=== PATIENT | female | born 1990 | race Caucasian/White ===

== ENCOUNTER → 2021-05-29 07:02 | Outpatient (CLI) | payer OTHER, SELFPAY ==
[2021-05-29 10:11] LABS: Erythrocyte Sedimentation Rate 64 mm/hr (0-30)
[2021-05-29 10:15] LABS: Absolute Lymphocyte Count 1.21 X10^3/uL (0.83-4.51); Absolute Neutrophil Count 5.9 X10^3/uL (2.0-7.7); Basophil# 0.01 X10^3/uL; Basophil% 0.1 % (0-1); Eosinophil# 0.06 X10^3/uL; Eosinophils% 0.8 % (0-5); Hematocrit 38.1 % (37-47); Hemoglobin 11.9 g/dL (12.0-15.0); Lymphocyte # 1.21 X10^3/ul (0.83-4.51); Lymphocyte % 15.9 % (19-41); Mean Corp Hgb Conc 31.2 g/dL (32-36); Mean Corpuscular Hgb 26.5 pg (27.0-32.0); Mean Corpuscular Volume 84.9 fL (81-99); Mean Platelet Vol. 13.6 fl (6.2-12.0); Monocyte# 0.41 X10^3/uL; Monocyte% 5.4 % (0-10); NRBC Flagged by Analyzer 0 % (0-5); Neutrophil # 5.88 X10^3/uL (2.7-7.7); Neutrophil % 77.5 % (47-70); Platelet Count 122 K/mm3 (150-450); RBC Distribution Width SD 40.1 fl (35.1-43.9); Red Blood Count 4.49 M/mm3 (4.2-5.4); White Blood Count 7.6 K/mm3 (4.4-11.0)
[2021-05-29 10:16] LABS: CRP 8.14 mg/L (0.0-3.0); Uric Acid 4.1 mg/dL (2.6-6.0)
[2021-05-30 18:39] LABS: ANTINUCLEAR ANTIBODIES DIRECT Positive (Negative)
== END ==
PROVIDERS: Referring Provider Orthopaedic Surgery; Visit Provider Orthopaedic Surgery
DX: M25.561 Pain in right knee (principal)
CPT/HCPCS: 36415; 84550; 85025; 85652; 86038; 86140; 86431

== ENCOUNTER → 2021-10-23 15:37 | Outpatient (CLI) | payer OTHER, SELFPAY ==
--- NOTE | 2021-10-23 15:42 | RAD_ITS ---
STUDY: X-RAY CHEST REASON FOR EXAM: Female, 30 years old. CHEST PAIN RHEUMATOID ARTHRITIS TECHNIQUE: XR Chest 2 Views COMPARISON: None FINDINGS: There is no demonstrated pleural abnormality. Normal size heart. Normal mediastinum and kar. Normal visualized pulmonary arteries. Normal visualized aortic arch and descending thoracic aorta. Normal visualized thoracic spine. Normal visualized ribs, clavicles, and shoulders. There is no demonstrated abnormality of the visualized soft tissue structures of the upper abdomen. RAD/Chest PA and Lateral IMPRESSION: There are no acute findings. Electronically Signed: Jhonny Eldridge MD at 15:57 EST , Service support ,
[2021-10-23 17:45] LABS: Absolute Lymphocyte Count 1.77 X10^3/uL (0.83-4.51); Absolute Neutrophil Count 5.1 X10^3/uL (2.0-7.7); Basophil# 0.01 X10^3/uL; Basophil% 0.1 % (0-1); Eosinophil# 0.04 X10^3/uL; Eosinophils% 0.5 % (0-5); Hematocrit 36.8 % (37-47); Lymphocyte # 1.77 X10^3/ul (0.83-4.51); Lymphocyte % 23.7 % (19-41); Mean Corp Hgb Conc 32.6 g/dL (32-36); Mean Corpuscular Hgb 28.4 pg (27.0-32.0); Monocyte# 0.54 X10^3/uL; Monocyte% 7.2 % (0-10); NRBC Flagged by Analyzer 0 % (0-5); Neutrophil # 5.07 X10^3/uL (2.7-7.7); Neutrophil % 68.1 % (47-70); POSITIVE COUNT YES; Platelet Count 62 K/mm3 (150-450); RBC Distribution Width CV 16.3 % (11.6-14.6); RBC Distribution Width SD 51.6 fl (35.1-43.9); Red Blood Count 4.23 M/mm3 (4.2-5.4); White Blood Count 7.5 K/mm3 (4.4-11.0)
[2021-10-23 17:52] LABS: Differential Indicated SCAN CRITERIA MET
[2021-10-23 17:56] LABS: AST(SGOT) 16 U/L (15-37); Alanine Aminotransfer ALT/SGPT 26 U/L (13-56); Albumin, Serum 3.6 g/dL (3.2-5.0); Alkaline Phosphatase 72 U/L (45-117); Bilirubin, Direct 0.12 mg/dL (0.00-0.30); Creatinine, Serum 0.72 mg/dL (0.55-1.02); EST Glomerular Filtration Rate 100 mL/min (>60); Est Glom Filt Rate - Afr Amer 121 mL/min (>60); Globulin 5.2 g/dL (2.2-4.2); Protein, Total 8.8 g/dL (6.4-8.2)
[2021-10-23 18:55] LABS: Platelet Estimate MOD DEC (ADEQ); Red Cell Morphology N CHROM NORMAL (NORM C&C)
[2021-10-23 18:56] LABS: Anisocytosis RARE
[2021-10-24 09:19] LABS: Hepatitis B Surface Antibody Reactive; Hepatitis C Antibody Non-Reactive (Nonreactive)
[2021-10-26 21:07] LABS: QNTFERON TB Mitogen Value > 10.00 IU/mL (.); QNTFERON TB Nil Value 0.01 IU/mL (.); QNTFERON TB1+ Ag Value 2.39 IU/mL (.); QNTFERON TB2+ Ag Value 2.04 IU/mL (.)
[2021-10-27 09:00] LABS: Hepatitis B Core Ab Total Negative (Negative); QNTIFERON TB Positive Criteria Positive (Negative)
== END ==
PROVIDERS: PCP Nurse Practitioner Family
DX: M05.79 Rheumatoid arthritis with rheumatoid factor of multiple sites without organ or systems involvement (principal); Z79.899 Other long term (current) drug therapy
CPT/HCPCS: 71046; 80076; 82565; 85025; 86480; 86704; 86706; 86803

== ENCOUNTER → 2023-01-07 | Outpatient (CLI) | payer OTHER, SELFPAY ==
[2023-01-07 10:11] LABS: Absolute Lymphocyte Count 1.23 X10^3/uL (0.83-4.51); Absolute Neutrophil Count 5.3 X10^3/uL (2.0-7.7); Basophil# 0.03 X10^3/uL; Basophil% 0.4 % (0-1); Eosinophils% 2.8 % (0-5); Hematocrit 42.5 % (37-47); Hemoglobin 13.6 g/dL (12.0-15.0); Lymphocyte # 1.23 X10^3/ul (0.83-4.51); Lymphocyte % 17.1 % (19-41); Mean Corpuscular Hgb 29.6 pg (27.0-32.0); Mean Corpuscular Volume 92.6 fL (81-99); Mean Platelet Vol. 9.8 fl (6.2-12.0); Monocyte# 0.43 X10^3/uL; NRBC Flagged by Analyzer 0 % (0-5); Neutrophil # 5.27 X10^3/uL (2.7-7.7); Neutrophil % 73.3 % (47-70); Platelet Count 226 K/mm3 (150-450); RBC Distribution Width CV 12.8 % (11.6-14.6); Red Blood Count 4.59 M/mm3 (4.2-5.4); White Blood Count 7.2 K/mm3 (4.4-11.0)
== END | disposition home or self-care (01) ==
LOC: MTLAB 07:15
PROVIDERS: PCP Nurse Practitioner Family; Referring Provider Internal Medicine Rheumatology; Visit Provider Internal Medicine Rheumatology
DX: Z79.899 Other long term (current) drug therapy (principal)
CPT/HCPCS: 36415; 85025

== ENCOUNTER → 2023-01-21 | Outpatient (CLI) | payer OTHER, SELFPAY ==
[2023-01-21 10:18] LABS: Absolute Lymphocyte Count 1.02 X10^3/uL (0.83-4.51); Absolute Neutrophil Count 5.1 X10^3/uL (2.0-7.7); Basophil# 0.03 X10^3/uL; Basophil% 0.4 % (0-1); Eosinophil# 0.13 X10^3/uL; Eosinophils% 1.9 % (0-5); Hematocrit 42.3 % (37-47); Hemoglobin 13.8 g/dL (12.0-15.0); Lymphocyte # 1.02 X10^3/ul (0.83-4.51); Lymphocyte % 15.1 % (19-41); Mean Corp Hgb Conc 32.6 g/dL (32-36); Mean Corpuscular Hgb 29.7 pg (27.0-32.0); Mean Corpuscular Volume 91.2 fL (81-99); Mean Platelet Vol. 10.6 fl (6.2-12.0); Monocyte# 0.52 X10^3/uL; Monocyte% 7.7 % (0-10); NRBC Flagged by Analyzer 0 % (0-5); Neutrophil # 5.05 X10^3/uL (2.7-7.7); Neutrophil % 74.6 % (47-70); Platelet Count 210 K/mm3 (150-450); RBC Distribution Width CV 12.9 % (11.6-14.6); RBC Distribution Width SD 42.5 fl (35.1-43.9); Red Blood Count 4.64 M/mm3 (4.2-5.4); White Blood Count 6.8 K/mm3 (4.4-11.0)
[2023-01-21 10:33] LABS: AST(SGOT) 21 U/L (15-37); Alanine Aminotransfer ALT/SGPT 26 U/L (13-56); Albumin, Serum 3.6 g/dL (3.2-5.0); Alkaline Phosphatase 93 U/L (45-117); Bilirubin, Direct 0.13 mg/dL (0.00-0.30); Globulin 4.2 g/dL (2.2-4.2); Protein, Total 7.8 g/dL (6.4-8.2)
== END | disposition home or self-care (01) ==
PROVIDERS: PCP Nurse Practitioner Family; Referring Provider Internal Medicine Rheumatology; Visit Provider Internal Medicine Rheumatology
DX: Z79.899 Other long term (current) drug therapy (principal)
CPT/HCPCS: 36415; 80076; 85025

== ENCOUNTER → 2023-05-21 | Outpatient (CLI) | payer OTHER, SELFPAY ==
[2023-05-24 13:07] LABS: QNTFERON TB Mitogen Value > 10.00 IU/mL (.); QNTFERON TB Nil Value 0.15 IU/mL (.); QNTFERON TB1+ Ag Value 2.28 IU/mL (.); QNTFERON TB2+ Ag Value 1.33 IU/mL (.); QNTIFERON TB Positive Criteria Positive (Negative)
== END | disposition home or self-care (01) ==
LOC: MTLAB 12:36
PROVIDERS: PCP Nurse Practitioner Family; Referring Provider Internal Medicine Rheumatology; Visit Provider Internal Medicine Rheumatology
DX: R76.11 Nonspecific reaction to tuberculin skin test without active tuberculosis (principal)
CPT/HCPCS: 36415; 86480

== ENCOUNTER → 2023-06-24 | Outpatient (CLI) | payer OTHER, SELFPAY ==
[2023-06-24 10:03] LABS: Hematocrit 40.4 % (37-47); Hemoglobin 13.3 g/dL (12.0-15.0); Mean Corp Hgb Conc 32.9 g/dL (32-36); Mean Corpuscular Hgb 29.4 pg (27.0-32.0); Mean Corpuscular Volume 89.2 fL (81-99); Mean Platelet Vol. 10.8 fl (6.2-12.0); Platelet Count 164 K/mm3 (150-450); RBC Distribution Width CV 13.3 % (11.6-14.6); RBC Distribution Width SD 43.6 fl (35.1-43.9); Red Blood Count 4.53 M/mm3 (4.2-5.4)
[2023-06-24 10:55] LABS: ALB/GLOB Ratio 0.8 RATIO (0.9-2.4); AST(SGOT) 15 U/L (15-37); Alanine Aminotransfer ALT/SGPT 18 U/L (13-56); Albumin, Serum 3.4 g/dL (3.2-5.0); Alkaline Phosphatase 75 U/L (45-117); Anion Gap 5 (5-15); BUN 16 mg/dL (7-18); BUN/Creat Ratio 24.2 RATIO (10-20); Calcium,Total 8.4 mg/dL (8.5-10.1); Chloride 107 mmol/L (98-107); Cholesterol 109 mg/dL (200); Creatinine, Serum 0.66 mg/dL (0.55-1.02); EST Glomerular Filtration Rate 109 mL/min (>60); Est Glom Filt Rate - Afr Amer 131 mL/min (>60); Globulin 4.3 g/dL (2.2-4.2); Glucose 95 mg/dL (74-106); High Density Lipoprotein 35 mg/dL; Potassium 4.3 mmol/L (3.5-5.1); Protein, Total 7.7 g/dL (6.4-8.2); Sodium Level 137 mmol/L (136-145); Triglycerides 61 mg/dL; Very Low Density Lipoprotein 12 mg/dL (5-40)
== END | disposition home or self-care (01) ==
LOC: MTLAB 07:04
PROVIDERS: PCP Nurse Practitioner Family; Visit Provider Nurse Practitioner Family
DX: Z00.00 Encounter for general adult medical examination without abnormal findings (principal)
CPT/HCPCS: 36415; 80053; 80061; 85027

== ENCOUNTER → 2023-07-16 | Outpatient (CLI) | payer OTHER, SELFPAY ==
[2023-07-16 10:46] LABS: AST(SGOT) 12 U/L (15-37); Alanine Aminotransfer ALT/SGPT 16 U/L (13-56); Albumin, Serum 3.3 g/dL (3.2-5.0); Alkaline Phosphatase 83 U/L (45-117); Bilirubin, Direct 0.08 mg/dL (0.00-0.30); Globulin 4.3 g/dL (2.2-4.2); Protein, Total 7.6 g/dL (6.4-8.2)
== END | disposition home or self-care (01) ==
LOC: MTLAB 07:11
PROVIDERS: PCP Nurse Practitioner Family; Referring Provider Internal Medicine Infectious Disease; Visit Provider Internal Medicine Infectious Disease
DX: R76.12 Nonspecific reaction to cell mediated immunity measurement of gamma interferon antigen response without active tuberculosis (principal); M05.20 Rheumatoid vasculitis with rheumatoid arthritis of unspecified site; Z91.89 Other specified personal risk factors, not elsewhere classified; Z51.81 Encounter for therapeutic drug level monitoring
CPT/HCPCS: 36415; 80076

== ENCOUNTER → 2023-08-10 | Outpatient (CLI) | payer OTHER, SELFPAY ==
[2023-08-10 18:28] LABS: AST(SGOT) 8 U/L (15-37); Alanine Aminotransfer ALT/SGPT 17 U/L (13-56); Albumin, Serum 3.6 g/dL (3.2-5.0); Alkaline Phosphatase 76 U/L (45-117); Globulin 4.6 g/dL (2.2-4.2); Protein, Total 8.2 g/dL (6.4-8.2)
== END | disposition home or self-care (01) ==
LOC: MTLAB 15:31
PROVIDERS: PCP Nurse Practitioner Family; Referring Provider Internal Medicine Infectious Disease; Visit Provider Internal Medicine Infectious Disease
DX: R76.12 Nonspecific reaction to cell mediated immunity measurement of gamma interferon antigen response without active tuberculosis (principal); M05.20 Rheumatoid vasculitis with rheumatoid arthritis of unspecified site; Z91.89 Other specified personal risk factors, not elsewhere classified; Z51.81 Encounter for therapeutic drug level monitoring
CPT/HCPCS: 36415; 80076

== ENCOUNTER → 2024-12-26 | Outpatient (CLI) | payer OTHER, SELFPAY ==
[2024-12-26 10:15] LABS: Absolute Lymphocyte Count 1.02 X10^3/uL (0.83-4.51); Absolute Neutrophil Count 4.2 X10^3/uL (2.0-7.7); Basophil# 0.01 X10^3/uL; Basophil% 0.2 % (0-1); Hematocrit 39.2 % (37-47); Hemoglobin 11.9 g/dL (12.0-15.0); Lymphocyte # 1.02 X10^3/ul (0.83-4.51); Lymphocyte % 18.2 % (19-41); Mean Corp Hgb Conc 30.4 g/dL (32-36); Mean Corpuscular Hgb 25.8 pg (27.0-32.0); Mean Corpuscular Volume 84.8 fL (81-99); Mean Platelet Vol. 10.8 fl (6.2-12.0); Monocyte# 0.38 X10^3/uL; Monocyte% 6.8 % (0-10); NRBC Flagged by Analyzer 0 % (0-5); Neutrophil # 4.18 X10^3/uL (2.7-7.7); Neutrophil % 74.4 % (47-70); Platelet Count 176 K/mm3 (150-450); RBC Distribution Width CV 14.9 % (11.6-14.6); RBC Distribution Width SD 45.3 fl (35.1-43.9); Red Blood Count 4.62 M/mm3 (4.2-5.4); White Blood Count 5.6 K/mm3 (4.4-11.0)
[2024-12-26 10:26] LABS: CRP 7.35 mg/L (0.0-3.0)
[2024-12-26 10:42] LABS: Erythrocyte Sedimentation Rate 37 mm/hr (0-30)
== END | disposition home or self-care (01) ==
LOC: MTLAB 07:12
PROVIDERS: PCP Nurse Practitioner Family
DX: M05.79 Rheumatoid arthritis with rheumatoid factor of multiple sites without organ or systems involvement (principal); Z79.899 Other long term (current) drug therapy
CPT/HCPCS: 36415; 85025; 85652; 86140

== ENCOUNTER 2025-01-23 16:39 | Inpatient (IN) | payer OTHER, SELFPAY ==
[2025-01-23] VITALS (10 sets, daily range): BP systolic 112–156; BP diastolic 62–96; PULSE 68–108; RESP 12–19; TEMP 36.6–37.1; O2SAT 97–100; BMI 35.9; BMI 36.1
--- NOTE | 2025-01-23 16:50 | RAD_ITS ---
PROCEDURE: KNEE 4 OR MORE VIEWS REASON FOR EXAM: Swelling TECHNIQUE: 4 view(s) of the right knee COMPARISON: None. FINDINGS: No fracture. No suspicious bone lesion. Severe tricompartmental narrowing with osteophyte formation. Small suprapatellar joint effusion. Soft tissues are unremarkable. RAD/Knee 4 or More Views IMPRESSION: Severe degenerative changes of the knee joint as described above with suprapate llar joint effusion. No acute fracture. Reading Location: [facility]
--- NOTE | 2025-01-23 18:07 | ED.VIS.LOWEX ---
HPI History of Present Illness HPI Narrative: Patient presents with right knee pain and swelling that began yesterday. Patient states it has gotten progressively worse. Patient describes her pain as sharp. Patient states it is worse with movement. Patient states she was recently prescribed prednisone which seemed to help somewhat. Patient denies any paresthesias or weakness. Patient states she has a history of rheumatoid arthritis. The patient states she saw her material handler 2nd shift today who drained her knee. Crossing Gateman referred the patient to the emergency department because the synovial fluid looked infected. There was synovial fluid cell count of [id number] with 86% PMNs. There were no crystals noted. Synovial fluid was sent for Gram stain and culture. CBC was also drawn at the material handler 2nd shift office which showed a mild leukocytosis of 12.4. Chief Complaint: Lower Extremity Injury Informant: patient Onset/Context/Timing Onset: Yesterday Context: Gradual Onset Timing: Continuous Quality of Pain: Sharp Location: Right knee Worsened by: Movement Relieved by: Prednisone Associated Symptoms Associated Symptoms: Negative for Parasthesia, Weakness or Loss of Funtion PFSH PFSH Medical History Dyspepsia H. pylori infection Anemia Thrombocytopenia Rheumatoid arthritis Home Medications ?Medication ?Instructions ?Recorded ?Last Taken ?Type fluticasone propionate 50 1 spray intranasal DAILY 10/03/21 Unknown History mcg/actuation nasal spray,suspension (Flonase Allergy Relief) folic acid 1 mg tablet 1 mg PO DAILY 10/03/21 Unknown History meloxicam 15 mg tablet 15 mg PO DAILY 10/03/21 Unknown History methotrexate (PF) 7.5 mg/0.15 mL 7.5 mg subcut QWEEK 10/03/21 Unknown History subcutaneous auto-injector prednisone 5 mg tablet 5 mg PO DAILY PRN 10/07/21 Unknown History Allergy/AdvReac Type Severity Reaction Status Date / Time No Known Allergies Allergy Verified 01/23/25 16:40 Family History Grandmother Heart disease Mother Lung cancer Grandfather Heart disease Diabetes Surgical History Imbler teeth extracted Social History Smoking Status: Never smoker second hand exposure: No alcohol intake: current alcohol intake frequency: a few times a week details: occasionally substance use type: does not use rafael/presybeterian: None seatbelt use: always do you feel safe at home: Yes ROS ROS ED Constitutional Constitutional ED: Reports fever(s); Denies chills Eyes Eyes: Denies blurry vision or change in vision ENT ENT ED: Denies rhinorrhea or sore throat Cardiovascular Cardiovascular: Denies chest pain or palpitations Respiratory/Chest Respiratory/Chest: Denies cough or dyspnea Gastrointestinal Gastrointestinal: Denies nausea or vomiting Genitourinary Genitourinary ED: Denies dysuria or hematuria Musculoskeletal Musculoskeletal: Denies back pain or neck pain Integumentary Denies abscess or rash Neurologic Neurologic: Denies headache(s) or weakness Allergic/Immunologic Allergic/Immunologic ED: Denies mouth swelling or urticaria EXAM Physical Exam Const Vital Signs: 01/23/25 16:40 01/23/25 16:42 Temperature 98 F 98 F Temperature Source Temporal Oral Pulse Rate 108 H 108 H Respiratory Rate 19 H 19 H Blood Pressure 156/89 H 156/89 H Blood Pressure Mean 111 111 Pulse Ox 100 100 Oxygen Delivery Method Room Air Room Air Positive well nourished and well developed General Appearance ED: well developed and NAD HEENT Reports moist mucous membranes Neck full ROM and supple Resp normal respiratory effort and clear to auscultation bilaterally Cardio regular rate and regular rhythm Extremity Extremity Narrative: There is tenderness and effusion to the right knee. There is no bony crepitus or step-off. There is some mild pain with flexion past 60 degrees. There is minimal pain with short arc range of motion. Extensor mechanism is intact. Pedal pulses are equal bilaterally. Sensation was intact to light touch bilaterally in lower extremities. Neuro oriented x3, CN's II-XII intact bilaterally, moves all extremities and no sensory deficits noted Sensorium / Orientation: alert Motor Exam: strength 5/5 throughout MDM MDM MDM Narrative Medical decision making narrative: Differential diagnose includes septic arthritis, internal derangement, and occult fracture. CBC will be obtained to assess for leukocytosis and anemia. Basic metabolic profile will be obtained to assess for electrolyte abnormality and renal function. Blood culture will be obtained to assess for sepsis. X-rays of the left knee will be obtained to assess for occult fracture and loose body. Lab Data Attestation: I reviewed the patient's lab results. Lab results narrative: CBC was reviewed. White blood cell count was improved to 10.6. There is a mild anemia with a hemoglobin of 11.8 and hematocrit 36.3. Basic metabolic profile was reviewed and was essentially within normal limits. Radiography Diagnostic Testing: Clinical Impression(s) from Imaging Studies Knee X-Ray 01/23/25 16:50 IMPRESSION: Severe degenerative changes of the knee joint as described above with suprapatellar joint effusion. No acute fracture. [facility] of the left knee were obtained. There are 4 views. On my independent interpretation, there is no acute fracture. There is a mild effusion. Radiologist also interpreted the x-ray and agrees. Management Discussion w/another healthcare provider: Hospitalist and [facility] Gluer Treatment and Re-Evaluation Narrative: Patient was started on Ancef. Case was discussed with Dr. Romo. He agreed with the treatment and stated the patient will probably need to have her knee washed out tomorrow. Case was discussed with the hospitalist. She will admit the patient to her service. Patient understood and was agreeable with the plan. All questions were answered. Discharge Plan Triage Chief Complaint: Lower Extremity Injury ED Provider: Ian Moctezuma Dx/Rx/DC Orders Clinical Impression: Septic arthritis of knee, right, Rheumatoid arthritis Prescriptions: No Action folic acid 1 mg tablet 1 mg PO DAILY meloxicam 15 mg tablet 15 mg PO DAILY methotrexate (PF) 7.5 mg/0.15 mL auto-injector 7.5 mg subcut QWEEK fluticasone propionate [Flonase Allergy Relief] 50 mcg/actuation spray,suspension 1 spray intranasal DAILY Rx Instructions: administer into each nostril prednisone 5 mg tablet 5 mg PO DAILY PRN Primary Care Provider: Amira Tijerina NP Referrals: Amira Tijerina NP, SOFTWARE SUPPORT ANALYST-C [Primary Care Provider] - Print Language: Bhutanese Disposition Disposition: [facility]
[2025-01-23 18:38] LABS: Absolute Lymphocyte Count 1.54 X10^3/uL (0.83-4.51); Basophil# 0.02 X10^3/uL; Basophil% 0.2 % (0-1); Hematocrit 36.3 % (37-47); Hemoglobin 11.8 g/dL (12.0-15.0); Lymphocyte # 1.54 X10^3/ul (0.83-4.51); Lymphocyte % 14.5 % (19-41); Mean Corp Hgb Conc 32.5 g/dL (32-36); Mean Corpuscular Hgb 26.6 pg (27.0-32.0); Mean Corpuscular Volume 81.9 fL (81-99); Mean Platelet Vol. 10.7 fl (6.2-12.0); Monocyte# 1.02 X10^3/uL; Monocyte% 9.6 % (0-10); NRBC Flagged by Analyzer 0 % (0-5); Neutrophil % 75.1 % (47-70); Platelet Count 188 K/mm3 (150-450); RBC Distribution Width CV 15.1 % (11.6-14.6); RBC Distribution Width SD 44.4 fl (35.1-43.9); Red Blood Count 4.43 M/mm3 (4.2-5.4); White Blood Count 10.6 K/mm3 (4.4-11.0)
--- NOTE | 2025-01-23 18:51 | ED.RN ---
PHARMACY CALLED FOR ANTIBIOTICS. NOT IN DEPARTMENT. RESPONSE, I WILL LOOK
[2025-01-23] MEDS: Cefazolin 2 GM in Syringe IV (19:00)
[2025-01-23 19:13] LABS: Anion Gap 10 (5-15); BUN 14 mg/dL (4-19); BUN/Creat Ratio 21.6 RATIO (10-20); Carbon Dioxide 21.8 mmol/L (21.0-32.0); Chloride 103 mmol/L (98-108); Creatinine, Serum 0.65 mg/dL (0.70-1.20); EST Glomerular Filtration Rate 117 (>60); Estimated Creatinine Clearance 138.49 ml/min (50-250); Glucose 119 mg/dL (70-99); Potassium 3.6 mmol/L (3.3-5.1); Sodium Level 135 mmol/L (133-145)
--- NOTE | 2025-01-23 19:32 | HP.PCM.HOS_ITS ---
HPI - General General Date of Admission: 01/23/25 Date of Service: 01/23/25 Chief Complaint: R knee pain, intractable. HPI Narrative The patient is a 34 y/o F w/ PMHx: Obesity, Rheumatoid arthritis diagnosed in 2020 treated with MTX however had associated thrombocytopenia this regimen altered, Chronic normocytic anemia, GERD who presents to the [facility] ED on 01/23/25 with history of onset R knee pain, also in the shoulder and elbow the day prior yesterday, placed on prednisone, elbow and shoulder better but not knee, low grade T, no history of recen trauma, kept having knee pain. aspiration per her chef assistant with cultures reportedly sent ([facility]) Spittle, needs wash out Workup in the ED included T98, heart rate 108, BP 156/89, respiratory rate 19, 10% on room air with most recent repeat vitals T98.8, heart rate 100, BP 130/80, respiratory rate 12, 98% on room air, CBC with WBC 10.6, hemoglobin 0.8, MCV 81.9, platelet 188 with left shift, BMP with BUN/creatinine 14/0.65, glucose 119, plain film of the right knee with severe degenerative changes of the knee joint with severe patellar joint effusion with no evidence of any acute fracture with severe tricompartmental narrowing with osteophyte formation with soft tissues unremarkable, blood culture x 2 pending per ED. In the ED patient administered Ancef 2 g IV x 1. #1. Intractable right knee pain, edema, redness with recent joint aspiration with concern for septic joint: Will admit to [facility], maintain on IV Vanco and cefepime pending cultures, orthopedic surgery consulted and following, plan repeat CBC in AM, continue affected extremity elevation above heart when seated and in bed, will have as needed oral and IV pain regimen, antiemetics, judicious IV fluids, plan n.p.o. status after midnight for possible operative intervention needs, infectious disease also consulted. #2. Rheumatoid arthritis: Per current list appears to be on Cimzia, azathioprine, sulfasalazine, previously Humira and intermittent prednisone as well as intermittent meloxicam but clarifying his medications have not been reconciled, previously been on methotrexate but this per records had been associated with thrombocytopenia which appears currently resolved, may be no longer taking. #3. Chronic normocytic anemia: Admission hemoglobin 11.8, MCV 81.9, baseline hemoglobin most recently 01/15/25 hemoglobin 11.9, similar, continue to trend. #4. History of thrombocytopenia: Admission platelets 188, previously had been low but from review of oncology/hematology notes appears to be related to previous usage of methotrexate. #5. Allergic rhinitis: We will continue patient on fluticasone regimen. #6. Obesity: Weight loss and lifestyle changes encouraged. #7. GERD: Not on any chronic regimen per current list, will have as needed Mylanta #8. DVT prophylaxis: SCDs, hold chemoprophylaxis for planned operative intervention. [facility] Medical History Dyspepsia H. pylori infection Anemia Thrombocytopenia Rheumatoid arthritis Home Medications ?Medication ?Instructions ?Recorded ?Last Taken ?Type fluticasone propionate 50 1 spray intranasal DAILY 11/11 Unknown History mcg/actuation nasal spray,suspension (Flonase Allergy Relief) folic acid 1 mg tablet 1 mg PO DAILY 10/03/21 Unkno wn History meloxicam 15 mg tablet 15 mg PO DAILY 10/03/21 Unkn own History methotrexate (PF) 7.5 mg/0.15 mL 7.5 mg subcut QWEEK 1 12/03/20 Unknown History subcutaneous auto-injector prednisone 5 mg tablet 5 mg PO DAILY PRN 10/07/21 U nknown History Allergy/AdvReac Type Severity Reaction Status Date / Time No Known Allergies Allergy Verified 01/23/25 16:40 Family History Grandmother Heart disease Mother Lung cancer Grandfather Heart disease Diabetes Surgical History Ledger teeth extracted Social History Smoking Status: Never smoker second hand exposure: No alcohol intake: current alcohol intake frequency: a few times a week details: occasionally substance use type: does not use rafael/spiritism: None seatbelt use: always do you feel safe at home: Yes Vital Signs Vital Signs Vital Signs: 01/23/25 16:40 01/23/25 16:42 01/23/25 17:42 Temperature 98 F 98 F 98.8 F Temperature Source Temporal Oral Oral Pulse Rate 108 H 108 H 98 Respiratory Rate 19 H 19 H 12 Blood Pressure 156/89 H 156/89 H 130/82 H Blood Pressure Mean 111 111 98 Pulse Ox 100 100 98 Oxygen Delivery Method Room Air Room Air Room Air 01/23/25 18:00 Temperature 98.8 F Temperature Source Oral Pulse Rate 100 Respiratory Rate 12 Blood Pressure 130/80 H Blood Pressure Mean 96 Pulse Ox 98 Oxygen Delivery Method Room Air Weight Weight: 215 lb 9.793 oz Body Mass Index (BMI) 35.9 Results Lab / Micro Data 01/23/25 18:22 01/23/25 18:22 Labs: Laboratory Results - last 24 hr 01/23/25 18:22: WBC 10.6, RBC 4.43, Hgb 11.8 L, Hct 36.3 L, MCV 81.9, MCH 26.6 L , MCHC 32.5, RDW Std Deviation 44.4 H, RDW Coeff of Vijay 15.1 H, Plt Count 188, MPV 10.7, Immature Gran % (Auto) 0.600, Neut % (Auto) 75.1 H, Lymph % (Auto) 14.5 L, Colbert % (Auto) 9.6, Eos % (Auto) 0.0, Baso % (Auto) 0.2, Absolute Neuts (auto) 8.0 H, Absolute Lymphs (auto) 1.54, Nucleated RBC % 0, Sodium 135, Potassium 3.6, Chloride 103, Carbon Dioxide 21.8, Anion Gap 10, BUN 14, C reatinine 0.65 L, Estim Creat Clear Calc 138.49, Est GFR (MDRD) Non-Af 117, B UN/Creatinine Ratio 21.6 H, Glucose 119 H, Calcium 9.0 Imaging Radiology Impression Knee X-Ray 01/23/25 16:50 IMPRESSION: Severe degenerative changes of the knee joint as described above with suprapatellar joint effusion. No acute fracture. [facility]
--- NOTE | 2025-01-23 19:32 | PCM.HP.STD ---
HPI - General General Date of Admission: 01/23/25 Date of Service: 01/23/25 Chief Complaint: R knee pain, intractable. HPI Narrative The patient is a 34 y/o F w/ PMHx: Obesity, Rheumatoid arthritis diagnosed in 2020 treated with MTX however had associated thrombocytopenia this regimen altered, Chronic normocytic anemia, GERD who presents to the [facility] ED on 01/23/25 with history of onset right knee pain, bilateral shoulder discomfort and right elbow pain starting 24 hours prior which was consistent per her report to previous episodes of rheumatoid arthritis flare with initiation of a burst of prednisone with a total of 30 mg on current day of presentation and also evaluation by her claims adjustor who did perform a right knee arthrocentesis and the fluid was sent for culture to be cautious following which she notes the pain improved however she had low-grade temperatures and fatigue and malaise eventually prompting referral to the ED given concerns per claims adjustor of infection. She did report significant knee swelling but was mildly improved following the arthrocentesis per the claims adjustor. She notes that it does still feel swollen. She denies any redness but notes that the knee was warm to touch. She denies any recent history of trauma. She does note recent dental pain in the last 2 weeks but otherwise no recent infectious concerns. Pain currently at rest 3/10 in severity, 8-10/10 prior, improved after initial aspiration. Workup in the ED included T98, heart rate 108, BP 156/89, respiratory rate 19, 10% on room air with most recent repeat vitals T98.8, heart rate 100, BP 130/80, respiratory rate 12, 98% on room air, CBC with WBC 10.6, hemoglobin 0.8, MCV 81.9, platelet 188 with left shift, BMP with BUN/creatinine 14/0.65, glucose 119, plain film of the right knee with severe degenerative changes of the knee joint with severe patellar joint effusion with no evidence of any acute fracture with severe tricompartmental narrowing with osteophyte formation with soft tissues unremarkable, blood culture x 2 pending per ED. In the ED patient administered Ancef 2 g IV x 1. ED discussed case with orthopedic surgeon Dr. Romo who noted likely knee would need to be washed out. [facility] Medical History Obesity Dyspepsia H. pylori infection Anemia Thrombocytopenia Rheumatoid arthritis Home Medications ?Medication ?Instructions ?Recorded ?Last Taken ?Type fluticasone propionate 50 1 spray intranasal DAILY 10/03/21 Unknown History mcg/actuation nasal spray,suspension (Flonase Allergy Relief) meloxicam 15 mg tablet 15 mg PO DAILY 10/03/21 Unknown History azathioprine 50 mg tablet 50 mg PO DAILY 01/23/25 Unknown History prednisone 10 mg tablet 10 mg PO Q12H 01/23/25 Unknown History sulfasalazine 500 mg 1,500 mg PO BID 01/23/25 Unknown History tablet,delayed release Allergy/AdvReac Type Severity Reaction Status Date / Time No Known Allergies Allergy Verified 01/23/25 16:40 Family History Grandmother Heart disease Mother Lung cancer Grandfather Heart disease Diabetes other (Patient does not know her paternal family history or paternal medical history.) Surgical History [place] teeth extracted Social History (Updated 01/23/25 @ 20:[address]iney [address] MD) household members: other details: Lives with her sister. Smoking Status: Never smoker second hand exposure: No alcohol intake: current alcohol intake frequency: a few times a week details: occasionally substance use type: does not use rafael/amish: None seatbelt use: always do you feel safe at home: Yes ROS ROS Narrative Admission Review of Systems: CONSTITUTIONAL: No weight loss, +low grade fever, weakness or fatigue. HEENT: Eyes: No visual loss, blurred vision, double vision or yellow sclerae. Ears, Nose, Throat: No hearing loss, sneezing, congestion, runny nose or sore throat. SKIN: No rash or itching, lesions, wounds. CARDIOVASCULAR: No chest pain, chest pressure or chest discomfort, palpitations, edema, orthopnea, syncopal events. RESPIRATORY: No shortness of breath, cough or sputum, wheezing, hemoptysis. GASTROINTESTINAL: No anorexia, nausea, vomiting or diarrhea, abdominal pain, melena, BRBPR. GENITOURINARY: No dysuria, frequency, urgency or retention. NEUROLOGICAL: No headache, dizziness, syncope, paralysis, ataxia, numbness or tingling in the extremities, focal weakness, change in bowel or bladder control, seizure. MUSCULOSKELETAL: + muscle, back pain, joint pain or stiffness. HEMATOLOGIC: Chronic anemia, no easy history of bleeding/bruising currently, history in the past remotely of thrombocytopenia.+ LYMPHATICS: No enlarged nodes. No history of splenectomy. PSYCHIATRIC: No history of depression or anxiety. ENDOCRINOLOGIC: No reports of sweating, cold or heat intolerance. No polyuria or polydipsia. ALLERGIES: + History of allergic rhinitis. Vital Signs Vital Signs Vital Signs: 01/23/25 16:40 01/23/25 16:42 01/23/25 17:42 Temperature 98 F 98 F 98.8 F Temperature Source Temporal Oral Oral Pulse Rate 108 H 108 H 98 Respiratory Rate 19 H 19 H 12 Blood Pressure 156/89 H 156/89 H 130/82 H Blood Pressure Mean 111 111 98 Pulse Ox 100 100 98 Oxygen Delivery Method Room Air Room Air Room Air 01/23/25 18:00 Temperature 98.8 F Temperature Source Oral Pulse Rate 100 Respiratory Rate 12 Blood Pressure 130/80 H Blood Pressure Mean 96 Pulse Ox 98 Oxygen Delivery Method Room Air Weight Weight: 215 lb 9.793 oz Body Mass Index (BMI) 35.9 Physical Exam Narrative Physical Examination: General: Awake, alert, oriented x 3 and cooperative, seated upright in the ED chair, currently denies any severe pain but at rest, right knee pain worse with any activity attempt. Skin: Normal color, normal turgor, no icterus, no cyanosis. HEENT: AT/NC, EOMI, PERRLA, MMM, no carotid bruits or JVD noted. Lungs: CTA bilaterally, moderate effort, mild decrease BL bases, no rales, ronchi or wheezing. Heart: Improved, currently regular rate and rhythm; no gallop, rub audible. Abdomen: Soft, obese, NTTP, ND, normal BS, no appreciated HSM. Extremities: No cyanosis, no clubbing, right knee with evident continued effusion, increased warmth to touch compared to the other knee, no obvious erythema. Neurological: Patient awake, alert, oriented as noted, cognitive function intact; pupils equally reactive to light and accommodation, cranial nerves gross normal, moving all 4 extremities although limited right knee given pain induced with activity and bearing weight, strength accordingly moderately globally decreased. Psychiatric: Affect appears fatigued otherwise normal, no acute evidence of depressive or anxiety feelings. Results Lab / Micro Data 01/23/25 18:22 01/23/25 18:22 Labs: Laboratory Results - last 24 hr 01/23/25 18:22: WBC 10.6, RBC 4.43, Hgb 11.8 L, Hct 36.3 L, MCV 81.9, MCH 26.6 L, MCHC 32.5, RDW Std Deviation 44.4 H, RDW Coeff of Vijay 15.1 H, Plt Count 188, MPV 10.7, Immature Gran % (Auto) 0.600, Neut % (Auto) 75.1 H, Lymph % (Auto) 14.5 L, [place] % (Auto) 9.6, Eos % (Auto) 0.0, Baso % (Auto) 0.2, Absolute Neuts (auto) 8.0 H, Absolute Lymphs (auto) 1.54, Nucleated RBC % 0, Sodium 135, Potassium 3.6, Chloride 103, Carbon Dioxide 21.8, Anion Gap 10, BUN 14, Creatinine 0.65 L, Estim Creat Clear Calc 138.49, Est GFR (MDRD) Non-Af 117, BUN/Creatinine Ratio 21.6 H, Glucose 119 H, Calcium 9.0 Imaging Radiology Impression Knee X-Ray 01/23/25 16:50 IMPRESSION: Severe degenerative changes of the knee joint as described above with suprapatellar joint effusion. No acute fracture. [facility] Assessment & Plan Assessment/Plan (1) Septic arthritis of knee, right: PLAN: Plan The patient is a 34 y/o F w/ PMHx: Obesity, Rheumatoid arthritis diagnosed in 2020 treated with MTX however had associated thrombocytopenia this regimen altered, Chronic normocytic anemia, GERD who presents to the [facility] ED on 01/23/25 with history of onset right knee pain, bilateral shoulder discomfort and right elbow pain starting 24 hours prior which was consistent per her report to previous episodes of rheumatoid arthritis flare with initiation of a burst of prednisone with a total of 30 mg on current day of presentation and also evaluation by her claims adjustor who did perform a right knee arthrocentesis and the fluid was sent for culture to be cautious following which she notes the pain improved however she had low-grade temperatures and fatigue and malaise eventually prompting referral to the ED given concerns per claims adjustor of infection. #1. Intractable right knee pain, edema, redness with recent joint aspiration with concern for septic joint: Will admit to [facility], maintain on IV Vanco and cefepime pending cultures, orthopedic surgery consulted and following, plan repeat CBC in AM, continue affected extremity elevation above heart when seated and in bed, will have as needed oral and IV pain regimen, antiemetics, judicious IV fluids, plan n.p.o. status after midnight for possible operative intervention needs, ESR and CRP requested, infectious disease also consulted. #2. Rheumatoid arthritis with recent flare: Per current list appears to be on Cimzia, azathioprine, sulfasalazine, previously Humira and intermittent prednisone as well as intermittent meloxicam but clarifying his medications have not been reconciled, previously been on methotrexate but this per records had been associated with thrombocytopenia which appears currently resolved, may be no longer taking. Will hold on further aggressive steroids per discussion with patient given concerns for #1 acute infection. #3. Elevated BP without hypertensive diagnosis: BP upon presentation elevated above goal, likely pain related, continue to monitor and add regimen if appropriate, in the interim as needed IV hydralazine. #4. Chronic normocytic anemia: Admission hemoglobin 11.8, MCV 81.9, baseline hemoglobin most recently 01/15/25 hemoglobin 11.9, similar, continue to trend. #5. History of thrombocytopenia: Admission platelets 188, previously had been low but from review of oncology/hematology notes appears to be related to previous usage of methotrexate. #6. Allergic rhinitis: We will continue patient on fluticasone regimen. #7. Obesity: Weight loss and lifestyle changes encouraged. #8. GERD: Not on any chronic regimen per current list, will have as needed Mylanta #9. DVT prophylaxis: SCDs, hold chemoprophylaxis for planned operative intervention. Charges/Coding Visit Charges Inpatient E&M: 17429 Init Hosp L3
[2025-01-23 20:06] LABS: Erythrocyte Sedimentation Rate 87 mm/hr (0-30)
--- NOTE | 2025-01-23 20:44 | CON.PCM.OR_ITS ---
HPI Consult Data Date of Consult: 01/23/25 HPI Narrative HPI Narrative: LAINE DE PAZ, is a 34 F/history of rheumatoid arthritis, obesity who presented to [facility] after 1 day of right knee pain, bilateral shoulder discomfort and right elbow pain. She felt this was consistent with prior RA flares. She started prednisone without improvement in the other joints besides from the. She saw her head grease maker today. Arthrocentesis was performed in the office and is concerning for infection. Emergency department physician, synovial fluid cell count of [id number] with 86% PMNs. No crystals. Synovial fluid was sent for Gram stain and culture. Speaking with the patient, she reports the fluid was milky in appearance. She states she feels much better after arthrocentesis. She reports approximately 70 cc was aspirated during the arthrocentesis. No fevers or chills. Denies any recent illness. Denies any recent sick contacts. She reports daily soreness in her right knee and is aware of previously severe arthritic changes in the knee. Denies any prior complications with anesthesia. Denies family history of anesthetic complication. Denies DVT or PE history. [facility] Medical History Obesity Dyspepsia H. pylori infection Anemia Thrombocytopenia Rheumatoid arthritis Home Medications ?Medication ?Instructions ?Recorded ?Last Taken ?Type fluticasone propionate 50 1 spray intranasal DAILY 11/11 Unknown History mcg/actuation nasal spray,suspension (Flonase Allergy Relief) meloxicam 15 mg tablet 15 mg PO DAILY 10/03/21 Unkn own History azathioprine 50 mg tablet 50 mg PO DAILY 01/23/25 Unkn own History prednisone 10 mg tablet 10 mg PO Q12H 01/23/25 Unkno wn History sulfasalazine 500 mg 1,500 mg PO BID 01/23/25 Unk nown History tablet,delayed release Allergy/AdvReac Type Severity Reaction Status Date / Time No Known Allergies Allergy Verified 01/23/25 16:40 Family History Grandmother Heart disease Mother Lung cancer Grandfather Heart disease Diabetes Family History other Surgical History [place] teeth extracted Social History household members: other details: Lives with her sister. Smoking Status: Never smoker second hand exposure: No alcohol intake: current alcohol intake frequency: a few times a week details: occasionally substance use type: does not use rafael/jehovah's witness: None seatbelt use: always do you feel safe at home: Yes ROS ROS Narrative 12 point review systems obtained, negative unless otherwise noted in HPI. Vital Signs Vital Signs Vital Signs: 01/23/25 16:40 01/23/25 16:42 01/23/25 17:42 Temperature 98 F 98 F 98.8 F Temperature Source Temporal Oral Oral Pulse Rate 108 H 108 H 98 Respiratory Rate 19 H 19 H 12 Blood Pressure 156/89 H 156/89 H 130/82 H Blood Pressure Mean 111 111 98 Pulse Ox 100 100 98 Oxygen Delivery Method Room Air Room Air Room Air 01/23/25 18:00 01/23/25 19:00 01/23/25 19:40 Temperature 98.8 F 98.5 F 98.5 F Temperature Source Oral Oral Pulse Rate 100 80 68 Respiratory Rate 12 12 12 Blood Pressure 130/80 H 119/67 125/87 H Blood Pressure Mean 96 84 99 Pulse Ox 98 98 98 Oxygen Delivery Method Room Air Room Air 01/23/25 20:00 Temperature 98.8 F Temperature Source Oral Pulse Rate 75 Respiratory Rate 12 Blood Pressure 112/62 Blood Pressure Mean 78 Pulse Ox 98 Oxygen Delivery Method Room Air Weight Weight: 215 lb 9.793 oz Body Mass Index (BMI) 35.9 Physical Exam Narrative General -A&Ox3, NAD, appears stated age. Vital signs stable, afebrile. Respiratory -normal work of breathing, no intercostal retractions. CV -pulses regular, brisk capillary refill ?4 limbs. Abdomen-soft, nontender, nondistended. No guarding, rigidity, rebound tenderness. Musculoskeletal/neurologic -full range of motion nontender throughout bilateral upper extremities, left lower extremity with full sensation and strength in all dermatomes and myotomes. No midline cervical tenderness. Right knee: Tolerates range of motion 5-90 degrees. Stable varus valgus stressing. Trace effusion. Minimal warmth within the knee. DF, PF, EHL 5/5. Sensation intact throughout. No erythema. DP 2+, brisk capillary fill in toes. Lab / Micro Data 01/23/25 18:22 01/23/25 18:22 Labs: Laboratory Results - last 24 hr 01/23/25 18:22: WBC 10.6, RBC 4.43, Hgb 11.8 L, Hct 36.3 L, MCV 81.9, MCH 26.6 L , MCHC 32.5, RDW Std Deviation 44.4 H, RDW Coeff of [place]ijay 15.1 H, Plt Count 188, MPV 10.7, Immature Gran % (Auto) 0.600, Neut % (Auto) 75.1 H, Lymph % (Auto) 14.5 L, [place] % (Auto) 9.6, Eos % (Auto) 0.0, Baso % (Auto) 0.2, Absolute Neuts (auto) 8.0 H, Absolute Lymphs (auto) 1.54, Nucleated RBC % 0, ESR 87 H, Sodium 135, Potassium 3.6, Chloride 103, Carbon Dioxide 21.8, Anion Gap 10, BUN 14, C reatinine 0.65 L, Estim Creat Clear Calc 138.49, Est GFR (MDRD) Non-Af 117, B UN/Creatinine Ratio 21.6 H, Glucose 119 H, Calcium 9.0, C-React Prot Ext Range 174.00 H Imaging Radiology Impression Knee X-Ray 01/23/25 16:50 IMPRESSION: Severe degenerative changes of the knee joint as described above with suprapatellar joint effusion. No acute fracture. Reading [facility] Assessment & Plan Assessment/Plan (1) Septic arthritis of knee, right: PLAN: Patient seen and examined in the emergency department. Relatively benign exam for septic arthritis. Suspect this is d/t blunted immune response with antirheumatics and recent therapeutic/dx arthrocentesis. I explained to the patient that based upon fluid analysis as well as the apparent gross consistency/color of the synovial fluid, arthroscopic I&D is recommended. I recommended we obtain repeat cultures intraop to ensure organism ID, C&S. NPO after midnight. Risks, benefits, alternatives to procedure were reviewed with the patient at length and she agreed to proceed. All questions were answered to patient satisfaction. Plan to proceed with surgery tomorrow with operating room becomes available. IV antibiotics. Hold anticoagulant. mIVF.
[2025-01-23] MEDS: 0.9% Normal Saline (1000mL) 1,000 ML 100 ML IV (23:39)
[2025-01-23] MEDS: Cefepime HCl 2 GM in 0.9% Normal Saline (100mL MB+) 100 ML IV (23:39)
[2025-01-24] VITALS (14 sets, daily range): BP systolic 117–159; BP diastolic 74–99; PULSE 81–111; RESP 12–18; TEMP 36.2–37; O2SAT 93–99; BMI 36.1; BMI 36.0
[2025-01-24] MEDS: Vancomycin HCl 2,000 MG in 0.9% Normal Saline (500mL Bag) 500 ML 250 MG IV (00:27)
--- NOTE | 2025-01-24 00:49 | PCM.RX.CS ---
Consult Antibiotic Management Pharmacy has been consulted to manage selected antibiotic: Vancomycin Type of Intervention Type of Consult: New start Labs Labs: Sodium 135 mmol/L (133-145) 01/23/25 18:22 Potassium 3.6 mmol/L (3.3-5.1) 01/23/25 18:22 Chloride 103 mmol/L (98-108) 01/23/25 18:22 Carbon Dioxide 21.8 mmol/L (21.0-32.0) 01/23/25 18:22 Anion Gap 10 (5-15) 01/23/25 18:22 BUN 14 mg/dL (4-19) 01/23/25 18:22 Creatinine 0.65 mg/dL (0.70-1.20) L 01/23/25 18:22 Est GFR (MDRD) Non-Af 117 (>60) 01/23/25 18:22 BUN/Creatinine Ratio 21.6 RATIO (10-20) H 01/23/25 18:22 Glucose 119 mg/dL (70-99) H 01/23/25 18:22 Dosing Weight Weight used for dosin.5 kg Estimated Creatinine Clearance Estimated Creatinine Clearance: 138 Goal Trough Goal Trough: 15-20 mcg/mL Pharmacy Plan for Drug Dosing Pharmacy Plan for Drug Dosing: Pharmacy Service will continue to monitor and adjust dosing as required. Follow-Up Labs Follow-Up Labs: Trough: Vancomycin Date/Time Labs Ordered Labs to be done on [date and time ordered]: 01/26/25 @0000
[2025-01-24 05:52] LABS: Absolute Lymphocyte Count 1.34 X10^3/uL (0.83-4.51); Absolute Neutrophil Count 6.9 X10^3/uL (2.0-7.7); Basophil# 0.02 X10^3/uL; Basophil% 0.2 % (0-1); Hematocrit 33.2 % (37-47); Hemoglobin 10.7 g/dL (12.0-15.0); Lymphocyte # 1.34 X10^3/ul (0.83-4.51); Lymphocyte % 14.5 % (19-41); Mean Corp Hgb Conc 32.2 g/dL (32-36); Mean Corpuscular Hgb 26.3 pg (27.0-32.0); Mean Corpuscular Volume 81.6 fL (81-99); Mean Platelet Vol. 11.2 fl (6.2-12.0); Monocyte# 0.92 X10^3/uL; Monocyte% 9.9 % (0-10); NRBC Flagged by Analyzer 0 % (0-5); Neutrophil # 6.94 X10^3/uL (2.7-7.7); Platelet Count 170 K/mm3 (150-450); RBC Distribution Width CV 15.1 % (11.6-14.6); RBC Distribution Width SD 44.9 fl (35.1-43.9); Red Blood Count 4.07 M/mm3 (4.2-5.4); White Blood Count 9.3 K/mm3 (4.4-11.0)
[2025-01-24 06:09] LABS: AST(SGOT) 14 U/L (<=31); Alanine Aminotransfer ALT/SGPT 12 U/L (<=34); Albumin, Serum 3.5 g/dL (3.5-5.0); Alkaline Phosphatase 68 U/L (35-104); Anion Gap 9 (5-15); BUN 13 mg/dL (4-19); Calcium,Total 8.5 mg/dL (7.6-11.0); Carbon Dioxide 21.3 mmol/L (21.0-32.0); Chloride 106 mmol/L (98-108); Creatinine, Serum 0.56 mg/dL (0.70-1.20); EST Glomerular Filtration Rate 121 (>60); Estimated Creatinine Clearance 161.37 ml/min (50-250); Globulin 3.3 g/dL (2.2-4.2); Glucose 94 mg/dL (70-99); Protein, Total 6.8 g/dL (5.9-8.4); Sodium Level 137 mmol/L (133-145); Total Bilirubin 0.37 mg/dL (0.00-1.30)
[2025-01-24] MEDS: Cefepime HCl 2 GM in 0.9% Normal Saline (100mL MB+) 100 ML IV ×3 (06:17→20:55)
[2025-01-24] MEDS: Vancomycin HCl 1,250 MG in 0.9% Normal Saline (250mL Bag) 250 ML 167 MG IV ×3 (09:25→23:43)
--- NOTE | 2025-01-24 13:00 | ED.RN ---
PT REFUSED URINE TEST AT THIS TIME, STATES SHES ON HER PERIOD
--- NOTE | 2025-01-24 13:01 | PCM.PRE.AN2 ---
ASA Classification* ASA Classification ASA Classification: 2 Assessment & Plan Anesthesia* Anesthesia Assessment Anesthesia Assessment: Discussed sedation and/or anesthesia options, risks, benefits, and alternatives with patient/parents/legal guardian/POA. Questions invited. The patient/parents/legal guardian/POA seems to understand and agrees to proceed with anesthesia plan. Reviewed the physical assessment, medical history, allergy history and patient home medications list prior to surgery/procedure/anesthetic and documented any changes. Performed airway and anesthesia risk assessments. Anesthesia Type Anesthesia Type: General Anesthesia Focused Assessment* Temperature: 98.3 F Pulse Rate: 81 Blood Pressure: 126/91 Respiratory Rate: 16 Pulse Ox: 98 Airway Assessment Mouth opens: >3 cm Mallampati Score: II Focused Labs Anesthesia Preop lab: CBC WBC 9.3 K/mm3 (4.4-11.0) 01/24/25 05:00 01/24/25 RBC 4.07 M/mm3 (4.2-5.4) L 01/24/25 05:00 01/24/25 Hgb 10.7 g/dL (12.0-15.0) L 01/24/25 05:00 01/24/25 Hct 33.2 % (37-47) L 01/24/25 05:00 01/24/25 Plt Count 170 K/mm3 (150-450) 01/24/25 05:00 01/24/25 CHEMISTRY Potassium 4.0 mmol/L (3.3-5.1) 01/24/25 05:00 01/24/25 Sodium 137 mmol/L (133-145) 01/24/25 05:00 01/24/25 BUN 13 mg/dL (4-19) 01/24/25 05:00 01/24/25 Creatinine 0.56 mg/dL (0.70-1.20) L 01/24/25 05:00 01/24/25 Glucose 94 mg/dL (70-99) 01/24/25 05:00 01/24/25 COAG Pre-Assessment Diagnosis/Proposed Procedure Planned Operative Procedure(s): I&D Right Knee Anesthesia History Anesthesia History - strategic debriefing officer: Anesthesia History - strategic debriefing officer Hx Hospitalization Any Problems With Anesthesia Cholinesterase deficiency You/Your Family Experience fever (hyperthermia) with Relationship Recent Exposure to Contagious Disease Does patient have nerve stimulator Patient instructed to have device shut off --Does patient have Pacemaker or ICD? When Was Last Pacemaker Check QUESTION #4 FULL TEXT: You/Your Family Experience fever (hyperthermia) with Anesthesia Last Oral Intake Last Oral intake: Last Oral Intake NPO since Meds taken in AM with sips of water? Meds patient instructed to take am of surgery PONV PONV - strategic debriefing officer: PONV - strategic debriefing officer Female HX of Motion Sickness HX of N/V After Surgery Non-Smoker Duration of Surgery greater than 60 minutes Number of Risk Factors PONV Score Height & Weight Height & Weight: Anesthesia: Height & Weight Height 5 ft 5 in 01/23/25 22:38 Weight: 98.2 kg 01/24/25 06:18 Body Mass Index (BMI) 36.1 01/24/25 06:18 Respiratory Assessment Respiratory Assessment - strategic debriefing officer: Respiratory Tract Infection Hx - strategic debriefing officer Hx Respiratory Tract Infection STOP Sleep Apnea STOP Sleep Apnea - strategic debriefing officer: STOP Sleep Apnea - strategic debriefing officer Hx Hypertension No 01/23/25 22:39 Hx Sleep Apnea No 01/23/25 22:39 CPAP BIPAP Do you snore loudly (louder Yes 01/23/25 22:39 than talking or can be heard Do you often feel tired/ No 01/23/25 22:39 fatigued/ sleepy during daytime? Has anyone observed you stop No 01/23/25 22:39 breathing during sleep? STOP Results Negative 01/23/25 22:39 QUESTION #5 FULL TEXT : Do you snore loudly (louder than talking or can be heard through closed doors)? 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 Specify any problems Hx of Preganancy in last 3 N/A 01/23/25 22:39 Months Nurse Filling Out Transfusion ASELF 01/23/25 22:39 & Questions: Date: 01/23/25 01/23/25 22:39 Time: 22:40 01/23/25 22:39 Patient unable to answer at this time (ie. confused, unrespo /Reproduction History /Reproductive History - strategic debriefing officer: /Reproductive Hx- strategic debriefing officer Hx Now No 01/23/25 22:39 Gestational Age (in weeks): EDC: Hx Hx Para Hx Section SAB No 01/23/25 22:39 Active Medications Active Medications: Current Medications Generic Name Dose Route Start Last Admin Trade Name Freq PRN Reason Stop Dose Admin Acetaminophen 650 mg 01/23/25 22:21 Acetaminophen 325 Mg Tablet PO Q4H PRN PRN Fever, pain 1-10 Al Hydroxide/Mg Hydroxide 30 ml 01/23/25 22:21 Mag Hydrox/Al Hydrox/Simeth 30 Ml Udc PO Q6H PRN PRN Gastric Burning Albuterol Sulfate 2.5 mg 01/23/25 22:21 Albuterol 2.5 Mg/3 Ml Vial.Neb. INHALATION Q2H PRN PRN Dyspnea, wheezing Hydralazine HCl 10 mg 01/23/25 22:21 Hydralazine 20 Mg/Ml Vial IV Q4H PRN PRN SBP > 160 Protocol Cefepime HCl 2 gm/ Sodium 100 mls @ 200 mls/hr 01/23/25 22:21 01/24/25 07:41 Chloride IV Infused Q8 SB Infusion Sodium Chloride 1,000 mls @ 100 mls/hr 01/23/25 22:21 01/23/25 23:39 IV 01/24/25 18:20 100 mls/hr .Q10H SB Administration Protocol Vancomycin IV-PHARMACY TO DOSE 500 mls @ 250 mls/hr 01/23/25 22:21 1 each/ Sodium Chloride IV PRN PRN Rx to Dose Protocol Sodium Chloride 100 mls @ 15 mls/hr 01/23/25 22:27 IV .Q6H40M PRN Saline Flush Sodium Chloride 100 mls @ 15 mls/hr 01/23/25 22:27 IV .Q6H40M PRN Additional IVPB Infusion Vancomycin HCl 1,250 mg/ 275 mls @ 167 mls/hr 01/24/25 08:30 01/24/25 11:10 Sodium Chloride IV Infused Q8H SB Infusion Melatonin 3 mg 01/23/25 22:21 Melatonin 3 Mg Tablet PO QHS PRN PRN INSOMNIA Morphine Sulfate 2 mg 01/23/25 22:21 Morphine 2 Mg/Ml Syringe IV Q3H PRN PRN Pain Score 6-10 Ondansetron HCl 4 mg 01/23/25 22:21 Ondansetron 4 Mg/2 Ml Vial IV Q8H PRN PRN NAUSEA/VOMITING Oxycodone HCl 5 mg 01/23/25 22:21 Oxycodone 5 Mg Tablet PO Q4H PRN PRN Pain Score 4-10 Prochlorperazine Edisylate 5 mg 01/23/25 22:21 Prochlorperazine 10 Mg/2 Ml Vial IV Q4H PRN PRN Breakthrough nausea/vomiting Senna/Docusate Sodium 2 tablet 01/23/25 22:21 Senna/Docusate Sodium 1 Tablet PO BID PRN PRN Constipation Sodium Chloride 10 - 40 ml 01/23/25 22:27 0.9% Saline Lock 10 Ml Syringe IV UD PRN SALINE FLUSH Throat Lozenges 1 lozenge 01/23/25 22:21 Benzocaine/Menthol 1 Lozenge MUCOUS MEM Q2H PRN PRN SORE THROAT Vancomycin Protocol 1 lab 01/25/25 22:00 Vancomycin Trough/Random Due [facility] 01/26/25 02:00 DAILY [facility] Medical History Obesity Dyspepsia H. pylori infection Anemia Thrombocytopenia Rheumatoid arthritis Home Medications ?Medication ?Instructions ?Recorded ?Last Taken ?Type fluticasone propionate 50 1 spray intranasal DAILY 10/03/21 Unknown History mcg/actuation nasal spray,suspension (Flonase Allergy Relief) meloxicam 15 mg tablet 15 mg PO DAILY 10/03/21 Unknown History azathioprine 50 mg tablet 50 mg PO DAILY 01/23/25 Unknown History prednisone 10 mg tablet 10 mg PO Q12H 01/23/25 Unknown History sulfasalazine 500 mg 1,500 mg PO BID 01/23/25 Unknown History tablet,delayed release Allergy/AdvReac Type Severity Reaction Status Date / Time No Known Allergies Allergy Verified 01/23/25 16:40 Family History Grandmother Heart disease Mother Lung cancer Grandfather Heart disease Diabetes Family History other Surgical History [place] teeth extracted Social History household members: other details: Lives with her sister. Smoking Status: Never smoker second hand exposure: No alcohol intake: current alcohol intake frequency: a few times a week details: occasionally substance use type: does not use rafael/orthodoxy: None seatbelt use: always do you feel safe at home: Yes Review of Systems (Anesthesia) ROS Narrative System reviewed and no additional complaints, except as documented.
--- NOTE | 2025-01-24 13:29 | PN.ORTHO_ITS ---
Subjective Subjective Patient seen and examined. Reports right knee feels okay. Reports some left hip soreness but states but she feels it is related to sleeping on the hard bed in the ER all night. Denies any fevers, chills, nausea vomiting, chest pain or shortness of breath. Objective Data Objective Data Vital Signs: Vital Signs Temp Pulse Resp BP Pulse Ox O2 Del Method 98.3 F 81 16 126/91 H 98 Room Air 01/24/25 13:02 01/24/25 13:02 01/24/25 13:02 01/24/25 13:02 01/24/25 13:02 01/24/25 12:46 Oxygen Delivery Method Room Air Weight: 216 lb 7.903 oz Body Mass Index (BMI) 36.1 Intake & Output: Intake and Output for Last 24 Hours 01/22/25 01/23/25 01/24/25 23:59 23:59 23:59 Intake Total 1285 / 1285 Balance 1285 / 1285 Lab / Micro Data 01/24/25 05:00 01/24/25 05:00 Labs: Laboratory Results - last 24 hr 01/23/25 18:22: WBC 10.6, RBC 4.43, Hgb 11.8 L, Hct 36.3 L, MCV 81.9, MCH 26.6 L , MCHC 32.5, RDW Std Deviation 44.4 H, RDW Coeff of Vijay 15.1 H, Plt Count 188, MPV 10.7, Immature Gran % (Auto) 0.600, Neut % (Auto) 75.1 H, Lymph % (Auto) 14.5 L, [place] % (Auto) 9.6, Eos % (Auto) 0.0, Baso % (Auto) 0.2, Absolute Neuts (auto) 8.0 H, Absolute Lymphs (auto) 1.54, Nucleated RBC % 0, ESR 87 H, Sodium 135, Potassium 3.6, Chloride 103, Carbon Dioxide 21.8, Anion Gap 10, BUN 14, C reatinine 0.65 L, Estim Creat Clear Calc 138.49, Est GFR (MDRD) Non-Af 117, B UN/Creatinine Ratio 21.6 H, Glucose 119 H, Calcium 9.0, C-React Prot Ext Range 174.00 H 01/24/25 05:00: WBC 9.3, RBC 4.07 L, Hgb 10.7 L, Hct 33.2 L, MCV 81.6, MCH 26.3 L, MCHC 32.2, RDW Std Deviation 44.9 H, RDW Coeff of Vijay 15.1 H, Plt Count 170, MPV 11.2, Immature Gran % (Auto) 0.400, Neut % (Auto) 75.0 H, Lymph % (Auto) 14.5 L, [place] % (Auto) 9.9, Eos % (Auto) 0.0, Baso % (Auto) 0.2, Absolute Neuts (auto) 6.9, Absolute Lymphs (auto) 1.34, Nucleated RBC % 0, Sodium 137, Potassium 4.0, Chloride 106, Carbon Dioxide 21.3, Anion Gap 9, BUN 13, C reatinine 0.56 L, Estim Creat Clear Calc 161.37, Est GFR (MDRD) Non-Af 121, B UN/Creatinine Ratio 23.0 H, Glucose 94, Calcium 8.5, Total Bilirubin 0.37, AST 14, ALT 12, Alkaline Phosphatase 68, Total Protein 6.8, Albumin 3.5, Globulin 3.3, Albumin/Globulin Ratio 1.0 Radiography Diagnostic Testing: Radiology Impression Knee X-Ray 01/23/25 16:50 IMPRESSION: Severe degenerative changes of the knee joint as described above with suprapatellar joint effusion. No acute fracture. [facility] Exam Narrative General -A&Ox3, NAD, appears stated age. Vital signs stable, afebrile. Respiratory -normal work of breathing, no intercostal retractions. CV -pulses regular, brisk capillary refill ?4 limbs. Abdomen-soft, nontender, nondistended. No guarding, rigidity, rebound tenderness. Musculoskeletal/neurologic -full range of motion nontender throughout bilateral upper extremities, left lower extremity with full sensation and strength in all dermatomes and myotomes. No midline cervical tenderness. Right knee: Tolerates range of motion 5-90 degrees. Stable varus valgus stressing. Trace effusion. Minimal warmth within the knee. DF, PF, EHL 5/5. Sensation intact throughout. No erythema. DP 2+, brisk capillary fill in toes. Assessment & Plan Assessment/Plan (1) Septic arthritis of knee, right: PLAN: Plan to proceed with right knee arthroscopic I&D. Risks, benefits, and alternatives to procedure were reviewed with the patient at length. Further recommendations pending surgery. Continue IV antibiotics. I will obtain new cultures today.
--- NOTE | 2025-01-24 14:03 | PCM.PN.HOSP ---
Reason for Visit Reason for Visit: Diagnoses Pyogenic arthritis, unspecified (01/23/25) Subjective Subjective Posterior feeling better, some pain Objective Data Objective Data Vital Signs: Vital Signs Temp Pulse Resp BP Pulse Ox O2 Del Method 98.3 F 81 16 126/91 H 98 Room Air 01/24/25 13:02 01/24/25 13:02 01/24/25 13:02 01/24/25 13:02 01/24/25 13:02 01/24/25 12:46 Oxygen Delivery Method Room Air Weight: 216 lb 7.903 oz Body Mass Index (BMI) 36.1 Intake & Output: Intake and Output for Last 24 Hours 01/22/25 01/23/25 01/24/25 23:59 23:59 23:59 Intake Total 1285 / 1285 Balance 1285 / 1285 Lab / Micro Data Attestation: I reviewed the patient's lab results. 01/24/25 05:00 01/24/25 05:00 Labs: Laboratory Results - last 24 hr 01/23/25 18:22: WBC 10.6, RBC 4.43, Hgb 11.8 L, Hct 36.3 L, MCV 81.9, MCH 26.6 L, MCHC 32.5, RDW Std Deviation 44.4 H, RDW Coeff of Vijay 15.1 H, Plt Count 188, MPV 10.7, Immature Gran % (Auto) 0.600, Neut % (Auto) 75.1 H, Lymph % (Auto) 14.5 L, [place] % (Auto) 9.6, Eos % (Auto) 0.0, Baso % (Auto) 0.2, Absolute Neuts (auto) 8.0 H, Absolute Lymphs (auto) 1.54, Nucleated RBC % 0, ESR 87 H, Sodium 135, Potassium 3.6, Chloride 103, Carbon Dioxide 21.8, Anion Gap 10, BUN 14, Creatinine 0.65 L, Estim Creat Clear Calc 138.49, Est GFR (MDRD) Non-Af 117, BUN/Creatinine Ratio 21.6 H, Glucose 119 H, Calcium 9.0, C-React Prot Ext Range 174.00 H 01/24/25 05:00: WBC 9.3, RBC 4.07 L, Hgb 10.7 L, Hct 33.2 L, MCV 81.6, MCH 26.3 L, MCHC 32.2, RDW Std Deviation 44.9 H, RDW Coeff of Vijay 15.1 H, Plt Count 170, MPV 11.2, Immature Gran % (Auto) 0.400, Neut % (Auto) 75.0 H, Lymph % (Auto) 14.5 L, [place] % (Auto) 9.9, Eos % (Auto) 0.0, Baso % (Auto) 0.2, Absolute Neuts (auto) 6.9, Absolute Lymphs (auto) 1.34, Nucleated RBC % 0, Sodium 137, Potassium 4.0, Chloride 106, Carbon Dioxide 21.3, Anion Gap 9, BUN 13, Creatinine 0.56 L, Estim Creat Clear Calc 161.37, Est GFR (MDRD) Non-Af 121, BUN/Creatinine Ratio 23.0 H, Glucose 94, Calcium 8.5, Total Bilirubin 0.37, AST 14, ALT 12, Alkaline Phosphatase 68, Total Protein 6.8, Albumin 3.5, Globulin 3.3, Albumin/Globulin Ratio 1.0 Radiography Diagnostic Testing: Radiology Impression Knee X-Ray 01/23/25 16:50 IMPRESSION: Severe degenerative changes of the knee joint as described above with suprapatellar joint effusion. No acute fracture. [facility] Exam Const alert and oriented x3 HEENT head/scalp atraumatic Eyes PERRL Neck no lymphadenopathy Resp normal respiratory effort Cardio regular rate and regular rhythm GI normal to inspection, nondistended, normoactive bowel sounds Extremity Extremity Narrative: Could not be examined as patient was post surgery Neuro oriented x3 and CN's II-XII intact bilaterally Sensorium / Orientation: awake and alert Assessment & Plan Assessment/Plan (1) Septic arthritis of knee, right: PLAN: Plan 34-year-old female with history of rheumatoid arthritis on methotrexate with associated thrombocytopenia, chronic normocytic anemia, GERD, obesity was admitted for concerns regarding right knee pain with bilateral shoulder discomfort and right elbow pain for the last 24 hours consistent with a rheumatoid arthritis flare versus expected arthritis. Her joint was aspirated by her ball truing machine operator and there was some improvement in pain and tenderness she was referred to the ED. #Right knee arthritis -Continue IV antibiotics with vancomycin and cefepime -Underwent I&D today -Appreciate orthopedics input -As needed oral and IV pain medications -Appreciate infectious disease input # Rheumatoid arthritis -Therapy with Cimzia, azathioprine, sulfasalazine, previously on Humira and intermittent prednisone -Will start steroids given the concern regarding infection at this point #Elevated blood pressure without diagnosis of hypertension -Likely related to ongoing pain, continue to monitor #Anemia of chronic disease -Hemoglobin 9.8, MCV 81.9 -continue to monitor #Chronic medical issues #Obesity #GERD #Allergies rhinitis Continue home medications
[2025-01-24] MEDS: Epinephrine (1 mg/ml) 1 MG/ML VIAL (14:11)
[2025-01-24] MEDS: Bupiv/Epi 0.25% 30 ML Vial (14:11)
--- NOTE | 2025-01-24 14:28 | PCM.POST.ANE ---
Anesthesia: Postop Eval I Current Vital Signs Temperature: 98.6 F Pulse Rate: 103 Blood Pressure: 159/96 Respiratory Rate: 16 Pulse Ox: 96 Assessment Airway patent: Yes Spontaneous unlabored respirations: Yes nausea: No Vomiting: No Anesthesia Complication: No Fluid Hydration Crystalloid volume administer (ml): 1,200 Total IV fluid infused: 1,200 Progress Note Anesthesia document: Postop Eval 1 completed: Yes
[2025-01-24] MEDS: 0.9% Normal Saline (1000mL) 1,000 ML 100 ML IV (14:31)
--- NOTE | 2025-01-24 14:42 | POSTOPAN2_ITS ---
Anesthesia Postop Eval I Sum Postop Eval Completion status Anesthesia document: Postop Eval 1 completed: Yes Anesthesia Postop Eval I Summary Anesthesia Postop Eval I Summary: Anesthesia Postop Eval I: Assessment Summary Airway patent Yes 01/24/25 14:28 [email or web address] Spontaneous unlabored Yes 01/24/25 14:28 [email or web address] respirations Mental status nausea No 01/24/25 14:28 [email or web address] Vomiting No 01/24/25 14:28 [email or web address] Anesthesia Postop Eval I: Fluid Summary Crystalloid volume administer 1,200 01/24/25 14:28 [email or web address] (ml) Colloids volume administered ( ml) Blood Product volume administered (ml) Total IV fluid infused 1,200 01/24/25 14:28 [email or web address] Anesthesia Postop Eval I: Summary Notes Anesthesia Complication No 01/24/25 14:28 [email or web address] Anesthesia Complication Comment: Post-operative progress note Anesthesia: Postop Eval II Evaluation Mental status: Awake Pain Level: 2 nausea: No Vomiting: No
--- NOTE | 2025-01-24 14:42 | PCM.POSTANE2 ---
Anesthesia Postop Eval I Sum Postop Eval Completion status Anesthesia document: Postop Eval 1 completed: Yes Anesthesia Postop Eval I Summary Anesthesia Postop Eval I Summary: Anesthesia Postop Eval I: Assessment Summary Airway patent Yes 01/24/25 14:28 [email or web address] Spontaneous unlabored Yes 01/24/25 14:28 [email or web address] respirations Mental status nausea No 01/24/25 14:28 [email or web address] Vomiting No 01/24/25 14:28 [email or web address] Anesthesia Postop Eval I: Fluid Summary Crystalloid volume administer 1,200 01/24/25 14:28 [email or web address] (ml) Colloids volume administered ( ml) Blood Product volume administered (ml) Total IV fluid infused 1,200 01/24/25 14:28 [email or web address] Anesthesia Postop Eval I: Summary Notes Anesthesia Complication No 01/24/25 14:28 [email or web address] Anesthesia Complication Comment: Post-operative progress note Anesthesia: Postop Eval II Evaluation Mental status: Awake Pain Level: 2 nausea: No Vomiting: No
--- NOTE | 2025-01-24 14:42 | PCM.OPRPT ---
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 science faculty member: No Type of Anesthesia: General RN Documented Start/Stop Times: Operation Date: 01/24/25 13:30 Case Time Into Pre-Op 01/24/25 12:28 Anesthesia Start 01/24/25 13:30 Into Room 01/24/25 13:30 Procedure Start 01/24/25 13:53 Procedure End 01/24/25 14:14 Anesthesia End 01/24/25 14:21 Out of Room 01/24/25 14:21 Into Recovery 01/24/25 14:23 Procedure Start Time: 13:53 Procedure Stop Time: 14:14 Select all DRAINS/GRAFTS/IMPLANTS that apply: None Estimated Blood Loss: 10 cc Specimen collected: Yes Description of specimen(s) removed: Right knee synovial fluid arthrocentesis-sent for culture Description of surgery: Patient was identified in the preoperative holding area by name, medical record number, and date of . The operative extremity was marked. All questions were answered to the patient satisfaction. At time of her procedure, patient was brought to the operative suite and positioned supine a standard operating table. General anesthesia was induced and LMA placed. Right lower extremity was then placed in an arthroscopic leg vanegas. The foot of the bed was dropped 90 degrees. Well-leg vanegas was placed under the patient's left side. We prepped and draped the right lower extremity in normal, sterile orthopedic fashion. We performed timeout confirming the side, site, and operation to be performed. No concerns were voiced elected proceed with surgery. Cefepime was administered intraoperatively as she was due for her scheduled antibiotics. I then proceeded with arthrocentesis of the right knee via superior medial portal. Turbid red fluid was aspirated and sent for culture. I then established a standard anterior lateral portal with 11 blade scalpel. Blunt tipped trocar was used to enter the knee joint which was filled with normal saline with epinephrine. Diagnostic arthroscopy revealed diffuse synovitis. Tricompartmental degenerative changes were noted. Meniscus were relatively benign with early fraying. Anterior medial portal was established. Shaver was used to debride synovitis in all 3 compartments. 9 L normal saline was lavaged to the joint. No gross purulence was encountered. Portal sites were then closed after arthroscopic instruments were removed in standard fashion with interrupted [id number] 3-0 nylon suture. Intra-articular block was administered with 30 cc total quarter percent bupivacaine with epinephrine. Bulky sterile compression dressing was applied. Patient was awakened from anesthesia and safely extubated in the operative suite. She was transferred to her gurney and subsequent to PACU in stable condition. She tolerated the procedure well without apparent complication. 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
--- NOTE | 2025-01-24 15:50 | SUR.PHASEI ---
OFFERED TO CALL FAMILY TO TELL THEM THAT SHE WAS GOING UP TO HER ROOM AND PATIENT SAID SHE WOULD CALL THEM WHEN SHE GOT UPSTAIRS.
[2025-01-24] MEDS: Heparin Injection 5,000 UNITS/ML Syringe 5000 UNITS SC (20:58)
[2025-01-25 04:50] VITALS: BP 117/81; PULSE 87; RESP 14; TEMP 36.6; O2SAT 99
[2025-01-25] MEDS: Cefepime HCl 2 GM in 0.9% Normal Saline (100mL MB+) 100 ML IV (05:06)
[2025-01-25] MEDS: Heparin Injection 5,000 UNITS/ML Syringe 5000 UNITS SC (05:06)
[2025-01-25 06:00] VITALS: BMI 36.2
[2025-01-25 08:42] LABS: Vancomycin, Trough Level 16.7 ug/mL (5.0-15.0)
[2025-01-25 09:01] VITALS: BP 138/91; PULSE 90; RESP 16; TEMP 36.8; O2SAT 97
[2025-01-25] MEDS: Vancomycin Trough/Random Due 1 LAB MC ×2 (09:19→12:47)
[2025-01-25] MEDS: Vancomycin HCl 1,250 MG in 0.9% Normal Saline (250mL Bag) 250 ML 167 MG IV ×3 (09:19→23:21)
--- NOTE | 2025-01-25 09:38 | PCM.PN.ORT ---
Subjective Subjective Patient is a 34 year old female with history of RA POD1 s/p right knee arthroscopic irrigation and debridement 01/24/[address] Romo after concern for right knee septic arthritis. she went to her engineering tech after a flare up that did not improve with prednisone. arthrocentesis of the right knee was performed in office. we will follow these cultures. cultures from the OR are pending at this time. Rates pain 3/ 10 at rest. With movement 3/10. States taking Tylenol and oxycodone and ice help to relieve pain. Patient has been up with therapy. Patient has no restrictions in range of motion. Weightbearing as tolerated. Afebrile, no chest pain, shortness of breath, negative calf pain/ erythema, and no other signs of DVT. Objective Data Objective Data Vital Signs: Vital Signs Temp Pulse Resp BP Pulse Ox O2 Del Method 98.2 F 90 16 138/91 H 97 Room Air 01/25/25 09:01 01/25/25 09:01 01/25/25 09:01 01/25/25 09:01 01/25/25 09:01 01/25/25 09:04 Oxygen Delivery Method Room Air Weight: 98.6 kg Body Mass Index (BMI) 36.2 Intake & Output: Intake and Output for Last 24 Hours 01/23/25 01/24/25 01/25/25 23:59 23:59 23:59 Intake Total 3651.67 / 3651.67 483.33 / 483.33 Balance 3651.67 / 3651.67 483.33 / 483.33 Lab / Micro Data 01/24/25 05:00 01/24/25 05:00 Labs: Laboratory Results - last 24 hr 01/25/25 07:47: Vancomycin Trough 16.7 H Micro: Microbiology 01/24/25 Unknown Aspirate - Knee Wound Culture - Preliminary No growth-Final to follow Physical Exam Narrative Patient resting comfortably in bed No signs of acute distress Satting well on room air Limb is warm to touch, Sensation intact throughout entire lower extremity, including saphenous, sural, superficial and deep peroneal, and tibial distribution. no significant erythema. mild expected post op edema DP/PT pulses bounding. tolerates minimal PROM to about 90 degrees. she has been up walking with PT with minimal pain Dressing c/d/i . incisions intact. Calf nontender to palpation, no erythema, no edema. Negative Homans Assessment & Plan Assessment/Plan (1) Septic arthritis of knee, right: PLAN: 1. Will continue PT today. Weightbearing as tolerated. No range of motion restrictions 2. Patient will follow up for post op appointment 2 weeks after surgery in our office. This will need to be arranged 3. WBC 9.3. Remains afebrile. Infectious disease on board. Will continue to follow cultures. Will track down cultures from rheumatology. Currently on vancomycin and ceftriaxone. 4. DVT prophylaxis : Heparin subcu. may transition to aspirin 81mg BID x 2 weeks upon discharge. 5. Pain control: patient instructed to take tylenol 500mg 2 tablets TID. and oxycodone 1-2 tablets every 4-6 hours only as needed for pain control. 6. ok to remove post op dressing. post op day 3 7. showering only. no submerging incisions 8. per patient portal on her phone, no organisms are growing from knee arthrocentesis from the office. 9. when cleared from ID with final recommendations and medicine clears, ok for discharge from orthopaedic standpoint.
--- NOTE | 2025-01-25 10:01 | PCM.RX.CS ---
Consult Antibiotic Management Pharmacy has been consulted to manage selected antibiotic: Vancomycin Type of Intervention Type of Consult: Follow-up Labs Labs: Sodium 137 mmol/L (133-145) 01/24/25 05:00 Potassium 4.0 mmol/L (3.3-5.1) 01/24/25 05:00 Chloride 106 mmol/L (98-108) 01/24/25 05:00 Carbon Dioxide 21.3 mmol/L (21.0-32.0) 01/24/25 05:00 Anion Gap 9 (5-15) 01/24/25 05:00 BUN 13 mg/dL (4-19) 01/24/25 05:00 Creatinine 0.56 mg/dL (0.70-1.20) L 01/24/25 05:00 Est GFR (MDRD) Non-Af 121 (>60) 01/24/25 05:00 BUN/Creatinine Ratio 23.0 RATIO (10-20) H 01/24/25 05:00 Glucose 94 mg/dL (70-99) 01/24/25 05:00 Vancomycin Trough 16.7 ug/mL (5.0-15.0) H 01/25/25 07:47 Microbiology Microbiology: Microbiology 01/24/25 Unknown Aspirate - Knee Wound Culture - Preliminary No growth-Final to follow Goal Trough Goal Trough: 15-20 mcg/mL Pharmacy Plan for Drug Dosing Pharmacy Plan for Drug Dosing: VANCOMYCIN LEVEL RECEIVED Current Vancomycin Dose: 1250mg IV Q8h Number of Doses Received: 4 (loading + 3 scheduled) Vancomycin Level: 16.7 Hours Since Last Dose: 8hr Renal Function: 0.56 Renal Function Trend: stable Lab/Micro: pending Vancomycin Plan/Comments: Patient had a trough drawn which resulted in a value of 16.7 (goal 15-20). Patient is within therapeutic range. Will continue current dose and recheck a trough in 24hrs to reassess dosing at that time. Pending Level: 01/26/25 @0800 Pharmacy Service will continue to monitor and adjust dosing as required.
--- NOTE | 2025-01-25 10:35 | PCM.CONS.GEN ---
Assessment & Plan Assessment/Plan (1) Septic arthritis of knee, right: PLAN: Taken to OR 01/24/[address] Romo for I&D. Surg cx pending, will narrow to vanc/ceftriaxone. Will follow, thank you (2) Rheumatoid arthritis: HPI Consult Data Date of Consult: 01/25/25 HPI Narrative Reason for Consultation: septic arthritis HPI Narrative: LAINE DE PAZ, is a 34 F with RA on immunosuppression, presented 3 with two days progressive R knee pain, swelling, mild warmth, chills. No known inciting event. No h/o gout. Pain was moderate. Sent to ED, admitted on vanc/cefepime, taken to OR 01/24/[address] Romo. Feeling better this AM, no n/v/d. Full ROS performed and neg except as noted above. [facility] Medical History Obesity Dyspepsia H. pylori infection Anemia Thrombocytopenia Rheumatoid arthritis Home Medications ?Medication ?Instructions ?Recorded ?Last Taken ?Type fluticasone propionate 50 1 spray intranasal DAILY 10/03/21 Unknown History mcg/actuation nasal spray,suspension (Flonase Allergy Relief) meloxicam 15 mg tablet 15 mg PO DAILY 10/03/21 Unknown History azathioprine 50 mg tablet 50 mg PO DAILY 01/23/25 Unknown History prednisone 10 mg tablet 10 mg PO Q12H 01/23/25 Unknown History sulfasalazine 500 mg 1,500 mg PO BID 01/23/25 Unknown History tablet,delayed release Allergy/AdvReac Type Severity Reaction Status Date / Time No Known Allergies Allergy Verified 01/23/25 16:40 Family History Grandmother Heart disease Mother Lung cancer Grandfather Heart disease Diabetes Family History other Surgical History [place] teeth extracted Social History household members: other details: Lives with her sister. Smoking Status: Never smoker second hand exposure: No alcohol intake: current alcohol intake frequency: a few times a week details: occasionally substance use type: does not use rafael/evangelical: None seatbelt use: always do you feel safe at home: Yes Physical Exam Const alert, oriented x3 and no apparent distress General Appearance: cooperative HEENT normocephalic and head/scalp atraumatic Eyes PERRL and EOMs intact bilaterally Neck supple and No nodes Resp normal air movement and clear to auscultation bilaterally Cardio regular rate and regular rhythm GI soft to palpation, non-tender and non-distended Extremity General Extremity: edema Skin no rashes or lesions noted Skin Narrative: RLE wrapped Neuro CN's II-XII intact bilaterally Lab / Micro Data Attestation: I reviewed the patient's lab results. 01/24/25 05:00 01/24/25 05:00 Labs: Laboratory Results - last 24 hr 01/25/25 07:47: Vancomycin Trough 16.7 H Micro: Microbiology 01/24/25 Unknown Aspirate - Knee Wound Culture - Preliminary No growth-Final to follow
--- NOTE | 2025-01-25 11:08 | CASEMGMT ---
DANGELO PA Assessment: Face to Face with pt for initial transition planning/care coordination assessment. DANGELO PA introduced self and role at [facility], pt voices understanding and consents to assessment. Pt is A&O x4 and answers all questions appropriately at this time. Pt sitting up in bed with stepmother at bedside. pt agreeable to assessment with stepmother present. Care providers, pharmacy, and demographics verified/updated. Admitting Dx: R septic knee Strata Score: 2 PCP:[facility] Specialists:[facility]; [facility]; ortho Preferred Pharmacy: [facility] Insurance: [employer] Prescription Benefit: yes LNOK: Ariadne Neri, Living Arrangements: Pt lives with sister in a single story home with 2 steps to enter with a rail. Pt reports she is I in ADL/IADLs at baseline. Pt denies concerns at home. Transportation: Pt drives self and denies concerns with transportation. DME:toilet riser, [facility] HHC/SNF: Denies hx of Pt states no concerns with going home at time of dc. 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 ID has consulted. Briefly discussed should the pt need IV atb, her preference and she states it would be to do them at home. Pt states no further concerns/needs. CM to follow. Advised pt to ask CM if any further questions/concerns/needs arise, voices understanding. Pt Goal: Home Plan: Home, follow therapy Gisele Russell RN, CM
[2025-01-25] MEDS: Ceftriaxone 2 GM in 0.9% Normal Saline (50mL MB+) 50 ML IV (11:30)
[2025-01-25 14:23] VITALS: BP 121/82; PULSE 107; RESP 16; TEMP 36.8; O2SAT 97
[2025-01-25] MEDS: Heparin Injection (Vial) 5,000 UNIT/ML VIAL 5000 UNIT SC ×2 (14:34→23:24)
--- NOTE | 2025-01-25 15:00 | CHAPLAIN ---
Type of Pastoral Visit _x__ Initial Visit ___ Follow-up Visit ___ On-call Visit ___ General Patient Visit ___ Spiritual Assessment ___ Family Conference ___ Bereavement ___ Rapid Response ___ Code Blue ___ Other (describe below) Pastoral Care Referral From _x__ Patient ___ Family ___ Nurse ___ Physician ___ Shade Classifier ___ Supervisor [employer]ning ___ Other (describe below) Sacrament/Intervention _x__ Active listening ___ Anointing ___ Voodoo ___ Bereavement ___ Communion ___ Anita exploration ___ ___ Life review ___ Prayer ___ Reconciliation ___ Sacrament of Sick _x__ Supportive presence ___ Wedding ___ Other (describe below) Pastoral Comments patient is welcoming, has a family member in the room, speaks of her own surgery 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
--- NOTE | 2025-01-25 16:31 | VDUE_ITS ---
Reason For Study Reason For Study: BUE Swelling Right Proximal Left Proximal Right jugular vein is spontaneous, widely patent, Left jugular vein is spontaneous, widely patent, phasic, with no intraluminal echogenicity noted. phasic, with no intraluminal echogenicity noted. Right subclavian vein is spontaneous, widely patent, Left subclavian vein is spontaneous, widely patent, phasic, with no intraluminal echogenicity noted. phasic, with no intraluminal echogenicity noted. Right Lower Arm Left Arm Right radial vein is compressible. Left axillary vein is spontaneous, patent, phasic, Right ulnar vein is compressible. competent, compressible and demonstrates Right Arm augmentation. Right axillary vein is spontaneous, patent, phasic, Left brachial vein is compressible. competent, compressible and demonstrates Left cephalic vein is compressible. augmentation. Left basilic vein is compressible. Right brachial vein is compressible. Left Lower Arm Rt Cephalic Vein is PARTIALLY COMPRESSIBLE with Left radial vein is compressible. intraluminal echoes consistent with ACUTE SVT at AC. Left ulnar vein is compressible. Cephalic Vein wrist to prox forearm, and bicep to KRYSTLE appear compressible. Right basilic vein is compressible. Patient Safety Stat Results reported to M/S 3 color control operator. Procedure This was a bilateral upper extremity venous doppler examination. VL/Venous Duplex US - Obi Extrem Interpretation Summary Acute superficial vein thrombosis noted in the right cephalic vein at the antec ubital fossa. Deep veins of the bilateral upper extremities are patent and compressible segme ntally. There is no evidence of deep vein thrombosis. Superficial veins of the left upper extremity are patent and compressible segme ntally. There is no evidence of deep vein thrombosis. Ordering Physician: Christine Reveles Referring Physician: Amira Tijerina Performed By: Benton Goldberg RVCandy ???
--- NOTE | 2025-01-25 16:32 | PCM.PN.HOSP ---
Reason for Visit Reason for Visit: Diagnoses Pyogenic arthritis, unspecified (01/23/25) Rheumatoid arthritis, unspecified (01/23/25) Subjective Subjective Pain is much improved Swelling and tenderness over her right arm below the IV cannula Objective Data Objective Data Vital Signs: Vital Signs Temp Pulse Resp BP Pulse Ox O2 Del Method 98.3 F 107 H 16 121/82 H 97 Room Air 01/25/25 14:23 01/25/25 14:23 01/25/25 14:23 01/25/25 14:23 01/25/25 14:23 01/25/25 14:23 Oxygen Delivery Method Room Air Weight: 217 lb 6.012 oz Body Mass Index (BMI) 36.2 Intake & Output: Intake and Output for Last 24 Hours 01/23/25 01/24/25 01/25/25 23:59 23:59 23:59 Intake Total 3651.67 / 3651.67 808.33 / 808.33 Balance 3651.67 / 3651.67 808.33 / 808.33 Lab / Micro Data Attestation: I reviewed the patient's lab results. 01/24/25 05:00 01/24/25 05:00 Labs: Laboratory Results - last 24 hr 01/25/25 07:47: Vancomycin Trough 16.7 H Micro: Microbiology 01/24/25 Unknown Aspirate - Knee Gram Stain - Final 01/24/25 Unknown Aspirate - Knee Wound Culture - Preliminary No growth-Final to follow Physical Exam Const alert and oriented x3 HEENT head/scalp atraumatic Eyes PERRL Neck no lymphadenopathy Resp normal respiratory effort Cardio regular rate and regular rhythm GI normal to inspection, nondistended, normoactive bowel sounds Extremity General Extremity: edema Skin Skin Narrative: Warmth and tenderness over her right arm below the IV cannula Neuro oriented x3, CN's II-XII intact bilaterally, moves all extremities and no focal motor deficits Psych affect normal Assessment & Plan Assessment/Plan (1) Septic arthritis of knee, right: PLAN: Plan 34-year-old female with history of rheumatoid arthritis on methotrexate with associated thrombocytopenia, chronic normocytic anemia, GERD, obesity was admitted for concerns regarding right knee pain with bilateral shoulder discomfort and right elbow pain for the last 24 hours consistent with a rheumatoid arthritis flare versus expected arthritis. She underwent incision and drainage yesterday, cultures have been negative so far. #Right knee arthritis -Continue IV antibiotics with vancomycin and ceftriaxone -Appreciate ID input -Pain well-controlled at this time, will discontinue IV opioids #Right arm swelling -Suspect superficial thrombophlebitis -Ultrasound Doppler -Change IV site # Rheumatoid arthritis -Therapy with Cimzia, azathioprine, sulfasalazine, previously on Humira and intermittent prednisone -Will start steroids given the concern regarding infection at this point #Elevated blood pressure without diagnosis of hypertension -Likely related to ongoing pain, continue to monitor #Anemia of chronic disease -Hemoglobin 9.8, MCV 81.9 -continue to monitor #Chronic medical issues #Obesity #GERD #Allergies rhinitis
[2025-01-25 23:27] VITALS: BP 104/60; PULSE 89; RESP 16; TEMP 36.9; O2SAT 93
[2025-01-26] MEDS: Heparin Injection (Vial) 5,000 UNIT/ML VIAL 5000 UNIT SC ×2 (05:24→14:26)
[2025-01-26 05:38] VITALS: BP 130/91; PULSE 82; RESP 16; TEMP 36.6; O2SAT 98
[2025-01-26 08:50] LABS: Creatinine, Serum 0.58 mg/dL (0.70-1.20); EST Glomerular Filtration Rate 120 (>60); Estimated Creatinine Clearance 155.89 ml/min (50-250); Vancomycin, Trough Level 17.7 ug/mL (5.0-15.0)
--- NOTE | 2025-01-26 09:02 | PCM.RX.CS ---
Consult Antibiotic Management Pharmacy has been consulted to manage selected antibiotic: Vancomycin Type of Intervention Type of Consult: Follow-up Prior Doses of Antibiotics Prior Doses of Antibiotics Received/Current Regimen: current dose is vanc 1250mg IV q8h Labs Labs: Sodium 137 mmol/L (133-145) 01/24/25 05:00 Potassium 4.0 mmol/L (3.3-5.1) 01/24/25 05:00 Chloride 106 mmol/L (98-108) 01/24/25 05:00 Carbon Dioxide 21.3 mmol/L (21.0-32.0) 01/24/25 05:00 Anion Gap 9 (5-15) 01/24/25 05:00 BUN 13 mg/dL (4-19) 01/24/25 05:00 Creatinine 0.58 mg/dL (0.70-1.20) L 01/26/25 08:04 Est GFR (MDRD) Non-Af 120 (>60) 01/26/25 08:04 BUN/Creatinine Ratio 23.0 RATIO (10-20) H 01/24/25 05:00 Glucose 94 mg/dL (70-99) 01/24/25 05:00 Vancomycin Trough 17.7 ug/mL (5.0-15.0) H 01/26/25 08:04 Microbiology Microbiology: Microbiology 01/24/25 Unknown Aspirate - Knee Gram Stain - Final 01/24/25 Unknown Aspirate - Knee Wound Culture - Preliminary No growth-Final to follow Dosing Weight Weight used for dosin.6 kg Estimated Creatinine Clearance Estimated Creatinine Clearance: >100ml/min Goal Trough Goal Trough: 15-20 mcg/mL Pharmacy Plan for Drug Dosing Pharmacy Plan for Drug Dosing: The vanc trough drawn at 08:04 this morning (approximately 8.5 hours after the previous dose) was 17.7 mcg/ml. This is in goal range so will keep same dose. Repeat a trough in 2 days. Pharmacy Service will continue to monitor and adjust dosing as required. Follow-Up Labs Follow-Up Labs: Trough: Vancomycin Date/Time Labs Ordered Labs to be done on [date and time ordered]: 01/28/25 08:00
[2025-01-26] MEDS: Ceftriaxone 2 GM in 0.9% Normal Saline (50mL MB+) 50 ML IV (09:12)
[2025-01-26] MEDS: Vancomycin Trough/Random Due 1 LAB MC ×2 (09:13→10:11)
[2025-01-26 09:20] VITALS: BP 134/93; PULSE 76; RESP 17; TEMP 36.9; O2SAT 97
[2025-01-26] MEDS: Vancomycin HCl 1,250 MG in 0.9% Normal Saline (250mL Bag) 250 ML 167 MG IV (10:11)
--- NOTE | 2025-01-26 10:36 | PCM.PN.ID ---
Physical Exam Narrative Feeling better, knee improved, no fever, no n/v/d. Const alert and no apparent distress General Appearance: cooperative Resp normal air movement and clear to auscultation bilaterally Cardio regular rate and regular rhythm GI soft to palpation, non-tender and non-distended Skin no rashes or lesions noted ID ID: Route of nutrition/ use of supplements: [] Nutritional Intake: [] IV Site: [] Jackson Catheter: [] Assessment & Plan Assessment/Plan (1) Septic arthritis of knee, right: PLAN: Taken to OR 01/24/[address] Romo for I&D. Surg cx ngtd, on vanc/ceftriaxone. Ok for home with 2 weeks po levaquin and doxy. Will follow, ID followup in 1-2 weeks. (2) Rheumatoid arthritis:
--- NOTE | 2025-01-26 12:18 | PN.ORTHO_ITS ---
Subjective Subjective Patient is a 34 year old female with history of RA POD2 s/p right knee arthroscopic irrigation and debridement 01/24/[address] Romo after concern for right knee septic arthritis. 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 arthrocentesis of the right knee was performed in office. Cx from crystal arthritis are NGTD. cultures from the OR are +WBC and NGTD. Rates pain 3/ 10 at rest. With movement 3/10. States taking Tylenol and oxycodone and ice help to relieve pain. Patient has been up with therapy. Patient has no restrictions in range of motion. Weightbearing as tolerated. Afebrile, no chest pain, shortness of breath, negative calf pain/ erythema, and no other signs of DVT. Objective Data Objective Data Vital Signs: Vital Signs Temp Pulse Resp BP Pulse Ox O2 Del Method 98.4 F 76 17 134/93 H 97 Room Air 01/26/25 09:20 01/26/25 09:20 01/26/25 09:20 01/26/25 09:20 01/26/25 09:20 01/26/25 09:20 Oxygen Delivery Method Room Air Weight: 98.6 kg Body Mass Index (BMI) 36.2 Intake & Output: Intake and Output for Last 24 Hours 01/24/25 01/25/25 01/26/25 23:59 23:59 23:59 Intake Total 3651.67 / 3651.67 1083.33 / 1083.33 325 / 325 Balance 3651.67 / 3651.67 1083.33 / 1083.33 325 / 325 Lab / Micro Data 01/24/25 05:00 01/26/25 08:04 Labs: Laboratory Results - last 24 hr 01/26/25 08:04: Creatinine 0.58 L, Estim Creat Clear Calc 155.89, Est GFR (MDRD) Non-Af 120, Vancomycin Trough 17.7 H Micro: Microbiology 01/23/25 18:22 Blood Culture (Wb) - Arm Left Blood Culture - Preliminary No growth in 48 hours. 01/23/25 18:22 Blood Culture (Wb) - Anticubital Right Blood Culture - Preliminary No growth in 48 hours. 01/24/25 Unknown Aspirate - Knee Gram Stain - Final 01/24/25 Unknown Aspirate - Knee Wound Culture - Preliminary No growth-Final to follow 01/24/25 Unknown Aspirate - Knee Anaerobic Culture - Preliminary No growth in 48 hours. Physical Exam Narrative Patient walking unassisted to the bathroom. no pain with ambulation. no assistive devices. No signs of acute distress Satting well on room air Limb is warm to touch, Sensation intact throughout entire lower extremity, including saphenous, sural, superficial and deep peroneal, and tibial distribution. no significant erythema. mild expected post op edema DP/PT pulses bounding. tolerates minimal PROM to about 90 degrees. she has been up walking with PT with minimal pain Dressing c/d/i . incisions intact. Calf nontender to palpation, no erythema, no edema. Negative Homans Assessment & Plan Assessment/Plan (1) Septic arthritis of knee, right: PLAN: 1. Will continue PT today. Weightbearing as tolerated. No range of motion restrictions 2. Patient will follow up for post op appointment 2 weeks after surgery in our office. This will need to be arranged 3. Remains afebrile. Infectious disease on board. Cultures with NGTD. ID recommending 2 weeks oral levaquin and doxycycline. 4. DVT prophylaxis : Heparin subcu. may transition to aspirin 81mg BID x 2 weeks upon discharge. 5. Pain control: patient instructed to take tylenol 500mg 2 tablets TID. and oxycodone 1-2 tablets every 4-6 hours only as needed for pain control. 6. ok to remove post op dressing. post op day 3 7. showering only. no submerging incisions 8. per patient portal on her phone, no organisms are growing from knee arthrocentesis from the office at [facility] 9. when cleared from ID with final recommendations and medicine clears, ok for discharge from orthopaedic standpoint.
--- NOTE | 2025-01-26 13:08 | CASEMGMT ---
Addendum entered by Sharda Joshua 01/26/25 14:04: Pt also made aware to f/u with ID in 1-2 weeks. She voices understanding. Original Note: DANGELO PA NOTE: Per Dr Reveles, pt will be discharging home today. Noted in ortho note, pt will need f/u appt in 2 wks. DANGELO PA to room. Pt sitting up in chair in room. She denies having any discharge needs/concerns. DANGELO PA offered to schedule f/u ortho appt, but she declines, stating she will schedule it. Mariaelena GIMENEZN DANGELO PA
--- NOTE | 2025-01-26 13:32 | DS.PCM_ITS ---
Providers Date of Admission: 01/23/25 Date of Discharge: 01/26/25 Primary Care Physician: Amira Tijerina, JULIANN Consultations 01/23/25 22:21 Consult: Infectious Disease Routine Consulting Provider: Pal Rich Reason for Consult: R septic knee EMERGENT Consult: No Notified: Yes Date Notified: 01/23/25 Time Notified: 19:33 Method of Notification: Text Consult: Orthopedics Routine Consulting Provider: Mckinley Romo Reason for Consult: R septic knee EMERGENT Consult: No Notified: Yes Date Notified: 01/23/25 Time Notified: 19:32 Method of Notification: ED Physician Initiated Reason For Visit: R SEPTIC KNEE Diagnosis Discharge Diagnosis (1) Septic arthritis of knee, right: Status: Acute Code(s): M00.9 - Pyogenic arthritis, unspecified Plan #Right knee arthritis -Received IV antibiotics for 3 days vancomycin and ceftriaxone -Start on p.o. Levaquin and doxycycline for 2 weeks and follow-up with ID as an outpatient -Appreciate ID input -Pain well-controlled at this time # Right superficial thrombophlebitis -Pain is minimal, warm compressions # Rheumatoid arthritis -Therapy with Cimzia, azathioprine, sulfasalazine, previously on Humira and intermittent prednisone -Follow-up with outpatient rheumatology #Anemia of chronic disease -Hemoglobin 9.8, MCV 81.9 -continue to monitor #Chronic medical issues #Obesity #GERD #Allergies rhinitis Medications at Discharge Home Medications fluticasone propionate 50 mcg/actuation nasal spray,suspension (Flonase Allergy Relief) 1 spray intranasal DAILY 10/03/21 meloxicam 15 mg tablet 15 mg PO DAILY 10/03/21 azathioprine 50 mg tablet 50 mg PO DAILY 01/23/25 prednisone 10 mg tablet 10 mg PO Q12H 01/23/25 sulfasalazine 500 mg tablet,delayed release 1,500 mg PO BID 01/23/25 doxycycline hyclate 100 mg capsule 100 mg PO BID #28 caps 01/26/25 levofloxacin 500 mg tablet 500 mg PO DAILY #14 tabs 01/26/25 Hospital Course Operations arthroscopy, knee Procedures None Summary of Care Provided Minutes Spent on Discharge: 20 Hospital Course: 34-year-old female with history of rheumatoid arthritis on methotrexate with associated thrombocytopenia, chronic normocytic anemia, GERD, obesity was admitted for concerns regarding right knee pain with bilateral shoulder discomfort and right elbow pain for the last 24 hours consistent with a rheumatoid arthritis flare versus expected arthritis. She underwent incision and drainage of the right knee. Cultures have been negative so far. She is being discharged home to continue antibiotics and will follow up with ID as an outpatient. Physical Exam Const alert and oriented x3 HEENT normocephalic Eyes PERRL Neck no lymphadenopathy Resp normal respiratory effort Cardio regular rate and regular rhythm GI normal to inspection, nondistended, normoactive bowel sounds Extremity normal to inspection Extremity Narrative: edema present over the right knee, suture sites are healthy and well-healing. No tenderness. left extremity normal Weight / BMI Weight Weight: 217 lb 6.012 oz Body Mass Index (BMI) 36.2 ABG / Lab / Microbiology Data 01/24/25 05:00 01/26/25 08:04 Laboratory: Laboratory Results - last 24 hr 01/26/25 08:04: Creatinine 0.58 L, Estim Creat Clear Calc 155.89, Est GFR (MDRD) Non-Af 120, Vancomycin Trough 17.7 H Microbiology: Microbiology 01/23/25 18:22 Blood Culture (Wb) - Arm Left Blood Culture - Preliminary No growth in 48 hours. 01/23/25 18:22 Blood Culture (Wb) - Anticubital Right Blood Culture - Preliminary No growth in 48 hours. 01/24/25 Unknown Aspirate - Knee Gram Stain - Final 01/24/25 Unknown Aspirate - Knee Wound Culture - Preliminary No growth-Final to follow 01/24/25 Unknown Aspirate - Knee Anaerobic Culture - Preliminary No growth in 48 hours. D/C Instructions DC O2, CPAP, BIPAP Needs Home O2 Discharge instructions: No Meaningful Use Info Meaningful Use Meaningful Use Diagnoses (Choose all that apply): None applicable Ischemic Stroke Statin Dosing Therapy Reference: STATIN DOSE THERAPY REFERENCE: * Patients > 75 years receive moderate or high dose statin therapy. * Patients 75 years or YOUNGER should receive HIGH intensity statin dose unless contraindicated. You will be required to document reason for non-treatment if statin daily dose does not meet guidelines. HIGH DOSE STATIN THERAPY DAILY Atorvastatin > than or = to 40 mg Rosuvastatin > than or = to 20 mg Amlodipine + Atorvastatin > than or = to 2.5/40 mg Ezetimibe + Simvastatin 10/80 mg Simvastatin 80mg Discharge Plan Admission Admit Date/Time: 01/23/25 19:32 Primary Reason for Your Visit: Right septic arthritis Attending Provider: Christine Reveles Primary Care Provider: Amira Tijerina NP Consulting Providers: Mckinley Romo; Destiney Lane; Pal Rich Discharge Orders/Prescriptions Prescriptions: New levofloxacin 500 mg tablet 500 mg PO DAILY Qty: 14 0RF doxycycline hyclate 100 mg capsule 100 mg PO BID Qty: 28 0RF No Action meloxicam 15 mg tablet 15 mg PO DAILY fluticasone propionate [Flonase Allergy Relief] 50 mcg/actuation spray,suspension 1 spray intranasal DAILY Rx Instructions: administer into each nostril prednisone 10 mg tablet 10 mg PO Q12H Patient Comments: [NO ORIGINAL SIG] sulfasalazine 500 mg tablet,delayed release (DR/EC) 1,500 mg PO BID azathioprine 50 mg tablet 50 mg PO DAILY Referrals / Follow Up: Amira Tijerina NP, [employer] [Primary Care Provider] - Disposition Disposition (needs filled in before D/C Order can be placed): Home, Self Care
[2025-01-26 14:31] VITALS: BP 121/90; PULSE 92; RESP 19; TEMP 36.3; O2SAT 96
== END 2025-01-26 15:24 | disposition home or self-care (01) | DRG 487 ==
LOC: ED 19:33 → MS3 22:10
PROVIDERS: Internal Medicine Infectious Disease; Student in an Organized Health Care Education/Training Program; Admitting Provider Family Medicine; Emergency Provider Emergency Medicine; PCP Nurse Practitioner Family; Visit Provider Internal Medicine
PROC: 0SBC4ZZ Excision of Right Knee Joint, Percutaneous Endoscopic Approach (ICD-10-PCS; CPT 29870; principal; 2025-01-24 13:10)
DX: M00.9 Pyogenic arthritis, unspecified (principal); D63.8 Anemia in other chronic diseases classified elsewhere; M06.9 Rheumatoid arthritis, unspecified; E66.9 Obesity, unspecified; I80.01 Phlebitis and thrombophlebitis of superficial vessels of right lower extremity; M65.161 Other infective (teno)synovitis, right knee; K21.9 Gastro-esophageal reflux disease without esophagitis; J30.9 Allergic rhinitis, unspecified; M94.261 Chondromalacia, right knee; R03.0 Elevated blood-pressure reading, without diagnosis of hypertension; Z68.35 Body mass index [BMI] 35.0-35.9, adult; Z79.1 Long term (current) use of non-steroidal anti-inflammatories (NSAID); Z79.52 Long term (current) use of systemic steroids; Z79.620 Long term (current) use of immunosuppressive biologic; Z79.624 Long term (current) use of inhibitors of nucleotide synthesis; Z79.631 Long term (current) use of antimetabolite agent; Z79.899 Other long term (current) drug therapy
CPT/HCPCS: 36415; 73564; 80048; 80053; 80202; 82565; 85025; 85652; 86140; 87040; 87070; 87075; 87205; 93970; 94668; 99284; A4216; J0696; J2405

== ENCOUNTER → 2025-05-03 | Outpatient (CLI) | payer OTHER, SELFPAY ==
--- OUTSIDE RECORDS SUMMARY | 2025-05-03 07:21 | XMS RPT_ITS | CCD ---
Author Organization [facility] Care Team Providers Care Completion Supervisor Name Role Phone Hiwot Paz Primary Care Provider Amira Tijerina Primary Care Provider Hiwot Paz Primary Care Provider [phone] HIWOT PAZ Primary Care Unavailable NIRMAL RAMOS Attending Unavailable NIRMAL RAMOS Referring Unavailable SIGNS, DEB Ramírez Referring Unavailable HIWOT PAZ Primary Care Unavailable SIGNS, DEB Ramírez Attending Unavailable SIGNS, DEB Ramírez Attending Unavailable HIWOT PAZ Primary Care Unavailable NIRMAL RAMOS Referring Unavailable JACKSON MONOTYPE MECHANIC-HA HIWOT Primary Care Physician BREEZY OTT-AMIRA BONNER Attending Deann PAZ APRN-HA, [facility] Primary Care Unavaila ble Abdirizak, Achintya Referring Unavailable Tijerina, Amira Primary Care Unavailable Ian Varma Attending Unavailable Breezy Amira Primary Care Unavailable Reveles, Achintya Attending Unavailable Mckinley Romo Consulting Unavailable Domingo Destiney L Admitting Unavailable Domingo Destiney L Consulting Unavailable Pal Rich Consulting Unavailable Reveles, Achintya Consulting Unavailable Breezy Amira Primary Care Unavailable DEVAKIS, S Attending Unavailable DEVAKIS, S Referring Unavailable [facility] Primary Care Unavailable Reveles, Achintya Attending Unavailable Demetrius Mckinley Consulting Unavailable White, Destiney L Admitting Unavailable White, Destiney L Consulting Unavailable Pal Rich Consulting Unavailable Domingo Destiney L Attending Unavailable Breezy FRUIT LOADER MACHINE OPERATOR-C, Amira Primary Care Provider ROXANA CAM Attending Provider ROXANA CAM Referring Provider [phone] Ian Moctezuma DO Emergency Provider Domingo MELARA, Dr. Destiney Wick Admit Provider [phone] Domingo MELARA, Dr. Destiney Wick Other Provider Dr. Mckinley Romo DO Other Provider Abdirizak MELARA, Dr. King Attending Provider Deann Rich MD, Dr. Aguillon Other Provider Abdirizak MELARA, Dr. King Other Provider Unavailab le Medications Current Medications Medication Drug Class(es) Dates Sig (Normalized) Sig (Original) 0.4 ml adalimumab 100 mg/ml prefilled syringe (7 sources) Tumor Necrosis Factor Neelam adalimumab (Humira) 40 MG/0.4ML Prefilled Syringe Kit prefilled syringe azaTHIOprine 50 mg oral tablet (9 sources) Purine Antimetabolite Start: 01-23-2025 take 1 tablet by mouth once daily Azathioprine 50 mg tablet Active 50 mg PO DAILY January 23, 2025 12:00am Start: 06-22-2023 azaTHIOprine 5 0 mg oral tablet Dose : 50 mg = 1 tab(s), Oral, qDay, 0 Refill(s) Start Date: 06/22/23 Status: Ordered certolizumab pegol 200 mg injection (1 source) Start: 09-11-2024 inject 1 mg by subcutaneous injection every other week Cimzia 200 mg subcutaneous kit mg =, Subcutaneous, q2wk, 0 Refill(s) Start Date: 09/11/24 Status: Ordered doxycycline hyclate 100 mg oral capsule (1 source) Tetracycline-class Drug Start: 01-26-2025 take 1 capsule by mouth twice daily Doxycycline Hyclate 100 mg capsule Active 100 mg PO TWICE A DAY January 26, 2025 12:00am Flonase Allergy Relief (1 source) Start: 09-30-2021 Flonase Allergy Relief qDay, 0 Refill(s) Start Date: 09/30/21 Status: Ordered fluticasone propionate 0.05 mg/actuat metered dose nasal spray (7 sources) Corticosteroid Start: 10-03-2021 take 50 ug nasal route once daily Fluticasone Propionate (Flonase Allergy Relief) 50 mcg/actuation spray,suspension Active 1 NMA INTRANASAL DAILY October 03, 2021 12:00am administer into each nostril Start: 10-03-2021 take 1 spray(s) nasa l route once daily Fluticasone Propionate (Flonase Allergy Relief) 50 mcg/actuation spray,suspension Active 1 SPRAY INTRANASAL DAILY October 03, 2021 1:00am administer into each nostril isoniazid 300 mg oral tablet (6 sources) Antimycobacterial Start: 06-23-2023 isoniazid (Nydrazid) 300 MG tablet Take 3 tablets once a week with Rifapentine for 12 wk 36 tablet 0 06/23/2023 Active levoFLOXacin 500 mg oral tablet (1 source) Quinolone Antimicrobial Start: 01-26-2025 take 1 tablet by mouth once daily Levofloxacin 500 mg tablet Active 500 mg PO DAILY January 26, 2025 12:00am meloxicam 15 mg oral tablet (8 sources) Nonsteroidal Anti-inflammatory Drug Start: 09-30-2021 take 1 tablet by mouth once daily Meloxicam 15 mg tablet Active 15 mg PO DAILY October 03, 2021 12:00am predniSONE 10 mg oral tablet (15 sources) Start: 01-23-2025 take 1 tablet by mouth every twelve hours Prednisone 10 mg tablet Active 10 mg PO Q12H January 23, 2025 12:00am Start: 06-22-2023 predniSONE 5 m g oral delayed release tablet Dose : 5 mg = 1 tab(s), Oral, 0 Refill(s) Start Date: 06/22/23 Status: Ordered Start: 10-07-2021 take 5 mg by mouth once daily Prednisone Active 5 MG PO DAILY October 07, 2021 1:00am rifapentine 150 mg oral tablet (5 sources) Rifamycin Antimycobacterial Start: 06-23-2023 End: 09-09-2023 take 5 tablets by mouth every week Rifapentine 150 MG tablet Take 750 mg by mouth 1 (one) time per week for 12 doses. 60 tablet 0 06/23/2023 09/09/2023 Active sulfaSALAzine 500 mg delayed release oral tablet (9 sources) Aminosalicylate Start: 01-23-2025 take 3 tablets by mouth twice daily Sulfasalazine 500 mg tablet,delayed release (DR/EC) Active 1500 mg PO TWICE A DAY January 23, 2025 12:00am Start: 08-01-2023 sulfaSALAzine 500 mg oral delayed release tablet Dose : 1,500 mg = 3 tab(s), Oral, BID, 0 Refill(s) Start Date: 06/22/23 Status: Ordered sulfaSALAzine (A zulfidine) 500 MG tablet Completed/Discontinued Medications Medication Drug Class(es) Dates Sig (Normalized) Sig (Original) folic acid 1 mg oral tablet (7 sources) Start: 10-03-2021 End: 01-23-2025 take 1 tablet by mouth once daily Folic Acid 1 mg tablet Discontinued 1 mg PO DAILY October 03, 2021 12:00am January 23, 2025 7:39pm 0.15 ml methotrexate 50 mg/ml auto-injector (7 sources) Folate Analog Metabolic Inhibitor Start: 10-03-2021 End: 01-23-2025 Methotrexate (Pf) 7.5 mg/0.15 mL auto-injector Discontinued 7.5 mg SC EVERY WEEK October 03, 2021 12:00am January 23, 2025 7:40pm Problems Problem Classification Problem Date Documented Date Episodic/Chronic Abdominal pain (7 sources) Indigestion; Translations: [Epigastric pain] 10-14-2021 Episodic Coagulation and hemorrhagic disorders (7 sources) Thrombocytopenic disorder; Translations: [Thrombocytopenia, unspecified] 10-07-2021 Chronic Deficiency and other anemia (7 sources) Anemia; Translations: [Anemia, unspecified] 10-07-2021 Episodic Immunizations and screening for infectious disease (19 sources) Nonspecific tuberculin test reaction ; Translations: [Nonspecific reaction to tuberculin skin test without active tuberculosis] Onset: 06-01-2023 06-01-2023 Episodic Infective arthritis and osteomyelitis (except that caused by tuberculosis or sexually transmitted disease) (4 sources) Pyogenic arthritis, unspecified; Translations: [Knee pyogenic arthritis] Onset: 02-01-2025 01-23-2025 Episodic Intestinal infection (7 sources) Infection caused by Helicobacter pylori; Translations: [Other specified bacterial intestinal infections] 10-14-2021 Episodic Other aftercare (3 sources) Patient encounter status; Translations: [Encounter for therapeutic drug level monitoring] 06-23-2023 Episodic Other circulatory disease (2 sources) Elevated blood pressure; Translations: [Elevated blood-pressure reading, without diagnosis of hypertension] 01-23-2025 Episodic Other nutritional; endocrine; and metabolic disorders (1 source) Body mass index 30+ - obesity 06-22-2023 Chronic Other screening for suspected conditions (not mental disorders or infectious disease) (1 source) Platelet count below reference range 09-30-2021 Episodic Residual codes; unclassified (12 sources) At risk for infection; Translations: [Other specified personal risk factors, not elsewhere classified] Onset: 06-21-2023 06-21-2023 Episodic Residual codes; unclassified (2 sources) Other specified personal risk factors, not elsewhere classified; Translations: [Other specified personal risk factors, not elsewhere classified] Onset: 06-21-2023 Episodic Rheumatoid arthritis and related disease (20 sources) Rheumatoid arthritis; Translations: [Rheumatoid arthritis, unspecified] Onset: 06-21-2023 10-07-2021 Chronic Tuberculosis (1 source) Inactive tuberculosis 06-22-2023 Episodic Unclassified (1 source) Patient encounter status 06-22-2023 Results Test Name Value Interpretation Reference Range Facility Culture, Anaerobic Any Sourc anish 01-29-2025 CUAN UNK UNK COLLECTED IN OR No growth in 5 days. Normal [facility] Comment on above: Performed By: #### M 100.4001, M100.2000, M100.3000 ####[facility] [address] [place], [address] Culture, Blood (WB)on 2024 CUB Blood cultures x2, f rom two different sites No growth in 5 days. Normal [facility] Comment on above: Performed By: #### M 200.1000, L100.0100, L500.2500 #### [facility] [address] [place], [address] Wound Cultureon 01-28-2025 WC UNK UNK COLLECTED IN OR No growth aerobically. Normal [facility] Comment on above: Performed By: #### M 100.4001, M100.2000, M100.3000 ####[facility] [address] [place], [address] Estimation of creatinine jessica aranceOrdered By: Pal Rich on 01-26-2025 Estimated Creatinine Clearance Calc 155.89 ml/min 50-250 [facility] GFR/1.73 sq M.predicted manda g non-blacks MDRD (S/P/Bld) [Vol rate/Area]Ordered By: Pal Rich on 01-26-2025 Estimated GFR (MDRD) Non-Af Amer 120 >60 [facility] Comment on above: mL/min/1.73m2 CKD-EP I Creatinine Equation (2020) Serum Creatinine AND GFRon 0 01-26-2025 Creatinine [Mass/Vol] 0.58 mg/dL Low 0.70-1.20 [facility] Comment on above: Performed By: #### L 501.1105 ####[facility] [address] [place], [place], [id number] ECRCL 155.89 ml/min Normal 50-250 [facility] Comment on above: Performed By: #### L 501.1105 ####[facility] [address] [facility] [id number] GFR/1.73 sq M.predicted among non-blacks MDRD (S/P/Bld) [Vol rate/Area] 120 mL/min/{1.73_m2} Normal >60 [facility] Comment on above: Result Comment: mL/m in/1.73m2 CKD-EPI Creatinine Equation (2020) Performed By: #### L 501.1105 ####[facility] [address] [place], [place], [id number] Serum creatinine measurement (mass/volume)Ordered By: Pal Rich on 01-26-2025 Creatinine [Mass/Vol] 0.58 mg/dL Low 0.70-1.20 [facility] Vancomycin trough [Mass/Vol] Ordered By: Pal Rich on 01-26-2025 Vancomycin Level Trough 17.7 ug/mL High 5.0-15.0 [facility] Comment on above: Recommended goal tro ugh ranges are generally 10-15 mcg/ml for less severe/complicated infections such as cellulitis or UTI and 15-20 mcg/ml for more severe/complicated infections such as bacteremia/sepsis, osteomyelitis, pneumonia or meningitis. Goal trough ranges should take into account indication, patient-specific factors and organism KELVIN.VANCOMYCIN STANDARED DRUG THERAPY TROUGH LEVEL: 5.0 - 15.0 mg/L VANCOMYCIN HIGH INTENSITY THERAPY TROUGH LEVEL: 15.0 - 20.0 mg/L High Intensity therapy recommended for serious lifethreatening infections include:- Dmsozjdrqp-Mvkedzkmberr-Jsrxdbmmu (Ventilator/Healtcare Associated)-Sepsis PLEASE CONTACT PHARMACY SERVICES (#[id number]) FOR INTERPRETATIONOF RESULTS. Vancomycin, Trough Levelon 0 01-26-2025 VANCO, TROUGH 17.7 ug/mL High 5.0-15.0 [facility] Comment on above: Order Comment: 0830 Result Comment: Zeus mmended goal trough ranges are generally 10-15 mcg/ml for less severe/complicated infections such as cellulitis or UTI and 15-20 mcg/ml for more severe/complicated infections such as bacteremia/sepsis, osteomyelitis, pneumonia or meningitis. Goal trough ranges should take into account indication, patient-specific factors and organism KELVIN. VANCOMYCIN STANDARED DRUG THERAPY TROUGH LEVEL: 5.0 - 15.0 mg/L VANCOMYCIN HIGH INTENSITY THERAPY TROUGH LEVEL: 15.0 - 20.0 mg/L High Intensity therapy recommended for serious life threatening infections include: - Meningitis -Endocarditis -Pneumonia (Ventilator/Healtcare Associated) -Sepsis PLEASE CONTACT PHARMACY SERVICES (#[id number]) FOR INTERPRETATION OF RESULTS. Performed By: #### L 501.8820 ####[facility] [address] [facility], [address] Consultation - Infectious Dx on 01-25-2025 Consultation - Infectious Dx [facility] Medical Records Department [address] [place] [address] Consultation - Infectious Dx 01/25/25 1035 MR#: [id number] Acct: [id number] Name: CHRISTINE NERI Rep #: [id number] : 1990 34 From: Pal Rich MD PCP: JULIANN Whitfield Status:ADM IN Location: [facility] IB604-9 Assessment Plan Assessment/Plan (1) Septic arthritis of knee, right: PLAN: Taken to OR 01/24/[address] Romo for I D. Surg cx pending, will narrow to vanc/ceftriaxone. Will follow, thank you (2) Rheumatoid arthritis: HPI Consult Data Date of Consult: 01/25/25 HPI Narrative Reason for Consultation: septic arthritis HPI Narrative: CHRISTINE NERI, is a 34 F with RA on immunosuppression, presented 3 with two days progressive R knee pain, swelling, mild warmth, chills. No known inciting event. No h/o gout. Pain was moderate. Sent to ED, admitted on vanc/cefepime, taken to OR 01/24/[address] Romo. Feeling better this AM, no n/v/d. Full ROS performed and neg except as noted above. [facility] Medical History Obesity Dyspepsia H. pylori infection Anemia Thrombocytopenia Rheumatoid arthritis Home Medications ???Medication ???Instructions ???Recorded ???Last Taken ???Type fluticasone propionate 50 1 spray intranasal DAILY 10/03/21 Unknown History mcg/actuation nasal spray,suspension (Flonase Allergy Relief) meloxicam 15 mg tablet 15 mg PO DAILY 10/03/21 Unknown Hi story azathioprine 50 mg tablet 50 mg PO DAILY 01/23/25 Unknown Hi story prednisone 10 mg tablet 10 mg PO Q12H 01/23/25 Unknown His tory sulfasalazine 500 mg 1,500 mg PO BID 01/23/25 Unknown H istory tablet,delayed release Allergy/AdvReac Type Severity Reaction Status Date / Time No Known Allergies Allergy Verified 01/23/25 16:40 Family History Grandmother Heart disease Mother Lung cancer Grandfather Heart disease Diabetes Family History other Surgical History [place] teeth extracted Social History household members: other details: Lives with her sister. Smoking Status: Never smoker second hand exposure: No alcohol intake: current alcohol intake frequency: a few times a week details: occasionally substance use type: does not use rafael/sikhism: None seatbelt use: always do you feel safe at home: Yes Physical Exam Const alert, oriented x3 and no apparent distress General Appearance: cooperative HEENT normocephalic and head/scalp atraumatic Eyes PERRL and EOMs intact bilaterally Neck supple and No nodes Resp normal air movement and clear to auscultation bilaterally Cardio regular rate and regular rhythm GI soft to palpation, non-tender and non-distended Extremity General Extremity: edema Skin no rashes or lesions noted Skin Narrative: RLE wrapped Neuro CN's II-XII intact bilaterally Lab / Micro Data Attestation: I reviewed the patient's lab results. 01/24/25 05:00 01/24/25 05:00 Labs: Laboratory Results - last 24 hr 01/25/25 07:47: Vancomycin Trough 16.7 H Micro: Microbiology 01/24/25 Unknown Aspirate - Knee Wound Culture - Preliminary No growth-Final to follow 01/25/25 1038 Cosigner Signature (if applicable): CC: JULIANN Tijerina Signed Normal [facility] Gram Stainon 01-25-2025 GS UNK UNK COLLECTED IN OR Gram Stain 3+ White Blood Cells No organisms seen Normal [facility] Comment on above: Performed By: #### M 100.4001, M100.2000, M100.3000 ####[facility] [address] [place], [place], [id number] Vancomycin, Trough Levelon 0 01-25-2025 VANCO, TROUGH 16.7 ug/mL High 5.0-15.0 [facility] Comment on above: Order Comment: 0348 Result Comment: Zeus mmended goal trough ranges are generally 10-15 mcg/ml for less severe/complicated infections such as cellulitis or UTI and 15-20 mcg/ml for more severe/complicated infections such as bacteremia/sepsis, osteomyelitis, pneumonia or meningitis. Goal trough ranges should take into account indication, patient-specific factors and organism KELVIN. VANCOMYCIN STANDARED DRUG THERAPY TROUGH LEVEL: 5.0 - 15.0 mg/L VANCOMYCIN HIGH INTENSITY THERAPY TROUGH LEVEL: 15.0 - 20.0 mg/L High Intensity therapy recommended for serious life threatening infections include: - Meningitis -Endocarditis -Pneumonia (Ventilator/Healtcare Associated) -Sepsis PLEASE CONTACT PHARMACY SERVICES (#[id number]) FOR INTERPRETATION OF RESULTS. Performed By: #### L 501.9552 ####[facility] [address] [place], [address] Venous Duplex US - Obi Extre [facility] 01-25-2025 Venous Duplex US - Obi Extrem [facility] [address] [place] [address] Venous Duplex US - Obi Extrem 01/26/25 0837 MR#: [id number] Acct: [id number] Name: CHRISTINE NERI Rep #: [id number] : 1990 34 From: Ian Varma MD Attending Dr: Dr. Christine Reveles MD Status: DI S IN Ordering Dr: Christine Reveles MD Date: 01/25/25 Location: [facility] Sex: F C Admitted: 01/23/25 Reason For Study Reason For Study: BUE Swelling Right Proximal Left Proximal Right jugular vein is spontaneous, widely patent, Left jugular vein is spontaneous, widely patent, phasic, with no intraluminal echogenicity noted. phasic, with no intraluminal echogenicity noted. Right subclavian vein is spontaneous, widely patent, Left subclavian vein is spontaneous, widely patent, phasic, with no intraluminal echogenicity noted. phasic, with no intraluminal echogenicity noted. Right Lower Arm Left Arm Right radial vein is compressible. Left axillary vein is spontaneous, patent, phasic, Right ulnar vein is compressible. competent, compressible and demonstrates Right Arm augmentation. Right axillary vein is spontaneous, patent, phasic, Left brachial vein is compressible. competent, compressible and demonstrates Left cephalic vein is compressible. augmentation. Left basilic vein is compressible. Right brachial vein is compressible. Left Lower Arm Rt Cephalic Vein is PARTIALLY COMPRESSIBLE with Left radial vein is compressible. intraluminal echoes consistent with ACUTE SVT at AC. Left ulnar vein is compressible. Cephalic Vein wrist to prox forearm, and bicep to KRYSTLE appear compressible. Right basilic vein is compressible. Patient Safety Stat Results reported to M/S 3 pr internship. Procedure This was a bilateral upper extremity venous doppler examination. VL/Venous Duplex US - Obi Extrem Interpretation Summary Acute superficial vein thrombosis noted in the right cephalic vein at the antecubital fossa. Deep veins of the bilateral upper extremities are patent and compressible segmentally. There is no evidence of deep vein thrombosis. Superficial veins of the left upper extremity are patent and compressible segmentally. There is no evidence of deep vein thrombosis. Ordering Physician: Christine Reveles Referring Physician: Amira Tijerina Performed By: Benton Goldberg, RVT ??? 01/29/25843 Date Ian Varma MD CC: FRUIT LOADER MACHINE OPERATOR-C Amira Tijerina; Dr. Christine Reveles MD Date Dictated: 01/26/25836 Date Transcribed: 01/29/25843 [employer] Director: Signed Normal [facility] Absolute neutrophil countOrd ered By: Destiney Lane on 01-24-2025 Neutrophils (Bld) [#/Vol] 6.9 10*3/uL 2.0-7.7 [facility] Anion gap in Serum or Plasma Ordered By: Destiney Lane on 01-24-2025 Anion gap [Moles/Vol] 9 mmol/L 04-05 [facility] BUN/creatinine ratioOrdered By: Destiney Lane on 01-24-2025 Urea nitrogen/Creatinine [Mass ratio] 23.0 mg/mg High 09-10 [facility] CBC W/Diff, Automatedon Absolute Lymph 1.34 X10 3/uL Normal 0.83-4.51 [facility] Comment on above: Performed By: #### L 100.0100, L500.4050 ####[facility] [address] [place], [place], [address] Absolute Neut 6.9 X10 3/uL Normal 2.0-7.7 [facility] Comment on above: Performed By: #### L 100.0100, L500.4050 ####[facility] [address] [place], [address] IG% 0.400 Normal 0.0-0.9 [facility] Comment on above: Result Comment: IG% - Immature Granulocytes (promyelocytes, myelocytes and metamyelocytes) > 1% indicates that a LEFT SHIFT is Present. Performed By: #### L 100.0100, L500.4050 ####[facility] [address] [place], [address] Nucleated RBC (Bld) [#/Vol] 0 10*3/uL Normal 0-5 [facility] Comment on above: Performed By: #### L 100.0100, L500.4050 ####[facility] [address] [place], [address] RDW SD 44.9 fl High 35.1-43.9 [facility] Comment on above: Performed By: #### L 100.0100, L500.4050 ####[facility] [address] [place], [address] CBC W/Diff, AutomatedOrdered By: Destiney Lane on 01-24-2025 Basophils/100 WBC (Bld) 0.2 % Normal 0-1 [facility] Comment on above: Performed By: #### L 100.0100, L500.4050 ####[facility] [address] [place], [address] Eosinophils/100 WBC (Bld) 0.0 % Normal 0-5 [facility] Comment on above: Performed By: #### L 100.0100, L500.4050 ####[facility] [address] [place], [address] Erythrocyte distribution width (RBC) [Ratio] 15.1 % High 11.6-14.6 [facility] Comment on above: Performed By: #### L 100.0100, L500.4050 ####[facility] [address] [place], [address] Hematocrit (Bld) [Volume fraction] 33.2 % Low 37-47 [facility] Comment on above: Performed By: #### L 100.0100, L500.4050 ####[facility] [address] [place], [address] Hemoglobin (Bld) [Mass/Vol] 10.7 g/dL Low 12.0-15.0 [facility] Comment on above: Performed By: #### L 100.0100, L500.4050 ####[facility] [address] [place], [address] Lymphocytes/100 WBC (Bld) 14.5 % Low 19-41 [facility] Comment on above: Performed By: #### L 100.0100, L500.4050 ####[facility] [address] [place], [address] MCH (RBC) [Entitic mass] 26.3 pg Low 27.0-32.0 [facility] Comment on above: Performed By: #### L 100.0100, L500.4050 ####[facility] [address] [place], [address] MCHC (RBC) [Mass/Vol] 32.2 g/dL Normal 32-36 [facility] Comment on above: Performed By: #### L 100.0100, L500.4050 ####[facility] [address] [place], [address] MCV (RBC) [Entitic vol] 81.6 fL Normal 81-99 [facility] Comment on above: Performed By: #### L 100.0100, L500.4050 ####[facility] [address] [place], [address] Monocytes/100 WBC (Bld) 9.9 % Normal 0-10 [facility] Comment on above: Performed By: #### L 100.0100, L500.4050 ####[facility] [address] [place], [address] Neutrophils/100 WBC (Bld) 75.0 % High 47-70 [facility] Comment on above: Performed By: #### L 100.0100, L500.4050 ####[facility] [address] [place], [address] Platelet mean volume (Bld) [Entitic vol] 11.2 fL Normal 6.2-12.0 [facility] Comment on above: Performed By: #### L 100.0100, L500.4050 ####[facility] [address] [place], [address] Platelets (Bld) [#/Vol] 170 10*3/uL Normal 150-450 [facility] Comment on above: Performed By: #### L 100.0100, L500.4050 ####[facility] [address] [place], [address] RBC (Bld) [#/Vol] 4.07 10*6/uL Low 4.2-5.4 [facility] Comment on above: Performed By: #### L 100.0100, L500.4050 ####[facility] [address] [place], [address] WBC (Bld) [#/Vol] 9.3 10*3/uL Normal 4.4-11.0 [place] [facility] Comment on above: Performed By: #### L 100.0100, L500.4050 ####[facility] [address] [place], [address] Comprehensive Metabolic Prof ilOrdered By: Destiney Lane on 01-24-2025 Albumin [Mass/Vol] 3.5 g/dL Normal 3.5-5.0 [facility] Comment on above: Performed By: #### L 100.0100, L500.4050 ####[facility] [address] [place], [address] Albumin/Globulin [Mass ratio] 1.0 {ratio} Normal 0.9-2.4 [facility] Comment on above: Performed By: #### L 100.0100, L500.4050 ####[facility] [address] [place], [address] ALT [Catalytic activity/Vol] 12 U/L Normal <=34 [facility] Comment on above: Performed By: #### L 100.0100, L500.4050 ####[facility] [address] [place], [address] AST [Catalytic activity/Vol] 14 U/L Normal <=31 [facility] Comment on above: Performed By: #### L 100.0100, L500.4050 ####[facility] [address] [place], [address] Bilirubin [Mass/Vol] 0.37 mg/dL Normal 0.00-1.30 [facility] Comment on above: Performed By: #### L 100.0100, L500.4050 ####[facility] [address] [place], [address] Calcium [Mass/Vol] 8.5 mg/dL Normal 7.6-11.0 [facility] Comment on above: Performed By: #### L 100.0100, L500.4050 ####[facility] [address] [place], [address] Chloride [Moles/Vol] 106 mmol/L Normal 98-108 [facility] Comment on above: Performed By: #### L 100.0100, L500.4050 ####[facility] [address] [place], [address] CO2 [Moles/Vol] 21.3 mmol/L Normal 21.0-32.0 [facility] Comment on above: Performed By: #### L 100.0100, L500.4050 ####[facility] [address] [place], [address] Globulin (S) [Mass/Vol] 3.3 g/dL Normal 2.2-4.2 [facility] Comment on above: Performed By: #### L 100.0100, L500.4050 ####[facility] [address] [place], [address] Glucose [Mass/Vol] 94 mg/dL Normal 70-99 [facility] Comment on above: Performed By: #### L 100.0100, L500.4050 ####[facility] [address] [place], [address] Potassium [Moles/Vol] 4.0 mmol/L Normal 3.3-5.1 [facility] Comment on above: Performed By: #### L 100.0100, L500.4050 ####[facility] [address] [place], [address] Sodium [Moles/Vol] 137 mmol/L Normal 133-145 [facility] Comment on above: Performed By: #### L 100.0100, L500.4050 ####[facility] [address] [place], [address] Urea nitrogen [Mass/Vol] 13 mg/dL Normal 4-19 [facility] Comment on above: Performed By: #### L 100.0100, L500.4050 ####[facility] [address] [place], [address] Comprehensive Metabolic Prof ilon 01-24-2025 ALK PHOS 68 U/L Normal 35-104 [facility] Comment on above: Performed By: #### L 100.0100, L500.4050 ####[facility] [address] [place], [address] BUN/CRE 23.0 RATIO High 10-20 [facility] Comment on above: Performed By: #### L 100.0100, L500.4050 ####[facility] [address] [place], [address] Creatinine [Mass/Vol] 0.56 mg/dL Low 0.70-1.20 [facility] Comment on above: Performed By: #### L 100.0100, L500.4050 ####[facility] [address] [place], [address] ECRCL 161.37 ml/min Normal 50-250 [facility] Comment on above: Performed By: #### L 100.0100, L500.4050 ####[facility] [address] [place], [address] GAP 9 Normal 5-15 [facility] Comment on above: Performed By: #### L 100.0100, L500.4050 ####[facility] [address] [place], [address] GFR/1.73 sq M.predicted among non-blacks MDRD (S/P/Bld) [Vol rate/Area] 121 mL/min/{1.73_m2} Normal >60 [facility] Comment on above: Result Comment: mL/m in/1.73m2 CKD-EPI Creatinine Equation (2020) Performed By: #### L 100.0100, L500.4050 ####[facility] [address] [place], [address] T PROT 6.8 g/dL Normal 5.9-8.4 [facility] Comment on above: Performed By: #### L 100.0100, L500.4050 ####[facility] [address] [place], [address] Erythrocyte distribution wid th standard deviationOrdered By: Destiney White on 01-24-2025 Erythrocyte distribution width (RBC) [Entitic vol] 44.9 fL High 35.1-43.9 [facility] Gram stainOrdered By: Albina Romo on 01-24-2025 Microscopic observation Gram stain Nom (Unsp spec) [facility] Immature granulocytes/100 WB C Auto (Bld)Ordered By: Destiney White on 01-24-2025 Immature granulocytes/100 WBC (Bld) 0.400 % 0.0-0.9 [facility] Comment on above: IG% - Immature Granu locytes (promyelocytes, myelocytes and metamyelocytes) > 1% indicates that a LEFT SHIFT is Present. Lymphocytes Auto (Unsp spec) [#/Vol]Ordered By: Destiney Domingo on 01-24-2025 Lymphocytes (Bld) [#/Vol] 1.34 10*3/uL 0.83-4.51 [facility] MR/POSTOP.ANEon 01-24-2025 MR/POSTOP.ANE [facility] Medical Records Department [address] [place] [address] Anesthesia Postop Eval I 01/24/25 142 MR#: [id number] Acct: [id number] Name: CHRISTINE NERI Rep #: [id number] : 1990 34 From: Bishop Hemphill CRNA PCP: JULIANN [place] Status:ADM IN Y Race: C Location: PR3 [facility] [place] Anesthesia: Postop Eval I Current Vital Signs Temperature: 98.6 F Pulse Rate: 103 Blood Pressure: 159/96 Respiratory Rate: 16 Pulse Ox: 96 Assessment Airway patent: Yes Spontaneous unlabored respirations: Yes nausea: No Vomiting: No Anesthesia Complication: No Fluid Hydration Crystalloid volume administer (ml): 1,200 Total IV fluid infused: 1,200 Progress Note Anesthesia document: Postop Eval 1 completed: Yes 01/24/251428 Date Bishop Warrington DELINEATOR Cosigner Signature: Date CC: Signed Normal [facility] MR/[id number] 01-24-2025 MR/POSTOPAN2 [facility] Medical Records Department [address] [facility] [place] [address] Anesthesia Postop Eval II 01/24/25 1442 MR#: [id number] Acct: [id number] Name: CHRISTINE NERI Rep #: [id number] : 1990 34 From: Nemesio Buitrago MD PCP: JULIANN [place] Status:ADM IN Y Race: C [place] Anesthesia Postop Eval I Sum Postop Eval Completion status Anesthesia document: Postop Eval 1 completed: Yes Anesthesia Postop Eval I Summary Anesthesia Postop Eval I Summary: Anesthesia Postop Eval I: Assessment Summary Airway patent Yes 01/24/25 14:28 [email or web address] Spontaneous unlabored Yes 01/24/25 14:28 [email or web address] respirations Mental status nausea No 01/24/25 14:28 [email or web address] Vomiting No 01/24/25 14:28 [email or web address] Anesthesia Postop Eval I: Fluid Summary Crystalloid volume administer 1,200 01/24/25 14:28 [email or web address] (ml) Colloids volume administered ( ml) Blood Product volume administered (ml) Total IV fluid infused 1,200 01/24/25 14:28 [email or web address] Anesthesia Postop Eval I: Summary Notes Anesthesia Complication No 01/24/25 14:28 [email or web address] Anesthesia Complication Comment: Post-operative progress note Anesthesia: Postop Eval II Evaluation Mental status: Awake Pain Level: 2 nausea: No Vomiting: No 01/24/25 144 Date Nemesio Buitrago MD Cosigner Signature: Date CC: Signed Normal [facility] Nucleated red blood cell per centageOrdered By: Destiney Lane on 01-24-2025 Nucleated RBC/100 WBC (Bld) [Ratio] 0 % 0-5 [facility] Operative Reporton Operative Report [facility] Medical Records Department [address] [place] [address] Operative Report 01/24/25 1442 MR#: [id number] Acct: [id number] Name: CHRISTINE NERI Rep #: [id number] : 1990 34 From: Mckinley Romo DO PCP: JULIANN [place] Status:ADM IN Location: [place] [address] Operative Report (Standard) Operative Information Date of Procedure: 01/24/25 Pre-Operative Diagnosis: Right knee septic arthritis Post-Operative Diagnosis: Right knee septic arthritis Surgery/Procedure Performed: Right knee arthroscopic irrigation and debridement 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: No Type of Anesthesia: General RN Documented Start/Stop Times: Operation Date: 01/24/25 13:30 Case Time Into Pre-Op 01/24/25 12:28 Anesthesia Start 01/24/25 13:30 Into Room 01/24/25 13:30 Procedure Start 01/24/25 13:53 Procedure End 01/24/25 14:14 Anesthesia End 01/24/25 14:21 Out of Room 01/24/25 14:21 Into Recovery 01/24/25 14:23 Procedure Start Time: 13:53 Procedure Stop Time: 14:14 Select all DRAINS/GRAFTS/IMPLANTS that apply: None Estimated Blood Loss: 10 cc Specimen collected: Yes Description of specimen(s) removed: Right knee synovial fluid arthrocentesis-sent for culture Description of surgery: Patient was identified in the preoperative holding area by name, medical record number, and date of . The operative extremity was marked. All questions were answered to the patient satisfaction. At time of her procedure, patient was brought to the operative suite and positioned supine a standard operating table. General anesthesia was induced and LMA placed. Right lower extremity was then placed in an arthroscopic leg vanegas. The foot of the bed was dropped 90 degrees. Well-leg vanegas was placed under the patient's left side. We prepped and draped the right lower extremity in normal, sterile orthopedic fashion. We performed timeout confirming the side, site, and operation to be performed. No concerns were voiced elected proceed with surgery. Cefepime was administered intraoperatively as she was due for her scheduled antibiotics. I then proceeded with arthrocentesis of the right knee via superior medial portal. Turbid red fluid was aspirated and sent for culture. I then established a standard anterior lateral portal with 11 blade scalpel. Blunt tipped trocar was used to enter the knee joint which was filled with normal saline with epinephrine. Diagnostic arthroscopy revealed diffuse synovitis. Tricompartmental degenerative changes were noted. Meniscus were relatively benign with early fraying. Anterior medial portal was established. Shaver was used to debride synovitis in all 3 compartments. 9 L normal saline was lavaged to the joint. No gross purulence was encountered. Portal sites were then closed after arthroscopic instruments were removed in standard fashion with interrupted [id number] 3-0 nylon suture. Intra-articular block was administered with 30 cc total quarter percent bupivacaine with epinephrine. Bulky sterile compression dressing was applied. Patient was awakened from anesthesia and safely extubated in the operative suite. She was transferred to her gurney and subsequent to PACU in stable condition. She tolerated the procedure well without apparent complication. 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 Destiney Lane MD; Dr. Mckinley Romo DO; Dr. Pal Rich MD Signed Normal [facility] Serum or plasma alkaline phill sphatase measurementOrdered By: Destiney Lane on 01-24-2025 ALP [Catalytic activity/Vol] 68 U/L 35-104 [facility] Total proteinOrdered By: Margarita Lane on 01-24-2025 Protein [Mass/Vol] 6.8 g/dL 5.9-8.4 [facility] Basic Metabolic Profile (BMP )on 01-23-2025 BUN/CRE 21.6 RATIO High 10-20 [facility] Comment on above: Performed By: #### M 200.1000, L100.0100, L500.2500 #### [facility] [address] [place], [address] Calcium [Mass/Vol] 9.0 mg/dL Normal 7.6-11.0 [facility] Comment on above: Performed By: #### M 200.1000, L100.0100, L500.2500 #### [facility] [address] [place], [address] Chloride [Moles/Vol] 103 mmol/L Normal 98-108 [facility] Comment on above: Performed By: #### M 200.1000, L100.0100, L500.2500 #### [facility] [address] [place], [address] CO2 [Moles/Vol] 21.8 mmol/L Normal 21.0-32.0 [facility] Comment on above: Performed By: #### M 200.1000, L100.0100, L500.2500 #### [facility] [address] [place], [address] Creatinine [Mass/Vol] 0.65 mg/dL Low 0.70-1.20 [facility] Comment on above: Performed By: #### M 200.1000, L100.0100, L500.2500 #### [facility] [address] [place], [address] ECRCL 138.49 ml/min Normal 50-250 [facility] Comment on above: Performed By: #### M 200.1000, L100.0100, L500.2500 #### [facility] [address] [place], [address] GAP 10 Normal 5-15 [facility] Comment on above: Performed By: #### M 200.1000, L100.0100, L500.2500 #### [facility] [address] [place], [address] GFR/1.73 sq M.predicted among non-blacks MDRD (S/P/Bld) [Vol rate/Area] 117 mL/min/{1.73_m2} Normal >60 [facility] Comment on above: Result Comment: mL/m in/1.73m2 CKD-EPI Creatinine Equation (2020) Performed By: #### M 200.1000, L100.0100, L500.2500 #### [facility] [address] [place], [address] Glucose [Mass/Vol] 119 mg/dL High 70-99 [facility] Comment on above: Performed By: #### M 200.1000, L100.0100, L500.2500 #### [facility] [address] [place], [address] Potassium [Moles/Vol] 3.6 mmol/L Normal 3.3-5.1 [facility] Comment on above: Performed By: #### M 200.1000, L100.0100, L500.2500 #### [facility] [address] [place], [address] Sodium [Moles/Vol] 135 mmol/L Normal 133-145 [facility] Comment on above: Performed By: #### M 200.1000, L100.0100, L500.2500 #### [facility] [address] [place], [address] Urea nitrogen [Mass/Vol] 14 mg/dL Normal 4-19 [facility] Comment on above: Performed By: #### M 200.1000, L100.0100, L500.2500 #### [facility] [address] [place], [address] CBC W/Diff, Automatedon 03-0 Absolute Lymph 1.54 X10 3/uL Normal 0.83-4.51 [facility] Comment on above: Performed By: #### M 200.1000, L100.0100, L500.2500 #### [facility] [address] [place], [address] Absolute Neut 8.0 X10 3/uL High 2.0-7.7 [facility] Comment on above: Performed By: #### M 200.1000, L100.0100, L500.2500 #### [facility] [address] [place], [address] Basophils/100 WBC (Bld) 0.2 % Normal 0-1 [facility] Comment on above: Performed By: #### M 200.1000, L100.0100, L500.2500 #### [facility] [address] [place], [address] Eosinophils/100 WBC (Bld) 0.0 % Normal 0-5 [facility] Comment on above: Performed By: #### M 200.1000, L100.0100, L500.2500 #### [facility] [address] [place], [address] Erythrocyte distribution width (RBC) [Ratio] 15.1 % High 11.6-14.6 [facility] Comment on above: Performed By: #### M 200.1000, L100.0100, L500.2500 #### [facility] [address] [place], [address] Hematocrit (Bld) [Volume fraction] 36.3 % Low 37-47 [facility] Comment on above: Performed By: #### M 200.1000, L100.0100, L500.2500 #### [facility] [address] [place], [address] Hemoglobin (Bld) [Mass/Vol] 11.8 g/dL Low 12.0-15.0 [facility] Comment on above: Performed By: #### M 200.1000, L100.0100, L500.2500 #### [facility] [address] [place], [address] IG% 0.600 Normal 0.0-0.9 [facility] Comment on above: Result Comment: IG% - Immature Granulocytes (promyelocytes, myelocytes and metamyelocytes) > 1% indicates that a LEFT SHIFT is Present. Performed By: #### M 200.1000, L100.0100, L500.2500 #### [facility] [address] [place], [address] Lymphocytes/100 WBC (Bld) 14.5 % Low 19-41 [facility] Comment on above: Performed By: #### M 200.1000, L100.0100, L500.2500 #### [facility] [address] [place], [address] MCH (RBC) [Entitic mass] 26.6 pg Low 27.0-32.0 [facility] Comment on above: Performed By: #### M 200.1000, L100.0100, L500.2500 #### [facility] [address] [place], [address] MCHC (RBC) [Mass/Vol] 32.5 g/dL Normal 32-36 [facility] Comment on above: Performed By: #### M 200.1000, L100.0100, L500.2500 #### [facility] [address] [place], [address] MCV (RBC) [Entitic vol] 81.9 fL Normal 81-99 [facility] Comment on above: Performed By: #### M 200.1000, L100.0100, L500.2500 #### [facility] [address] [place], [address] Monocytes/100 WBC (Bld) 9.6 % Normal 0-10 [facility] Comment on above: Performed By: #### M 200.1000, L100.0100, L500.2500 #### [facility] [address] [place], [address] Neutrophils/100 WBC (Bld) 75.1 % High 47-70 [facility] Comment on above: Performed By: #### M 200.1000, L100.0100, L500.2500 #### [facility] [address] [place], [address] Nucleated RBC (Bld) [#/Vol] 0 10*3/uL Normal 0-5 [facility] Comment on above: Performed By: #### M 200.1000, L100.0100, L500.2500 #### [facility] [address] [place], [address] Platelet mean volume (Bld) [Entitic vol] 10.7 fL Normal 6.2-12.0 [facility] Comment on above: Performed By: #### M 200.1000, L100.0100, L500.2500 #### [facility] [address] [place], [address] Platelets (Bld) [#/Vol] 188 10*3/uL Normal 150-450 [facility] Comment on above: Performed By: #### M 200.1000, L100.0100, L500.2500 #### [facility] [address] [place], [address] RBC (Bld) [#/Vol] 4.43 10*6/uL Normal 4.2-5.4 [facility] Comment on above: Performed By: #### M 200.1000, L100.0100, L500.2500 #### [facility] [address] [place], [address] RDW SD 44.4 fl High 35.1-43.9 [facility] Comment on above: Performed By: #### M 200.1000, L100.0100, L500.2500 #### [facility] [address] [place], [address] WBC (Bld) [#/Vol] 10.6 10*3/uL Normal 4.4-11.0 [facility] Comment on above: Performed By: #### M 200.1000, L100.0100, L500.2500 #### [facility] [address] [place], [address] CRPon 01-23-2025 C-REACTIVE PROT 174.00 mg/L High 0.0-3.0 [facility] Comment on above: Order Comment: Comme nts: May add to ED labs Performed By: #### L 101.9900, L501.6710 ####[facility] [address] [facility] [place], [address] CRP [Mass/Vol]Ordered By: Rashmi Lane on 01-23-2025 C-Reactive Protein Extended Range 174.00 mg/L High 0.0-3.0 [facility] Consultation - Orthopedicson 01-23-2025 Consultation - Orthopedics [facility] Medical Records Department [address] [place] [address] Consultation - Orthopedics 01/23/252043 MR#: [id number] Acct: [id number] Name: CHRISTINE NERI Rep #: [id number] : 1990 34 From: Mckinley Romo DO PCP: JULIANN [place] Status:REG ER Location: ED HPI Consult Data Date of Consult: 01/23/25 HPI Narrative HPI Narrative: CHRISTINE NERI, is a 34 F/history of rheumatoid arthritis, obesity who presented to [facility] after 1 day of right knee pain, bilateral shoulder discomfort and right elbow pain. She felt this was consistent with prior RA flares. She started prednisone without improvement in the other joints besides from the. She saw her parking inspector today. Arthrocentesis was performed in the office and is concerning for infection. Emergency department physician, synovial fluid cell count of [id number] with 86% PMNs. No crystals. Synovial fluid was sent for Gram stain and culture. Speaking with the patient, she reports the fluid was milky in appearance. She states she feels much better after arthrocentesis. She reports approximately 70 cc was aspirated during the arthrocentesis. No fevers or chills. Denies any recent illness. Denies any recent sick contacts. She reports daily soreness in her right knee and is aware of previously severe arthritic changes in the knee. Denies any prior complications with anesthesia. Denies family history of anesthetic complication. Denies DVT or PE history. [facility] Medical History Obesity Dyspepsia H. pylori infection Anemia Thrombocytopenia Rheumatoid arthritis Home Medications ???Medication ???Instructions ???Recorded ???Last Taken ???Type fluticasone propionate 50 1 spray intranasal DAILY 10/03/21 Unknown History mcg/actuation nasal spray,suspension (Flonase Allergy Relief) meloxicam 15 mg tablet 15 mg PO DAILY 10/03/21 Unknown Hi story azathioprine 50 mg tablet 50 mg PO DAILY 01/23/25 Unknown Hi story prednisone 10 mg tablet 10 mg PO Q12H 01/23/25 Unknown His tory sulfasalazine 500 mg 1,500 mg PO BID 01/23/25 Unknown H istory tablet,delayed release Allergy/AdvReac Type Severity Reaction Status Date / Time No Known Allergies Allergy Verified 01/23/25 16:40 Family History Grandmother Heart disease Mother Lung cancer Grandfather Heart disease Diabetes Family History other Surgical History [place] teeth extracted Social History household members: other details: Lives with her sister. Smoking Status: Never smoker second hand exposure: No alcohol intake: current alcohol intake frequency: a few times a week details: occasionally substance use type: does not use rafael/sikhism: None seatbelt use: always do you feel safe at home: Yes ROS ROS Narrative 12 point review systems obtained, negative unless otherwise noted in HPI. Vital Signs Vital Signs Vital Signs: 01/23/25 16:40 01/23/25 16:42 01/23/25 17:42 Temperature 98 F 98 F 98.8 F Temperature Source Temporal Oral Oral Pulse Rate 108 H 108 H 98 Respiratory Rate 19 H 19 H 12 Blood Pressure 156/89 H 156/89 H 130/82 H Blood Pressure Mean 111 111 98 Pulse Ox 100 100 98 Oxygen Delivery Method Room Air Room Air Room Air 01/23/25 18:00 01/23/25 19:00 01/23/25 19:40 Temperature 98.8 F 98.5 F 98.5 F Temperature Source Oral Oral Pulse Rate 100 80 68 Respiratory Rate 12 12 12 Blood Pressure 130/80 H 119/67 125/87 H Blood Pressure Mean 96 84 99 Pulse Ox 98 98 98 Oxygen Delivery Method Room Air Room Air 01/23/25 20:00 Temperature 98.8 F Temperature Source Oral Pulse Rate 75 Respiratory Rate 12 Blood Pressure 112/62 Blood Pressure Mean 78 Pulse Ox 98 Oxygen Delivery Method Room Air Weight Weight: 215 lb 9.793 oz Body Mass Index (BMI) 35.9 Physical Exam Narrative General -A Ox3, NAD, appears stated age. Vital signs stable, afebrile. Respiratory -normal work of breathing, no intercostal retractions. CV -pulses regular, brisk capillary refill ???4 limbs. Abdomen-soft, nontender, nondistended. No guarding, rigidity, rebound tenderness. Musculoskeletal/neurologic -full range of motion nontender throughout bilateral upper extremities, left lower extremity with full sensation and strength in all dermatomes and myotomes. No midline cervical tenderness. Right knee: Tolerates range of motion 5-90 degrees. Stable varus valgus stressing. Trace effusion. Minimal warmth within the knee. DF, PF, EHL 5/5. Sensation intact throughout. No eryth (more content not included)... 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 Patient states it has gotten progressively worse. Patient describes her pain as sharp. Patient states it is worse with movement. Patient states she was recently prescribed prednisone which seemed to help somewhat. Patient denies any paresthesias or weakness. Patient states she has a history of rheumatoid arthritis. The patient states she saw her parking inspector today who drained her knee. Coloring Room Worker referred the patient to the emergency department because the synovial fluid looked infected. There was synovial fluid cell count of [id number] with 86% PMNs. There were no crystals noted. Synovial fluid was sent for Gram stain and culture. CBC was also drawn at the parking inspector office which showed a mild leukocytosis of 12.4. Chief Complaint: Lower Extremity Injury Informant: patient Onset/Context/Timing Onset: Yesterday Context: Gradual Onset Timing: Continuous Quality of Pain: Sharp Location: Right knee Worsened by: Movement Relieved by: Prednisone Associated Symptoms Associated Symptoms: Negative for Parasthesia, Weakness or Loss of Funtion PFSH PFS Medical History Dyspepsia H. pylori infection Anemia Thrombocytopenia Rheumatoid arthritis Home Medications ???Medication ???Instructions ???Recorded ???Last Taken ???Type fluticasone propionate 50 1 spray intranasal DAILY 10/03/21 Unknown History mcg/actuation nasal spray,suspension (Flonase Allergy Relief) folic acid 1 mg tablet 1 mg PO DAILY 10/03/21 Unknown His tory meloxicam 15 mg tablet 15 mg PO DAILY 10/03/21 Unknown Hi story methotrexate (PF) 7.5 mg/0.15 mL 7.5 mg subcut QWEEK 10/03/21 Unkno wn History subcutaneous auto-injector prednisone 5 mg tablet 5 mg PO DAILY PRN 10/07/21 Unknown History Allergy/AdvReac Type Severity Reaction Status Date / Time No Known Allergies Allergy Verified 01/23/25 16:40 Family History Grandmother Heart disease Mother Lung cancer Grandfather Heart disease Diabetes Surgical History [place] teeth extracted Social History Smoking Status: Never smoker second hand exposure: No alcohol intake: current alcohol intake frequency: a few times a week details: occasionally substance use type: does not use rafael/sikhism: None seatbelt use: always do you feel safe at home: Yes ROS ROS ED Constitutional Constitutional ED: Reports fever(s); Denies chills Eyes Eyes: Denies blurry vision or change in vision ENT ENT ED: Denies rhinorrhea or sore throat Cardiovascular Cardiovascular: Denies chest pain or palpitations Respiratory/Chest Respiratory/Chest: Denies cough or dyspnea Gastrointestinal Gastrointestinal: Denies nausea or vomiting Genitourinary Genitourinary ED: Denies dysuria or hematuria Musculoskeletal Musculoskeletal: Denies back pain or neck pain Integumentary Denies abscess or rash Neurologic Neurologic: Denies headache(s) or weakness Allergic/Immunologic Allergic/Immunologic ED: Denies mouth swelling or urticaria EXAM Physical Exam Const Vital Signs: 01/23/25 16:40 01/23/25 16:42 Temperature 98 F 98 F Temperature Source Temporal Oral Pulse Rate 108 H 108 H Respiratory Rate 19 H 19 H Blood Pressure 156/89 H 156/89 H Blood Pressure Mean 111 111 Pulse Ox 100 100 Oxygen Delivery Method Room Air Room Air Positive well nourished and well developed General Appearance ED: well developed and NAD HEENT Reports moist mucous membranes Neck full ROM and supple Resp normal respiratory effort and clear to auscultation bilaterally Cardio regular rate and regular rhythm Extremity Extremity Narrative: There is tenderness and effusion to the right knee. There is no bony crepitus or step-off. There is some mild pain with flexion past 60 degrees. There is minimal pain with short arc range of motion. Extensor mechanism is intact. Pedal pulses are equal bilaterally. Sensation was intact to light touch bilaterally in lower extremities. Neuro oriented x3, CN's II-XII intact bilaterally, moves all extremities and no sensory deficits noted Sensorium / Orientation: alert Motor Exam: strength 5/5 throughout MDM MDM MDM Narrative Medical decision (more content not included)... Normal [facility] Erythrocyte Sed Rateon 01-23 SED RATE 87 mm/hr High 0-30 [facility] Comment on above: Performed By: #### L 101.9900, L501.6710 ####[facility] [address] [place], [address] Erythrocyte sedimentation ra teOrdered By: Destiney Lane on 01-23-2025 ESR (Bld) [Velocity] 87 mm/h High 0-30 [facility] H AND P Exam - Hospitaliston 01-23-2025 H&P Exam - Hospitalist [facility] Medical Records Department [address] [place] [address] H P Exam - Hospitalist 01/23/25 1932 MR#: [id number] Acct: [id number] Name: CHRISTINE NERI Rep #: [id number] : 1990 34 From: Destiney Lane MD PCP: JULIANN Whitfield Status:REG ER Location: ED HPI - General General Date of Admission: 01/23/25 Date of Service: 01/23/25 Chief Complaint: R knee pain, intractable. HPI Narrative The patient is a 34 y/o F w/ PMHx: Obesity, Rheumatoid arthritis diagnosed in 2020 treated with MTX however had associated thrombocytopenia this regimen altered, Chronic normocytic anemia, GERD who presents to the [facility] ED on 01/23/25 with history of onset right knee pain, bilateral shoulder discomfort and right elbow pain starting 24 hours prior which was consistent per her report to previous episodes of rheumatoid arthritis flare with initiation of a burst of prednisone with a total of 30 mg on current day of presentation and also evaluation by her parking inspector who did perform a right knee arthrocentesis and the fluid was sent for culture to be cautious following which she notes the pain improved however she had low-grade temperatures and fatigue and malaise eventually prompting referral to the ED given concerns per parking inspector of infection. She did report significant knee swelling but was mildly improved following the arthrocentesis per the parking inspector. She notes that it does still feel swollen. She denies any redness but notes that the knee was warm to touch. She denies any recent history of trauma. She does note recent dental pain in the last 2 weeks but otherwise no recent infectious concerns. Pain currently at rest 3/10 in severity, 8-10/10 prior, improved after initial aspiration. Workup in the ED included T98, heart rate 108, BP 156/89, respiratory rate 19, 10% on room air with most recent repeat vitals T98.8, heart rate 100, BP 130/80, respiratory rate 12, 98% on room air, CBC with WBC 10.6, hemoglobin 0.8, MCV 81.9, platelet 188 with left shift, BMP with BUN/creatinine 14/0.65, glucose 119, plain film of the right knee with severe degenerative changes of the knee joint with severe patellar joint effusion with no evidence of any acute fracture with severe tricompartmental narrowing with osteophyte formation with soft tissues unremarkable, blood culture x 2 pending per ED. In the ED patient administered Ancef 2 g IV x 1. ED discussed case with orthopedic surgeon Dr. Romo who noted likely knee would need to be washed out. [facility] Medical History Obesity Dyspepsia H. pylori infection Anemia Thrombocytopenia Rheumatoid arthritis Home Medications ???Medication ???Instructions ???Recorded ???Last Taken ???Type fluticasone propionate 50 1 spray intranasal DAILY 10/03/21 Unknown History mcg/actuation nasal spray,suspension (Flonase Allergy Relief) meloxicam 15 mg tablet 15 mg PO DAILY 10/03/21 Unknown Hi story azathioprine 50 mg tablet 50 mg PO DAILY 01/23/25 Unknown Hi story prednisone 10 mg tablet 10 mg PO Q12H 01/23/25 Unknown His tory sulfasalazine 500 mg 1,500 mg PO BID 01/23/25 Unknown H istory tablet,delayed release Allergy/AdvReac Type Severity Reaction Status Date / Time No Known Allergies Allergy Verified 01/23/25 16:40 Family History Grandmother Heart disease Mother Lung cancer Grandfather Heart disease Diabetes other (Patient does not know her paternal family history or paternal medical history.) Surgical History [place] teeth extracted Social History (Updated 01/23/25 @ 20:[address] Destiney Lane MD) household members: other details: Lives with her sister. Smoking Status: Never smoker second hand exposure: No alcohol intake: current alcohol intake frequency: a few times a week details: occasionally substance use type: does not use rafael/sikhism: None seatbelt use: always do you feel safe at home: Yes ROS ROS Narrative Admission Review of Systems: CONSTITUTIONAL: No weight loss, +low grade fever, weakness or fatigue. HEENT: Eyes: No visual loss, blurred vision, double vision or yellow sclerae. Ears, Nose, Throat: No hearing loss, sneezing, congestion, runny nose or sore throat. SKIN: No rash or itching, lesions, wounds. CARDIOVASCULAR: No chest pain, chest pressure or chest discomfort, palpitations, edema, orthopnea, syncopal events. RESPIRATORY: No shortness of breath, cough or sputum, wheezing, hemoptysis. GASTROINTESTINAL: No anorexia, nausea, vomiting or diarrhea, abdominal pain, melena, BRBPR. GENITOURINARY: No dysuria, frequency, urgency or retention. NEUROLOGICAL: No headache, dizziness, syncope, paralysis, ataxia, numbnes (more content not included)... Normal [facility] Knee 4 or More Viewson 01-23 Knee 4 or More Views [facility] Imaging Services [address] [place] [address] Knee 4 or More Views MR#: [id number] Acct: [id number] Name: CHRISTINE NERI Rep #: [id number] : 1990 F 34 From: Janna Saba DO PCP: JULIANN Whitfield Status: PRE ER Study: Knee 4 or More Views Date of Exam: 01/23/25 Exam# [id number] Ordering Dr: Ian Moctezuma DO PROCEDURE: KNEE 4 OR MORE VIEWS REASON FOR EXAM: Swelling TECHNIQUE: 4 view(s) of the right knee COMPARISON: None. FINDINGS: No fracture. No suspicious bone lesion. Severe tricompartmental narrowing with osteophyte formation. Small suprapatellar joint effusion. Soft tissues are unremarkable. RAD/Knee 4 or More Views IMPRESSION: Severe degenerative changes of the knee joint as described above with suprapatellar joint effusion. No acute fracture. Reading Location: [facility] CC: FRUIT LOADER MACHINE OPERATOR-Toño Tijerina; Dr. Ian Moctezuma, DO [employer] Director: Signed Normal [facility] Absolute neutrophil counton 12-26-2024 Neutrophils (Bld) [#/Vol] 4.2 10*3/uL 2.0-7.7 [facility] Basophil percentageon 2024 Basophils/100 WBC (Bld) 0.2 % 0-1 [facility] C-reactive protein measureme nt by high sensitivity methodon 12-26-2024 C-Reactive Protein Extended Range 7.35 mg/L High 0.0-3.0 [facility] Comment on above: C-Reactive Protein ( CRP) provides useful information for thediagnosis, therapy and monitoring of inflammatory processesand associated diseases. For the evaluation of Relative Riskfor Cardiovascular Disease, a High Sensitivity CRP (HSCRP)should be ordered. CBC W/Diff, Automatedon Absolute Lymph 1.02 X10 3/uL Normal 0.83-4.51 [facility] Comment on above: Performed By: #### L 101.9900, L501.6710, L100.0100 #### [facility] [address] [place], [address] Absolute Neut 4.2 X10 3/uL Normal 2.0-7.7 [facility] Comment on above: Performed By: #### L 101.9900, L501.6710, L100.0100 #### [facility] [address] [place], [address] Basophils/100 WBC (Bld) 0.2 % Normal 0-1 [facility] Comment on above: Performed By: #### L 101.9900, L501.6710, L100.0100 #### [facility] [address] [place], [address] Eosinophils/100 WBC (Bld) 0.0 % Normal 0-5 [facility] Comment on above: Performed By: #### L 101.9900, L501.6710, L100.0100 #### [facility] [address] [place], [address] Erythrocyte distribution width (RBC) [Ratio] 14.9 % High 11.6-14.6 [facility] Comment on above: Performed By: #### L 101.9900, L501.6710, L100.0100 #### [facility] [address] [place], [address] Hematocrit (Bld) [Volume fraction] 39.2 % Normal 37-47 [facility] Comment on above: Performed By: #### L 101.9900, L501.6710, L100.0100 #### [facility] [address] [place], [address] Hemoglobin (Bld) [Mass/Vol] 11.9 g/dL Low 12.0-15.0 [facility] Comment on above: Performed By: #### L 101.9900, L501.6710, L100.0100 #### [facility] [address] [place], [address] IG% 0.400 Normal 0.0-0.9 [facility] Comment on above: Result Comment: IG% - Immature Granulocytes (promyelocytes, myelocytes and metamyelocytes) > 1% indicates that a LEFT SHIFT is Present. Performed By: #### L 101.9900, L501.6710, L100.0100 #### [facility] [address] [place], [address] Lymphocytes/100 WBC (Bld) 18.2 % Low 19-41 [facility] Comment on above: Performed By: #### L 101.9900, L501.6710, L100.0100 #### [facility] [address] [place], [address] MCH (RBC) [Entitic mass] 25.8 pg Low 27.0-32.0 [facility] Comment on above: Performed By: #### L 101.9900, L501.6710, L100.0100 #### [facility] [address] [place], [address] MCHC (RBC) [Mass/Vol] 30.4 g/dL Low 32-36 [facility] Comment on above: Performed By: #### L 101.9900, L501.6710, L100.0100 #### [facility] [address] [place], [address] MCV (RBC) [Entitic vol] 84.8 fL Normal 81-99 [facility] Comment on above: Performed By: #### L 101.9900, L501.6710, L100.0100 #### [facility] [address] [place], [address] Monocytes/100 WBC (Bld) 6.8 % Normal 0-10 [facility] Comment on above: Performed By: #### L 101.9900, L501.6710, L100.0100 #### [facility] [address] [place], [address] Neutrophils/100 WBC (Bld) 74.4 % High 47-70 [facility] Comment on above: Performed By: #### L 101.9900, L501.6710, L100.0100 #### [facility] [address] [place], [address] Nucleated RBC (Bld) [#/Vol] 0 10*3/uL Normal 0-5 [facility] Comment on above: Performed By: #### L 101.9900, L501.6710, L100.0100 #### [facility] [address] [place], [address] Platelet mean volume (Bld) [Entitic vol] 10.8 fL Normal 6.2-12.0 [facility] Comment on above: Performed By: #### L 101.9900, L501.6710, L100.0100 #### [facility] [address] [place], [address] Platelets (Bld) [#/Vol] 176 10*3/uL Normal 150-450 [facility] Comment on above: Performed By: #### L 101.9900, L501.6710, L100.0100 #### [facility] [address] [place], [address] RBC (Bld) [#/Vol] 4.62 10*6/uL Normal 4.2-5.4 [facility] Comment on above: Performed By: #### L 101.9900, L501.6710, L100.0100 #### [facility] [address] [place], [address] RDW SD 45.3 fl High 35.1-43.9 [facility] Comment on above: Performed By: #### L 101.9900, L501.6710, L100.0100 #### [facility] [address] [place], [address] WBC (Bld) [#/Vol] 5.6 10*3/uL Normal 4.4-11.0 [facility] Comment on above: Performed By: #### L 101.9900, L501.6710, L100.0100 #### [facility] [address] [place], [address] CRPon 12-26-2024 C-REACTIVE PROT 7.35 mg/L High 0.0-3.0 [facility] Comment on above: Result Comment: C-Re active Protein (CRP) provides useful information for the diagnosis, therapy and monitoring of inflammatory processes and associated diseases. For the evaluation of Relative Risk for Cardiovascular Disease, a High Sensitivity CRP (HSCRP) should be ordered. Performed By: #### L 101.9900, L501.6710, L100.0100 #### [facility] [address] [place], [address] Eosinophil percentageon 02 Eosinophils/100 WBC (Bld) 0.0 % 0-5 [facility] Erythrocyte Sed Rateon 12-26 SED RATE 37 mm/hr High 0-30 [facility] Comment on above: Performed By: #### L 101.9900, L501.6710, L100.0100 #### [facility] [address] [place], [address] Erythrocyte distribution wid th ratioon 12-26-2024 Erythrocyte distribution width (RBC) [Ratio] 14.9 % High 11.6-14.6 [facility] Erythrocyte distribution wid th standard deviationon 12-26-2024 Erythrocyte distribution width (RBC) [Entitic vol] 45.3 fL High 35.1-43.9 [facility] Erythrocyte sedimentation ra glenn 12-26-2024 ESR (Bld) [Velocity] 37 mm/h High 0-30 [facility] Hematocrit Auto (Bld) [Volum e fraction]on 12-26-2024 Hematocrit (Bld) [Volume fraction] 39.2 % 37-47 [facility] Hemoglobin measurementon Hemoglobin (Bld) [Mass/Vol] 11.9 g/dL Low 12.0-15.0 [facility] Immature granulocytes/100 WB C Auto (Bld)on 12-26-2024 Immature granulocytes/100 WBC (Bld) 0.400 % 0.0-0.9 [facility] Comment on above: IG% - Immature Granu locytes (promyelocytes, myelocytes and metamyelocytes) > 1% indicates that a LEFT SHIFT is Present. Lymphocytes Auto (Unsp spec) [#/Vol]on 12-26-2024 Lymphocytes (Bld) [#/Vol] 1.02 10*3/uL 0.83-4.51 [facility] Lymphocytes/100 WBC Auto (Un sp spec)on 12-26-2024 Lymphocytes/100 WBC (Bld) 18.2 % Low 19-41 [facility] MCV (mean corpuscular volume ) determinationon 12-26-2024 MCV (RBC) [Entitic vol] 84.8 fL 81-99 [facility] Mean corpuscular hemoglobin (MCH) determinationon 12-26-2024 MCH (RBC) [Entitic mass] 25.8 pg Low 27.0-32.0 [facility] Mean corpuscular hemoglobin concentration (MCHC) determinationon 12-26-2024 MCHC (RBC) [Mass/Vol] 30.4 g/dL Low 32-36 [facility] Mean platelet volume determi nationon 12-26-2024 Platelet mean volume (Bld) [Entitic vol] 10.8 fL 6.2-12.0 [facility] Monocyte percentageon 2024 Monocytes/100 WBC (Bld) 6.8 % 0-10 [facility] Neutrophil percentageon Neutrophils/100 WBC (Bld) 74.4 % High 47-70 [facility] Nucleated red blood cell per centageon 12-26-2024 Nucleated RBC/100 WBC (Bld) [Ratio] 0 % 0-5 [facility] Platelet counton 12-26-2024 Platelets (Bld) [#/Vol] 176 10*3/uL 150-450 [facility] RBC Auto (Bld) [#/Vol]on RBC (Bld) [#/Vol] 4.62 10*6/uL 4.2-5.4 [facility] White blood cell (WBC) count on 12-26-2024 WBC (Bld) [#/Vol] 5.6 10*3/uL 4.4-11.0 [facility] .GFRon 09-16-2024 GFR 110 ml/min/1.73sqm Normal [facility] Comment on above: Result Comment: GFR Population mean for , Non- Americans Ages 20-29 = 116 mL/min/1.73 sq.m. Ages 30-39 = 107 mL/min/1.73 sq.m. Ages 40-49 = 99 mL/min/1.73 sq.m. Ages 50-59 = 93 mL/min/1.73 sq.m. Ages 60-69 = 85 mL/min/1.73 sq.m. Ages 70+ = 75 mL/min/1.73 sq.m. Chronic Kidney Disease: Less than 60 mL/min/1.73 square meters End Stage Renal Disease: Less than 15 mL/min/1.73 square meters Performed By: #### L IPID, GFR, CMP #### [address] [address] GFR Non- 91 ml/min/1.73sqm Normal [facility] Comment on above: Result Comment: GFR Population mean for , Non- Americans Ages 20-29 = 116 mL/min/1.73 sq.m. Ages 30-39 = 107 mL/min/1.73 sq.m. Ages 40-49 = 99 mL/min/1.73 sq.m. Ages 50-59 = 93 mL/min/1.73 sq.m. Ages 60-69 = 85 mL/min/1.73 sq.m. Ages 70+ = 75 mL/min/1.73 sq.m. Chronic Kidney Disease: Less than 60 mL/min/1.73 square meters End Stage Renal Disease: Less than 15 mL/min/1.73 square meters Performed By: #### L IPID, GFR, CMP #### [address] [address] CMPon 09-16-2024 Albumin Level 3.4 G/dL Low 3.5-5.0 [facility] Comment on above: Performed By: #### L IPID, GFR, CMP #### [address] [address] Albumin/Globulin [Mass ratio] 0.8 {ratio} Low 1.1-2.5 [facility] Comment on above: Performed By: #### L IPID, GFR, CMP #### [address] [address] ALP [Catalytic activity/Vol] 85 U/L Normal 40-135 [facility] Comment on above: Performed By: #### L IPID, GFR, CMP #### [address] [address] ALT [Catalytic activity/Vol] 21 U/L Normal 14-59 [facility] Comment on above: Performed By: #### L IPID, GFR, CMP #### [address] [address] AST [Catalytic activity/Vol] 15 U/L Normal 10-40 [facility] Comment on above: Performed By: #### L IPID, GFR, CMP #### [address] [address] Bili Total 0.4 mg/dL Normal 0.2-1.0 [facility] Comment on above: Result Comment: Use of this assay is not recommended for patients undergoing treatment with eltrombopag due to the potential for falsely elevated results. Performed By: #### L IPID, GFR, CMP #### [place] [address] BUN/Creatinine Ratio 16 ratio Normal 7-27 [facility] Comment on above: Performed By: #### L IPID, GFR, CMP #### [place] [address] Calcium [Mass/Vol] 8.8 mg/dL Normal 8.4-10.2 [facility] Comment on above: Performed By: #### L IPID, GFR, CMP #### [place] [address] Chloride [Moles/Vol] 102 mmol/L Normal 98-107 [facility] Comment on above: Performed By: #### L IPID, GFR, CMP #### [place] [address] CO2 [Moles/Vol] 28 mmol/L Normal 22-29 [facility] Comment on above: Performed By: #### L IPID, GFR, CMP #### [place] [id number] Creatinine [Mass/Vol] 0.73 mg/dL Normal 0.55-1.02 [facility] Comment on above: Result Comment: Test ing performed on Siemens Dimension EXL analyzer using a modified kinetic Chuck technique. Performed By: #### L IPID, GFR, CMP #### [place] [address] Electrolyte Balance 7.0 mEq/L Normal 4.0-15.0 [facility] Comment on above: Performed By: #### L IPID, GFR, CMP #### [address] [address] Globulin 4.3 G/dL Normal [facility] Comment on above: Performed By: #### L IPID, GFR, CMP #### [address] [address] Glucose [Mass/Vol] 93 mg/dL Normal 70-105 [facility] Comment on above: Performed By: #### L IPID, GFR, CMP #### [address] [address] Potassium [Moles/Vol] 4.1 mmol/L Normal 3.5-5.1 [facility] Comment on above: Performed By: #### L IPID, GFR, CMP #### [address] [address] Sodium [Moles/Vol] 137 mmol/L Normal 136-145 [facility] Comment on above: Performed By: #### L IPID, GFR, CMP #### [address] [address] Total Protein 7.7 G/dL Normal 6.4-8.2 [facility] Comment on above: Performed By: #### L IPID, GFR, CMP #### [address] [address] Urea nitrogen [Mass/Vol] 12 mg/dL Normal 7-18 [facility] Comment on above: Performed By: #### L IPID, GFR, CMP #### [address] [address] LABORATORYOrdered By: SYSTEM SYSTEM on 09-16-2024 Albumin BCP dye [Mass/Vol] 3.4 G/dL Low 3.5 - 5.0 G/dL AO ADM SS Albumin/Globulin [Mass ratio] 0.8 {ratio} Low 1.1 - 2.5 ratio AO ADM SS ALP [Catalytic activity/Vol] 85 U/L Normal 40 - 135 U/L AO ADM SS ALT With P-5'-P [Catalytic activity/Vol] 21 U/L Normal 14 - 59 U/L AO ADM SS AST With P-5'-P [Catalytic activity/Vol] 15 U/L Normal 10 - 40 U/L AO ADM SS Bilirubin [Mass/Vol] 0.4 mg/dL Normal 0.2 - 1.0 mg/dL AO ADM SS Comment on above: Interpretive Data: U se of this assay is not recommended for patients undergoing treatment with eltrombopag due to the potential for falsely elevated results. Calcium [Mass/Vol] 8.8 mg/dL Normal 8.4 - 10. 2 mg/dL AO ADM SS Chloride [Moles/Vol] 102 mmol/L Normal 98 - 107 mmol/L AO ADM SS CO2 [Moles/Vol] 28 mmol/L Normal 22 - 29 mmol/L AO ADM SS Creatinine [Mass/Vol] 0.73 mg/dL Normal 0.55 - 1.02 mg/dL AO ADM SS Comment on above: Interpretive Data: T esting performed on Siemens Dimension EXL analyzer using a modified kinetic Chuck technique. Electrolyte Balance 7.0 mEq/L Normal 4.0 - 15 .0 mEq/L AO ADM SS GFR/1.73 sq M.predicted among blacks MDRD (S/P/Bld) [Vol rate/Area] 110 ml/min/1.73sqm Invalid Interpretation Code AO Chemistry S Comment on above: Interpretive Data: GFR Population mean for , Non- Americans Ages 20-29 = 116 mL/min/1.73 sq.m. Ages 30-39 = 107 mL/min/1.73 sq.m. Ages 40-49 = 99 mL/min/1.73 sq.m. Ages 50-59 = 93 mL/min/1.73 sq.m. Ages 60-69 = 85 mL/min/1.73 sq.m. Ages 70+ = 75 mL/min/1.73 sq.m. Chronic Kidney Disease: Less than 60 mL/min/1.73 square meters End Stage Renal Disease: Less than 15 mL/min/1.73 square meters GFR/1.73 sq M.predicted among non-blacks MDRD (S/P/Bld) [Vol rate/Area] 91 ml/min/1.73sqm Invalid Interpretation Code AO Chemistry S Comment on above: Interpretive Data: GFR Population mean for , Non- Americans Ages 20-29 = 116 mL/min/1.73 sq.m. Ages 30-39 = 107 mL/min/1.73 sq.m. Ages 40-49 = 99 mL/min/1.73 sq.m. Ages 50-59 = 93 mL/min/1.73 sq.m. Ages 60-69 = 85 mL/min/1.73 sq.m. Ages 70+ = 75 mL/min/1.73 sq.m. Chronic Kidney Disease: Less than 60 mL/min/1.73 square meters End Stage Renal Disease: Less than 15 mL/min/1.73 square meters Globulin 4.3 G/dL Invalid Interpretation Code AO ADM SS Glucose [Mass/Vol] 93 mg/dL Normal 70 - 105 mg/dL AO ADM SS Potassium [Moles/Vol] 4.1 mmol/L Normal 3.5 - 5.1 mmol/L AO ADM SS Protein [Mass/Vol] 7.7 G/dL Normal 6.4 - 8.2 G/dL AO ADM SS Sodium [Moles/Vol] 137 mmol/L Normal 136 - 145 mmol/L AO ADM SS Urea nitrogen [Mass/Vol] 12 mg/dL Normal 7 - 18 mg/dL AO ADM SS Urea nitrogen/Creatinine [Mass ratio] 16 ratio Normal 7 - 27 ratio AO ADM SS LABORATORYOrdered By: Dequan Mao on 09-16-2024 Cholesterol [Mass/Vol] 132 mg/dL Normal 0 - 200 mg/dL AO ADM SS Comment on above: Interpretive Data: C holesterol Reference Interval: Less than 200 Desirable 200-239 Borderline high risk 240 and above High risk Cholesterol in HDL [Mass/Vol] 43 mg/dL Normal 40 - 60 mg/dL AO ADM SS Cholesterol in LDL [Mass/Vol] 78 mg/dL Normal 0 - 130 mg/dL AO ADM SS Triglyceride [Mass/Vol] 57 mg/dL Normal 0 - 150 mg/dL AO ADM SS Comment on above: Interpretive Data: T riglyceride Reference Interval: Less than 150 Normal 150-199 Borderline high risk 200-499 High risk 500 or higher Very high risk LIPIDon 09-16-2024 Cholesterol [Mass/Vol] 132 mg/dL Normal 0-200 [facility] Comment on above: Result Comment: Chol esterol Reference Interval: Less than 200 Desirable 200-239 Borderline high risk 240 and above High risk Performed By: #### L IPID, GFR, CMP #### [id number] [place], [place] [address] Cholesterol in HDL [Mass/Vol] 43 mg/dL Normal 40-60 [facility] Comment on above: Performed By: #### L IPID, GFR, CMP #### [id number] [place], [place] [address] Cholesterol in LDL [Mass/Vol] 78 mg/dL Normal 0-130 [facility] Comment on above: Performed By: #### L IPID, GFR, CMP #### [id number] [place], [place] [address] Triglyceride [Mass/Vol] 57 mg/dL Normal 0-150 [facility] Comment on above: Result Comment: Trig lyceride Reference Interval: Less than 150 Normal 150-199 Borderline high risk 200-499 High risk 500 or higher Very high risk Performed By: #### L IPID, GFR, CMP #### [id number] [place], [place] [address] 36on 09-13-2023 36 Letter printed and mailed. Normal [facility] 36 Please mail my ulise r to the patient's home address please Normal [facility] Basophil percentageOrdered B y: Deb Signs on 08-10-2023 Bilirubin [Mass/Vol] 0.50 mg/dL 0.20-1.00 [facility] Comment on above: For patients on eltr ombopag therapy, use of Dimension [place] TBIL is not recommended. Protein [Mass/Vol] 8.2 g/dL 6.4-8.2 [facility] Direct bilirubinOrdered By: Deb Signs on 08-10-2023 Bilirubin.direct [Mass/Vol] 0.20 mg/dL 0.00-0.30 [facility] Laboratory - Chemistry and C hemistry - challengeOrdered By: Deb Signs on 08-10-2023 ALP [Catalytic activity/Vol] 76 U/L 45-117 [facility] ALT [Catalytic activity/Vol] 17 U/L [facility] Globulin (S) [Mass/Vol] 4.6 g/dL 2.2-4.2 [facility] Serum or plasma albumin shi urement (mass/volume)Ordered By: Deb Signs on 08-10-2023 Albumin [Mass/Vol] 3.6 g/dL 3.2-5.0 [facility] Thin prep Papanicolaou smear with manual screeningOrdered By: Deb Signs on 08-10-2023 Thin prep Papanicolaou smear with manual screening 8 U/L [facility] Basophil percentageOrdered B y: Deb Signs on 07-16-2023 Bilirubin [Mass/Vol] 0.30 mg/dL 0.20-1.00 [facility] Comment on above: For patients on eltr ombopag therapy, use of Dimension [place] TBIL is not recommended. Protein [Mass/Vol] 7.6 g/dL 6.4-8.2 [facility] Direct bilirubinOrdered By: Deb Signs on 07-16-2023 Bilirubin.direct [Mass/Vol] 0.08 mg/dL 0.00-0.30 [facility] - Chemistry and C hemistry - challengeOrdered By: Deb Signs on 07-16-2023 ALP [Catalytic activity/Vol] 83 U/L 45-117 [facility] ALT [Catalytic activity/Vol] 16 U/L [facility] Globulin (S) [Mass/Vol] 4.3 g/dL 2.2-4.2 [facility] Serum or plasma albumin shi urement (mass/volume)Ordered By: Deb Signs on 07-16-2023 Albumin [Mass/Vol] 3.3 g/dL 3.2-5.0 [facility] Thin prep Papanicolaou smear with manual screeningOrdered By: Deb Signs on 07-16-2023 Thin prep Papanicolaou smear with manual screening 12 U/L [facility] 36on 06-30-2023 36 Christine called back. She is now seeing FRUIT LOADER MACHINE OPERATOR Amira Tijerina @ [facility] in [place], [place]. [facility] 36 Left a msg for Trist a notifying her we have Hiwot Paz FRUIT LOADER MACHINE OPERATOR listed for her PCP. Dr. Rueda wanted to send her a letter, but Hiwot no longer resides in [place] she is now in [place]. I left Christine jesus msg asking her to call our office to let me know who her new PCP is so we can send the letter to them. Normal [facility] Basophil percentageOrdered B y: Amira Tijerina on 06-24-2023 Bilirubin [Mass/Vol] 0.50 mg/dL 0.20-1.00 [facility] Comment on above: For patients on eltr ombopag therapy, use of Dimension [place] TBIL is not recommended. Chloride [Moles/Vol] 107 mmol/L 98-107 [facility] Cholesterol [Mass/Vol] 109 mg/dL <200 [facility] Comment on above: <200 mg/dL Desirable 200-240 mg/dL Borderline >240 mg/dL High Risk Glucose [Mass/Vol] 95 mg/dL 74-106 [facility] Potassium [Moles/Vol] 4.3 mmol/L 3.5-5.1 [facility] Protein [Mass/Vol] 7.7 g/dL 6.4-8.2 [facility] Sodium [Moles/Vol] 137 mmol/L 136-145 [facility] Triglyceride [Mass/Vol] 61 mg/dL <199 [facility] Comment on above: The drugs N-Acetylcy steine and Metamizole may falsely depress this assay.Serum Triglycerides Reference Interval Normal <150 mg/dL Borderline high 150 - 199 mg/dL High 200 - 499 mg/dL Very High > or = 500 mg/dL WBC (Bld) [#/Vol] 6.0 10*3/uL 4.4-11.0 [facility] Blood erythrocytes count (nu mber/volume)Ordered By: Amira Tijerina on 06-24-2023 RBC (Bld) [#/Vol] 4.53 10*6/uL 4.2-5.4 [facility] Blood hemoglobin measurement (mass/volume)Ordered By: Amira Tijerina on 06-24-2023 Hemoglobin (Bld) [Mass/Vol] 13.3 g/dL 12.0-15.0 [facility] Blood platelet mean volumeOr dered By: Amira Tijerina on 06-24-2023 Platelet mean volume (Bld) [Entitic vol] 10.8 fL 6.2-12.0 [facility] Determination of erythrocyte mean corpuscular volume (MCV)Ordered By: Amira Tijerina on 06-24-2023 MCV (RBC) [Entitic vol] 89.2 fL 81-99 [facility] Hematocrit Auto (Bld) [Volum e fraction]Ordered By: Amira Tijerina on 06-24-2023 Hematocrit (Bld) [Volume fraction] 40.4 % 37-47 [facility] Laboratory - Chemistry and C hemistry - challengeOrdered By: Amira Tijerina on 06-24-2023 ALP [Catalytic activity/Vol] 75 U/L 45-117 [facility] ALT [Catalytic activity/Vol] 18 U/L 13-56 [facility] CO2 [Moles/Vol] 25.0 mmol/L 21.0-32.0 [facility] Globulin (S) [Mass/Vol] 4.3 g/dL 2.2-4.2 [facility] Urea nitrogen/Creatinine [Mass ratio] 24.2 mg/mg 10-20 [facility] Laboratory - Hematology and Cell countsOrdered By: Amira Tijerina on 06-24-2023 Erythrocyte distribution width (RBC) [Entitic vol] 43.6 fL 35.1-43.9 [facility] Erythrocyte distribution width (RBC) [Ratio] 13.3 % 11.6-14.6 [facility] MCH (RBC) [Entitic mass] 29.4 pg 27.0-32.0 [facility] MCHC Auto (RBC) [Mass/Vol]Or dered By: Amira Tijerina on 06-24-2023 MCHC (RBC) [Mass/Vol] 32.9 g/dL 32-36 [facility] No Panel InformationOrdered By: Amira Tijerina on 06-24-2023 Estimated GFR (MDRD) Amer 131 mL/min >60 [facility] Comment on above: GFR Calc Estimated GFR (MDRD) Non-Af Amer 109 mL/min >60 [facility] Comment on above: Non- GFR Calc Platelets bldOrdered By: Vanesa Tijerina on 08-03-2023 Platelets (Bld) [#/Vol] 164 10*3/uL 150-450 [facility] Serum or plasma albumin shi urement (mass/volume)Ordered By: Amira Tijerina on 06-24-2023 Albumin [Mass/Vol] 3.4 g/dL 3.2-5.0 [facility] Serum or plasma albumin/glob ulin mass ratioOrdered By: Amira Tijerina on 06-24-2023 Albumin/Globulin [Mass ratio] 0.8 {ratio} 0.9-2.4 [facility] Serum or plasma calcium shi urement (mass/volume)Ordered By: Amira Tijerina on 06-24-2023 Calcium [Mass/Vol] 8.4 mg/dL 8.5-10.1 [facility] Serum or plasma cholesterol in HDL measurement (mass/volume)Ordered By: Amira Tijerina on 06-24-2023 Cholesterol in HDL [Mass/Vol] 35 mg/dL >40 [facility] Comment on above: The drugs N-Acetylcy steine and Metamizole may falsely depress this assay. Reference Range HDL <40 mg/dL Low HDL Cholesterol HDL >or= 60 mg/dL High HDL Cholesterol Serum or plasma cholesterol in VLDL measurement (mass/volume)Ordered By: Amira Tijerina on 06-24-2023 Cholesterol in VLDL [Mass/Vol] 12 mg/dL 5-40 [facility] Serum or plasma creatinine m easurement (mass/volume)Ordered By: Amira Tijerina on 06-24-2023 Creatinine [Mass/Vol] 0.66 mg/dL 0.55-1.02 [facility] Comment on above: The validity of the calculated GFR & GFRAA in patients over 70 years has not been determined. Clinical correlation is essential. Serum or plasma low density lipoprotein (LDL) cholesterol measurement (mass/volume)Ordered By: Amira Tijerina on 06-24-2023 Cholesterol in LDL [Mass/Vol] 62 mg/dL 0-130 [facility] Serum or plasma urea nitroge n measurement (mass/volume)Ordered By: mAira Tijerina on 06-24-2023 Urea nitrogen [Mass/Vol] 16 mg/dL 7-18 [facility] Thin prep Papanicolaou smear with manual screeningOrdered By: Amira Tijerina on 06-24-2023 Thin prep Papanicolaou smear with manual screening 15 U/L 15-37 [facility] Thin prep Papanicolaou smear with manual screening 5 5-15 [facility] 36on 06-23-2023 36 Mailed this am Normal [facility] 36 Please send lab slip s for her 2 liver function tests (they are dated differently) to her home as she will get labs at outside hospital. Thanks! Normal [facility] Laboratory - Microbiology an d Antimicrobial susceptibilityon 06-22-2023 M. tuberculosis stim IFN-g by CD4+ CD8+ T-cells corrected for background Qn (Bld) 3.21 IU/mL [facility] M. tuberculosis stim IFN-g by CD4+ T-cells corrected for background Qn (Bld) 3.02 [IU]/mL IU/mL [facility] M. tuberculosis tuberculin stim IFN-g Ql (Bld) Positive Abnormal Negative [facility] Comment on above: Positive Quantiferon values <1.00 are considered low positive and should be interpreted within the clinical context of the patient. Mitogen stimulated gamma interferon corrected for background Qn (Bld) IU/mL [facility] [employer] Gamma interferon background IA Qn (Bld) 0.08 IU/mL [facility] No Panel Informationon 06-22 Interpretation and review of laboratory results Abnormal [facility] Mitogen Result IU/mL [facility] Interferon gamma rel ease is measured for specimens from each of the four collection tubes. A qualitative result (Negative, Positive, or Indeterminate) is based on interpretation of the four values, NIL, MITOGEN minus NIL (MITOGEN-NIL), TB1 minus NIL (TB1-NIL), and TB2 minus NIL(TB2-NIL). The NIL value represents nonspecific reactivity produced by the patient specimen. The MITOGEN-NIL value serves as the positive control for the patient specimen, demonstrating successful lymphocyte activity. The TB1-NIL tube specifically detects CD4+ lymphocyte reactivity, specifically stimulated by the TB1 antigens. The TB2-NIL tube detects both CD4+ and CD8+ lymphocyte reactivity, stimulated by TB2 antigens. An overall Negative result does not completely rule out TB infection. A false-positive result in the absence of other clinical evidence of TB infection is not uncommon and may be due to infection from some NTM (M. kansasii, M. szulgai,or M. marinum). [facility] TB2 Antigen Value 3.29 IU/mL [facility] TB1 Antigen Result 3.10 IU/mL [facility] ADDENDUMNOTEon 06-21-2023 ADDENDUMNOTE Addended by: DEB NASH on: 06/23/2023 07:40 AM Modules accepted: Orders Normal [facility] Office Visiton 06-21-2023 Follow-up visit [id number] Marcie Neri 1990 F Date Provider Department Center 06/21/2023 54-DEB [facility] ID None Family History Problem Relation Age of Onset Cancer Mother Diabetes Maternal Grandfather Heart disease Maternal Grandfather Heart disease Maternal Grandmother Heart disease Paternal Grandfather Family Status - Relation Status Age at Mother Maternal Grandfather Maternal Grandmother Paternal Grandfather Level of Service:84966 [place] OFFICE/OUTPATIENT NEW MODERATE MDM 45-59 MINUTES Reason for Visit and Comments: New Patient [542] - new patient +Quant; pt w/rheumatoid arthritis on Humira, updated TB test (& repeat test) were positive. Normal [facility] PATINSon 06-21-2023 PATINS Will repeat Quantife don test one last time due to declining numbers on last test and the fact that you have no know risk factors Will call you with results. [facility] Progress Noteon 06-21-2023 Progress Note [facility] Infectious Diseases Attending Outpatient Consult Note Reason for Consult: positive test for Latent TB Requesting Physician: Dr Nirmal Ramos Chief Complaint Patient presents with New Patient new patient +Quant; pt w/rheumatoid arthritis on Humira, updated TB test (& repeat test) were positive. HISTORY OF PRESENT ILLNESS The patient is a 32 y.o. female with presenting with a history of rheumatoid arthritis which was diagnosed in 2019, for which she has been on immunosuppressive therapy with Humira after having difficulties with methotrexate causing platelet depression and failing to respond to Plaquenil she is also on additional treatment with azathioprine and sulfamethoxazole as well as Mobic. 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 She states that she had had a series of screening tests Before starting Humira but is not sure that a QuantiFERON was included in those tests. She does know that she was notified that her QuantiFERON test was positive in Dr. Nirmal Ramos's office on May 19 along with other routine tests that were negative including normal liver function tests at that time the TB screen showed a NIL of 0.04, with mitogen 9.56, TB 1 of 2.79, TB 2to 3.06. Because this was positive, this was repeated a week later and I did not have those test results but according to the patient who was able to pull them up from her records from [facility] where it was done (this was a different lab than her original test) the Nil and mitogen tests showed good T-cell responses but there was a drop of the TB 1-2.2 and the greater drop in the TB 2-1.7. For this reason the patient was sent for further evaluation for treatment of latent TB. She has no history of exposure to anyone that she is aware of that has tuberculosis whether it be in her family or in her line of work. She has not worked with immigrant peoples, been in snf's or worked with people incarcerated nor has she volunteered in any homeless shelters. She lives with her sister who is a fresh meat grader and neither of them have had any prolonged respiratory illnesses with associated night sweats weight loss that is unexpected or bloody sputum. In fact the patient states that she gets occasional head colds but has never had a pneumonia or serious bronchial infection. The patient has not traveled outside [facility] been just to surrounding states including [place]. 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 However was [place], [place] has an very low incidence of TB. We had a thorough discussion of TB disease, how the bacterial infection is transmitted, the risk of active vs latent disease, disease infection manifestations, as well as drug treatment options to avoid reactivation of latent TB and their side effects as well as need to monitor liver tests while on therapy. Past Medical History: Diagnosis Date Abnormal reaction to tuberculin test Past Surgical History: Procedure Laterality Date DENTAL SURGERY April 2019 Current Outpatient Medications Medication Sig Dispense Refill adalimumab (Humira) 40 MG/0.4ML Prefilled Syringe Kit prefilled syringe azaTHIOprine (Imuran) 50 MG tablet predniSONE (Deltasone) 5 MG tablet sulfaSALAzine (Azulfidine) 500 MG tablet No current facility-administered medications for this visit. No Known Allergies Social History Socioeconomic History Marital status: Unknown Spouse name: Not on file Number of children: Not on file Years of education: Not on file Highest education level: Not on file Occupational History Not on file Tobacco Use Smoking status: Never Smokeless tobacco: Never Substance and Sexual Activity Alcohol use: Yes Alcohol/week: 1.0 standard drink of alcohol Types: 1 Standard drinks or equivalent per week Comment: socially Drug use: Never Sexual activity: Yes Partners: Male Other Topics Concern Not on file Social History Narrative Not on file Social Determinants of Health Financial Resource Strain: Not on file Food Insecurity: Not on file Transportation Needs: Not on file Physical Activity: Not on file Stress: Not on file Social Connections: Not on file Intimate Partner Violence: Not on file Housing Stability: Not on file Family History Problem Relation Name Age of Onset Cancer Mother Janki mitchell Diabetes Maternal Grandfather Liu joe Heart disease Maternal Grandfather Liu joe Heart disease Maternal Grandmothe (more content not included)... Normal [facility] XR Chest 2 Viewson 3 No acute cardiopulmo nary abnormality identified. Specifically, no evidence of a cavitary pulmonary mass lesion. Report Dictated on Electronically Signed By: David Rangel Electronically Signed Date/Time: 06/02/2023 7:52 AM [facility] Patient Name: CHRISTINE NERI : 1990 Exam Date/Time: 06/01/2023 16:12 Procedure: XR CHEST 2 VIEWS Ordering Provider: RAMOS MEGAN Reason For Exam: r76.11 EXAMINATION: XR chest PA and lateral. EXAM DATE & TIME: 06/01/2023 4:12 PM EDT INDICATION: r76.11 ADDITIONAL INFORMATION: 32-year-old female with a provided history of nonspecific reaction to tuberculin skin test without active tuberculosis presents for evaluation COMPARISON: None TECHNIQUE: Frontal and lateral views of the chest were obtained. FINDINGS: The cardiomediastinal silhouette is within normal limits. No focal consolidation, pleural effusion or pneumothorax. No acute osseous abnormality is demonstrated. [facility] David Rangel MD - 06/02/2023 Patient Name: [facility]ST[facility]ER[facility] : 1990 [id number] Exam Date/Time: 06/01/2023 16:12 Procedure: XR CHEST 2 VIEWS Ordering Provider: RAMOS MEGAN Reason For Exam: r76.11 EXAMINATION: XR chest PA and lateral. EXAM DATE & TIME: 06/01/2023 4:12 PM EDT INDICATION: r76.11 ADDITIONAL INFORMATION: 32-year-old female with a provided history of nonspecific reaction to tuberculin skin test without active tuberculosis presents for evaluation COMPARISON: None TECHNIQUE: Frontal and lateral views of the chest were obtained. FINDINGS: The cardiomediastinal silhouette is within normal limits. No focal consolidation, pleural effusion or pneumothorax. No acute osseous abnormality is demonstrated. IMPRESSION: No acute cardiopulmonary abnormality identified. Specifically, no evidence of a cavitary pulmonary mass lesion. Report Dictated on Electronically Signed By: David Rangel Electronically Signed Date/Time: 06/02/2023 7:52 AM EDT [facility] XR Chest 2 ViewsOrdered By: David Rangel on 06-02-2023 [facility] [employer] Work Phone: XR Chest 2 Viewson 3 Radiology Study observation (narrative) [facility] Qualitative QuantiFERON-TB g old in tube testOrdered By: NIRMAL RAMOS on 05-21-2023 M. tuberculosis tuberculin stim IFN-g Ql (Bld) 2.28 IU/mL . [facility] Thin prep Papanicolaou smear with manual screeningOrdered By: NIRMAL RAMOS on 05-21-2023 Thin prep Papanicolaou smear with manual screening Comment . [facility] Comment on above: QuantiFERON-TB Gold Plus is a qualitative indirect test forM tuberculosis infection (including disease) and isintended for use in conjunction with risk assessment,radiography, and other medical and diagnostic evaluations.The QuantiFERON-TB Gold Plus result is determined bysubtracting the Nil value from either TB antigen (Ag)value. The Mitogen tube serves as a control for the test. Thin prep Papanicolaou smear with manual screening 1.33 IU/mL . [facility] Thin prep Papanicolaou smear with manual screening 0.15 IU/mL . [facility] Thin prep Papanicolaou smear with manual screening > 10.00 IU/mL . [facility] Thin prep Papanicolaou smear with manual screening Positive Negative [facility] Comment on above: A response to M tube rculosis antigens has been detected.If patient is at low risk for Tuberculosis, the resultshould be interpreted with caution and repeat testing on anew specimen is recommended (ATS/IDSA/CDC Clinical PracticeGuidelines, 2017). False positives can also occur due toinfection by M kansasii, M szulgai, or M marinum.The specimen received for QuantiFERON testing was incubatedby the ordering institution. Specific procedures outlinedin our Directory of Services and in the package insert forthe QuantiFERON Gold (In Tube) test must be followed toenable for proper stimulation of cells for the productionof interferon gamma. Chemiluminescence immunoassaymethodologyPerformed at: [facility] [address] [id number] Director: Harish Moreno PhD, Phone: [phone] Absolute lymphocyte countOrd ered By: NIRMAL RAMOS on 01-21-2023 Lymphocytes Auto (Unsp spec) [#/Vol] 1.02 10*3/uL 0.83-4.51 [facility] Basophil percentageOrdered B y: NIRMAL RAMOS on 01-21-2023 Basophils/100 WBC (Bld) 0.4 % 0-1 [facility] Bilirubin [Mass/Vol] 0.40 mg/dL 0.20-1.00 [facility] Comment on above: For patients on eltr ombopag therapy, use of Dimension [place] TBIL is not recommended. Eosinophils/100 WBC (Bld) 1.9 % 0-5 [facility] Neutrophils (Bld) [#/Vol] 5.1 10*3/uL 2.0-7.7 [facility] Neutrophils/100 WBC (Bld) 74.6 % 47-70 [facility] Protein [Mass/Vol] 7.8 g/dL 6.4-8.2 [facility] WBC (Bld) [#/Vol] 6.8 10*3/uL 4.4-11.0 [facility] Blood erythrocytes count (nu mber/volume)Ordered By: NIRMAL RAMOS on 01-21-2023 RBC (Bld) [#/Vol] 4.64 10*6/uL 4.2-5.4 [facility] Blood hemoglobin measurement (mass/volume)Ordered By: NIRMAL RAMOS on 01-21-2023 Hemoglobin (Bld) [Mass/Vol] 13.8 g/dL 12.0-15.0 [facility] Blood lymphocytes/100 leukoc ytesOrdered By: NIRMAL RAMOS on 01-21-2023 Lymphocytes/100 WBC (Bld) 15.1 % 19-41 [facility] Blood monocytes/100 leukocyt esOrdered By: NIRMAL RAMOS on 01-21-2023 Monocytes/100 WBC (Bld) 7.7 % 0-10 [facility] Blood platelet mean volumeOr dered By: NIRMAL RAMOS on 01-21-2023 Platelet mean volume (Bld) [Entitic vol] 10.6 fL 6.2-12.0 [facility] Determination of erythrocyte mean corpuscular volume (MCV)Ordered By: NIRMAL RAMOS on 01-21-2023 MCV (RBC) [Entitic vol] 91.2 fL 81-99 [facility] Direct bilirubinOrdered By: NIRMAL RAMOS on 01-21-2023 Bilirubin.direct [Mass/Vol] 0.13 mg/dL 0.00-0.30 [facility] Hematocrit Auto (Bld) [Volum e fraction]Ordered By: NIRMAL RAMOS on 01-21-2023 Hematocrit (Bld) [Volume fraction] 42.3 % 37-47 [facility] Laboratory - Chemistry and C hemistry - challengeOrdered By: NIRMAL RAMOS on 01-21-2023 ALP [Catalytic activity/Vol] 93 U/L 45-117 [facility] ALT [Catalytic activity/Vol] 26 U/L 13-56 [facility] Globulin (S) [Mass/Vol] 4.2 g/dL 2.2-4.2 [facility] - Hematology and Cell countsOrdered By: NIRMAL RAMOS on 01-21-2023 Erythrocyte distribution width (RBC) [Entitic vol] 42.5 fL 35.1-43.9 [facility] Erythrocyte distribution width (RBC) [Ratio] 12.9 % 11.6-14.6 [facility] Immature granulocytes/100 WBC (Bld) 0.300 % 0.0-0.9 [facility] Comment on above: IG% - Immature Granu locytes (promyelocytes, myelocytes and metamyelocytes) > 1% indicates that a LEFT SHIFT is Present. MCH (RBC) [Entitic mass] 29.7 pg 27.0-32.0 [facility] Nucleated RBC/100 WBC (Bld) [Ratio] 0 % 0-5 [facility] MCHC Auto (RBC) [Mass/Vol]Or dered By: NIRMAL RAMOS on 01-21-2023 MCHC (RBC) [Mass/Vol] 32.6 g/dL 32-36 [facility] Platelets bldOrdered By: LOLIS RAMOS on 01-21-2023 Platelets (Bld) [#/Vol] 210 10*3/uL 150-450 [facility] Serum or plasma albumin shi urement (mass/volume)Ordered By: NIRMAL RAMOS on 01-21-2023 Albumin [Mass/Vol] 3.6 g/dL 3.2-5.0 [facility] Thin prep Papanicolaou smear with manual screeningOrdered By: NIRMAL RAMOS on 01-21-2023 Thin prep Papanicolaou smear with manual screening 21 U/L 15-37 [facility] Absolute lymphocyte countOrd ered By: NIRMAL RAMOS on 01-07-2023 Lymphocytes Auto (Unsp spec) [#/Vol] 1.23 10*3/uL 0.83-4.51 [facility] Basophil percentageOrdered B y: NIRMAL RAMOS on 01-07-2023 Basophils/100 WBC (Bld) 0.4 % 0-1 [facility] Eosinophils/100 WBC (Bld) 2.8 % 0-5 [facility] Neutrophils (Bld) [#/Vol] 5.3 10*3/uL 2.0-7.7 [facility] Neutrophils/100 WBC (Bld) 73.3 % 47-70 [facility] WBC (Bld) [#/Vol] 7.2 10*3/uL 4.4-11.0 [facility] Blood erythrocytes count (nu mber/volume)Ordered By: NIRMAL RAMOS on 01-07-2023 RBC (Bld) [#/Vol] 4.59 10*6/uL 4.2-5.4 [facility] Blood hemoglobin measurement (mass/volume)Ordered By: NIRMAL RAMOS on 01-07-2023 Hemoglobin (Bld) [Mass/Vol] 13.6 g/dL 12.0-15.0 [facility] Blood lymphocytes/100 leukoc ytesOrdered By: NIRMAL RAMOS on 01-07-2023 Lymphocytes/100 WBC (Bld) 17.1 % 19-41 [facility] Blood monocytes/100 leukocyt esOrdered By: NIRMAL RAMOS on 01-07-2023 Monocytes/100 WBC (Bld) 6.0 % 0-10 [facility] Blood platelet mean volumeOr dered By: NIRMAL RAMOS on 01-07-2023 Platelet mean volume (Bld) [Entitic vol] 9.8 fL 6.2-12.0 [facility] Determination of erythrocyte mean corpuscular volume (MCV)Ordered By: NIRMAL RAMOS on 01-07-2023 MCV (RBC) [Entitic vol] 92.6 fL 81-99 [facility] Hematocrit Auto (Bld) [Volum e fraction]Ordered By: NIRMAL RAMOS on 01-07-2023 Hematocrit (Bld) [Volume fraction] 42.5 % 37-47 [facility] - Hematology and Cell countsOrdered By: NIRMAL RAMOS on 01-07-2023 Erythrocyte distribution width (RBC) [Entitic vol] 43.0 fL 35.1-43.9 [facility] Erythrocyte distribution width (RBC) [Ratio] 12.8 % 11.6-14.6 [facility] Immature granulocytes/100 WBC (Bld) 0.400 % 0.0-0.9 [facility] Comment on above: IG% - Immature Granu locytes (promyelocytes, myelocytes and metamyelocytes) > 1% indicates that a LEFT SHIFT is Present. MCH (RBC) [Entitic mass] 29.6 pg 27.0-32.0 [facility] Nucleated RBC/100 WBC (Bld) [Ratio] 0 % 0-5 [facility] MCHC Auto (RBC) [Mass/Vol]Or dered By: NIRMAL RAMOS on 01-07-2023 MCHC (RBC) [Mass/Vol] 32.0 g/dL 32-36 [facility] Platelets bldOrdered By: LOLIS RAMOS on 01-07-2023 Platelets (Bld) [#/Vol] 226 10*3/uL 150-450 [facility] CNPAleida 07-24-2021 CNPN Telephone (UCWSTR) CHRISTINE NERI ([id number]) 1990 F Date Time Provider Department 07/24/21 DIOGENES BOJORQUEZ [facility] During your visit today, we recorded the following information about you: Diogenes Bojorquez PA-C 07/24/2021 8:51 PM Signed Please let patient know that urine culture was negative for infection. Advise f/u in the next 2 weeks with PCP to repeat urine and confirm hematuria is resolving. Okay to finish keflex if symptoms are improving/resolving. F/u sooner for worsening or persistent sx. Diogenes Bojorquez PA-C 07/24/2021 Tammy Flores Ma 07/25/2021 7:50 AM Signed Left detailed message on confidential vm Tammy Flores Ma Allergies As of Date: 07/24/2021 (No Known Allergies) Date Reviewed: 07/22/2021 Reviewed by: Ferny Rowan APRN.CNP - Fully Assessed Reason for Visit: Results [95] Prescriptions as of 07/25/2021 - meloxicam (MOBIC) 15 mg tablet Take 15 mg by mouth once daily. - cephALEXin (KEFLEX) 500 mg capsule Take 1 capsule by mouth twice daily for 7 days. - predniSONE 20 mg ORAL Tab Take two pills po daily. - cetirizine 10 mg ORAL Tab Take one(1) tablet daily. Problem List As Of Date: 07/24/2021 (None) Encounter Status:Closed by TAMMY FLORES MA on 07/25/21 [facility] CNOVon 07-22-2021 CNOV Office Visit (UCWSTR ) CHRISTINE NERI ([id number]) 1990 F Date Time Provider Department 07/22/21 4:15 PM FERNY ROWAN PAUL During your visit today, we recorded the following information about you: Temperature Pulse Respiration Blood pressure 98.8 degrees 79/minute 16/minute 120/82 Weight 88 kg Ferny Rowan APRN.CNP 07/22/2021 5:18 PM Signed Subjective HPI A nontoxic appearing female presents to urgent care with chief complaint of possible UTI. Duration of symptoms 5 days. Associated symptoms dysuria, frequency, and urgency. States use of Azo for symptom management good success. Denies any pain currently. Patient denies any fevers, flank pain, abdominal pain, nausea, vomiting, vaginal discharge, chance of STDs, chance of , or urological abnormalities. .Patient presents with: Urinary Problem: dysuria, low back pain x1 week History reviewed. No pertinent past medical history. History reviewed. No pertinent surgical history. ALLERGIES Patient has no known allergies. MEDICATIONS meloxicam (MOBIC) 15 mg tablet Take 15 mg by mouth once daily. predniSONE 20 mg ORAL Tab Take two pills po daily. cetirizine 10 mg ORAL Tab Take one(1) tablet daily. FAMILY HISTORY Problem Relation Age of Onset - Diabetes Maternal Grandfather Social History Tobacco Use - Smoking status: Never Smoker - Smokeless tobacco: Never Used Substance Use Topics - Alcohol use: No - Drug use: No BP 120/82 Pulse 79 Temp 37.1 ?C (98.8 ?F) Resp 16 Wt 88 kg (194 lb) LMP 04/20/2007 SpO2 99% Review of Systems Constitutional: Negative for chills, fever and malaise/fatigue. HENT: Negative for congestion, ear discharge, ear pain, sinus pain and sore throat. Eyes: Negative for blurred vision, pain, discharge and redness. Respiratory: Negative for cough, sputum production, shortness of breath and wheezing. Cardiovascular: Negative for chest pain. Gastrointestinal: Negative for abdominal pain, constipation, diarrhea, nausea and vomiting. Genitourinary: Positive for dysuria, frequency and urgency. Negative for flank pain and hematuria. Musculoskeletal: Negative for myalgias. Skin: Negative for itching and rash. Neurological: Negative for dizziness and headaches. Objective Physical Exam Constitutional: General: She is not in acute distress. Appearance: She is not diaphoretic. HENT: Head: Normocephalic. Eyes: Conjunctiva/sclera: Conjunctivae normal. Pupils: Pupils are equal, round, and reactive to light. Cardiovascular: Rate and Rhythm: Normal rate and regular rhythm. Heart sounds: Normal heart sounds. Pulmonary: Effort: Pulmonary effort is normal. No tachypnea, accessory muscle usage or respiratory distress. Breath sounds: Normal breath sounds. Abdominal: Palpations: Abdomen is soft. Tenderness: There is no abdominal tenderness. There is no right CVA tenderness or left CVA tenderness. Musculoskeletal: Cervical back: Normal range of motion and neck supple. No rigidity or tenderness. Lymphadenopathy: Cervical: No cervical adenopathy. Skin: General: Skin is warm and dry. Neurological: Mental Status: She is alert and oriented to person, place, and time. ASSESSMENT/PLAN: 1. Dysuria - ICD9: 788.1, ICD10: R30.0 - UA DIP, URINE (POC) - URINE CULTURE Urinalysis reviewed patient did take Azo. Positive for nitrates. With patient's symptoms will be placed on Keflex. Urine culture pending. Alternative diagnosis discussed. Red flags for evaluation discussed. Patient was educated on supportive therapies. Patient will follow up with primary care provider as needed. Patient was instructed to immediately proceed to emergency room for any new, worsening, or symptoms lasting longer than anticipated. The patient's clinical presentation is otherwise unremarkable at this time. Based on exam and clinical finding, the patient is stable for discharge. Plan of care was discussed with patient. Patient verbalizes understanding and agrees to plan of care. This note was generated using [employer] FFT software. It may contain errors in wording, punctuation, or spelling. Ferny Rowan APRN.HA Rowan APRN.CNP 07/22/2021 5:13 PM Signed URINARY TRACT INFECTION GENERAL INFORMATION: A urinary tract infection (UTI) is an infection of the bladder or kidneys. A bladder infection, called cystitis, is the more common type. If the infection travels up to the kidneys, it is called pyelonephritis. This can be more serious. UTIs are a common problem in women. Having sexual relations can leave a woman more susceptible to developing a UTI, but it is not sexually transmitted like gonorrhea. Some women have a problem with recurrent UTIs. INSTRUCTIONS: 1. Your doctor prescribed an antibiotic to treat the UTI. Take exactly as directed. Be sure to take all the medicatio (more content not included)... [facility] Urine Cultureon 07-22-2021 Bacteria identified Cx Nom (U) Sp. Request/Comment: - Specimen received in preservative Culture Result - No growth (<1,000 CFU/ml) Normal [facility] Comment on above: Performed By: #### U RCUL #### [facility] [address] [id number] Vital Signs Date Time Vital Sign Value Performing Clinician Rajni wray 01-26-2025 14:31-0500 Body temperature 97.4 [degF] Amira HUMPHREYS Work Phone: [facility] 01-26-2025 14:31-0500 Diastolic blood pressure 90 mm[Hg] Amira HUMPHREYS Work Phone: [facility] 01-26-2025 14:31-0500 Heart rate 92 /min Amira Breezy FRUIT LOADER MACHINE OPERATOR-C Work Phone: [facility] 01-26-2025 14:31-0500 Respiratory rate 19 /min Amira Tijerina FRUIT LOADER MACHINE OPERATOR-C Work Phone: [facility] 01-26-2025 14:31-0500 SaO2% (BldA) [Mass fraction] 96 % Amira Breezy FRUIT LOADER MACHINE OPERATOR-C Work Phone: [facility] 01-26-2025 14:31-0500 Systolic blood pressure 121 mm[Hg] Amira Tijerina FRUIT LOADER MACHINE OPERATOR-C Work Phone: [facility] 01-25-2025 06:00-0500 Body mass index (BMI) [Ratio] 36.2 kg/m2 Amira Tijerina FRUIT LOADER MACHINE OPERATOR-C Work Phone: [facility] 01-25-2025 06:00-0500 Body weight 98.6 kg Amira Tijerina FRUIT LOADER MACHINE OPERATOR-C Work Phone: [facility] 01-24-2025 16:25-0500 Body height 165.1 cm Amira Tijerina FRUIT LOADER MACHINE OPERATOR-C Work Phone: [facility] 06-21-2023 08:15-0400 Body height 165.1 cm Deb Signs Work Phone: [facility] 06-21-2023 08:15-0400 Body mass index (BMI) [Ratio] 34.95 kg/m2 Deb Signs Work Phone: [facility] 06-21-2023 08:15-0400 Body temperature 97.2 [degF] Deb Signs Work Phone: [facility] 06-21-2023 08:15-0400 Body weight 95.25 kg Deb Signs Work Phone: [facility] 06-21-2023 08:15-0400 Diastolic blood pressure 72 mm[Hg] Deb Signs Work Phone: [facility] 06-21-2023 08:15-0400 Heart rate 99 /min Deb Rueda MD Work Phone: [facility] 06-21-2023 08:15-0400 SaO2% (BldA) [Mass fraction] 97 % Deb Rueda MD Work Phone: [facility] 06-21-2023 08:15-0400 Systolic blood pressure 112 mm[Hg] Deb Rueda MD Work Phone: [facility] Encounters Encounter Date Encounter Type Care Provider Facility Start: 01-26-2025 Non-patient / Non-visit Dr. Christine Reveles MD -[facility] Work Phone: Start: 01-26-2025 ambulatory Christine Reveles Facility :[facility] Start: 01-25-2025 Non-patient / Non-visit Dr. Christine Reveles MD -[facility] Work Phone: Start: 01-24-2025 Non-patient / Non-visit Dr. Christine Reveles MD -[facility] Work Phone: Start: 01-23-2025 ambulatory Amira Tijerina Facility: [facility] Start: 01-23-2025 End: 01-26-2025 Evaluation and management of inpatient Amira Tijerina Facility:[facility] Start: 12-26-2024 End: 12-26-2024 Patient encounter procedure Amira Tijerina FR[employer] LOADER MACHINE OPERATOR-C Work Phone: -Matthew Betancourt Work Phone: Start: 12-26-2024 End: 12-26-2024 ambulatory Amiranahomy Tijerina Facility:[facility] Start: 09-16-2024 End: 09-16-2024 ambulatory AMIRA TIJERINA MONOTYPE MECHANIC-CAN DOFFER Facility:[facility] Start: 09-16-2024 End: 09-16-2024 Patient encounter procedure AMIRA L BREEZY MONOTYPE MECHANIC-CAN DOFFER [facility] Start: 09-13-2023 Telephone encounter Deb cannon MD Work Phone: [facility] Start: 08-10-2023 End: 08-10-2023 ambulatory [facility] Work Phone: Start: 08-10-2023 End: 08-10-2023 Patient encounter procedure [facility] Work Phone: Start: 07-16-2023 End: 07-16-2023 ambulatory [facility] Work Phone: Start: 07-16-2023 End: 07-16-2023 Patient encounter procedure [facility] Work Phone: Start: 06-30-2023 Telephone encounter Dulce Maria Sharif MA [facility] Start: 06-24-2023 End: 06-24-2023 ambulatory [facility] Work Phone: Start: 06-24-2023 End: 06-24-2023 Patient encounter procedure [facility] Work Phone: Start: 06-23-2023 Telephone encounter Deb cannon MD Work Phone: [facility] Start: 06-21-2023 End: 06-22-2023 ambulatory DEB RUEDA [facility] Start: 06-21-2023 End: 06-21-2023 ambulatory DEB RUEDA 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 Start: 06-01-2023 End: 06-01-2023 Subsequent hospital visit by physician Nirmal Ramos MD Work Phone: [facility] Comment on above: Nonspecific reaction to tuberculin skin test without active tuberculosis Nonspecific reaction to tuberculin skin test without active tuberculosis (Primary Dx) Start: 05-21-2023 End: 05-21-2023 ambulatory [facility] Work Phone: Start: 05-21-2023 End: 05-21-2023 Patient encounter procedure [facility] Work Phone: Start: 01-21-2023 End: 01-21-2023 ambulatory [facility] Work Phone: Start: 01-21-2023 End: 01-21-2023 Patient encounter procedure [facility] Start: 01-07-2023 End: 01-07-2023 ambulatory [facility] Work Phone: Start: 01-07-2023 End: 01-07-2023 Patient encounter procedure [facility] Procedures Date Procedure Procedure Detail Performing Clinician Start: 01-24-2025 Acid fast bacilli culture Amira Tijerina FRUIT LOADER MACHINE OPERATOR-C Work Phone: Start: 01-24-2025 Gram stain microscopy S gallo Tijerina FRUIT LOADER MACHINE OPERATOR-C Work Phone: Start: 01-24-2025 Arthroscopy of knee Vanesa chery Breezy FRUIT LOADER MACHINE OPERATOR-C Work Phone: Start: 01-23-2025 X-ray of knee, four or more views Amira Tijerina FRUIT LOADER MACHINE OPERATOR-C Work Phone: Start: 06-21-2023 QUANTIFERON - PLUS G RAY TUBE Deb Rueda MD Work Phone: Start: 06-21-2023 QUANTIFERON - PLUS G REEN TUBE Deb Rueda MD Work Phone: Start: 06-21-2023 QUANTIFERON - PLUS P URPLE TUBE Deb Rueda MD Work Phone: Start: 06-21-2023 QUANTIFERON - PLUS Y ELLOW TUBE Deb Rueda MD Work Phone: Start: 06-21-2023 QUANTIFERON TB LELA Mukherjee MD Work Phone: Start: 06-01-2023 Radiologic exam ches t 2 views Nirmal Ramos MD Work Phone: Start: 11-22-2018 Structure of wisdom tooth (body structure) AMIRA TIJERINA MONOTYPE MECHANIC-CAN DOFFER Plan of Treatment Date Care Activity Detail Author Start: 2038 Zoster Vaccines (1 of 2) Zoster Vacc radha (1 of 2) [facility] Start: 01-26-2025 Patient discharge [facility] Start: 01-26-2025 [facility] Start: 01-24-2025 Following clinical pathway protocol [facility] Start: 01-24-2025 Application of ice collar, cap or bag [facility] Start: 01-24-2025 Catheterization of vein [facility] Start: 01-24-2025 Deep breathing and coughing exercises [facility] Start: 01-24-2025 Following clinical pathway protocol [facility] Start: 01-24-2025 Incentive spirometry [facility] Start: 01-24-2025 Introduction of urin margaux catheter [facility] Start: 01-24-2025 Patient education [facility] Start: 01-24-2025 Taking patient vital signs [facility] Start: 01-24-2025 Vital signs measurements [facility] Start: 01-24-2025 [facility] Start: 01-24-2025 Anaerobic microbial culture Anaerobic Culture [facility] Start: 01-24-2025 Microbial culture, routine Wound Culture [facility] Start: 01-24-2025 Application of intermittent pneumatic compression device [facility] Start: 01-24-2025 Medication education [facility] Start: 01-24-2025 Source specific culture [facility] Start: 01-23-2025 Following clinical pathway protocol [facility] Start: 01-23-2025 Assessment of risk o f venous thromboembolism [facility] Start: 01-23-2025 Consultation [facility] Start: 01-23-2025 Fall prevention [facility] Start: 01-23-2025 Inhalation therapy procedure [facility] Start: 01-23-2025 Insertion of cathete r into peripheral vein [facility] Start: 01-23-2025 Introduction of urin margaux catheter [facility] Start: 01-23-2025 Measuring intake and output [facility] Start: 01-23-2025 Oxygen therapy [facility] Start: 01-23-2025 Providing care accor ding to standard [facility] Start: 01-23-2025 Provision of activit y privileges [facility] Start: 01-23-2025 Referral to occupati onal therapist [facility] Start: 01-23-2025 Referral to service [facility] Start: 01-23-2025 [facility] Start: 01-23-2025 Admission procedure [facility] Start: 01-23-2025 [facility] Start: 01-23-2025 Blood culture Blood Culture [facility] Start: 08-13-2023 End: 06-23-2024 Hepatic function 2000 panel - Serum or Plasma Hepatic function panel Lab Routine Positive QuantiFERON-TB Gold test Rheumatoid arteritis (CMS/HCC) (HCC) At risk for infection due to immunosuppression Encounter for medication monitoring Expected: 08/13/2023 (Approximate), Expires: 06/23/2024 [facility] [employer] Comment on above: Expected: 08/13/2023 (Approximate), Expires: 06/23/2024 Start: 07-23-2023 Influenza vaccination Influenza Vacc ine (#1) [facility] [employer] Start: 07-16-2023 End: 06-23-2024 Hepatic function 2000 panel - Serum or Plasma Hepatic function panel Lab Routine Positive QuantiFERON-TB Gold test Rheumatoid arteritis (CMS/HCC) (HCC) At risk for infection due to immunosuppression Encounter for medication monitoring Expected: 07/16/2023 (Approximate), Expires: 06/23/[address] [facility]: Comment on above: Expected: 07/16/2023 (Approximate), Expires: 06/23/2024 Start: 06-21-2023 End: 06-21-2024 QUANTIFERON TB GOLD [facility] Work Phone: Comment on above: Expected: 06/21/2023 (Approximate), Expires: 06/21/2024 Start: 10-23-2022 COVID-19 Vaccine (5 - Moderna risk series) COVID-19 Vaccine (5 - Moderna risk series) [facility] Start: 2018 Screening for malign ant neoplasm of cervix [facility] Start: 2009 Screening for malign ant neoplasm of cervix Pap Smear [facility] Start: 2007 DTaP/Tdap/Td Vaccine s (2 - Tdap) DTaP/Tdap/Td Vaccines (2 - Tdap) [facility] Start: 2007 Zoster Vaccines (1 of 2) Zoster Vacc radha (1 of 2) [facility] Start: 2006 Hepatitis C screening Hepatitis C Sc reening [facility] Start: 2000 Depression Screening Depression Scre ening [facility] Start: 1994 Pneumococcal Vaccine : Pediatrics (0 to 5 Years) and At-Risk Patients (6 to 64 Years) (1 - PCV) Pneumococcal Vaccine: Pediatrics (0 to 5 Years) and At-Risk Patients (6 to 64 Years) (1 - PCV) [facility] Start: 1989 MMR Vaccines (1 of 1 - Standard series) MMR Vaccines (1 of 1 - Standard series) [facility] Start: 1989 Varicella vaccination Varicell a Vaccines (1 of 2 - 2-dose childhood series) [facility] Start: 1988 Hepatitis B Vaccines (1 of 3 - 3-dose series) Hepatitis B Vaccines (1 of 3 - 3-dose series) [facility] Start: 1988 HIV screening HIV Screening [facility] OUTSIDE PROCEDURE SCAN OUTSIDE P ROCEDURE SCAN Procedures Ordered: 06/01/2023 [facility] Comment on above: Ordered: 06/01/2023 Patient referral [facility] Work Phone: QUANTIFERON - PLUS G RAY TUBE QUANTIFERON - PLUS LOJA TUBE Lab Routine Positive QuantiFERON-TB Gold test Rheumatoid arteritis (CMS/HCC) (HCC) At risk for infection due to immunosuppression 06/21/2023 9:46 AM EDT [facility] QUANTIFERON - PLUS G REEN TUBE QUANTIFERON - PLUS GREEN TUBE Lab Routine Positive QuantiFERON-TB Gold test Rheumatoid arteritis (CMS/HCC) (HCC) At risk for infection due to immunosuppression 06/21/2023 9:46 AM EDT [employer] QUANTIFERON - PLUS PURPLE TUBE QUANTIFERON - PLUS PURPLE TUBE Lab Routine Positive QuantiFERON-TB Gold test Rheumatoid arteritis (CMS/HCC) (HCC) At risk for infection due to immunosuppression 06/21/2023 9:46 AM EDT [employer] QUANTIFERON - PLUS YELLOW TUBE QUANTIFERON - PLUS YELLOW TUBE Lab Routine Positive QuantiFERON-TB Gold test Rheumatoid arteritis (CMS/HCC) (HCC) At risk for infection due to immunosuppression 06/21/2023 9:46 AM EDT [employer] Immunizations Immunization Date Immunization Notes Care Provider Fa cili 09-30-2021 SARS-CoV-2 (COVID-19 ) mRNA-1273 vaccine; Translations: [Moderna COVID-19 Vaccine] AMIRA TIJERINA MONOTYPE MECHANIC-CAN DOFFER [facility] 01-10-2021 SARS-CoV-2 (COVID-19 ) mRNA-1273 vaccine AMIRA TIJERINA MONOTYPE MECHANIC[employer] DOFFER [facility] 12-10-2020 SARS-CoV-2 (COVID-19 ) mRNA-1273 vaccine AMIRA TIJERINA MONOTYPE MECHANIC-[employer] DOFFER [facility] Payers Date Payer Category Payer Self-pay [id number] 2022 Unknown [id number] 2022 Unknown [employer] [id number] 2022-Present [address] [place] [id number] [facility] [id number] 1990 Unknown [id number] 7 Unknown [id number] 2 Unknown [id number] 2 Unknown [id number] 2 Unknown [id number] 2 Unknown [id number] 2 Unknown [id number] 2 Unknown [id number] 2 Social History Date Type Detail Facility Start: 10-07-2021 End: 10-07-2021 Tobacco smoking status NHIS Unknown if ever smoked [facility] Start: 1990 Sex Assigned At Female [facility] Start: 1990 Sex Assigned At Not on file [facility] Start: 06-21-2023 Gender identity Not on file [facility] Start: 05-22-2023 End: 06-21-2023 Exposure to SARS-CoV-2 (event) Not sure [facility] Start: 06-21-2023 End: 01-23-2025 Tobacco smoking status NHIS Never smoked tobacco [facility] Start: 06-21-2023 Tobacco use and exposure Smokeless tobacco non-user [facility] Start: 06-21-2023 Alcohol intake Current drinke r of alcohol (finding) [facility] Start: 06-21-2023 Alcohol intake [facility] Start: 06-21-2023 Alcohol Comment socially [facility] Sex Assigned At [facility] Start: 01-26-2025 Sex Female (finding) [facility] NEGATED: Highlighted row Not [facility] Goals Date Patient Goal Desired Activity /State Functional Status Date Assessment Result Facility 01-26-2025 Functional status Chair [facility] Work Phone: Mental Status Date Assessment Result Facility 01-25-2025 Cognitive function Level Of Cons ciousness Awake;Alert;Appropriate;Follow s Commands [facility] Work Phone: 01-24-2025 Cognitive function Voice/Name [facility] Work Phone: Clinical Notes 07-22-2021 to 01-26-2025 Note Date & Type Note Facility 01-26-2025 Progress note Note Date/Time January 26, 2025 12:21pm [facility] Medical Records Department [address] [place] [address] Progress Note - Orthopedic 01/26/25 1218 MR#: [id number] Acct: [id number] Name: CHRISTINE NERI Rep #:[id number] : 1990 34 From: Lindsey IVORY PCP: JULIANN Whitfield Status:ADM IN Location: [place] 042602-1 Subjective Subjective Patient is a 34 year old female with history of RA POD2 s/p right knee arthroscopic irrigation and debridement 01/24/[address] Romo after concern for right knee septic arthritis. 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 arthrocentesis of the right knee was performed in office. Cx from crystal arthritis are NGTD. cultures from the OR are +WBC and NGTD. Rates pain 3/ 10 at rest. With movement 3/10. States taking Tylenol and oxycodone and ice help to relieve pain. Patient has been up with therapy. Patient has no restrictions in range of motion. Weightbearing as tolerated. Afebrile, no chest pain, shortness of breath, negative calf pain/ erythema, and no other signs of DVT. Objective Data Objective Data Vital Signs: Vital Signs Temp Pulse Resp BP Pulse Ox O2 Del Method 98.4 F 76 17 134/93 H 97 Room Air 01/26/25 09:20 01/26/25 09:20 01/26/25 09:20 01/26/25 09:20 01/26/25 09:20 01/26/25 09:20 Oxygen Delivery Method Room Air Weight: 98.6 kg Body Mass Index (BMI) 36.2 Intake & Output: Intake and Output for Last 24 Hours 01/24/25 01/25/25 01/26/25 23:59 23:59 23:59 Intake Total 3651.67 / 3651.67 1083.33 / 1083.33 325 / 325 Balance 3651.67 / 3651.67 1083.33 / 1083.33 325 / 325 Lab / Micro Data 01/24/25 05:00 01/26/25 08:04 Labs: Laboratory Results - last 24 hr 01/26/25 08:04: Creatinine 0.58 L, Estim Creat Clear Calc 155.89, Est GFR (MDRD)Non-Af 120, Vancomycin Trough 17.7 H Micro: Microbiology 01/23/25 18:22 Blood Culture (Wb) - Arm Left Blood Culture - Preliminary No growth in 48 hours. 01/23/25 18:22 Blood Culture (Wb) - Anticubital Right Blood Culture - Preliminary No growth in 48 hours. 01/24/25 Unknown Aspirate - Knee Gram Stain - Final 01/24/25 Unknown Aspirate - Knee Wound Culture - Preliminary No growth-Final to follow 01/24/25 Unknown Aspirate - Knee Anaerobic Culture - Preliminary No growth in 48 hours. Physical Exam Narrative Patient walking unassisted to the bathroom. no pain with ambulation. no assistive devices. No signs of acute distress Satting well on room air Limb is warm to touch, Sensation intact throughout entire lower extremity, including saphenous, sural, superficial and deep peroneal, and tibial distribution. no significant erythema. mild expected post op edema DP/PT pulses bounding. tolerates minimal PROM to about 90 degrees. she has been up walking with PT with minimal pain Dressing c/d/i . incisions intact. Calf nontender to palpation, no erythema, no edema. Negative Homans Assessment & Plan Assessment/Plan (1) Septic arthritis of knee, right: PLAN: 1. Will continue PT today. Weightbearing as tolerated. No range of motion restrictions 2. Patient will follow up for post op appointment 2 weeks after surgery in our office. This will need to be arranged 3. Remains afebrile. Infectious disease on board. Cultures with NGTD. ID recommending 2 weeks oral levaquin and doxycycline. 4. DVT prophylaxis : Heparin subcu. may transition to aspirin 81mg BID x 2 weeksupon discharge. 5. Pain control: patient instructed to take tylenol 500mg 2 tablets TID. and oxycodone 1-2 tablets every 4-6 hours only as needed for pain control. 6. ok to remove post op dressing. post op day 3 7. showering only. no submerging incisions 8. per patient portal on her phone, no organisms are growing from knee arthrocentesis from the office at [facility] 9. when cleared from ID with final recommendations and medicine clears, ok for discharge from orthopaedic standpoint. 01/26/25 1221 <Electronically signed by Lindsey IVORY> Cosigner Signature (if applicable): CC: ~ Signed [facility] Work Phone: 1(554) 370-338203-07-2025 Discharge summary [facility] Medical Records Department [address] [place] [address] Discharge Summary 01/26/25 1332 MR#: [id number] Acct: [id number] Name: CHRISTINE NERI Rep #:[id number] : 1990 34 From: Christine Reveles MD PCP: JULIANN Whitfield Status:ADM IN Location: [place] [address] Providers Date of Admission: 01/23/25 Date of Discharge: 01/26/25 Primary Care Physician: JULIANN Whitfield Consultations 01/23/25 22:21 Consult: Infectious Disease Routine Consulting Provider: Pal Rich Reason for Consult: R septic knee EMERGENT Consult: No Notified: Yes Date Notified: 01/23/25 Time Notified: 19:33 Method of Notification: Text Consult: Orthopedics Routine Consulting Provider: Mckinley Romo Reason for Consult: R septic knee EMERGENT Consult: No Notified: Yes Date Notified: 01/23/25 Time Notified: 19:32 Method of Notification: ED Physician Initiated Reason For Visit: R SEPTIC KNEE Diagnosis Discharge Diagnosis (1) Septic arthritis of knee, right: Status: Acute Code(s): M00.9 - Pyogenic arthritis, unspecified Plan #Right knee arthritis -Received IV antibiotics for 3 days vancomycin and ceftriaxone -Start on p.o. Levaquin and doxycycline for 2 weeks and follow-up with ID as an outpatient -Appreciate ID input -Pain well-controlled at this time # Right superficial thrombophlebitis -Pain is minimal, warm compressions # Rheumatoid arthritis -Therapy with Cimzia, azathioprine, sulfasalazine, previously on Humira and intermittent prednisone -Follow-up with outpatient rheumatology #Anemia of chronic disease -Hemoglobin 9.8, MCV 81.9 -continue to monitor #Chronic medical issues #Obesity #GERD #Allergies rhinitis Medications at Discharge Home Medications fluticasone propionate 50 mcg/actuation nasal spray,suspension (Flonase Allergy Relief) 1 spray intranasal DAILY 10/03/21 meloxicam 15 mg tablet 15 mg PO DAILY 10/03/21 azathioprine 50 mg tablet 50 mg PO DAILY 01/23/25 prednisone 10 mg tablet 10 mg PO Q12H 01/23/25 sulfasalazine 500 mg tablet,delayed release 1,500 mg PO BID 01/23/25 doxycycline hyclate 100 mg capsule 100 mg PO BID #28 caps 01/26/25 levofloxacin 500 mg tablet 500 mg PO DAILY #14 tabs 01/26/25 Hospital Course Operations arthroscopy, knee Procedures None Summary of Care Provided Minutes Spent on Discharge: 20 Hospital Course: 34-year-old female with history of rheumatoid arthritis on methotrexate with associated thrombocytopenia, chronic normocytic anemia, GERD, obesity was admitted for concerns regarding right knee pain with bilateral shoulder discomfort and right elbow pain for the last 24 hours consistent with a rheum atoid arthritis flare versus expected arthritis. She underwent incision and drainage of the right knee. Cultures have been negative so far. She is beingdischarged home to continue antibiotics and will follow up with ID as an outpatient. Physical Exam Const alert and oriented x3 HEENT normocephalic Eyes PERRL Neck no lymphadenopathy Resp normal respiratory effort Cardio regular rate and regular rhythm GI normal to inspection, nondistended, normoactive bowel sounds Extremity normal to inspection Extremity Narrative: edema present over the right knee, suture sites are healthy and well-healing. No tenderness. left extremity normal Weight / BMI Weight Weight: 217 lb 6.012 oz Body Mass Index (BMI) 36.2 ABG / Lab / Microbiology Data 01/24/25 05:00 01/26/25 08:04 Laboratory: Laboratory Results - last 24 hr 01/26/25 08:04: Creatinine 0.58 L, Estim Creat Clear Calc 155.89, Est GFR (MDRD)Non-Af 120, Vancomycin Trough 17.7 H Microbiology: Microbiology 01/23/25 18:22 Blood Culture (Wb) - Arm Left Blood Culture - Preliminary No growth in 48 hours. 01/23/25 18:22 Blood Culture (Wb) - Anticubital Right Blood Culture - Preliminary No growth in 48 hours. 01/24/25 Unknown Aspirate - Knee Gram Stain - Final 01/24/25 Unknown Aspirate - Knee Wound Culture - Preliminary No growth-Final to follow 01/24/25 Unknown Aspirate - Knee Anaerobic Culture - Preliminary No growth in 48 hours. D/C Instructions DC O2, CPAP, BIPAP Needs Home O2 Discharge instructions: No Meaningful Use Info Meaningful Use Meaningful Use Diagnoses (Choose all that apply): None applicable Ischemic Stroke Statin Dosing Therapy Reference: STATIN DOSE THERAPY REFERENCE: * Patients > 75 years receive moderate or high dose statin therapy. * Patients 75 years or YOUNGER should receive HIGH intensity statin dose unless contraindicated. You will be required to document reason for non-treatment if statin daily dose does not meet guidelines. HIGH DOSE STATIN THERAPY DAILY Atorvastatin > than or = to 40 mg Rosuvastatin > than or = to 20 mg Amlodipine + Atorvastatin > than or = to 2.5/40 mg Ezetimibe + Simvastatin 10/80 mg Simvastatin 80mg Discharge Plan Admission Admit Date/Time: 01/23/25 19:32 Primary Reason for Your Visit: Right septic arthritis Attending Provider: Christine Reveles Primary Care Provider: Amira Tijerina NP Consulting Providers: Mckinley Romo; Destiney Lane; Pal Rich Discharge Orders/Prescriptions Prescriptions: New levofloxacin 500 mg tablet 500 mg PO DAILY Qty: 14 0RF doxycycline hyclate 100 mg capsule 100 mg PO BID Qty: 28 0RF No Action meloxicam 15 mg tablet 15 mg PO DAILY fluticasone propionate [Flonase Allergy Relief] 50 mcg/actuation spray,suspension 1 spray intranasal DAILY Rx Instructions: administer into each nostril prednisone 10 mg tablet 10 mg PO Q12H Patient Comments: [NO ORIGINAL SIG] sulfasalazine 500 mg tablet,delayed release (DR/EC) 1,500 mg PO BID azathioprine 50 mg tablet 50 mg PO DAILY Referrals / Follow Up: Amira Tijerina NP, FRUIT LOADER MACHINE OPERATOR-C [Primary Care Provider] - Disposition Disposition (needs filled in before D/C Order can be placed): Home, Self Care 01/26/25 1341 Cosigner Signature (if applicable): CC: JULIANN Tijerina; Dr. Christine Reveles MD~ Signed [facility]03-07-2025 [facility] Medical Records Department [address] [place] [address] Discharge Summary 01/26/25 1332 MR#: [id number] Acct: [id number] Name: CHRISTINE NERI Rep #: [id number] : 1990 34 From: Christine Reveles MD PCP: JULIANN Whitfield Status:ADM IN [facility] Providers Date of Admission: 01/23/25 Date of Discharge: 01/26/25 Primary Care Physician: JULIANN Whitfield Consultations 01/23/25 22:21 Consult: Infectious Disease Routine Consulting Provider: Pal Rich Reason for Consult: R septic knee EMERGENT Consult: No Notified: Yes Date Notified: 01/23/25 Time Notified: 19:33 Method of Notification: Text Consult: Orthopedics Routine Consulting Provider: Mckinley Romo Reason for Consult: R septic knee EMERGENT Consult: No Notified: Yes Date Notified: 01/23/25 Time Notified: 19:32 Method of Notification: ED Physician Initiated Reason For Visit: R SEPTIC KNEE Diagnosis Discharge Diagnosis (1) Septic arthritis of knee, right: Status: Acute Code(s): M00.9 - Pyogenic arthritis, unspecified Plan #Right knee arthritis -Received IV antibiotics for 3 days vancomycin and ceftriaxone -Start on p.o. Levaquin and doxycycline for 2 weeks and follow-up with ID as an outpatient -Appreciate ID input -Pain well-controlled at this time # Right superficial thrombophlebitis -Pain is minimal, warm compressions # Rheumatoid arthritis -Therapy with Cimzia, azathioprine, sulfasalazine, previously on Humira and intermittent prednisone -Follow-up with outpatient rheumatology #Anemia of chronic disease -Hemoglobin 9.8, MCV 81.9 -continue to monitor #Chronic medical issues #Obesity #GERD #Allergies rhinitis Medications at Discharge Home Medications fluticasone propionate 50 mcg/actuation nasal spray,suspension (Flonase Allergy Relief) 1 spray intranasal DAILY 10/03/21 meloxicam 15 mg tablet 15 mg PO DAILY 10/03/21 azathioprine 50 mg tablet 50 mg PO DAILY 01/23/25 prednisone 10 mg tablet 10 mg PO Q12H 01/23/25 sulfasalazine 500 mg tablet,delayed release 1,500 mg PO BID 01/23/25 doxycycline hyclate 100 mg capsule 100 mg PO BID #28 caps 01/26/25 levofloxacin 500 mg tablet 500 mg PO DAILY #14 tabs 01/26/25 Hospital Course Operations arthroscopy, knee Procedures None Summary of Care Provided Minutes Spent on Discharge: 20 Hospital Course: 34-year-old female with history of rheumatoid arthritis on methotrexate with associated thrombocytopenia, chronic normocytic anemia, GERD, obesity was admitted for concerns regarding right knee pain with bilateral shoulder discomfort and right elbow pain for the last 24 hours consistent with a rheumatoid arthritis flare versus expected arthritis. She underwent incision and drainage of the right knee. Cultures have been negative so far. She is being discharged home to continue antibiotics and will follow up with ID as an outpatient. Physical Exam Const alert and oriented x3 HEENT normocephalic Eyes PERRL Neck no lymphadenopathy Resp normal respiratory effort Cardio regular rate and regular rhythm GI normal to inspection, nondistended, normoactive bowel sounds Extremity normal to inspection Extremity Narrative: edema present over the right knee, suture sites are healthy and well-healing. No tenderness. left extremity normal Weight / BMI Weight Weight: 217 lb 6.012 oz Body Mass Index (BMI) 36.2 ABG / Lab / Microbiology Data 01/24/25 05:00 01/26/25 08:04 Laboratory: Laboratory Results - last 24 hr 01/26/25 08:04: Creatinine 0.58 L, Estim Creat Clear Calc 155.89, Est GFR (MDRD) Non-Af 120, V ancomycin Trough 17.7 H Microbiology: Microbiology 01/23/25 18:22 Blood Culture (Wb) - Arm Left Blood Culture - Preliminary No growth in 48 hours. 01/23/25 18:22 Blood Culture (Wb) - Anticubital Right Blood Culture - Preliminary No growth in 48 hours. 01/24/25 Unknown Aspirate - Knee Gram Stain - Final 01/24/25 Unknown Aspirate - Knee Wound Culture - Preliminary No growth-Final to follow 01/24/25 Unknown Aspirate - Knee Anaerobic Culture - Preliminary No growth in 48 hours. D/C Instructions DC O2, CPAP, BIPAP Needs Home O2 Discharge instructions: No Meaningful Use Info Meaningful Use Meaningful Use Diagnoses (Choose all that apply): None applicable Ischemic Stroke Statin Dosing Therapy Reference: STATIN DOSE THERAPY REFERENCE: * Patients > 75 years receive moderate or high dose statin therapy. * Patients 75 years or YOUNGER should receive HIGH intensity statin dose unless contraindicated. You will be required to document reason for non-treatment if statin daily dose does not meet guidelines. HIGH DOSE STATIN THERAPY DAILY Atorvastatin > than or = to 40 mg Rosuv (more content not included)...[facility]03-07-2025 Progress note Author Pal Rich [facility] Note Date/Time January 26, 2025 10:3 8am [facility] Medical Records Department [address] [place] [address] Progress Note - Infect Disease 01/26/25 1036 MR#: [id number] Acct: [id number] Name: CHRISTINE NERI Rep #:[id number] : 1990 34 From: Pal gonzalez MD PCP: JULIANN Whitfield Status:ADM IN Location: [place] [id number] Physical Exam Narrative Feeling better, knee improved, no fever, no n/v/d. Const alert and no apparent distress General Appearance: cooperative Resp normal air movement and clear to auscultation bilaterally Cardio regular rate and regular rhythm GI soft to palpation, non-tender and non-distended Skin no rashes or lesions noted ID ID: Route of nutrition/ use of supplements: [] Nutritional Intake: [] IV Site: [] Jackson Catheter: [] Assessment & Plan Assessment/Plan (1) Septic arthritis of knee, right: PLAN: Taken to OR 01/24/[address] Romo for I&D. Surg cx ngtd, on vanc/ceftriaxone. Ok for home with 2 weeks po levaquin and doxy. Will follow, ID followup in 1-2 weeks. (2) Rheumatoid arthritis: 01/26/25 1038 <Electronically signed by Pal Rich MD> Cosigner Signature (if applicable): CC: ~ Signed [facility] Work Phone: 1(401) 978-405403-07-2025 Progress note [facility] Medical Records Department [address] [place] [address] Progress Note - Orthopedic 01/26/25 1218 MR#: [id number] Acct: [id number] Name: CHRISTINE NERI Rep #:[id number] : 1990 34 From: Lindsey IVORY PCP: Amira Tijerina FRUIT LOADER MACHINE OPERATOR-Toño Status:ADM IN Location: MS[facility] SQ275-5 Subjective Subjective Patient is a 34 year old female with history of RA POD2 s/p right knee arthroscopic irrigation and debridement 01/24/[address] Romo after concern for right knee septic arthritis. 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 arthrocentesis of the right knee was performed in office. Cx from crystal arthritis are NGTD. cultures from the OR are +WBC and NGTD. Rates pain 3/ 10 at rest. With movement 3/10. States taking Tylenol and oxycodone and ice help to relieve pain. Patient has been up with therapy. Patient has no restrictions in range of motion. Weightbearing as tolerated. Afebrile, no chest pain, shortness of breath, negative calf pain/ erythema, and no other signs of DVT. Objective Data Objective Data Vital Signs: Vital Signs Temp Pulse Resp BP Pulse Ox O2 Del Method 98.4 F 76 17 134/93 H 97 Room Air 01/26/25 09:20 01/26/25 09:20 01/26/25 09:20 01/26/25 09:20 01/26/25 09:20 01/26/25 09:20 Oxygen Delivery Method Room Air Weight: 98.6 kg Body Mass Index (BMI) 36.2 Intake & Output: Intake and Output for Last 24 Hours 01/24/25 01/25/25 01/26/25 23:59 23:59 23:59 Intake Total 3651.67 / 3651.67 1083.33 / 1083.33 325 / 325 Balance 3651.67 / 3651.67 1083.33 / 1083.33 325 / 325 Lab / Micro Data 01/24/25 05:00 01/26/25 08:04 Labs: Laboratory Results - last 24 hr 01/26/25 08:04: Creatinine 0.58 L, Estim Creat Clear Calc 155.89, Est GFR (MDRD)Non-Af 120, Vancomycin Trough 17.7 H Micro: Microbiology 01/23/25 18:22 Blood Culture (Wb) - Arm Left Blood Culture - Preliminary No growth in 48 hours. 01/23/25 18:22 Blood Culture (Wb) - Anticubital Right Blood Culture - Preliminary No growth in 48 hours. 01/24/25 Unknown Aspirate - Knee Gram Stain - Final 01/24/25 Unknown Aspirate - Knee Wound Culture - Preliminary No growth-Final to follow 01/24/25 Unknown Aspirate - Knee Anaerobic Culture - Preliminary No growth in 48 hours. Physical Exam Narrative Patient walking unassisted to the bathroom. no pain with ambulation. no assistive devices. No signs of acute distress Satting well on room air Limb is warm to touch, Sensation intact throughout entire lower extremity, including saphenous, sural, superficial and deep peroneal, and tibial distribution. no significant erythema. mild expected post op edema DP/PT pulses bounding. tolerates minimal PROM to about 90 degrees. she has been up walking with PT with minimal pain Dressing c/d/i . incisions intact. Calf nontender to palpation, no erythema, no edema. Negative Homans Assessment & Plan Assessment/Plan (1) Septic arthritis of knee, right: PLAN: 1. Will continue PT today. Weightbearing as tolerated. No range of motion restrictions 2. Patient will follow up for post op appointment 2 weeks after surgery in our office. This will need to be arranged 3. Remains afebrile. Infectious disease on board. Cultures with NGTD. ID recommending 2 weeks oral levaquin and doxycycline. 4. DVT prophylaxis : Heparin subcu. may transition to aspirin 81mg BID x 2 weeksupon discharge. 5. Pain control: patient instructed to take tylenol 500mg 2 tablets TID. and oxycodone 1-2 tablets every 4-6 hours only as needed for pain control. 6. ok to remove post op dressing. post op day 3 7. showering only. no submerging incisions 8. per patient portal on her phone, no organisms are growing from knee arthrocentesis from the office at [email or web address] 9. when cleared from ID with final recommendations and medicine clears, ok for discharge from orthopaedic standpoint. 01/26/25 1221 Cosigner Signature (if applicable): CC: ~ Signed [facility]03-07-2025 Consult note Author Servando Sexton [facility] Note Date/Time January 26, 2025 10:0 5am [facility] Medical Records Department [address] [place] [place] [address] Pharmacokinetic/Renal -Consult 01/26/25901 MR#: [id number] Acct: [id number] Name: CHRISTINE NERI Rep #:[id number] : 1990 34 From: Servando jones PCP: JULIANN Whitfield Status:ADM IN Location: [place] [address] Consult Antibiotic Management Pharmacy has been consulted to manage selected antibiotic: Vancomycin Type of Intervention Type of Consult: Follow-up Prior Doses of Antibiotics Prior Doses of Antibiotics Received/Current Regimen: current dose is vanc 1250mg IV q8h Labs Labs: Sodium 137 mmol/L (133-145) 01/24/25 05:00 Potassium 4.0 mmol/L (3.3-5.1) 01/24/25 05:00 Chloride 106 mmol/L (98-108) 01/24/25 05:00 Carbon Dioxide 21.3 mmol/L (21.0-32.0) 01/24/25 05:00 Anion Gap 9 (5-15) 01/24/25 05:00 BUN 13 mg/dL (4-19) 01/24/25 05:00 Creatinine 0.58 mg/dL (0.70-1.20) L 01/26/25 08:04 Est GFR (MDRD) Non-Af 120 (>60) 01/26/25 08:04 BUN/Creatinine Ratio 23.0 RATIO (10-20) H 01/24/25 05:00 Glucose 94 mg/dL (70-99) 01/24/25 05:00 Vancomycin Trough 17.7 ug/mL (5.0-15.0) H 01/26/25 08:04 Microbiology Microbiology: Microbiology 01/24/25 Unknown Aspirate - Knee Gram Stain - Final 01/24/25 Unknown Aspirate - Knee Wound Culture - Preliminary No growth-Final to follow Dosing Weight Weight used for dosin.6 kg Estimated Creatinine Clearance Estimated Creatinine Clearance: >100ml/min Goal Trough Goal Trough: 15-20 mcg/mL Pharmacy Plan for Drug Dosing Pharmacy Plan for Drug Dosing: The vanc trough drawn at 08:04 this morning (approximately 8.5 hours after the previous dose) was 17.7 mcg/ml. This is in goal range so will keep same dose. Repeat a trough in 2 days. Pharmacy Service will continue to monitor and adjust dosing as required. Follow-Up Labs Follow-Up Labs: Trough: Vancomycin Date/Time Labs Ordered Labs to be done on [date and time ordered]: 01/28/25 08:00 01/26/25 0905 <Electronically signed by Servando Salinas erg> Date _ Servando Sexton 01/26/25 1005 <Electronically signed by Pal jordan MD> Cosigner Signature (if applicable): Date Pal Rich MD CC: ~ Signed [facility] Work Phone: 1(816) 368-759303-07-2025 Progress note [facility] Medical Records Department [address] [place] [address] Progress Note - Infect Disease 01/26/25 1036 MR#: [id number] Acct: [id number] Name: CHRISTINE NERI Rep #:[id number] : 1990 34 From: Pal gonzalez MD PCP: VIRGIL WhitfieldC Status:ADM IN Location: [facility] [id number] Physical Exam Narrative Feeling better, knee improved, no fever, no n/v/d. Const alert and no apparent distress General Appearance: cooperative Resp normal air movement and clear to auscultation bilaterally Cardio regular rate and regular rhythm GI soft to palpation, non-tender and non-distended Skin no rashes or lesions noted ID ID: Route of nutrition/ use of supplements: [] Nutritional Intake: [] IV Site: [] Jackson Catheter: [] Assessment & Plan Assessment/Plan (1) Septic arthritis of knee, right: PLAN: Taken to OR 01/24/[address] Romo for I&D. Surg cx ngtd, on vanc/ceftriaxone. Ok for homewith 2 weeks po levaquin and doxy. Will follow, ID followup in 1-2 weeks. (2) Rheumatoid arthritis: 01/26/25 1038 Cosigner Signature (if applicable): CC: ~ Signed [facility]03-07-2025 Consult note [facility] Medical Records Department [address] [place] [address] Pharmacokinetic/Renal -Consult 01/26/25901 MR#: [id number] Acct: [id number] Name: CHRISTINE NERI Rep #:[id number] : 1990 34 From: Servando jones PCP: VIRGIL WhitfieldC Status:ADM IN Location: [place] [id number] Consult Antibiotic Management Pharmacy has been consulted to manage selected antibiotic: Vancomycin Type of Intervention Type of Consult: Follow-up Prior Doses of Antibiotics Prior Doses of Antibiotics Received/Current Regimen: current dose is vanc 1250mg IV q8h Labs Labs: Sodium 137 mmol/L (133-145) 01/24/25 05:00 Potassium 4.0 mmol/L (3.3-5.1) 01/24/25 05:00 Chloride 106 mmol/L (98-108) 01/24/25 05:00 Carbon Dioxide 21.3 mmol/L (21.0-32.0) 01/24/25 05:00 Anion Gap 9 (5-15) 01/24/25 05:00 BUN 13 mg/dL (4-19) 01/24/25 05:00 Creatinine 0.58 mg/dL (0.70-1.20) L 01/26/25 08:04 Est GFR (MDRD) Non-Af 120 (>60) 01/26/25 08:04 BUN/Creatinine Ratio 23.0 RATIO (10-20) H 01/24/25 05:00 Glucose 94 mg/dL (70-99) 01/24/25 05:00 Vancomycin Trough 17.7 ug/mL (5.0-15.0) H 01/26/25 08:04 Microbiology Microbiology: Microbiology 01/24/25 Unknown Aspirate - Knee Gram Stain - Final 01/24/25 Unknown Aspirate - Knee Wound Culture - Preliminary No growth-Final to follow Dosing Weight Weight used for dosin.6 kg Estimated Creatinine Clearance Estimated Creatinine Clearance: >100ml/min Goal Trough Goal Trough: 15-20 mcg/mL Pharmacy Plan for Drug Dosing Pharmacy Plan for Drug Dosing: The vanc trough drawn at 08:04 this morning (approximately 8.5 hours after the previous dose) was 17.7 mcg/ml. This is in goal range so will keep same dose. Repeat a trough in 2 days. Pharmacy Service will continue to monitor and adjust dosing as required. Follow-Up Labs Follow-Up Labs: Trough: Vancomycin Date/Time Labs Ordered Labs to be done on [date and time ordered]: 01/28/25 08:00 01/26/25 0905 erg> Date _ Servando Sexton 01/26/25 1005 nikki MELARA> Cosigner Signature (if applicable): Date Pal Rich MD CC: ~ Signed [facility]03-06-2025 Progress note Author Christine Reveles [facility] Note Date/Time January 25, 2025 4:40 pm [facility] Medical Records Department [address] [place] [address] Progress Note - Hospitalist 01/25/25 1632 MR#: [id number] Acct: [id number] Name: MARCIE NERIMANUEL Holbrook Rep #:[id number] : 1990 34 From: Christine Reveles MD PCP: JULIANN Whitfield Status:ADM IN Location: MS3 AR633-5 Reason for Visit Reason for Visit: Diagnoses Pyogenic arthritis, unspecified (01/23/25) Rheumatoid arthritis, unspecified (01/23/25) Subjective Subjective Pain is much improved Swelling and tenderness over her right arm below the IV cannula Objective Data Objective Data Vital Signs: Vital Signs Temp Pulse Resp BP Pulse Ox O2 Del Method 98.3 F 107 H 16 121/82 H 97 Room Air 01/25/25 14:23 01/25/25 14:23 01/25/25 14:23 01/25/25 14:23 01/25/25 14:23 01/25/25 14:23 Oxygen Delivery Method Room Air Weight: 217 lb 6.012 oz Body Mass Index (BMI) 36.2 Intake & Output: Intake and Output for Last 24 Hours 01/23/25 01/24/25 01/25/25 23:59 23:59 23:59 Intake Total 3651.67 / 3651.67 808.33 / 808.33 Balance 3651.67 / 3651.67 808.33 / 808.33 Lab / Micro Data Attestation: I reviewed the patient's lab results. 01/24/25 05:00 01/24/25 05:00 Labs: Laboratory Results - last 24 hr 01/25/25 07:47: Vancomycin Trough 16.7 H Micro: Microbiology 01/24/25 Unknown Aspirate - Knee Gram Stain - Final 01/24/25 Unknown Aspirate - Knee Wound Culture - Preliminary No growth-Final to follow Physical Exam Const alert and oriented x3 HEENT head/scalp atraumatic Eyes PERRL Neck no lymphadenopathy Resp normal respiratory effort Cardio regular rate and regular rhythm GI normal to inspection, nondistended, normoactive bowel sounds Extremity General Extremity: edema Skin Skin Narrative: Warmth and tenderness over her right arm below the IV cannula Neuro oriented x3, CN's II-XII intact bilaterally, moves all extremities and no focal motor deficits Psych affect normal Assessment & Plan Assessment/Plan (1) Septic arthritis of knee, right: PLAN: Plan 34-year-old female with history of rheumatoid arthritis on methotrexate with associated thrombocytopenia, chronic normocytic anemia, GERD, obesity was admitted for concerns regarding right knee pain with bilateral shoulder discomfort and right elbow pain for the last 24 hours consistent with a rheumatoid arthritis flare versus expected arthritis. She underwent incision and drainage yesterday, cultures have been negative so far. #Right knee arthritis -Continue IV antibiotics with vancomycin and ceftriaxone -Appreciate ID input -Pain well-controlled at this time, will discontinue IV opioids #Right arm swelling -Suspect superficial thrombophlebitis -Ultrasound Doppler -Change IV site # Rheumatoid arthritis -Therapy with Cimzia, azathioprine, sulfasalazine, previously on Humira and intermittent prednisone -Will start steroids given the concern regarding infection at this point #Elevated blood pressure without diagnosis of hypertension -Likely related to ongoing pain, continue to monitor #Anemia of chronic disease -Hemoglobin 9.8, MCV 81.9 -continue to monitor #Chronic medical issues #Obesity #GERD #Allergies rhinitis 01/25/25 1640 <Electronically signed by Christine Reveles MD> Cosigner Signature (if applicable): CC: ~ Signed [facility] Work Phone: 1(231) 464-281003-06-2025 Progress note [facility] Medical Records Department [address] [place] [address] Progress Note - Hospitalist 01/25/25 1632 MR#: [id number] Acct: [id number] Name: CHRISTINE NERI Rep #:[id number] : 1990 34 From: Christine Reveles MD PCP: JULIANN Whitfield Status:ADM IN Location: [place] [address] Reason for Visit Reason for Visit: Diagnoses Pyogenic arthritis, unspecified (01/23/25) Rheumatoid arthritis, unspecified (01/23/25) Subjective Subjective Pain is much improved Swelling and tenderness over her right arm below the IV cannula Objective Data Objective Data Vital Signs: Vital Signs Temp Pulse Resp BP Pulse Ox O2 Del Method 98.3 F 107 H 16 121/82 H 97 Room Air 01/25/25 14:23 01/25/25 14:23 01/25/25 14:23 01/25/25 14:23 01/25/25 14:23 01/25/25 14:23 Oxygen Delivery Method Room Air Weight: 217 lb 6.012 oz Body Mass Index (BMI) 36.2 Intake & Output: Intake and Output for Last 24 Hours 01/23/25 01/24/25 01/25/25 23:59 23:59 23:59 Intake Total 3651.67 / 3651.67 808.33 / 808.33 Balance 3651.67 / 3651.67 808.33 / 808.33 Lab / Micro Data Attestation: I reviewed the patient's lab results. 01/24/25 05:00 01/24/25 05:00 Labs: Laboratory Results - last 24 hr 01/25/25 07:47: Vancomycin Trough 16.7 H Micro: Microbiology 01/24/25 Unknown Aspirate - Knee Gram Stain - Final 01/24/25 Unknown Aspirate - Knee Wound Culture - Preliminary No growth-Final to follow Physical Exam Const alert and oriented x3 HEENT head/scalp atraumatic Eyes PERRL Neck no lymphadenopathy Resp normal respiratory effort Cardio regular rate and regular rhythm GI normal to inspection, nondistended, normoactive bowel sounds Extremity General Extremity: edema Skin Skin Narrative: Warmth and tenderness over her right arm below the IV cannula Neuro oriented x3, CN's II-XII intact bilaterally, moves all extremities and no focal motor deficits Psych affect normal Assessment & Plan Assessment/Plan (1) Septic arthritis of knee, right: PLAN: Plan 34-year-old female with history of rheumatoid arthritis on methotrexate with associated thrombocytopenia, chronic normocytic anemia, GERD, obesity was admitted for concerns regarding right knee pain with bilateral shoulder discomfort and right elbow pain for the last 24 hours consistent with a rheum atoid arthritis flare versus expected arthritis. She underwent incision and drainage yesterday, cultures have been negative so far. #Right knee arthritis -Continue IV antibiotics with vancomycin and ceftriaxone -Appreciate ID input -Pain well-controlled at this time, will discontinue IV opioids #Right arm swelling -Suspect superficial thrombophlebitis -Ultrasound Doppler -Change IV site # Rheumatoid arthritis -Therapy with Cimzia, azathioprine, sulfasalazine, previously on Humira and intermittent prednisone -Will start steroids given the concern regarding infection at this point #Elevated blood pressure without diagnosis of hypertension -Likely related to ongoing pain, continue to monitor #Anemia of chronic disease -Hemoglobin 9.8, MCV 81.9 -continue to monitor #Chronic medical issues #Obesity #GERD #Allergies rhinitis 01/25/25 1640 Cosigner Signature (if applicable): CC: ~ Signed [facility]03-06-2025 Consult note Author Pal Rich [facility] Note Date/Time January 25, 2025 10:3 8am [facility] Medical Records Department [address] [place] [address] Consultation - Infectious Dx 01/25/25 1035 MR#: [id number] Acct: [id number] Name: CHRISTINE NERI Rep #:[id number] : 1990 34 From: Pal gonzalez MD PCP: Amira Tijerina, [employer]ATOR-C Status:ADM IN Location: MS3 PT481-7 Assessment & Plan Assessment/Plan (1) Septic arthritis of knee, right: PLAN: Taken to OR 01/24/[address] Romo for I&D. Surg cx pending, will narrow to vanc/ceftriaxone. Will follow, thank you (2) Rheumatoid arthritis: HPI Consult Data Date of Consult: 01/25/25 HPI Narrative Reason for Consultation: septic arthritis HPI Narrative: CHRISTINE NERI, is a 34 F with RA on immunosuppression, presented 01/23 with two days progressive R knee pain, swelling, mild warmth, chills. No known inciting event. No h/o gout. Pain was moderate. Sent to ED, admitted on vanc/cefepime,taken to OR 01/24/[address] Romo. Feeling better this AM, no n/v/d. Full ROS performed and neg except as noted above. [facility] Medical History Obesity Dyspepsia H. pylori infection Anemia Thrombocytopenia Rheumatoid arthritis Home Medications ?Medication ?Instructions ?Recorded ?Last Taken ?Type fluticasone propionate 50 1 spray intranasal DAILY 11/11 Unknown History mcg/actuation nasal spray,suspension (Flonase Allergy Relief) meloxicam 15 mg tablet 15 mg PO DAILY 10/03/21 Unkn own History azathioprine 50 mg tablet 50 mg PO DAILY 01/23/25 Unkn own History prednisone 10 mg tablet 10 mg PO Q12H 01/23/25 Unkno wn History sulfasalazine 500 mg 1,500 mg PO BID 01/23/25 Unk nown History tablet,delayed release Allergy/AdvReac Type Severity Reaction Status Date / Time No Known Allergies Allergy Verified 01/23/25 16:40 Family History Grandmother Heart disease Mother Lung cancer Grandfather Heart disease Diabetes Family History other Surgical History [place] teeth extracted Social History household members: other details: Lives with her sister. Smoking Status: Never smoker second hand exposure: No alcohol intake: current alcohol intake frequency: a few times a week details: occasionally substance use type: does not use rafael/sikhism: None seatbelt use: always do you feel safe at home: Yes Physical Exam Const alert, oriented x3 and no apparent distress General Appearance: cooperative HEENT normocephalic and head/scalp atraumatic Eyes PERRL and EOMs intact bilaterally Neck supple and No nodes Resp normal air movement and clear to auscultation bilaterally Cardio regular rate and regular rhythm GI soft to palpation, non-tender and non-distended Extremity General Extremity: edema Skin no rashes or lesions noted Skin Narrative: RLE wrapped Neuro CN's II-XII intact bilaterally Lab / Micro Data Attestation: I reviewed the patient's lab results. 01/24/25 05:00 01/24/25 05:00 Labs: Laboratory Results - last 24 hr 01/25/25 07:47: Vancomycin Trough 16.7 H Micro: Microbiology 01/24/25 Unknown Aspirate - Knee Wound Culture - Preliminary No growth-Final to follow 01/25/25 1038 <Electronically signed by Pal Rich MD> Cosigner Signature (if applicable): CC: KATY-Toño Tijerina~ Signed [facility] Work Phone: 1(290) 223-789603-06-2025 Progress note Author Lindsey Olivares [facility] Note Date/Time January 25, 2025 10:1 0am [facility] Medical Records Department [address] [place] [address] Progress Note - Orthopedic 01/25/25 0938 MR#: [id number] Acct: [id number] Name: CHRISTINE NERI Rep #:[id number] : 1990 34 From: Lindsey IVORY PCP: JULIANN Whitfield Status:ADM IN Location: MS3 FF934-0 Subjective Subjective Patient is a 34 year old female with history of RA POD1 s/p right knee arthroscopic irrigation and debridement 01/24/[address] Romo after concern for right knee septic arthritis. 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 arthrocentesis of the right knee was performed in office. we will follow these cultures. cultures from the OR are pending at this time. Rates pain 3/ 10 at rest. With movement 3/10. States taking Tylenol and oxycodone and ice help to relieve pain. Patient has been up with therapy. Patient has no restrictions in range of motion. Weightbearing as tolerated. Afebrile, no chest pain, shortness of breath, negative calf pain/ erythema, and no other signs of DVT. Objective Data Objective Data Vital Signs: Vital Signs Temp Pulse Resp BP Pulse Ox O2 Del Method 98.2 F 90 16 138/91 H 97 Room Air 01/25/25 09:01 01/25/25 09:01 01/25/25 09:01 01/25/25 09:01 01/25/25 09:01 01/25/25 09:04 Oxygen Delivery Method Room Air Weight: 98.6 kg Body Mass Index (BMI) 36.2 Intake & Output: Intake and Output for Last 24 Hours 01/23/25 01/24/25 01/25/25 23:59 23:59 23:59 Intake Total 3651.67 / 3651.67 483.33 / 483.33 Balance 3651.67 / 3651.67 483.33 / 483.33 Lab / Micro Data 01/24/25 05:00 01/24/25 05:00 Labs: Laboratory Results - last 24 hr 01/25/25 07:47: Vancomycin Trough 16.7 H Micro: Microbiology 01/24/25 Unknown Aspirate - Knee Wound Culture - Preliminary No growth-Final to follow Physical Exam Narrative Patient resting comfortably in bed No signs of acute distress Satting well on room air Limb is warm to touch, Sensation intact throughout entire lower extremity, including saphenous, sural, superficial and deep peroneal, and tibial distribution. no significant erythema. mild expected post op edema DP/PT pulses bounding. tolerates minimal PROM to about 90 degrees. she has been up walking with PT with minimal pain Dressing c/d/i . incisions intact. Calf nontender to palpation, no erythema, no edema. Negative Homans Assessment & Plan Assessment/Plan (1) Septic arthritis of knee, right: PLAN: 1. Will continue PT today. Weightbearing as tolerated. No range of motion restrictions 2. Patient will follow up for post op appointment 2 weeks after surgery in our office. This will need to be arranged 3. WBC 9.3. Remains afebrile. Infectious disease on board. Will continue to follow cultures. Will track down cultures from rheumatology. Currently on vancomycin and ceftriaxone. 4. DVT prophylaxis : Heparin subcu. may transition to aspirin 81mg BID x 2 weeksupon discharge. 5. Pain control: patient instructed to take tylenol 500mg 2 tablets TID. and oxycodone 1-2 tablets every 4-6 hours only as needed for pain control. 6. ok to remove post op dressing. post op day 3 7. showering only. no submerging incisions 8. per patient portal on her phone, no organisms are growing from knee arthrocentesis from the office. 9. when cleared from ID with final recommendations and medicine clears, ok for discharge from orthopaedic standpoint. 01/25/25 1010 <Electronically signed by Lindsey IVORY> Cosigner Signature (if applicable): CC: ~ Signed [facility] Work Phone: 1(531) 262-588203-06-2025 Consult note Author Binta Martínez [facility] Note Date/Time January 25, 2025 10:0 1am [facility] Medical Records Department [address] [place] [address] Pharmacokinetic/Renal -Consult 01/25/25 1001 MR#: [id number] Acct: [id number] Name: MARCIE NERIMANUEL Holbrook Rep #:[id number] : 1990 34 From: Binta Martínez PCP: JULIANN Whitfield Status:ADM IN Location: [place] [address] Consult Antibiotic Management Pharmacy has been consulted to manage selected antibiotic: Vancomycin Type of Intervention Type of Consult: Follow-up Labs Labs: Sodium 137 mmol/L (133-145) 01/24/25 05:00 Potassium 4.0 mmol/L (3.3-5.1) 01/24/25 05:00 Chloride 106 mmol/L (98-108) 01/24/25 05:00 Carbon Dioxide 21.3 mmol/L (21.0-32.0) 01/24/25 05:00 Anion Gap 9 (5-15) 01/24/25 05:00 BUN 13 mg/dL (4-19) 01/24/25 05:00 Creatinine 0.56 mg/dL (0.70-1.20) L 01/24/25 05:00 Est GFR (MDRD) Non-Af 121 (>60) 01/24/25 05:00 BUN/Creatinine Ratio 23.0 RATIO (10-20) H 01/24/25 05:00 Glucose 94 mg/dL (70-99) 01/24/25 05:00 Vancomycin Trough 16.7 ug/mL (5.0-15.0) H 01/25/25 07:47 Microbiology Microbiology: Microbiology 01/24/25 Unknown Aspirate - Knee Wound Culture - Preliminary No growth-Final to follow Goal Trough Goal Trough: 15-20 mcg/mL Pharmacy Plan for Drug Dosing Pharmacy Plan for Drug Dosing: VANCOMYCIN LEVEL RECEIVED Current Vancomycin Dose: 1250mg IV Q8h Number of Doses Received: 4 (loading + 3 scheduled) Vancomycin Level: 16.7 Hours Since Last Dose: 8hr Renal Function: 0.56 Renal Function Trend: stable Lab/Micro: pending Vancomycin Plan/Comments: Patient had a trough drawn which resulted in a value of 16.7 (goal 15-20). Patient is within therapeutic range. Will continue currentdose and recheck a trough in 24hrs to reassess dosing at that time. Pending Level: 01/26/25 @0800 Pharmacy Service will continue to monitor and adjust dosing as required. 01/25/25 1001 <Electronically signed by Binta Martínez > Date _ Binta Martínez Cosigner Signature (if applicable): Date CC: ~ Signed [facility] Work Phone: 1(256) 732-255403-06-2025 Consult note [facility] Medical Records Department [address] [place] [address] Consultation - Infectious Dx 01/25/25 1035 MR#: [id number] Acct: [id number] Name: CHRISTINE NERI Rep #:[id number] : 1990 34 From: Pal gonzalez MD PCP: JULIANN Whitfield Status:ADM IN Location: MS3 [id number] Assessment & Plan Assessment/Plan (1) Septic arthritis of knee, right: PLAN: Taken to OR 01/24/[address] Romo for I&D. Surg cx pending, will narrow to vanc/ceftriaxone. Will follow, thank you (2) Rheumatoid arthritis: HPI Consult Data Date of Consult: 01/25/25 HPI Narrative Reason for Consultation: septic arthritis HPI Narrative: CHRISTINE NERI, is a 34 F with RA on immunosuppression, presented 01/23 with two days progressive R knee pain, swelling, mild warmth, chills. No known inciting event. No h/o gout. Pain was moderate. Sent to ED, admitted on vanc/cefepime,taken to OR 01/24/[address] Romo. Feeling better this AM, no n/v/ d. Full ROS performed and neg except as noted above. [facility] Medical History Obesity Dyspepsia H. pylori infection Anemia Thrombocytopenia Rheumatoid arthritis Home Medications ?Medication ?Instructions ?Recorded ?Last Taken ?Type fluticasone propionate 50 1 spray intranasal DAILY 11/11 Unknown History mcg/actuation nasal spray,suspension (Flonase Allergy Relief) meloxicam 15 mg tablet 15 mg PO DAILY 10/03/21 Unkn own History azathioprine 50 mg tablet 50 mg PO DAILY 01/23/25 Unkn own History prednisone 10 mg tablet 10 mg PO Q12H 01/23/25 Unkno wn History sulfasalazine 500 mg 1,500 mg PO BID 01/23/25 Unk nown History tablet,delayed release Allergy/AdvReac Type Severity Reaction Status Date / Time No Known Allergies Allergy Verified 01/23/25 16:40 Family History Grandmother Heart disease Mother Lung cancer Grandfather Heart disease Diabetes Family History other Surgical History [place] teeth extracted Social History household members: other details: Lives with her sister. Smoking Status: Never smoker second hand exposure: No alcohol intake: current alcohol intake frequency: a few times a week details: occasionally substance use type: does not use rafael/sikhism: None seatbelt use: always do you feel safe at home: Yes Physical Exam Const alert, oriented x3 and no apparent distress General Appearance: cooperative HEENT normocephalic and head/scalp atraumatic Eyes PERRL and EOMs intact bilaterally Neck supple and No nodes Resp normal air movement and clear to auscultation bilaterally Cardio regular rate and regular rhythm GI soft to palpation, non-tender and non-distended Extremity General Extremity: edema Skin no rashes or lesions noted Skin Narrative: RLE wrapped Neuro CN's II-XII intact bilaterally Lab / Micro Data Attestation: I reviewed the patient's lab results. 01/24/25 05:00 01/24/25 05:00 Labs: Laboratory Results - last 24 hr 01/25/25 07:47: Vancomycin Trough 16.7 H Micro: Microbiology 01/24/25 Unknown Aspirate - Knee Wound Culture - Preliminary No growth-Final to follow 01/25/25 1038 Cosigner Signature (if applicable): CC: JULIANN Tijerina~ Signed [facility]03-06-2025 Progress note [facility] Medical Records Department [address] [place] [address] Progress Note - Orthopedic 01/25/25 0938 MR#: [id number] Acct: [id number] Name: CHRISTINE NERI Rep #:[id number] : 1990 34 From: Lindsey IVORY PCP: JULIANN Whitfield Status:ADM IN Location: [facility] AB126-8 Subjective Subjective Patient is a 34 year old female with history of RA POD1 s/p right knee arthroscopic irrigation and debridement 01/24/[address] Romo after concern for right knee septic arthritis. 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 arthrocentesis of the right knee was performed in office. we will follow these cultures. cultures from the OR are pending at this time. Rates pain 3/ 10 at rest. With movement 3/10. States taking Tylenol and oxycodone and ice help to relieve pain. Patient has been up with therapy. Patient has no restrictions in range of motion. Weightbearing as tolerated. Afebrile, no chest pain, shortness of breath, negative calf pain/ erythema, and no other signs of DVT. Objective Data Objective Data Vital Signs: Vital Signs Temp Pulse Resp BP Pulse Ox O2 Del Method 98.2 F 90 16 138/91 H 97 Room Air 01/25/25 09:01 01/25/25 09:01 01/25/25 09:01 01/25/25 09:01 01/25/25 09:01 01/25/25 09:04 Oxygen Delivery Method Room Air Weight: 98.6 kg Body Mass Index (BMI) 36.2 Intake & Output: Intake and Output for Last 24 Hours 01/23/25 01/24/25 01/25/25 23:59 23:59 23:59 Intake Total 3651.67 / 3651.67 483.33 / 483.33 Balance 3651.67 / 3651.67 483.33 / 483.33 Lab / Micro Data 01/24/25 05:00 01/24/25 05:00 Labs: Laboratory Results - last 24 hr 01/25/25 07:47: Vancomycin Trough 16.7 H Micro: Microbiology 01/24/25 Unknown Aspirate - Knee Wound Culture - Preliminary No growth-Final to follow Physical Exam Narrative Patient resting comfortably in bed No signs of acute distress Satting well on room air Limb is warm to touch, Sensation intact throughout entire lower extremity, including saphenous, sural, superficial and deep peroneal, and tibial distribution. no significant erythema. mild expected post op edema DP/PT pulses bounding. tolerates minimal PROM to about 90 degrees. she has been up walking with PT with minimal pain Dressing c/d/i . incisions intact. Calf nontender to palpation, no erythema, no edema. Negative Homans Assessment & Plan Assessment/Plan (1) Septic arthritis of knee, right: PLAN: 1. Will continue PT today. Weightbearing as tolerated. No range of motion restrictions 2. Patient will follow up for post op appointment 2 weeks after surgery in our office. This will need to be arranged 3. WBC 9.3. Remains afebrile. Infectious disease on board. Will continue to follow cultures. Will track down cultures from rheumatology. Currently on vancomycin and ceftriaxone. 4. DVT prophylaxis : Heparin subcu. may transition to aspirin 81mg BID x 2 weeksupon discharge. 5. Pain control: patient instructed to take tylenol 500mg 2 tablets TID. and oxycodone 1-2 tablets every 4-6 hours only as needed for pain control. 6. ok to remove post op dressing. post op day 3 7. showering only. no submerging incisions 8. per patient portal on her phone, no organisms are growing from knee arthrocentesis from the office. 9. when cleared from ID with final recommendations and medicine clears, ok for discharge from orthopaedic standpoint. 01/25/25 1010 Cosigner Signature (if applicable): CC: ~ Signed [facility]03-06-2025 Consult note [facility] Medical Records Department [address] [place] [address] Pharmacokinetic/Renal -Consult 01/25/25 1001 MR#: [id number] Acct: [id number] Name: CHRISTINE NERI Rep #:[id number] : 1990 34 From: Binta Martínez PCP: JULIANN Whitfield Status:ADM IN Y [facility] Pharmacy has been consulted to manage selected antibiotic: Vancomycin Type of Intervention Type of Consult: Follow-up Labs Labs: Sodium 137 mmol/L (133-145) 01/24/25 05:00 Potassium 4.0 mmol/L (3.3-5.1) 01/24/25 05:00 Chloride 106 mmol/L (98-108) 01/24/25 05:00 Carbon Dioxide 21.3 mmol/L (21.0-32.0) 01/24/25 05:00 Anion Gap 9 (5-15) 01/24/25 05:00 BUN 13 mg/dL (4-19) 01/24/25 05:00 Creatinine 0.56 mg/dL (0.70-1.20) L 01/24/25 05:00 Est GFR (MDRD) Non-Af 121 (>60) 01/24/25 05:00 BUN/Creatinine Ratio 23.0 RATIO (10-20) H 01/24/25 05:00 Glucose 94 mg/dL (70-99) 01/24/25 05:00 Vancomycin Trough 16.7 ug/mL (5.0-15.0) H 01/25/25 07:47 Microbiology Microbiology: Microbiology 01/24/25 Unknown Aspirate - Knee Wound Culture - Preliminary No growth-Final to follow Goal Trough Goal Trough: 15-20 mcg/mL Pharmacy Plan for Drug Dosing Pharmacy Plan for Drug Dosing: VANCOMYCIN LEVEL RECEIVED Current Vancomycin Dose: 1250mg IV Q8h Number of Doses Received: 4 (loading + 3 scheduled) Vancomycin Level: 16.7 Hours Since Last Dose: 8hr Renal Function: 0.56 Renal Function Trend: stable Lab/Micro: pending Vancomycin Plan/Comments: Patient had a trough drawn which resulted in a value of 16.7 (goal 15-20). Patient is within therapeutic range. Will continue currentdose and recheck a trough in 24hrs to reassess dosing at that time. Pending Level: 01/26/25 @0800 Pharmacy Service will continue to monitor and adjust dosing as required. 01/25/25 1001 > Date _ Binta Martínez Cosign Signature (if applicable): Date CC: ~ Signed [facility]03-05-2025 Progress note Author Christine Reveles [facility] Note Date/Time January 24, 2025 4:15 pm [facility] Medical Records Department [address] [place] [address] Progress Note - Hospitalist 01/24/25 1403 MR#: [id number] Acct: [id number] Name: CHRISTINE NERI Sheron Rep #:[id number] : 1990 34 From: Christine Reveles MD PCP: JULIANN Whitfield Status:ADM IN [facility] Reason for Visit Reason for Visit: Diagnoses Pyogenic arthritis, unspecified (01/23/25) Subjective Subjective Posterior feeling better, some pain Objective Data Objective Data Vital Signs: Vital Signs Temp Pulse Resp BP Pulse Ox O2 Del Method 98.3 F 81 16 126/91 H 98 Room Air 01/24/25 13:02 01/24/25 13:02 01/24/25 13:02 01/24/25 13:02 01/24/25 13:02 01/24/25 12:46 Oxygen Delivery Method Room Air Weight: 216 lb 7.903 oz Body Mass Index (BMI) 36.1 Intake & Output: Intake and Output for Last 24 Hours 01/22/25 01/23/25 01/24/25 23:59 23:59 23:59 Intake Total 1285 / 1285 Balance 1285 / 1285 Lab / Micro Data Attestation: I reviewed the patient's lab results. 01/24/25 05:00 01/24/25 05:00 Labs: Laboratory Results - last 24 hr 01/23/25 18:22: WBC 10.6, RBC 4.43, Hgb 11.8 L, Hct 36.3 L, MCV 81.9, MCH 26.6 L, MCHC 32.5, RDW Std Deviation 44.4 H, RDW Coeff of Vijay 15.1 H, Plt Count 188, MPV 10.7, Immature Gran % (Auto) 0.600, Neut % (Auto) 75.1 H, Lymph % (Auto) 14.5 L, [place] % (Auto) 9.6, Eos % (Auto) 0.0, Baso % (Auto) 0.2, Absolute Neuts (auto) 8.0 H, Absolute Lymphs (auto) 1.54, Nucleated RBC % 0, ESR 87 H, Sodium 135, Potassium 3.6, Chloride 103, Carbon Dioxide 21.8, Anion Gap 10, BUN 14, Creatinine 0.65 L, Estim Creat Clear Calc 138.49, Est GFR (MDRD) Non-Af 117, BUN/Creatinine Ratio 21.6 H, Glucose 119 H, Calcium 9.0, C-React Prot Ext Range 174.00 H 01/24/25 05:00: WBC 9.3, RBC 4.07 L, Hgb 10.7 L, Hct 33.2 L, MCV 81.6, MCH 26.3 L, MCHC 32.2, RDW Std Deviation 44.9 H, RDW Coeff of Vijay 15.1 H, Plt Count 170, MPV 11.2, Immature Gran % (Auto) 0.400, Neut % (Auto) 75.0 H, Lymph % (Auto) 14.5 L, [place] % (Auto) 9.9, Eos % (Auto) 0.0, Baso % (Auto) 0.2, Absolute Neuts (auto) 6.9, Absolute Lymphs (auto) 1.34, Nucleated RBC % 0, Sodium 137, Potassium 4.0, Chloride 106, Carbon Dioxide 21.3, Anion Gap 9, BUN 13, Creatinine 0.56 L, Estim Creat Clear Calc 161.37, Est GFR (MDRD) Non-Af 121, BUN/Creatinine Ratio 23.0 H, Glucose 94, Calcium 8.5, Total Bilirubin 0.37, AST 14, ALT 12, Alkaline Phosphatase 68, Total Protein 6.8, Albumin 3.5, Globulin 3.3, Albumin/Globulin Ratio 1.0 Radiography Diagnostic Testing: Radiology Impression Knee X-Ray 01/23/25 16:50 IMPRESSION: Severe degenerative changes of the knee joint as described above with suprapatellar joint effusion. No acute fracture. Reading [facility] Physical Exam Const alert and oriented x3 HEENT head/scalp atraumatic Eyes PERRL Neck no lymphadenopathy Resp normal respiratory effort Cardio regular rate and regular rhythm GI normal to inspection, nondistended, normoactive bowel sounds Extremity Extremity Narrative: Could not be examined as patient was post surgery Neuro oriented x3 and CN's II-XII intact bilaterally Sensorium / Orientation: awake and alert Assessment & Plan Assessment/Plan (1) Septic arthritis of knee, right: PLAN: Plan 34-year-old female with history of rheumatoid arthritis on methotrexate with associated thrombocytopenia, chronic normocytic anemia, GERD, obesity was admitted for concerns regarding right knee pain with bilateral shoulder discomfort and right elbow pain for the last 24 hours consistent with a rheumatoid arthritis flare versus expected arthritis. Her joint was aspirated by her parking inspector and there was some improvement in pain and tenderness she was referred to the ED. #Right knee arthritis -Continue IV antibiotics with vancomycin and cefepime -Underwent I&D today -Appreciate orthopedics input -As needed oral and IV pain medications -Appreciate infectious disease input # Rheumatoid arthritis -Therapy with Cimzia, azathioprine, sulfasalazine, previously on Humira and intermittent prednisone -Will start steroids given the concern regarding infection at this point #Elevated blood pressure without diagnosis of hypertension -Likely related to ongoing pain, continue to monitor #Anemia of chronic disease -Hemoglobin 9.8, MCV 81.9 -continue to monitor #Chronic medical issues #Obesity #GERD #Allergies rhinitis Continue home medications 01/24/25 1615 <Electronically signed by Christine Reveles MD> Cosigner Signature (if applicable): CC: ~ Signed [facility] Work Phone: [phone]) 766-338803-05-2025 Consult note Author Nemesio Buitrago [facility] Note Date/Time January 24, 2025 2:42 pm [facility] Medical Records Department [address] [place] [address] Anesthesia Postop Eval II 01/24/25 1442 MR#: [id number] Acct: [id number] Name: CHRISTINE NERI Rep #:[id number] : 1990 34 From: Nemesio Buitrago MD PCP: JULIANN Whitfield Status:ADM IN Y Race: C Location: MS[facility]- 1 Anesthesia Postop Eval I Sum Postop Eval Completion status Anesthesia document: Postop Eval 1 completed: Yes Anesthesia Postop Eval I Summary Anesthesia Postop Eval I Summary: Anesthesia Postop Eval I: Assessment Summary Airway patent Yes 01/24/25 14:28 [email or web address] Spontaneous unlabored Yes 01/24/25 14:28 [email or web address] respirations Mental status nausea No 01/24/25 14:28 [email or web address] Vomiting No 01/24/25 14:28 [email or web address] Anesthesia Postop Eval I: Fluid Summary Crystalloid volume administer 1,200 01/24/25 14:28 [email or web address] (ml) Colloids volume administered ( ml) Blood Product volume administered (ml) Total IV fluid infused 1,200 01/24/25 14:28 [email or web address] Anesthesia Postop Eval I: Summary Notes Anesthesia Complication No 01/24/25 14:28 [email or web address] Anesthesia Complication Comment: Post-operative progress note Anesthesia: Postop Eval II Evaluation Mental status: Awake Pain Level: 2 nausea: No Vomiting: No 01/24/25 1442 <Electronically signed by Nemesio Buitrago MD > Date _ Nemesio Linares Signature: Date CC: ~ Signed [facility] Work Phone: [phone]) 412-778003-05-2025 Consult note Author Bishop Hemphill [facility] Note Date/Time January 24, 2025 2:29 pm [facility] Medical Records Department [address] [place] [address] [place] [address] Anesthesia Postop Eval I 01/24/251427 MR#: [id number] Acct: [id number] Name: CHRISTINE NERI Rep #:[id number] : 1990 34 From: Bishop KIRKPATRICK PCP: Amira Tijerina NP-Toño Status:ADM IN Y Race: C Location: [place] [address] Anesthesia: Postop Eval I Current Vital Signs Temperature: 98.6 F Pulse Rate: 103 Blood Pressure: 159/96 Respiratory Rate: 16 Pulse Ox: 96 Assessment Airway patent: Yes Spontaneous unlabored respirations: Yes nausea: No Vomiting: No Anesthesia Complication: No Fluid Hydration Crystalloid volume administer (ml): 1,200 Total IV fluid infused: 1,200 Progress Note Anesthesia document: Postop Eval 1 completed: Yes 01/24/25 142 <Electronically signed by Bishop Hemphill CRNA> Date _ Bishop Hemphill CRNA Cosigner Signature: Date CC: ~ Signed [facility] Work Phone: [phone]) [phone] Progress note [facility] Medical Records Department [address] [place] [address] Progress Note - Hospitalist 01/24/25 1403 MR#: [id number] Acct: [id number] Name: CHRISTINE NERI Rep #:[id number] : 1990 34 From: Christine Reveles MD PCP: Amira Tijerina FRUIT LOADER MACHINE OPERATORAlfonzoC Status:ADM IN Location: [facility] [id number] Reason for Visit Reason for Visit: Diagnoses Pyogenic arthritis, unspecified (01/23/25) Subjective Subjective Posterior feeling better, some pain Objective Data Objective Data Vital Signs: Vital Signs Temp Pulse Resp BP Pulse Ox O2 Del Method 98.3 F 81 16 126/91 H 98 Room Air 01/24/25 13:02 01/24/25 13:02 01/24/25 13:02 01/24/25 13:02 01/24/25 13:02 01/24/25 12:46 Oxygen Delivery Method Room Air Weight: 216 lb 7.903 oz Body Mass Index (BMI) 36.1 Intake & Output: Intake and Output for Last 24 Hours 01/22/25 01/23/25 01/24/25 23:59 23:59 23:59 Intake Total 1285 / 1285 Balance 1285 / 1285 Lab / Micro Data Attestation: I reviewed the patient's lab results. 01/24/25 05:00 01/24/25 05:00 Labs: Laboratory Results - last 24 hr 01/23/25 18:22: WBC 10.6, RBC 4.43, Hgb 11.8 L, Hct 36.3 L, MCV 81.9, MCH 26.6 L, MCHC 32.5, RDW Std Deviation 44.4 H, RDW Coeff of Vijay 15.1 H, Plt Count 188, MPV 10.7, Immature Gran % (Auto) 0.600, Neut % (Auto) 75.1 H, Lymph % (Auto) 14.5 L, [place] % (Auto) 9.6, Eos % (Auto) 0.0, Baso % (Auto) 0.2,Absolute Neuts (auto) 8.0 H, Absolute Lymphs (auto) 1.54, Nucleated RBC % 0, ESR 87 H, Sodium 135, Potassium 3.6, Chloride 103, Carbon Dioxide 21.8, Anion Gap 10, BUN 14, Creatinine 0.65 L, Estim Creat Clear Calc 138.49, Est GFR (MDRD) Non-Af 117, BUN/Creatinine Ratio 21.6 H, Glucose 119 H, Calcium9.0, C-React Prot Ext Range 174.00 H 01/24/25 05:00: WBC 9.3, RBC 4.07 L, Hgb 10.7 L, Hct 33.2 L, MCV 81.6, MCH 26.3 L, MCHC 32.2, RDW Std Deviation 44.9 H, RDW Coeff of Vijay 15.1 H, Plt Count 170, MPV 11.2, Immature Gran % (Auto) 0.400,Neut % (Auto) 75.0 H, Lymph % (Auto) 14.5 L, [place] % (Auto) 9.9, Eos % (Auto) 0.0, Baso % (Auto) 0.2, Absolute Neuts (auto) 6.9, Absolute Lymphs (auto) 1.34, Nucleated RBC % 0, Sodium 137, Potassium 4.0, Chloride 106, Carbon Dioxide 21.3, Anion Gap 9, BUN 13, Creatinine 0.56 L, Estim Creat Clear Calc 161.37, Est GFR (MDRD) Non-Af 121, BUN/Creatinine Ratio 23.0 H, Glucose 94, Calcium 8.5, Total Bilirubin 0.37, AST 14, ALT 12, Alkaline Phosphatase 68, Total Protein 6.8, Albumin 3.5, Globulin 3.3, Albumin/Globulin Ratio 1.0 Radiography Diagnostic Testing: Radiology Impression Knee X-Ray 01/23/25 16:50 IMPRESSION: Severe degenerative changes of the knee joint as described above with suprapatellar joint effusion.No acute fracture. Reading Location: [facility] Physical Exam Const alert and oriented x3 HEENT head/scalp atraumatic Eyes PERRL Neck no lymphadenopathy Resp normal respiratory effort Cardio regular rate and regular rhythm GI normal to inspection, nondistended, normoactive bowel sounds Extremity Extremity Narrative: Could not be examined as patient was post surgery Neuro oriented x3 and CN's II-XII intact bilaterally Sensorium / Orientation: awake and alert Assessment & Plan Assessment/Plan (1) Septic arthritis of knee, right: PLAN: Plan 34-year-old female with history of rheumatoid arthritis on methotrexate with associated thrombocytopenia, chronic normocytic anemia, GERD, obesity was admitted for concerns regarding right knee pain with bilateral shoulder discomfort and right elbow pain for the last 24 hours consistent with a rheum atoid arthritis flare versus expected arthritis. Her joint was aspirated by her parking inspector and there was some improvement in pain and tenderness she was referred to the ED. #Right knee arthritis -Continue IV antibiotics with vancomycin and cefepime -Underwent I&D today -Appreciate orthopedics input -As needed oral and IV pain medications -Appreciate infectious disease input # Rheumatoid arthritis -Therapy with Cimzia, azathioprine, sulfasalazine, previously on Humira and intermittent prednisone -Will start steroids given the concern regarding infection at this point #Elevated blood pressure without diagnosis of hypertension -Likely related to ongoing pain, continue to monitor #Anemia of chronic disease -Hemoglobin 9.8, MCV 81.9 -continue to monitor #Chronic medical issues #Obesity #GERD #Allergies rhinitis Continue home medications 01/24/25 1615 Cosigner Signature (if applicable): CC: ~ Signed [facility]03-05-2025 Progress note Author Mckinley Romo [facility] Note Date/Time January 24, 2025 1:31 pm [facility] Medical Records Department [address] [place] [address] Progress Note - Orthopedic 01/24/25 1329 MR#: [id number] Acct: [id number] Name: CHRISTINE NERI Rep #:[id number] : 1990 34 From: Mckinley em DO PCP: JULIANN Whitfield Status:ADM IN Location: [address]- Subjective Subjective Patient seen and examined. Reports right knee feels okay. Reports some left hip soreness but states but she feels it is related to sleeping on the hard bed in the ER all night. Denies any fevers, chills, nausea vomiting, chest pain or shortness of breath. Objective Data Objective Data Vital Signs: Vital Signs Temp Pulse Resp BP Pulse Ox O2 Del Method 98.3 F 81 16 126/91 H 98 Room Air 01/24/25 13:02 01/24/25 13:02 01/24/25 13:02 01/24/25 13:02 01/24/25 13:02 01/24/25 12:46 Oxygen Delivery Method Room Air Weight: 216 lb 7.903 oz Body Mass Index (BMI) 36.1 Intake & Output: Intake and Output for Last 24 Hours 01/22/25 01/23/25 01/24/25 23:59 23:59 23:59 Intake Total 1285 / 1285 Balance 1285 / 1285 Lab / Micro Data 01/24/25 05:00 01/24/25 05:00 Labs: Laboratory Results - last 24 hr 01/23/25 18:22: WBC 10.6, RBC 4.43, Hgb 11.8 L, Hct 36.3 L, MCV 81.9, MCH 26.6 L, MCHC 32.5, RDW Std Deviation 44.4 H, RDW Coeff of Vijay 15.1 H, Plt Count 188, MPV 10.7, Immature Gran % (Auto) 0.600, Neut % (Auto) 75.1 H, Lymph % (Auto) 14.5 L, [place] % (Auto) 9.6, Eos % (Auto) 0.0, Baso % (Auto) 0.2, Absolute Neuts (auto) 8.0 H, Absolute Lymphs (auto) 1.54, Nucleated RBC % 0, ESR 87 H, Sodium 135, Potassium 3.6, Chloride 103, Carbon Dioxide 21.8, Anion Gap 10, BUN 14, Creatinine 0.65 L, Estim Creat Clear Calc 138.49, Est GFR (MDRD) Non-Af 117, BUN/Creatinine Ratio 21.6 H, Glucose 119 H, Calcium 9.0, C-React Prot Ext Range 174.00 H 01/24/25 05:00: WBC 9.3, RBC 4.07 L, Hgb 10.7 L, Hct 33.2 L, MCV 81.6, MCH 26.3 L, MCHC 32.2, RDW Std Deviation 44.9 H, RDW Coeff of Vijay 15.1 H, Plt Count 170, MPV 11.2, Immature Gran % (Auto) 0.400, Neut % (Auto) 75.0 H, Lymph % (Auto) 14.5 L, [place] % (Auto) 9.9, Eos % (Auto) 0.0, Baso % (Auto) 0.2, Absolute Neuts (auto) 6.9, Absolute Lymphs (auto) 1.34, Nucleated RBC % 0, Sodium 137, Potassium 4.0, Chloride 106, Carbon Dioxide 21.3, Anion Gap 9, BUN 13, Creatinine 0.56 L, Estim Creat Clear Calc 161.37, Est GFR (MDRD) Non-Af 121, BUN/Creatinine Ratio 23.0 H, Glucose 94, Calcium 8.5, Total Bilirubin 0.37, AST 14, ALT 12, Alkaline Phosphatase 68, Total Protein 6.8, Albumin 3.5, Globulin 3.3, Albumin/Globulin Ratio 1.0 Radiography Diagnostic Testing: Radiology Impression Knee X-Ray 01/23/25 16:50 IMPRESSION: Severe degenerative changes of the knee joint as described above with suprapatellar joint effusion. No acute fracture. Reading Location[facility] Physical Exam Narrative General -A&Ox3, NAD, appears stated age. Vital signs stable, afebrile. Respiratory -normal work of breathing, no intercostal retractions. CV -pulses regular, brisk capillary refill ?4 limbs. Abdomen-soft, nontender, nondistended. No guarding, rigidity, rebound tenderness. Musculoskeletal/neurologic -full range of motion nontender throughout bilateral upper extremities, left lower extremity with full sensation and strength in all dermatomes and myotomes. No midline cervical tenderness. Right knee: Tolerates range of motion 5-90 degrees. Stable varus valgus stressing. Trace effusion. Minimal warmth within the knee. DF, PF, EHL 5/5. Sensation intact throughout. No erythema. DP 2+, brisk capillary fill in toes. Assessment & Plan Assessment/Plan (1) Septic arthritis of knee, right: PLAN: Plan to proceed with right knee arthroscopic I&D. Risks, benefits, and alternatives to procedure were reviewed with the patient at length. Further recommendations pending surgery. Continue IV antibiotics. I will obtain new cultures today. 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 Questions invited. The patient/parents/legal guardian/POA seems to understand and agrees to proceedwith anesthesia plan. Reviewed the physical assessment, medical history, allergy history and patient home medications list prior to surgery/procedure/anesthetic and documented any changes. Performed airway and anesthesia risk assessments. Anesthesia Type Anesthesia Type: General Anesthesia Focused Assessment* Temperature: 98.3 F Pulse Rate: 81 Blood Pressure: 126/91 Respiratory Rate: 16 Pulse Ox: 98 Airway Assessment Mouth opens: >3 cm Mallampati Score: II Focused Labs Anesthesia Preop lab: CBC WBC 9.3 K/mm3 (4.4-11.0) 01/24/25 05:00 01/24/25 RBC 4.07 M/mm3 (4.2-5.4) L 01/24/25 05:00 01/24/25 Hgb 10.7 g/dL (12.0-15.0) L 01/24/25 05:00 5 Hct 33.2 % (37-47) L 01/24/25 05:00 01/24/25 Plt Count 170 K/mm3 (150-450) 01/24/25 05:00 01/24/25 CHEMISTRY Potassium 4.0 mmol/L (3.3-5.1) 01/24/25 05:00 01/24/25 Sodium 137 mmol/L (133-145) 01/24/25 05:00 01/24/25 BUN 13 mg/dL (4-19) 01/24/25 05:00 01/24/25 Creatinine 0.56 mg/dL (0.70-1.20) L 01/24/25 05:00 Glucose 94 mg/dL (70-99) 01/24/25 05:00 01/24/25 COAG Pre-Assessment Diagnosis/Proposed Procedure Planned Operative Procedure(s): I&D Right Knee Anesthesia History Anesthesia History - insulation blower: Anesthesia History - insulation blower Hx Hospitalization Any Problems With Anesthesia Cholinesterase deficiency You/Your Family Experience fever (hyperthermia) with Relationship Recent Exposure to Contagious Disease Does patient have nerve stimulator Patient instructed to have device shut off --Does patient have Pacemaker or ICD? When Was Last Pacemaker Check QUESTION #4 FULL TEXT: You/Your Family Experience fever (hyperthermia) with Anesthesia Last Oral Intake Last Oral intake: Last Oral Intake NPO since Meds taken in AM with sips of water? Meds patient instructed to take am of surgery PONV PONV - insulation blower: PONV - insulation blower Female HX of Motion Sickness HX of N/V After Surgery Non-Smoker Duration of Surgery greater than 60 minutes Number of Risk Factors PONV Score Height & Weight Height & Weight: Anesthesia: Height & Weight Height 5 ft 5 in 01/23/25 22:38 Weight: 98.2 kg 01/24/25 06:18 Body Mass Index (BMI) 36.1 01/24/25 06:18 Respiratory Assessment Respiratory Assessment - insulation blower: Respiratory Tract Infection Hx - insulation blower Hx Respiratory Tract Infection STOP Sleep Apnea STOP Sleep Apnea - insulation blower: STOP Sleep Apnea - insulation blower Hx Hypertension No 01/23/25 22:39 Hx Sleep Apnea No 01/23/25 22:39 CPAP BIPAP Do you snore loudly (louder Yes 01/23/25 22:39 than talking or can be heard Do you often feel tired/ No 01/23/25 22:39 fatigued/ sleepy during daytime? Has anyone observed you stop No 01/23/25 22:39 breathing during sleep? STOP Results Negative 01/23/25 22:39 QUESTION #5 FULL TEXT : Do you snore loudly (louder than talking or can be heard through closed doors)? 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 Specify any problems Hx of Preganancy in last 3 N/A 01/23/25 22:39 Months Nurse Filling Out Transfusion ASELF 01/23/25 22:39 & Questions: Date: 01/23/25 01/23/25 22:39 Time: 22:40 01/23/25 22:39 Patient unable to answer at this time (ie. confused, unrespo /Reproduction History /Reproductive History - insulation blower: /Reproductive Hx- insulation blower Hx Now No 01/23/25 22:39 Gestational Age (in weeks): EDC: Hx Hx Para Hx Section SAB No 01/23/25 22:39 Active Medications Active Medications: Current Medications Generic Name Dose Route Start Last Admin Trade Name Freq PRN Reason Stop Dose Admin Acetaminophen 650 mg 01/23/25 22:21 Acetaminophen 325 Mg Tablet PO Q4H PRN PRN Fever, pain 1-10/10 Al Hydroxide/Mg Hydroxide 30 ml 01/23/25 22:21 Mag Hydrox/Al Hydrox/Simeth 30 Ml Udc PO Q6H PRN PRN Gastric Burning Albuterol Sulfate 2.5 mg 01/23/25 22:21 Albuterol 2.5 Mg/3 Ml Vial.Neb. INHALATION Q2H PRN PRN Dyspnea, wheezing Hydralazine HCl 10 mg 01/23/25 22:21 Hydralazine 20 Mg/Ml Vial IV Q4H PRN PRN SBP > 160 Protocol Cefepime HCl 2 gm/ Sodium 100 mls @ 200 mls/hr 01/23/25 22:21 01/24/25 07:41 Chloride IV Infused Q8 SB Infusion Sodium Chloride 1,000 mls @ 100 mls/hr 01/23/25 22:21 01/23/25 23:39 IV 01/24/25 18:20 100 mls/hr .Q10H SB Administration Protocol Vancomycin IV-PHARMACY TO DOSE 500 mls @ 250 mls/hr 01/23/25 22:21 1 each/ Sodium Chloride IV PRN PRN Rx to Dose Protocol Sodium Chloride 100 mls @ 15 mls/hr 01/23/25 22:27 IV .Q6H40M PRN Saline Flush Sodium Chloride 100 mls @ 15 mls/hr 01/23/25 22:27 IV .Q6H40M PRN Additional IVPB Infusion Vancomycin HCl 1,250 mg/ 275 mls @ 167 mls/hr 01/24/25 08:30 01/24/25 11:10 Sodium Chloride IV Infused Q8H SB Infusion Melatonin 3 mg 01/23/25 22:21 Melatonin 3 Mg Tablet PO QHS PRN PRN INSOMNIA Morphine Sulfate 2 mg 01/23/25 22:21 Morphine 2 Mg/Ml Syringe IV Q3H PRN PRN Pain Score 6-10 Ondansetron HCl 4 mg 01/23/25 22:21 Ondansetron 4 Mg/2 Ml Vial IV Q8H PRN PRN NAUSEA/VOMITING Oxycodone HCl 5 mg 01/23/25 22:21 Oxycodone 5 Mg Tablet PO Q4H PRN PRN Pain Score 4-10 Prochlorperazine Edisylate 5 mg 01/23/25 22:21 Prochlorperazine 10 Mg/2 Ml Vial IV Q4H PRN PRN Breakthrough nausea/vomiting Senna/Docusate Sodium 2 tablet 01/23/25 22:21 Senna/Docusate Sodium 1 Tablet PO BID PRN PRN Constipation Sodium Chloride 10 - 40 ml 01/23/25 22:27 0.9% Saline Lock 10 Ml Syringe IV UD PRN SALINE FLUSH Throat Lozenges 1 lozenge 01/23/25 22:21 Benzocaine/Menthol 1 Lozenge MUCOUS MEM Q2H PRN PRN SORE THROAT Vancomycin Protocol 1 lab 01/25/25 22:00 Vancomycin Trough/Random Due [facility] 01/26/25 02:00 DAILY [facility] Medical History Obesity Dyspepsia H. pylori infection Anemia Thrombocytopenia Rheumatoid arthritis Home Medications ?Medication ?Instructions ?Recorded ?Last Taken ?Type fluticasone propionate 50 1 spray intranasal DAILY 11/11 Unknown History mcg/actuation nasal spray,suspension (Flonase Allergy Relief) meloxicam 15 mg tablet 15 mg PO DAILY 10/03/21 Unkn own History azathioprine 50 mg tablet 50 mg PO DAILY 01/23/25 Unkn own History prednisone 10 mg tablet 10 mg PO Q12H 01/23/25 Unkno wn History sulfasalazine 500 mg 1,500 mg PO BID 01/23/25 Unk nown History tablet,delayed release Allergy/AdvReac Type Severity Reaction Status Date / Time No Known Allergies Allergy Verified 01/23/25 16:40 Family History Grandmother Heart disease Mother Lung cancer Grandfather Heart disease Diabetes Family History other Surgical History [place] teeth extracted Social History household members: other details: Lives with her sister. Smoking Status: Never smoker second hand exposure: No alcohol intake: current alcohol intake frequency: a few times a week details: occasionally substance use type: does not use rafael/sikhism: None seatbelt use: always do you feel safe at home: Yes Review of Systems (Anesthesia) ROS Narrative System reviewed and no additional complaints, except as documented. 01/24/25 1302 <Electronically signed by Nemesio Buitrago MD > Date _ Nemesio Buitrago MD Cosigner Signature: Date CC: ~ Signed [facility] Work Phone: [phone] 609-558503-05-2025 Procedure note [facility] Medical Records Department [address] [place] [address] Operative Report 01/24/25 1442 MR#: [id number] Acct: [id number] Name: CHRISTINE NERI Rep #:[id number] : 1990 34 From: Mckinley em DO PCP: JULIANN Whitfield Status:ADM IN Location: [place] [address] Operative Report (Standard) Operative Information Date of Procedure: 01/24/25 Pre-Operative Diagnosis: Right knee septic arthritis Post-Operative Diagnosis: Right knee septic arthritis Surgery/Procedure Performed: Right knee arthroscopic irrigation and debridement 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: No Type of Anesthesia: General RN Documented Start/Stop Times: Operation Date: 01/24/25 13:30 Case Time Into Pre-Op 01/24/25 12:28 Anesthesia Start 01/24/25 13:30 Into Room 01/24/25 13:30 Procedure Start 01/24/25 13:53 Procedure End 01/24/25 14:14 Anesthesia End 01/24/25 14:21 Out of Room 01/24/25 14:21 Into Recovery 01/24/25 14:23 Procedure Start Time: 13:53 Procedure Stop Time: 14:14 Select all DRAINS/GRAFTS/IMPLANTS that apply: None Estimated Blood Loss: 10 cc Specimen collected: Yes Description of specimen(s) removed: Right knee synovial fluid arthrocentesis-sent for culture Description of surgery: Patient was identified in the preoperative holding area by name, medical record number, and date ofbirth. The operative extremity was marked. All questions were answered to the patient satisfaction.At time of her procedure, patient was brought to the operative suite and positioned supine a standard operating table. General anesthesia was induced and LMA placed. Right lower extremity was then placed in an arthroscopic leg vanegas. The foot of the bed was dropped 90 degrees. Well-leg vanegas was placed under the patient's left side. We prepped and draped the right lower extremity in normal, sterile orthopedic fashion. We performed timeout confirming the side, site, and operation to be performed. No concerns were voiced elected proceed with surgery. Cefepime was administered intraoperativelyas she was due for her scheduled antibiotics. I then proceeded with arthrocentesis of the right knee via superior medial portal. Turbid red fluid was aspirated and sent for culture. I then established a standard anterior lateral portal with 11 blade scalpel. Blunt tipped trocar wasused to enter the knee joint which was filled with normal saline with epinephrine. Diagnostic arthroscopy revealed diffuse synovitis. Tricompartmental degenerative changes were noted. Meniscus were relatively benign with earlyfraying. Anterior medial portal was established. Shaver was used to debride synovitis in all 3 compartments. 9 L normal saline was lavaged to the joint. No gross purulence was encountered. Portal sites were then closed after arthroscopic instruments were removed in standard fashion with interrupted [id number] 3-0 nylon suture. Intra-articular block was administered with 30 cc total quarter percent bupivacaine with epinephrine. Bulky sterile compression dressing was applied. Patientwas awakened from anesthesia and safely extubated in the operative suite. She was transferred to her gurney and subsequent to PACU in stable condition. She tolerated the procedure well without apparent complication. 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 Destiney Lane MD; Dr. Mckinley Romo DO; Dr. Pal Rich MD~ Signed [facility]03-05-2025 Consult note [facility] Medical Records Department [address] [place] [address] Anesthesia Postop Eval II 01/24/25 1442 MR#: [id number] Acct: [id number] Name: CHRISTINE NERI Rep #:[id number] : 1990 34 From: Nemesio Buitrago MD PCP: JULIANN Whitfield Status:ADM IN Y Race: C Location: MS[facility]- 1 Anesthesia Postop Eval I Sum Postop Eval Completion status Anesthesia document: Postop Eval 1 completed: Yes Anesthesia Postop Eval I Summary Anesthesia Postop Eval I Summary: Anesthesia Postop Eval I: Assessment Summary Airway patent Yes 01/24/25 14:28 [email or web address] Spontaneous unlabored Yes 01/24/25 14:28 [email or web address] respirations Mental status nausea No 01/24/25 14:28 [email or web address] Vomiting No 01/24/25 14:28 [email or web address] Anesthesia Postop Eval I: Fluid Summary Crystalloid volume administer 1,200 01/24/25 14:28 [email or web address] (ml) Colloids volume administered ( ml) Blood Product volume administered (ml) Total IV fluid infused 1,200 01/24/25 14:28 [email or web address] Anesthesia Postop Eval I: Summary Notes Anesthesia Complication No 01/24/25 14:28 [email or web address] Anesthesia Complication Comment: Post-operative progress note Anesthesia: Postop Eval II Evaluation Mental status: Awake Pain Level: 2 nausea: No Vomiting: No 01/24/25 1442 > Date _ Nemesio Linares Signature: Date CC: ~ Signed [facility]03-05-2025 Consult note [facility] Medical Records Department [address] [place] [address] Anesthesia Postop Eval I 01/24/25 1428 MR#: [id number] Acct: [id number] Name: CHRISTINE NERI Rep #:[id number] : 1990 34 From: Bishop KIRKPATRICK PCP: Amira Tijerina NP-Toño Status:ADM IN Y Race: C Location: MS3 [facility] 1 Anesthesia: Postop Eval I Current Vital Signs Temperature: 98.6 F Pulse Rate: 103 Blood Pressure: 159/96 Respiratory Rate: 16 Pulse Ox: 96 Assessment Airway patent: Yes Spontaneous unlabored respirations: Yes nausea: No Vomiting: No Anesthesia Complication: No Fluid Hydration Crystalloid volume administer (ml): 1,200 Total IV fluid infused: 1,200 Progress Note Anesthesia document: Postop Eval 1 completed: Yes 01/24/25 1429 DELINEATOR> Date _ Bishop Hemphill DELINEATOR Cosigner Signature: Date CC: ~ Signed [facility]03-05-2025 Progress note [facility] Medical Records Department [address] [place] [address] Progress Note - Orthopedic 01/24/25 1329 MR#: [id number] Acct: [id number] Name: CHRISTINE NERI Rep #:[id number] : 1990 34 From: Mckinley em DO PCP: JULIANN Whitfield Status:ADM IN Location: [place] [address] Subjective Subjective Patient seen and examined. Reports right knee feels okay. Reports some left hip soreness but statesbut she feels it is related to sleeping on the hard bed in the ER all night. Denies any fevers, chills, nausea vomiting, chest pain or shortness of breath. Objective Data Objective Data Vital Signs: Vital Signs Temp Pulse Resp BP Pulse Ox O2 Del Method 98.3 F 81 16 126/91 H 98 Room Air 01/24/25 13:02 01/24/25 13:02 01/24/25 13:02 01/24/25 13:02 01/24/25 13:02 01/24/25 12:46 Oxygen Delivery Method Room Air Weight: 216 lb 7.903 oz Body Mass Index (BMI) 36.1 Intake & Output: Intake and Output for Last 24 Hours 01/22/25 01/23/25 01/24/25 23:59 23:59 23:59 Intake Total 1285 / 1285 Balance 1285 / 1285 Lab / Micro Data 01/24/25 05:00 01/24/25 05:00 Labs: Laboratory Results - last 24 hr 01/23/25 18:22: WBC 10.6, RBC 4.43, Hgb 11.8 L, Hct 36.3 L, MCV 81.9, MCH 26.6 L, MCHC 32.5, RDW Std Deviation 44.4 H, RDW Coeff of Vijay 15.1 H, Plt Count 188, MPV 10.7, Immature Gran % (Auto) 0.600, Neut % (Auto) 75.1 H, Lymph % (Auto) 14.5 L, [place] % (Auto) 9.6, Eos % (Auto) 0.0, Baso % (Auto) 0.2,Absolute Neuts (auto) 8.0 H, Absolute Lymphs (auto) 1.54, Nucleated RBC % 0, ESR 87 H, Sodium 135, Potassium 3.6, Chloride 103, Carbon Dioxide 21.8, Anion Gap 10, BUN 14, Creatinine 0.65 L, Estim Creat Clear Calc 138.49, Est GFR (MDRD) Non-Af 117, BUN/Creatinine Ratio 21.6 H, Glucose 119 H, Calcium9.0, C-React Prot Ext Range 174.00 H 01/24/25 05:00: WBC 9.3, RBC 4.07 L, Hgb 10.7 L, Hct 33.2 L, MCV 81.6, MCH 26.3 L, MCHC 32.2, RDW Std Deviation 44.9 H, RDW Coeff of Vijay 15.1 H, Plt Count 170, MPV 11.2, Immature Gran % (Auto) 0.400,Neut % (Auto) 75.0 H, Lymph % (Auto) 14.5 L, [place] % (Auto) 9.9, Eos % (Auto) 0.0, Baso % (Auto) 0.2, Absolute Neuts (auto) 6.9, Absolute Lymphs (auto) 1.34, Nucleated RBC % 0, Sodium 137, Potassium 4.0, Chloride 106, Carbon Dioxide 21.3, Anion Gap 9, BUN 13, Creatinine 0.56 L, Estim Creat Clear Calc 161.37, Est GFR (MDRD) Non-Af 121, BUN/Creatinine Ratio 23.0 H, Glucose 94, Calcium 8.5, Total Bilirubin 0.37, AST 14, ALT 12, Alkaline Phosphatase 68, Total Protein 6.8, Albumin 3.5, Globulin 3.3, Albumin/Globulin Ratio 1.0 Radiography Diagnostic Testing: Radiology Impression Knee X-Ray 01/23/25 16:50 IMPRESSION: Severe degenerative changes of the knee joint as described above with suprapatellar joint effusion.No acute fracture. [facility] Physical Exam Narrative General -A&Ox3, NAD, appears stated age. Vital signs stable, afebrile. Respiratory -normal work of breathing, no intercostal retractions. CV -pulses regular, brisk capillary refill ?4 limbs. Abdomen-soft, nontender, nondistended. No guarding, rigidity, rebound tenderness. Musculoskeletal/neurologic -full range of motion nontender throughout bilateral upper extremities, left lower extremity with full sensation and strength in all dermatomes and myotomes. No midline cervical tenderness. Right knee: Tolerates range of motion 5-90 degrees. Stable varus valgus stressing. Trace effusion. Minimal warmth within the knee. DF, PF, EHL 5/5. Sensation intact throughout. No erythema. DP 2+, brisk capillary fill in toes. Assessment & Plan Assessment/Plan (1) Septic arthritis of knee, right: PLAN: Plan to proceed with right knee arthroscopic I&D. Risks, benefits, and alternatives to procedure were reviewed with the patient at length. Further recommendations pending surgery. Continue IV antibiotics. I will obtain new cultures today. 01/24/25 1331 Cosigner Signature (if applicable): CC: ~ Signed [facility]03-05-2025 Consult note [facility] Medical Records Department [address] [place] [address] Pre-Anesthesia Evaluation 01/24/25 1301 MR#: [id number] Acct: [id number] Name: CHRISTINE NERI Rep #:[id number] : 1990 34 From: Nemesio Buitrago MD PCP: JULIANN Whitfield Status:ADM IN Y Race: C Location: [facility]- 1 ASA Classification* ASA Classification ASA Classification: 2 Assessment & Plan Anesthesia* Anesthesia Assessment Anesthesia Assessment: Discussed sedation and/or anesthesia options, risks, benefits, and alternatives with patient/parents/legal guardian/POA. Questions invited. The patient/parents/legal guardian/POA seems to understand and agrees to proceedwith anesthesia plan. Reviewed the physical assessment, medical history, allergy history and patient home medications list prior to surgery/procedure/anesthetic and documented any changes. Performed airway and anesthesia risk assessments. Anesthesia Type Anesthesia Type: General Anesthesia Focused Assessment* Temperature: 98.3 F Pulse Rate: 81 Blood Pressure: 126/91 Respiratory Rate: 16 Pulse Ox: 98 Airway Assessment Mouth opens: >3 cm Mallampati Score: II Focused Labs Anesthesia Preop lab: CBC WBC 9.3 K/mm3 (4.4-11.0) 01/24/25 05:00 01/24/25 RBC 4.07 M/mm3 (4.2-5.4) L 01/24/25 05:00 01/24/25 Hgb 10.7 g/dL (12.0-15.0) L 01/24/25 05:00 5 Hct 33.2 % (37-47) L 01/24/25 05:00 01/24/25 Plt Count 170 K/mm3 (150-450) 01/24/25 05:00 01/24/25 CHEMISTRY Potassium 4.0 mmol/L (3.3-5.1) 01/24/25 05:00 01/24/25 Sodium 137 mmol/L (133-145) 01/24/25 05:00 01/24/25 BUN 13 mg/dL (4-19) 01/24/25 05:00 01/24/25 Creatinine 0.56 mg/dL (0.70-1.20) L 01/24/25 05:00 Glucose 94 mg/dL (70-99) 01/24/25 05:00 01/24/25 COAG Pre-Assessment Diagnosis/Proposed Procedure Planned Operative Procedure(s): I&D Right Knee Anesthesia History Anesthesia History - insulation blower: Anesthesia History - insulation blower Hx Hospitalization Any Problems With Anesthesia Cholinesterase deficiency You/Your Family Experience fever (hyperthermia) with Relationship Recent Exposure to Contagious Disease Does patient have nerve stimulator Patient instructed to have device shut off --Does patient have Pacemaker or ICD? When Was Last Pacemaker Check QUESTION #4 FULL TEXT: You/Your Family Experience fever (hyperthermia) with Anesthesia Last Oral Intake Last Oral intake: Last Oral Intake NPO since Meds taken in AM with sips of water? Meds patient instructed to take am of surgery PONV PONV - insulation blower: PONV - insulation blower Female HX of Motion Sickness HX of N/V After Surgery Non-Smoker Duration of Surgery greater than 60 minutes Number of Risk Factors PONV Score Height & Weight Height & Weight: Anesthesia: Height & Weight Height 5 ft 5 in 01/23/25 22:38 Weight: 98.2 kg 01/24/25 06:18 Body Mass Index (BMI) 36.1 01/24/25 06:18 Respiratory Assessment Respiratory Assessment - insulation blower: Respiratory Tract Infection Hx - insulation blower Hx Respiratory Tract Infection STOP Sleep Apnea STOP Sleep Apnea - insulation blower: STOP Sleep Apnea - insulation blower Hx Hypertension No 01/23/25 22:39 Hx Sleep Apnea No 01/23/25 22:39 CPAP BIPAP Do you snore loudly (louder Yes 01/23/25 22:39 than talking or can be heard Do you often feel tired/ No 01/23/25 22:39 fatigued/ sleepy during daytime? Has anyone observed you stop No 01/23/25 22:39 breathing during sleep? STOP Results Negative 01/23/25 22:39 QUESTION #5 FULL TEXT : Do you snore loudly (louder than talking or can be heard through closeddoors)? 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 Specify any problems Hx of Preganancy in last 3 N/A 01/23/25 22:39 Months Nurse Filling Out Transfusion ASELF 01/23/25 22:39 & Questions: Date: 01/23/25 01/23/25 22:39 Time: 22:40 01/23/25 22:39 Patient unable to answer at this time (ie. confused, unrespo /Reproduction History /Reproductive History - insulation blower: /Reproductive Hx- insulation blower Hx Now No 01/23/25 22:39 Gestational Age (in weeks): EDC: Hx Hx Para Hx Section SAB No 01/23/25 22:39 Active Medications Active Medications: Current Medications Generic Name Dose Route Start Last Admin Trade Name Freq PRN Reason Stop Dose Admin Acetaminophen 650 mg 01/23/25 22:21 Acetaminophen 325 Mg Tablet PO Q4H PRN PRN Fever, pain 1-08/31 Al Hydroxide/Mg Hydroxide 30 ml 01/23/25 22:21 Mag Hydrox/Al Hydrox/Simeth 30 Ml Udc PO Q6H PRN PRN Gastric Burning Albuterol Sulfate 2.5 mg 01/23/25 22:21 Albuterol 2.5 Mg/3 Ml Vial.Neb. INHALATION Q2H PRN PRN Dyspnea, wheezing Hydralazine HCl 10 mg 01/23/25 22:21 Hydralazine 20 Mg/Ml Vial IV Q4H PRN PRN SBP > 160 Protocol Cefepime HCl 2 gm/ Sodium 100 mls @ 200 mls/hr 01/23/25 22:21 01/24/25 07:41 Chloride IV Infused Q8 SB Infusion Sodium Chloride 1,000 mls @ 100 mls/hr 01/23/25 22:21 01/23/25 23:39 IV 01/24/25 18:20 100 mls/hr .Q10H SB Administration Protocol Vancomycin IV-PHARMACY TO DOSE 500 mls @ 250 mls/hr 01/23/25 22:21 1 each/ Sodium Chloride IV PRN PRN Rx to Dose Protocol Sodium Chloride 100 mls @ 15 mls/hr 01/23/25 22:27 IV .Q6H40M PRN Saline Flush Sodium Chloride 100 mls @ 15 mls/hr 01/23/25 22:27 IV .Q6H40M PRN Additional IVPB Infusion Vancomycin HCl 1,250 mg/ 275 mls @ 167 mls/hr 01/24/25 08:30 01/24/25 11:10 Sodium Chloride IV Infused Q8H SB Infusion Melatonin 3 mg 01/23/25 22:21 Melatonin 3 Mg Tablet PO QHS PRN PRN INSOMNIA Morphine Sulfate 2 mg 01/23/25 22:21 Morphine 2 Mg/Ml Syringe IV Q3H PRN PRN Pain Score 6-10 Ondansetron HCl 4 mg 01/23/25 22:21 Ondansetron 4 Mg/2 Ml Vial IV Q8H PRN PRN NAUSEA/VOMITING Oxycodone HCl 5 mg 01/23/25 22:21 Oxycodone 5 Mg Tablet PO Q4H PRN PRN Pain Score 4-10 Prochlorperazine Edisylate 5 mg 01/23/25 22:21 Prochlorperazine 10 Mg/2 Ml Vial IV Q4H PRN PRN Breakthrough nausea/vomiting Senna/Docusate Sodium 2 tablet 01/23/25 22:21 Senna/Docusate Sodium 1 Tablet PO BID PRN PRN Constipation Sodium Chloride 10 - 40 ml 01/23/25 22:27 0.9% Saline Lock 10 Ml Syringe IV UD PRN SALINE FLUSH Throat Lozenges 1 lozenge 01/23/25 22:21 Benzocaine/Menthol 1 Lozenge MUCOUS MEM Q2H PRN PRN SORE THROAT Vancomycin Protocol 1 lab 01/25/25 22:00 Vancomycin Trough/Random Due MC 01/26/25 02:00 DAILY [facility] Medical History Obesity Dyspepsia H. pylori infection Anemia Thrombocytopenia Rheumatoid arthritis Home Medications ?Medication ?Instructions ?Recorded ?Last Taken ?Type fluticasone propionate 50 1 spray intranasal DAILY 11/11 Unknown History mcg/actuation nasal spray,suspension (Flonase Allergy Relief) meloxicam 15 mg tablet 15 mg PO DAILY 10/03/21 Unkn own History azathioprine 50 mg tablet 50 mg PO DAILY 01/23/25 Unkn own History prednisone 10 mg tablet 10 mg PO Q12H 01/23/25 Unkno wn History sulfasalazine 500 mg 1,500 mg PO BID 01/23/25 Unk nown History tablet,delayed release Allergy/AdvReac Type Severity Reaction Status Date / Time No Known Allergies Allergy Verified 01/23/25 16:40 Family History Grandmother Heart disease Mother Lung cancer Grandfather Heart disease Diabetes Family History other Surgical History [place] teeth extracted Social History household members: other details: Lives with her sister. Smoking Status: Never smoker second hand exposure: No alcohol intake: current alcohol intake frequency: a few times a week details: occasionally substance use type: does not use rafael/sikhism: None seatbelt use: always do you feel safe at home: Yes Review of Systems (Anesthesia) ROS Narrative System reviewed and no additional complaints, except as documented. 01/24/25 1302 > Date _ Nemesio Buitrago MD Cosigner Signature: Date CC: ~ Signed [facility]03-05-2025 Consult note Author Ian Shelby [facility] Note Date/Time January 24, 2025 1:04 am [facility] Medical Records Department [address] [place] [address] Pharmacokinetic/Renal -Consult 01/24/25 0049 MR#: [id number] Acct: [id number] Name: CHRISTINE NERI Rep #:[id number] : 1990 34 From: Ian Shelby PCP: JULIANN Whitfield Status:ADM IN Y Location: [place] [address] Consult Antibiotic Management Pharmacy has been consulted to manage selected antibiotic: Vancomycin Type of Intervention Type of Consult: New start Labs Labs: Sodium 135 mmol/L (133-145) 01/23/25 18:22 Potassium 3.6 mmol/L (3.3-5.1) 01/23/25 18:22 Chloride 103 mmol/L (98-108) 01/23/25 18:22 Carbon Dioxide 21.8 mmol/L (21.0-32.0) 01/23/25 18:22 Anion Gap 10 (5-15) 01/23/25 18:22 BUN 14 mg/dL (4-19) 01/23/25 18:22 Creatinine 0.65 mg/dL (0.70-1.20) L 01/23/25 18:22 Est GFR (MDRD) Non-Af 117 (>60) 01/23/25 18:22 BUN/Creatinine Ratio 21.6 RATIO (10-20) H 01/23/25 18:22 Glucose 119 mg/dL (70-99) H 01/23/25 18:22 Dosing Weight Weight used for dosin.5 kg Estimated Creatinine Clearance Estimated Creatinine Clearance: 138 Goal Trough Goal Trough: 15-20 mcg/mL Pharmacy Plan for Drug Dosing Pharmacy Plan for Drug Dosing: Pharmacy Service will continue to monitor and adjust dosing as required. Follow-Up Labs Follow-Up Labs: Trough: Vancomycin Date/Time Labs Ordered Labs to be done on [date and time ordered]: 01/26/25 @0000 01/24/25 0050 <Electronically signed by Ian wasserman> Date _ Ian Shelby 01/24/25 0104 <Electronically signed by Destiney em MD> Cosigner Signature (if applicable): Date Destiney Lane MD CC: ~ Signed [facility] Work Phone: 1(473) 449-965003-05-2025 Discharge summary Author Ian Moctezuma [facility] Note Date/Time January 24, 2025 12:2 2am [facility] Medical Records Department [address] [place] [address] Emergency Department Summary 01/23/25 MR#: [id number] Acct: [id number] Name: CHRISTINE NERI Rep #:[id number] : 1990 34 From: Ian Lindsey PCP: Amira Tijerina, FRUIT LOADER MACHINE OPERATOR-C Status:ADM IN Location: MS3 MSED-1 HPI History of Present Illness HPI Narrative: Patient presents with right knee pain and swelling that began yesterday. Patient states it has gotten progressively worse. Patient describes her pain assharp. Patient states it is worse with movement. Patient states she was recently prescribed prednisone which seemed to help somewhat. Patient denies any paresthesias or weakness. Patient states she has a history of rheumatoid arthritis. The patient states she saw her parking inspector today who drained her knee. Coloring Room Worker referred the patient to the emergency department because the synovial fluid looked infected. There was synovial fluid cell count of [id number] with 86% PMNs. There were no crystals noted. Synovial fluid was sent for Gram stain and culture. CBC was also drawn at the parking inspector office which showed a mild leukocytosis of 12.4. Chief Complaint: Lower Extremity Injury Informant: patient Onset/Context/Timing Onset: Yesterday Context: Gradual Onset Timing: Continuous Quality of Pain: Sharp Location: Right knee Worsened by: Movement Relieved by: Prednisone Associated Symptoms Associated Symptoms: Negative for Parasthesia, Weakness or Loss of Funtion PFSH PFS Medical History Dyspepsia H. pylori infection Anemia Thrombocytopenia Rheumatoid arthritis Home Medications ?Medication ?Instructions ?Recorded ?Last Taken ?Type fluticasone propionate 50 1 spray intranasal DAILY 11/11 Unknown History mcg/actuation nasal spray,suspension (Flonase Allergy Relief) folic acid 1 mg tablet 1 mg PO DAILY 10/03/21 Unkno wn History meloxicam 15 mg tablet 15 mg PO DAILY 10/03/21 Unkn own History methotrexate (PF) 7.5 mg/0.15 mL 7.5 mg subcut QWEEK 1 12/03/20 Unknown History subcutaneous auto-injector prednisone 5 mg tablet 5 mg PO DAILY PRN 10/07/21 U nknown History Allergy/AdvReac Type Severity Reaction Status Date / Time No Known Allergies Allergy Verified 01/23/25 16:40 Family History Grandmother Heart disease Mother Lung cancer Grandfather Heart disease Diabetes Surgical History [place] teeth extracted Social History Smoking Status: Never smoker second hand exposure: No alcohol intake: current alcohol intake frequency: a few times a week details: occasionally substance use type: does not use rafael/sikhism: None seatbelt use: always do you feel safe at home: Yes ROS ROS ED Constitutional Constitutional ED: Reports fever(s); Denies chills Eyes Eyes: Denies blurry vision or change in vision ENT ENT ED: Denies rhinorrhea or sore throat Cardiovascular Cardiovascular: Denies chest pain or palpitations Respiratory/Chest Respiratory/Chest: Denies cough or dyspnea Gastrointestinal Gastrointestinal: Denies nausea or vomiting Genitourinary Genitourinary ED: Denies dysuria or hematuria Musculoskeletal Musculoskeletal: Denies back pain or neck pain Integumentary Denies abscess or rash Neurologic Neurologic: Denies headache(s) or weakness Allergic/Immunologic Allergic/Immunologic ED: Denies mouth swelling or urticaria EXAM Physical Exam Const Vital Signs: 01/23/25 16:40 01/23/25 16:42 Temperature 98 F 98 F Temperature Source Temporal Oral Pulse Rate 108 H 108 H Respiratory Rate 19 H 19 H Blood Pressure 156/89 H 156/89 H Blood Pressure Mean 111 111 Pulse Ox 100 100 Oxygen Delivery Method Room Air Room Air Positive well nourished and well developed General Appearance ED: well developed and NAD HEENT Reports moist mucous membranes Neck full ROM and supple Resp normal respiratory effort and clear to auscultation bilaterally Cardio regular rate and regular rhythm Extremity Extremity Narrative: There is tenderness and effusion to the right knee. There is no bony crepitus or step-off. There is some mild pain with flexion past 60 degrees. There is minimal pain with short arc range of motion. Extensor mechanism is intact. Pedal pulses are equal bilaterally. Sensation was intact to light touch bilaterally in lower extremities. Neuro oriented x3, CN's II-XII intact bilaterally, moves all extremities and no sensory deficits noted Sensorium / Orientation: alert Motor Exam: strength 5/5 throughout MDM MDM MDM Narrative Medical decision making narrative: Differential diagnose includes septic arthritis, internal derangement, and occult fracture. CBC will be obtained to assess for leukocytosis and anemia. Basic metabolic profile will be obtained to assess for electrolyte abnormality and renal function. Blood culture will be obtained to assess for sepsis. X-rays of the left knee will be obtained to assess for occult fracture and loose body. Lab Data Attestation: I reviewed the patient's lab results. Lab results narrative: CBC was reviewed. White blood cell count was improved to 10.6. There is a mildanemia with a hemoglobin of 11.8 and hematocrit 36.3. Basic metabolic profile was reviewed and was essentially within normal limits. Radiography Diagnostic Testing: Clinical Impression(s) from Imaging Studies Knee X-Ray 01/23/25 16:50 IMPRESSION: Severe degenerative changes of the knee joint as described above with suprapatellar joint effusion. No acute fracture. Reading Location: [facility] X-rays of the left knee were obtained. There are 4 views. On my independent interpretation, there is no acute fracture. There is a mild effusion. Radiologist also interpreted the x-ray and agrees. Management Discussion w/another healthcare provider: Hospitalist and Automotive Software Engineer Treatment and Re-Evaluation Narrative: Patient was started on Ancef. Case was discussed with Dr. Romo. He agreed with the treatment and stated the patient will probably need to have her knee washed out tomorrow. Case was discussed with the hospitalist. She will admit the patient to her service. Patient understood and was agreeable with the plan. All questions were answered. Discharge Plan Triage Chief Complaint: Lower Extremity Injury ED Provider: Ian Moctezuma Dx/Rx/DC Orders Clinical Impression: Septic arthritis of knee, right, Rheumatoid arthritis Prescriptions: No Action folic acid 1 mg tablet 1 mg PO DAILY meloxicam 15 mg tablet 15 mg PO DAILY methotrexate (PF) 7.5 mg/0.15 mL auto-injector 7.5 mg subcut QWEEK fluticasone propionate [Flonase Allergy Relief] 50 mcg/actuation spray,suspension 1 spray intranasal DAILY Rx Instructions: administer into each nostril prednisone 5 mg tablet 5 mg PO DAILY PRN Primary Care Provider: Amira Tijerina NP Referrals: Amira Tijerina NP, FRUIT LOADER MACHINE OPERATOR-C [Primary Care Provider] - Print Language: Yemeni Disposition Disposition: Acute Care [facility] What to do if you have Problems For any increased pain, shortness of breath, bleeding, nausea or vomiting, chestpain, or any unexpected problems, contact your Primary Care Provider. Call [facility] ([phone]) or report to the closest Emergency Room. Call 911 if necessary. 01/24/25 0022 <Electronically signed by Ian Moctezuma DO> Cosigner Signature (if applicable): CC: JULIANN Tijerina ~ Signed [facility] Work Phone: [phone]) 127-473503-05-2025 Consult note [facility] Medical Records Department [address] [facility] [place] [address] Pharmacokinetic/Renal -Consult 01/24/25 0049 MR#: [id number] Acct: [id number] Name: CHRISTINE NERI Rep #:[id number] : 1990 34 From: Ian Shelby PCP: JULIANN Whitfield Status:ADM IN Y Location: [place] [address] Consult Antibiotic Management Pharmacy has been consulted to manage selected antibiotic: Vancomycin Type of Intervention Type of Consult: New start Labs Labs: Sodium 135 mmol/L (133-145) 01/23/25 18:22 Potassium 3.6 mmol/L (3.3-5.1) 01/23/25 18:22 Chloride 103 mmol/L (98-108) 01/23/25 18:22 Carbon Dioxide 21.8 mmol/L (21.0-32.0) 01/23/25 18:22 Anion Gap 10 (5-15) 01/23/25 18:22 BUN 14 mg/dL (4-19) 01/23/25 18:22 Creatinine 0.65 mg/dL (0.70-1.20) L 01/23/25 18:22 Est GFR (MDRD) Non-Af 117 (>60) 01/23/25 18:22 BUN/Creatinine Ratio 21.6 RATIO (10-20) H 01/23/25 18:22 Glucose 119 mg/dL (70-99) H 01/23/25 18:22 Dosing Weight Weight used for dosin.5 kg Estimated Creatinine Clearance Estimated Creatinine Clearance: 138 Goal Trough Goal Trough: 15-20 mcg/mL Pharmacy Plan for Drug Dosing Pharmacy Plan for Drug Dosing: Pharmacy Service will continue to monitor and adjust dosing as required. Follow-Up Labs Follow-Up Labs: Trough: Vancomycin Date/Time Labs Ordered Labs to be done on [date and time ordered]: 01/26/25 @0000 01/24/25 0050 ds> Date _ Ian Shelby 01/24/25 0104 e > Cosigner Signature (if applicable): Date Destiney Lane MD CC: ~ Signed [facility]03-05-2025 Discharge summary [facility] Medical Records Department [address] [place] [address] Emergency Department Summary 01/23/25 MR#: [id number] Acct: [id number] Name: CHRISTINE NERI Rep #:[id number] : 1990 34 From: Ian Lindsey PCP: JULIANN Whitfield Status:ADM IN Location: [place] [address] HPI History of Present Illness HPI Narrative: Patient presents with right knee pain and swelling that began yesterday. Patient states it has gotten progressively worse. Patient describes her pain assharp. Patient states it is worse with movement. Patient states she was recently prescribed prednisone which seemed to help somewhat. Patient denies any paresthesias or weakness. Patient states she has a history of rheumatoid arthritis. The patient states she saw her parking inspector today who drained her knee. Coloring Room Worker referred the patient to the emergency department because the synovial fluid looked infected. There was synovial fluid cell count of [id number] with 86% PMNs. There were no crystals noted. Synovial fluid was sent for Gram stain and culture. CBC was also drawn at the parking inspector office which showed a mild leukocytosis of 12.4. Chief Complaint: Lower Extremity Injury Informant: patient Onset/Context/Timing Onset: Yesterday Context: Gradual Onset Timing: Continuous Quality of Pain: Sharp Location: Right knee Worsened by: Movement Relieved by: Prednisone Associated Symptoms Associated Symptoms: Negative for Parasthesia, Weakness or Loss of Funtion PFSH PFSH Medical History Dyspepsia H. pylori infection Anemia Thrombocytopenia Rheumatoid arthritis Home Medications ?Medication ?Instructions ?Recorded ?Last Taken ?Type fluticasone propionate 50 1 spray intranasal DAILY 11/11 Unknown History mcg/actuation nasal spray,suspension (Flonase Allergy Relief) folic acid 1 mg tablet 1 mg PO DAILY 10/03/21 Unkno wn History meloxicam 15 mg tablet 15 mg PO DAILY 10/03/21 Unkn own History methotrexate (PF) 7.5 mg/0.15 mL 7.5 mg subcut QWEEK 1 12/03/20 Unknown History subcutaneous auto-injector prednisone 5 mg tablet 5 mg PO DAILY PRN 10/07/21 U nknown History Allergy/AdvReac Type Severity Reaction Status Date / Time No Known Allergies Allergy Verified 01/23/25 16:40 Family History Grandmother Heart disease Mother Lung cancer Grandfather Heart disease Diabetes Surgical History [place] teeth extracted Social History Smoking Status: Never smoker second hand exposure: No alcohol intake: current alcohol intake frequency: a few times a week details: occasionally substance use type: does not use rafael/sikhism: None seatbelt use: always do you feel safe at home: Yes ROS ROS ED Constitutional Constitutional ED: Reports fever(s); Denies chills Eyes Eyes: Denies blurry vision or change in vision ENT ENT ED: Denies rhinorrhea or sore throat Cardiovascular Cardiovascular: Denies chest pain or palpitations Respiratory/Chest Respiratory/Chest: Denies cough or dyspnea Gastrointestinal Gastrointestinal: Denies nausea or vomiting Genitourinary Genitourinary ED: Denies dysuria or hematuria Musculoskeletal Musculoskeletal: Denies back pain or neck pain Integumentary Denies abscess or rash Neurologic Neurologic: Denies headache(s) or weakness Allergic/Immunologic Allergic/Immunologic ED: Denies mouth swelling or urticaria EXAM Physical Exam Const Vital Signs: 01/23/25 16:40 01/23/25 16:42 Temperature 98 F 98 F Temperature Source Temporal Oral Pulse Rate 108 H 108 H Respiratory Rate 19 H 19 H Blood Pressure 156/89 H 156/89 H Blood Pressure Mean 111 111 Pulse Ox 100 100 Oxygen Delivery Method Room Air Room Air Positive well nourished and well developed General Appearance ED: well developed and NAD HEENT Reports moist mucous membranes Neck full ROM and supple Resp normal respiratory effort and clear to auscultation bilaterally Cardio regular rate and regular rhythm Extremity Extremity Narrative: There is tenderness and effusion to the right knee. There is no bony crepitus or step-off. There issome mild pain with flexion past 60 degrees. There is minimal pain with short arc range of motion. Extensor mechanism is intact. Pedal pulses are equal bilaterally. Sensation was intact to light touch bilaterally in lower extremities. Neuro oriented x3, CN's II-XII intact bilaterally, moves all extremities and no sensory deficits noted Sensorium / Orientation: alert Motor Exam: strength 5/5 throughout MDM MDM MDM Narrative Medical decision making narrative: Differential diagnose includes septic arthritis, internal derangement, and occult fracture. CBC will be obtained to assess for leukocytosis and anemia. Basic metabolic profile will be obtained to assess for electrolyte abnormality and renal function. Blood culture will be obtained to assess for sepsis. X-rays of the left knee will be obtained to assess for occult fracture and loose body. Lab Data Attestation: I reviewed the patient's lab results. Lab results narrative: CBC was reviewed. White blood cell count was improved to 10.6. There is a mildanemia with a hemoglobin of 11.8 and hematocrit 36.3. Basic metabolic profile was reviewed and was essentially within normal limits. Radiography Diagnostic Testing: Clinical Impression(s) from Imaging Studies Knee X-Ray 01/23/25 16:50 IMPRESSION: Severe degenerative changes of the knee joint as described above with suprapatellar joint effusion.No acute fracture. Reading Location: [facility] X-rays of the left knee were obtained. There are 4 views. On my independent interpretation, there is no acute fracture. There is a mild effusion. Radiologist also interpreted the x-ray and agrees. Management Discussion w/another healthcare provider: Hospitalist and Automotive Software Engineer Treatment and Re-Evaluation Narrative: Patient was started on Ancef. Case was discussed with Dr. Romo. He agreed with the treatment andstated the patient will probably need to have her knee washed out tomorrow. Case was discussed withthe hospitalist. She will admit the patient to her service. Patient understood and was agreeable with the plan. All questions were answered. Discharge Plan Triage Chief Complaint: Lower Extremity Injury ED Provider: Ian Moctezuma Dx/Rx/DC Orders Clinical Impression: Septic arthritis of knee, right, Rheumatoid arthritis Prescriptions: No Action folic acid 1 mg tablet 1 mg PO DAILY meloxicam 15 mg tablet 15 mg PO DAILY methotrexate (PF) 7.5 mg/0.15 mL auto-injector 7.5 mg subcut QWEEK fluticasone propionate [Flonase Allergy Relief] 50 mcg/actuation spray,suspension 1 spray intranasal DAILY Rx Instructions: administer into each nostril prednisone 5 mg tablet 5 mg PO DAILY PRN Primary Care Provider: Amira Tijerina NP Referrals: Amira Tijerina NP, FRUIT LOADER MACHINE OPERATOR-C [Primary Care Provider] - Print Language: Yemeni Disposition Disposition: Acute Care Hospital [facility] What to do if you have Problems For any increased pain, shortness of breath, bleeding, nausea or vomiting, chestpain, or any unexpected problems, contact your Primary Care Provider. Call [facility] ([phone]) or report tothe closest Emergency Room. Call 911 if necessary. 01/24/25 0022 Cosigner Signature (if applicable): CC: JULIANN Tijerina ~ Signed [facility]03-04-2025 Consult note Author Mckinley Romo [facility] Note Date/Time January 23, 2025 8:56 pm [facility] Medical Records Department [address] [place] [address] Consultation - Orthopedics 01/23/252043 MR#: [id number] Acct: [id number] Name: CHRISTINE NERI Rep #:[id number] : 1990 34 From: Mckinley em DO PCP: JULIANN Whitfield Status:REG ER Location: ED HPI Consult Data Date of Consult: 01/23/25 HPI Narrative HPI Narrative: CHRISTINE NERI, is a 34 F/history of rheumatoid arthritis, obesity who presented to [facility] after 1 day of right knee pain, bilateral shoulderdiscomfort and right elbow pain. She felt this was consistent with prior RA flares. She started prednisone without improvement in the other joints besides from the. She saw her parking inspector today. Arthrocentesis was performed in the office and is concerning for infection. Emergency department physician, synovial fluid cell count of [id number] with 86% PMNs. No crystals. Synovial fluidwas sent for Gram stain and culture. Speaking with the patient, she reports thefluid was milky in appearance. She states she feels much better after arthrocentesis. She reports approximately 70 cc was aspirated during the arthrocentesis. No fevers or chills. Denies any recent illness. Denies any recent sick contacts. She reports daily soreness in her right knee and is awareof previously severe arthritic changes in the knee. Denies any prior complications with anesthesia. Denies family history of anesthetic complication. Denies DVT or PE history. [facility] Medical History Obesity Dyspepsia H. pylori infection Anemia Thrombocytopenia Rheumatoid arthritis Home Medications ?Medication ?Instructions ?Recorded ?Last Taken ?Type fluticasone propionate 50 1 spray intranasal DAILY 11/11 Unknown History mcg/actuation nasal spray,suspension (Flonase Allergy Relief) meloxicam 15 mg tablet 15 mg PO DAILY 10/03/21 Unkn own History azathioprine 50 mg tablet 50 mg PO DAILY 01/23/25 Unkn own History prednisone 10 mg tablet 10 mg PO Q12H 01/23/25 Unkno wn History sulfasalazine 500 mg 1,500 mg PO BID 01/23/25 Unk nown History tablet,delayed release Allergy/AdvReac Type Severity Reaction Status Date / Time No Known Allergies Allergy Verified 01/23/25 16:40 Family History Grandmother Heart disease Mother Lung cancer Grandfather Heart disease Diabetes Family History other Surgical History [place] teeth extracted Social History household members: other details: Lives with her sister. Smoking Status: Never smoker second hand exposure: No alcohol intake: current alcohol intake frequency: a few times a week details: occasionally substance use type: does not use rafael/sikhism: None seatbelt use: always do you feel safe at home: Yes ROS ROS Narrative 12 point review systems obtained, negative unless otherwise noted in HPI. Vital Signs Vital Signs Vital Signs: 01/23/25 16:40 01/23/25 16:42 01/23/25 17:42 Temperature 98 F 98 F 98.8 F Temperature Source Temporal Oral Oral Pulse Rate 108 H 108 H 98 Respiratory Rate 19 H 19 H 12 Blood Pressure 156/89 H 156/89 H 130/82 H Blood Pressure Mean 111 111 98 Pulse Ox 100 100 98 Oxygen Delivery Method Room Air Room Air Room Air 01/23/25 18:00 01/23/25 19:00 01/23/25 19:40 Temperature 98.8 F 98.5 F 98.5 F Temperature Source Oral Oral Pulse Rate 100 80 68 Respiratory Rate 12 12 12 Blood Pressure 130/80 H 119/67 125/87 H Blood Pressure Mean 96 84 99 Pulse Ox 98 98 98 Oxygen Delivery Method Room Air Room Air 01/23/25 20:00 Temperature 98.8 F Temperature Source Oral Pulse Rate 75 Respiratory Rate 12 Blood Pressure 112/62 Blood Pressure Mean 78 Pulse Ox 98 Oxygen Delivery Method Room Air Weight Weight: 215 lb 9.793 oz Body Mass Index (BMI) 35.9 Physical Exam Narrative General -A&Ox3, NAD, appears stated age. Vital signs stable, afebrile. Respiratory -normal work of breathing, no intercostal retractions. CV -pulses regular, brisk capillary refill ?4 limbs. Abdomen-soft, nontender, nondistended. No guarding, rigidity, rebound tenderness. Musculoskeletal/neurologic -full range of motion nontender throughout bilateral upper extremities, left lower extremity with full sensation and strength in all dermatomes and myotomes. No midline cervical tenderness. Right knee: Tolerates range of motion 5-90 degrees. Stable varus valgus stressing. Trace effusion. Minimal warmth within the knee. DF, PF, EHL 5/5. Sensation intact throughout. No erythema. DP 2+, brisk capillary fill in toes. Lab / Micro Data 01/23/25 18:22 01/23/25 18:22 Labs: Laboratory Results - last 24 hr 01/23/25 18:22: WBC 10.6, RBC 4.43, Hgb 11.8 L, Hct 36.3 L, MCV 81.9, MCH 26.6 L, MCHC 32.5, RDW Std Deviation 44.4 H, RDW Coeff of [place]ij[place] 15.1 H, Plt Count 188, MPV 10.7, Immature Gran % (Auto) 0.600, Neut % (Auto) 75.1 H, Lymph % (Auto) 14.5 L, [place] % (Auto) 9.6, Eos % (Auto) 0.0, Baso % (Auto) 0.2, Absolute Neuts (auto) 8.0 H, Absolute Lymphs (auto) 1.54, Nucleated RBC % 0, ESR 87 H, Sodium 135, Potassium 3.6, Chloride 103, Carbon Dioxide 21.8, Anion Gap 10, BUN 14, Creatinine 0.65 L, Estim Creat Clear Calc 138.49, Est GFR (MDRD) Non-Af 117, BUN/Creatinine Ratio 21.6 H, Glucose 119 H, Calcium 9.0, C-React Prot Ext Range 174.00 H Imaging Radiology Impression Knee X-Ray 01/23/25 16:50 IMPRESSION: Severe degenerative changes of the knee joint as described above with suprapatellar joint effusion. No acute fracture. Reading Location: [facility] Assessment & Plan Assessment/Plan (1) Septic arthritis of knee, right: PLAN: Patient seen and examined in the emergency department. Relatively benign exam for septic arthritis. Suspect this is d/t blunted immune response with antirheumatics and recent therapeutic/dx arthrocentesis. I explained to the patient that based upon fluid analysis as well as the apparent gross consistency/color of the synovial fluid, arthroscopic I&D is recommended. I recommended we obtain repeat cultures intraop to ensure organism ID, C&S. NPO after midnight. Risks, benefits, alternatives to procedure were reviewed with the patient at length and she agreed to proceed. All questions were answered topatient satisfaction. Plan to proceed with surgery tomorrow with operating roombecomes available. IV antibiotics. Hold anticoagulant. mIVF. 01/23/252055 <Electronically signed by Mckinley Romo DO> Cosigner Signature (if applicable): CC: JULIANN Tijerina~ Signed [facility] Work Phone: 1(247) 725-272903-04-2025 History and physical note Author Destiney Lane [facility] Note Date/Time January 23, 2025 8:07 pm [facility] Medical Records Department [address] [place] [address] H&P Exam - Hospitalist 01/23/251931 MR#: [id number] Acct: [id number] Name: CHRISTINE NREI Rep #:[id number] : 1990 34 From: Destiney Lane MD PCP: VIRGIL WhitfieldC Status:REG ER Location: ED HPI - General General Date of Admission: 01/23/25 Date of Service: 01/23/25 Chief Complaint: R knee pain, intractable. HPI Narrative The patient is a 34 y/o F w/ PMHx: Obesity, Rheumatoid arthritis diagnosed in 2020 treated with MTX however had associated thrombocytopenia this regimen altered, Chronic normocytic anemia, GERD who presents to the [facility] ED on 01/23/25 with history of onset right knee pain, bilateral shoulder discomfort and right elbow pain starting 24 hours prior which was consistent per her report to previous episodes of rheumatoid arthritis flare with initiation of a burst of prednisone with a total of 30 mg on current day of presentation and also evaluation by her parking inspector who did perform a right knee arthrocentesis andthe fluid was sent for culture to be cautious following which she notes the painimproved however she had low-grade temperatures and fatigue and malaise eventually prompting referral to the ED given concerns per parking inspector of infection. She did report significant knee swelling but was mildly improved following the arthrocentesis per the parking inspector. She notes that it does still feel swollen. She denies any redness but notes that the knee was warm to touch. She denies any recent history of trauma. She does note recent dental pain in the last 2 weeks but otherwise no recent infectious concerns. Pain currently at rest 3/10 in severity, 8-10/10 prior, improved after initial aspiration. Workup in the ED included T98, heart rate 108, BP 156/89, respiratory rate 19, 10% on room air with most recent repeat vitals T98.8, heartrate 100, BP 130/80, respiratory rate 12, 98% on room air, CBC with WBC 10.6, hemoglobin 0.8, MCV 81.9, platelet 188 with left shift, BMP with BUN/creatinine 14/0.65, glucose 119, plain film of the right knee with severe degenerative changes of the knee joint with severe patellar joint effusion with no evidence of any acute fracture with severe tricompartmental narrowing with osteophyte formation with soft tissues unremarkable, blood culture x 2 pending per ED. In the ED patient administered Ancef 2 g IV x 1. ED discussed case with orthopedicsurgeon Dr. Romo who noted likely knee would need to be washed out. [facility] Medical History Obesity Dyspepsia H. pylori infection Anemia Thrombocytopenia Rheumatoid arthritis Home Medications ?Medication ?Instructions ?Recorded ?Last Taken ?Type fluticasone propionate 50 1 spray intranasal DAILY 11/11 Unknown History mcg/actuation nasal spray,suspension (Flonase Allergy Relief) meloxicam 15 mg tablet 15 mg PO DAILY 10/03/21 Unkn own History azathioprine 50 mg tablet 50 mg PO DAILY 01/23/25 Unkn own History prednisone 10 mg tablet 10 mg PO Q12H 01/23/25 Unkno wn History sulfasalazine 500 mg 1,500 mg PO BID 01/23/25 Unk nown History tablet,delayed release Allergy/AdvReac Type Severity Reaction Status Date / Time No Known Allergies Allergy Verified 01/23/25 16:40 Family History Grandmother Heart disease Mother Lung cancer Grandfather Heart disease Diabetes other (Patient does not know her paternal family history or paternal medical history.) Surgical History [place] teeth extracted Social History (Updated 01/23/25 @ 20:[address] Destiney Lane MD) household members: other details: Lives with her sister. Smoking Status: Never smoker second hand exposure: No alcohol intake: current alcohol intake frequency: a few times a week details: occasionally substance use type: does not use rafael/sikhism: None seatbelt use: always do you feel safe at home: Yes ROS ROS Narrative Admission Review of Systems: CONSTITUTIONAL: No weight loss, +low grade fever, weakness or fatigue. HEENT: Eyes: No visual loss, blurred vision, double vision or yellow sclerae. Ears, Nose, Throat: No hearing loss, sneezing, congestion, runny nose or sore throat. SKIN: No rash or itching, lesions, wounds. CARDIOVASCULAR: No chest pain, chest pressure or chest discomfort, palpitations,edema, orthopnea, syncopal events. RESPIRATORY: No shortness of breath, cough or sputum, wheezing, hemoptysis. GASTROINTESTINAL: No anorexia, nausea, vomiting or diarrhea, abdominal pain, melena, BRBPR. GENITOURINARY: No dysuria, frequency, urgency or retention. NEUROLOGICAL: No headache, dizziness, syncope, paralysis, ataxia, numbness or tingling in the extremities, focal weakness, change in bowel or bladder control,seizure. MUSCULOSKELETAL: + muscle, back pain, joint pain or stiffness. HEMATOLOGIC: Chronic anemia, no easy history of bleeding/bruising currently, history in the past remotely of thrombocytopenia.+ LYMPHATICS: No enlarged nodes. No history of splenectomy. PSYCHIATRIC: No history of depression or anxiety. ENDOCRINOLOGIC: No reports of sweating, cold or heat intolerance. No polyuria orpolydipsia. ALLERGIES: + History of allergic rhinitis. Vital Signs Vital Signs Vital Signs: 01/23/25 16:40 01/23/25 16:42 01/23/25 17:42 Temperature 98 F 98 F 98.8 F Temperature Source Temporal Oral Oral Pulse Rate 108 H 108 H 98 Respiratory Rate 19 H 19 H 12 Blood Pressure 156/89 H 156/89 H 130/82 H Blood Pressure Mean 111 111 98 Pulse Ox 100 100 98 Oxygen Delivery Method Room Air Room Air Room Air 01/23/25 18:00 Temperature 98.8 F Temperature Source Oral Pulse Rate 100 Respiratory Rate 12 Blood Pressure 130/80 H Blood Pressure Mean 96 Pulse Ox 98 Oxygen Delivery Method Room Air Weight Weight: 215 lb 9.793 oz Body Mass Index (BMI) 35.9 Physical Exam Narrative Physical Examination: General: Awake, alert, oriented x 3 and cooperative, seated upright in the ED chair, currently denies any severe pain but at rest, right knee pain worse with any activity attempt. Skin: Normal color, normal turgor, no icterus, no cyanosis. HEENT: AT/NC, EOMI, PERRLA, MMM, no carotid bruits or JVD noted. Lungs: CTA bilaterally, moderate effort, mild decrease BL bases, no rales, ronchi or wheezing. Heart: Improved, currently regular rate and rhythm; no gallop, rub audible. Abdomen: Soft, obese, NTTP, ND, normal BS, no appreciated HSM. Extremities: No cyanosis, no clubbing, right knee with evident continued effusion, increased warmth to touch compared to the other knee, no obvious erythema. Neurological: Patient awake, alert, oriented as noted, cognitive function intact; pupils equally reactive to light and accommodation, cranial nerves grossnormal, moving all 4 extremities although limited right knee given pain induced with activity and bearing weight, strength accordingly moderately globally decreased. Psychiatric: Affect appears fatigued otherwise normal, no acute evidence of depressive or anxiety feelings. Results Lab / Micro Data 01/23/25 18:22 01/23/25 18:22 Labs: Laboratory Results - last 24 hr 01/23/25 18:22: WBC 10.6, RBC 4.43, Hgb 11.8 L, Hct 36.3 L, MCV 81.9, MCH 26.6 L, MCHC 32.5, RDW Std Deviation 44.4 H, RDW Coeff of Vijay 15.1 H, Plt Count 188, MPV 10.7, Immature Gran % (Auto) 0.600, Neut % (Auto) 75.1 H, Lymph % (Auto) 14.5 L, [place] % (Auto) 9.6, Eos % (Auto) 0.0, Baso % (Auto) 0.2, Absolute Neuts (auto) 8.0 H, Absolute Lymphs (auto) 1.54, Nucleated RBC % 0, Sodium 135, Potassium 3.6, Chloride 103, Carbon Dioxide 21.8, Anion Gap 10, BUN 14, Creatinine 0.65 L, Estim Creat Clear Calc 138.49, Est GFR (MDRD) Non-Af 117, BUN/Creatinine Ratio 21.6 H, Glucose 119 H, Calcium 9.0 Imaging Radiology Impression Knee X-Ray 01/23/25 16:50 IMPRESSION: Severe degenerative changes of the knee joint as described above with suprapatellar joint effusion. No acute fracture. Reading [facility] Assessment & Plan Assessment/Plan (1) Septic arthritis of knee, right: PLAN: Plan The patient is a 34 y/o F w/ PMHx: Obesity, Rheumatoid arthritis diagnosed in 2020 treated with MTX however had associated thrombocytopenia this regimen altered, Chronic normocytic anemia, GERD who presents to the [facility] ED on 01/23/25 with history of onset right knee pain, bilateral shoulder discomfort and right elbow pain starting 24 hours prior which was consistent per her report to previous episodes of rheumatoid arthritis flare with initiation of a burst of prednisone with a total of 30 mg on current day of presentation and also evaluation by her parking inspector who did perform a right knee arthrocentesis andthe fluid was sent for culture to be cautious following which she notes the painimproved however she had low-grade temperatures and fatigue and malaise eventually prompting referral to the ED given concerns per parking inspector of infection. #1. Intractable right knee pain, edema, redness with recent joint aspiration with concern for septic joint: Will admit to [facility], maintain on IV Vanco and cefepime pending cultures, orthopedic surgery consulted and following, plan repeat CBC in AM, continue affected extremity elevation above heart when seated and in bed, will have as needed oral and IV pain regimen, antiemetics, judiciousIV fluids, plan n.p.o. status after midnight for possible operative interventionneeds, ESR and CRP requested, infectious disease also consulted. #2. Rheumatoid arthritis with recent flare: Per current list appears to be on Cimzia, azathioprine, sulfasalazine, previously Humira and intermittent prednisone as well as intermittent meloxicam but clarifying his medications havenot been reconciled, previously been on methotrexate but this per records had been associated with thrombocytopenia which appears currently resolved, may be no longer taking. Will hold on further aggressive steroids per discussion with patient given concerns for #1 acute infection. #3. Elevated BP without hypertensive diagnosis: BP upon presentation elevated above goal, likely pain related, continue to monitor and add regimen if appropriate, in the interim as needed IV hydralazine. #4. Chronic normocytic anemia: Admission hemoglobin 11.8, MCV 81.9, baseline hemoglobin most recently 01/15/25 hemoglobin 11.9, similar, continue to trend. #5. History of thrombocytopenia: Admission platelets 188, previously had been low but from review of oncology/hematology notes appears to be related to previous usage of methotrexate. #6. Allergic rhinitis: We will continue patient on fluticasone regimen. #7. Obesity: Weight loss and lifestyle changes encouraged. #8. GERD: Not on any chronic regimen per current list, will have as needed Mylanta #9. DVT prophylaxis: SCDs, hold chemoprophylaxis for planned operative intervention. Charges/Coding Visit Charges Inpatient E&M: 52937 Init Hosp L3 01/23/252006 <Electronically signed by Destiney Lane MD> Cosigner Signature (if applicable): CC: JULIANN Tijerina; Dr. Destiney Lane MD~ Signed [facility] Work Phone: 1(443) 912-396803-04-2025 Evaluation note* Diagnosis Onset Date Resolution Status Admit Date Elevated blood pressure reading acut e January 23, 2025 7:32pm Septic arthritis of knee, right acut e January 23, 2025 7:32pm Rheumatoid arthritis chronic Jose h 2024 7:32pm [facility] Work Phone: 1(259) 244-297003-04-2025 Consult note [facility] Medical Records Department [address] [place] [address] Consultation - Orthopedics 01/23/252043 MR#: [id number] Acct: [id number] Name: CHRISTINE NERI Rep #:[id number] : 1990 34 From: Mckinley em DO PCP: JULIANN Whitfield Status:REG ER Location: ED HPI Consult Data Date of Consult: 01/23/25 HPI Narrative HPI Narrative: CHRISTINE NERI, is a 34 F/history of rheumatoid arthritis, obesity who presented to [facility] after 1 day of right knee pain, bilateral shoulderdiscomfort and right elbow pain. She felt this was consistent with prior RA flares. She started prednisone without improvement in the otherjoints besides from the. She saw her parking inspector today. Arthrocentesis was performed in the office and is concerning for infection. Emergency department physician, synovial fluid cell count of [id number] with 86% PMNs. No crystals. Synovial fluidwas sent for Gram stain and culture. Speaking with thepatient, she reports thefluid was milky in appearance. She states she feels much better after arthrocentesis. She reports approximately 70 cc was aspirated during the arthrocentesis. No fevers or chills. Denies any recent illness. Denies any recent sick contacts. She reports daily soreness in her right knee and is awareof previously severe arthritic changes in the knee. Denies any prior complications with anesthesia. Denies family history of anesthetic complication. Denies DVT or PE history. [facility] Medical History Obesity Dyspepsia H. pylori infection Anemia Thrombocytopenia Rheumatoid arthritis Home Medications ?Medication ?Instructions ?Recorded ?Last Taken ?Type fluticasone propionate 50 1 spray intranasal DAILY 11/11 Unknown History mcg/actuation nasal spray,suspension (Flonase Allergy Relief) meloxicam 15 mg tablet 15 mg PO DAILY 10/03/21 Unkn own History azathioprine 50 mg tablet 50 mg PO DAILY 01/23/25 Unkn own History prednisone 10 mg tablet 10 mg PO Q12H 01/23/25 Unkno wn History sulfasalazine 500 mg 1,500 mg PO BID 01/23/25 Unk nown History tablet,delayed release Allergy/AdvReac Type Severity Reaction Status Date / Time No Known Allergies Allergy Verified 01/23/25 16:40 Family History Grandmother Heart disease Mother Lung cancer Grandfather Heart disease Diabetes Family History other Surgical History [place] teeth extracted Social History household members: other details: Lives with her sister. Smoking Status: Never smoker second hand exposure: No alcohol intake: current alcohol intake frequency: a few times a week details: occasionally substance use type: does not use rafael/sikhism: None seatbelt use: always do you feel safe at home: Yes ROS ROS Narrative 12 point review systems obtained, negative unless otherwise noted in HPI. Vital Signs Vital Signs Vital Signs: 01/23/25 16:40 01/23/25 16:42 01/23/25 17:42 Temperature 98 F 98 F 98.8 F Temperature Source Temporal Oral Oral Pulse Rate 108 H 108 H 98 Respiratory Rate 19 H 19 H 12 Blood Pressure 156/89 H 156/89 H 130/82 H Blood Pressure Mean 111 111 98 Pulse Ox 100 100 98 Oxygen Delivery Method Room Air Room Air Room Air 01/23/25 18:00 01/23/25 19:00 01/23/25 19:40 Temperature 98.8 F 98.5 F 98.5 F Temperature Source Oral Oral Pulse Rate 100 80 68 Respiratory Rate 12 12 12 Blood Pressure 130/80 H 119/67 125/87 H Blood Pressure Mean 96 84 99 Pulse Ox 98 98 98 Oxygen Delivery Method Room Air Room Air 01/23/25 20:00 Temperature 98.8 F Temperature Source Oral Pulse Rate 75 Respiratory Rate 12 Blood Pressure 112/62 Blood Pressure Mean 78 Pulse Ox 98 Oxygen Delivery Method Room Air Weight Weight: 215 lb 9.793 oz Body Mass Index (BMI) 35.9 Physical Exam Narrative General -A&Ox3, NAD, appears stated age. Vital signs stable, afebrile. Respiratory -normal work of breathing, no intercostal retractions. CV -pulses regular, brisk capillary refill ?4 limbs. Abdomen-soft, nontender, nondistended. No guarding, rigidity, rebound tenderness. Musculoskeletal/neurologic -full range of motion nontender throughout bilateral upper extremities, left lower extremity with full sensation and strength in all dermatomes and myotomes. No midline cervical tenderness. Right knee: Tolerates range of motion 5-90 degrees. Stable varus valgus stressing. Trace effusion. Minimal warmth within the knee. DF, PF, EHL 5/5. Sensation intact throughout. No erythema. DP 2+, brisk capillary fill in toes. Lab / Micro Data 01/23/25 18:22 01/23/25 18:22 Labs: Laboratory Results - last 24 hr 01/23/25 18:22: WBC 10.6, RBC 4.43, Hgb 11.8 L, Hct 36.3 L, MCV 81.9, MCH 26.6 L, MCHC 32.5, RDW Std Deviation 44.4 H, RDW Coeff of Vijay 15.1 H, Plt Count 188, MPV 10.7, Immature Gran % (Auto) 0.600, Neut % (Auto) 75.1 H, Lymph % (Auto) 14.5 L, [place] % (Auto) 9.6, Eos % (Auto) 0.0, Baso % (Auto) 0.2,Absolute Neuts (auto) 8.0 H, Absolute Lymphs (auto) 1.54, Nucleated RBC % 0, ESR 87 H, Sodium 135, Potassium 3.6, Chloride 103, Carbon Dioxide 21.8, Anion Gap 10, BUN 14, Creatinine 0.65 L, Estim Creat Clear Calc 138.49, Est GFR (MDRD) Non-Af 117, BUN/Creatinine Ratio 21.6 H, Glucose 119 H, Calcium9.0, C-React Prot Ext Range 174.00 H Imaging Radiology Impression Knee X-Ray 01/23/25 16:50 IMPRESSION: Severe degenerative changes of the knee joint as described above with suprapatellar joint effusion.No acute fracture. Reading Location[facility] Assessment & Plan Assessment/Plan (1) Septic arthritis of knee, right: PLAN: Patient seen and examined in the emergency department. Relatively benign exam for septic arthritis. Suspect this is d/t blunted immune response with antirheumatics and recent therapeutic/dx arthrocentesis. I explained to the patient that based upon fluid analysis as well as the apparent gross consistency/color of the synovial fluid, arthroscopic I&D is recommended. I recommended we obtain repeat cultures intraop to ensure organism ID, C&S. NPO after midnight. Risks, benefits, alternatives to procedure were reviewed with the patient at length and she agreed to proceed. All questions were answered topatient satisfaction. Plan to proceed with surgery tomorrow with operating roombecomes available. IV antibiotics. Hold anticoagulant. mIVF. 01/23/252055 Cosigner Signature (if applicable): CC: FRUIT LOADER MACHINE OPERATOR-C Amira Tijerina~ Signed [facility]03-04-2025 History and physical note [facility] Medical Records Department [address] [place] [address] H&P Exam - Hospitalist 01/23/25 193 MR#: [id number] Acct: [id number] Name: CHRISTINE NERI Rep #:[id number] : 1990 34 From: Destiney Lane MD PCP: JULIANN Whitfield Status:REG ER Location: ED HPI - General General Date of Admission: 01/23/25 Date of Service: 01/23/25 Chief Complaint: R knee pain, intractable. HPI Narrative The patient is a 34 y/o F w/ PMHx: Obesity, Rheumatoid arthritis diagnosed in 2020 treated with MTXhowever had associated thrombocytopenia this regimen altered, Chronic normocytic anemia, GERD who presents to the [facility] ED on 01/23/25 with history of onset right knee pain, bilateral shoulder discomfortand right elbow pain starting 24 hours prior which was consistent per her report to previous episodes of rheumatoid arthritis flare with initiation of a burst of prednisone with a total of 30 mg on current day of presentation and also evaluation by her parking inspector who did perform a right knee arthrocentesis andthe fluid was sent for culture to be cautious following which she notes the painimproved however she had low-grade temperatures and fatigue and malaise eventually prompting referral tothe ED given concerns per parking inspector of infection. She did report significant knee swelling butwas mildly improved following the arthrocentesis per the parking inspector. She notes that it does stil l feel swollen. She denies any redness but notes that the knee was warm to touch. She denies any recent history of trauma. She does note recent dental pain in the last 2 weeks but otherwise no recentinfectious concerns. Pain currently at rest 3/10 in severity, 8-10/10 prior, improved after initialaspiration. Workup in the ED included T98, heart rate 108, BP 156/89, respiratory rate 19, 10% on room air with most recent repeat vitals T98.8, heartrate 100, BP 130/80, respiratory rate 12, 98% on room air, CBC with WBC 10.6, hemoglobin 0.8, MCV 81.9, platelet 188 with left shift, BMP with BUN/creatinine 14/0.65, glucose 119, plain film of the right knee with severe degenerative changes of the knee joint with severe patellar joint effusion with no evidence of any acute fracture with severe tricompartmental narrowing with osteophyte formation with soft tissues unremarkable, blood culture x 2pending per ED. In the ED patient administered Ancef 2 g IV x 1. ED discussed case with orthopedicsurgeon Dr. Romo who noted likely knee would need to be washed out. [facility] Medical History Obesity Dyspepsia H. pylori infection Anemia Thrombocytopenia Rheumatoid arthritis Home Medications ?Medication ?Instructions ?Recorded ?Last Taken ?Type fluticasone propionate 50 1 spray intranasal DAILY 11/11 Unknown History mcg/actuation nasal spray,suspension (Flonase Allergy Relief) meloxicam 15 mg tablet 15 mg PO DAILY 10/03/21 Unkn own History azathioprine 50 mg tablet 50 mg PO DAILY 01/23/25 Unkn own History prednisone 10 mg tablet 10 mg PO Q12H 01/23/25 Unkno wn History sulfasalazine 500 mg 1,500 mg PO BID 01/23/25 Unk nown History tablet,delayed release Allergy/AdvReac Type Severity Reaction Status Date / Time No Known Allergies Allergy Verified 01/23/25 16:40 Family History Grandmother Heart disease Mother Lung cancer Grandfather Heart disease Diabetes other (Patient does not know her paternal family history or paternal medical history.) Surgical History [place] teeth extracted Social History (Updated 01/23/25 @ 20:[address] Destiney Lane MD) household members: other details: Lives with her sister. Smoking Status: Never smoker second hand exposure: No alcohol intake: current alcohol intake frequency: a few times a week details: occasionally substance use type: does not use rafael/sikhism: None seatbelt use: always do you feel safe at home: Yes ROS ROS Narrative Admission Review of Systems: CONSTITUTIONAL: No weight loss, +low grade fever, weakness or fatigue. HEENT: Eyes: No visual loss, blurred vision, double vision or yellow sclerae. Ears, Nose, Throat: No hearing loss, sneezing, congestion, runny nose or sore throat. SKIN: No rash or itching, lesions, wounds. CARDIOVASCULAR: No chest pain, chest pressure or chest discomfort, palpitations,edema, orthopnea, syncopal events. RESPIRATORY: No shortness of breath, cough or sputum, wheezing, hemoptysis. GASTROINTESTINAL: No anorexia, nausea, vomiting or diarrhea, abdominal pain, melena, BRBPR. GENITOURINARY: No dysuria, frequency, urgency or retention. NEUROLOGICAL: No headache, dizziness, syncope, paralysis, ataxia, numbness or tingling in the extremities, focal weakness, change in bowel or bladder control,seizure. MUSCULOSKELETAL: + muscle, back pain, joint pain or stiffness. HEMATOLOGIC: Chronic anemia, no easy history of bleeding/bruising currently, history in the past remotely of thrombocytopenia.+ LYMPHATICS: No enlarged nodes. No history of splenectomy. PSYCHIATRIC: No history of depression or anxiety. ENDOCRINOLOGIC: No reports of sweating, cold or heat intolerance. No polyuria orpolydipsia. ALLERGIES: + History of allergic rhinitis. Vital Signs Vital Signs Vital Signs: 01/23/25 16:40 01/23/25 16:42 01/23/25 17:42 Temperature 98 F 98 F 98.8 F Temperature Source Temporal Oral Oral Pulse Rate 108 H 108 H 98 Respiratory Rate 19 H 19 H 12 Blood Pressure 156/89 H 156/89 H 130/82 H Blood Pressure Mean 111 111 98 Pulse Ox 100 100 98 Oxygen Delivery Method Room Air Room Air Room Air 01/23/25 18:00 Temperature 98.8 F Temperature Source Oral Pulse Rate 100 Respiratory Rate 12 Blood Pressure 130/80 H Blood Pressure Mean 96 Pulse Ox 98 Oxygen Delivery Method Room Air Weight Weight: 215 lb 9.793 oz Body Mass Index (BMI) 35.9 Physical Exam Narrative Physical Examination: General: Awake, alert, oriented x 3 and cooperative, seated upright in the ED chair, currently denies any severe pain but at rest, right knee pain worse with any activity attempt. Skin: Normal color, normal turgor, no icterus, no cyanosis. HEENT: AT/NC, EOMI, PERRLA, MMM, no carotid bruits or JVD noted. Lungs: CTA bilaterally, moderate effort, mild decrease BL bases, no rales, ronchi or wheezing. Heart: Improved, currently regular rate and rhythm; no gallop, rub audible. Abdomen: Soft, obese, NTTP, ND, normal BS, no appreciated HSM. Extremities: No cyanosis, no clubbing, right knee with evident continued effusion, increased warmthto touch compared to the other knee, no obvious erythema. Neurological: Patient awake, alert, oriented as noted, cognitive function intact; pupils equally reactive to light and accommodation, cranial nerves grossnormal, moving all 4 extremities although limited right knee given pain induced with activity and bearing weight, strength accordingly moderately globally decreased. Psychiatric: Affect appears fatigued otherwise normal, no acute evidence of depressive or anxiety feelings. Results Lab / Micro Data 01/23/25 18:22 01/23/25 18:22 Labs: Laboratory Results - last 24 hr 01/23/25 18:22: WBC 10.6, RBC 4.43, Hgb 11.8 L, Hct 36.3 L, MCV 81.9, MCH 26.6 L, MCHC 32.5, RDW Std Deviation 44.4 H, RDW Coeff of Vijay 15.1 H, Plt Count 188, MPV 10.7, Immature Gran % (Auto) 0.600, Neut % (Auto) 75.1 H, Lymph % (Auto) 14.5 L, [place] % (Auto) 9.6, Eos % (Auto) 0.0, Baso % (Auto) 0.2,Absolute Neuts (auto) 8.0 H, Absolute Lymphs (auto) 1.54, Nucleated RBC % 0, Sodium 135, Potassium 3.6, Chloride 103, Carbon Dioxide 21.8, Anion Gap 10, BUN 14, Creatinine 0.65 L, Estim Creat Clear Calc 138.49, Est GFR (MDRD) Non-Af 117, BUN/Creatinine Ratio 21.6 H, Glucose 119 H, Calcium 9.0 Imaging Radiology Impression Knee X-Ray 01/23/25 16:50 IMPRESSION: Severe degenerative changes of the knee joint as described above with suprapatellar joint effusion.No acute fracture. Reading [facility] Assessment & Plan Assessment/Plan (1) Septic arthritis of knee, right: PLAN: Plan The patient is a 34 y/o F w/ PMHx: Obesity, Rheumatoid arthritis diagnosed in 2020 treated with MTXhowever had associated thrombocytopenia this regimen altered, Chronic normocytic anemia, GERD who presents to the [facility] ED on 01/23/25 with history of onset right knee pain, bilateral shoulder discomfortand right elbow pain starting 24 hours prior which was consistent per her report to previous episodes of rheumatoid arthritis flare with initiation of a burst of prednisone with a total of 30 mg on current day of presentation and also evaluation by her parking inspector who did perform a right knee arthrocentesis andthe fluid was sent for culture to be cautious following which she notes the painimproved however she had low-grade temperatures and fatigue and malaise eventually prompting referral tothe ED given concerns per parking inspector of infection. #1. Intractable right knee pain, edema, redness with recent joint aspiration with concern for septic joint: Will admit to [facility], maintain on IV Vanco and cefepime pending cultures, orthopedic surgery consulted and following, plan repeat CBC in AM, continue affected extremity elevation above heart whenseated and in bed, will have as needed oral and IV pain regimen, antiemetics, judiciousIV fluids, plan n.p.o. status after midnight for possible operative interventionneeds, ESR and CRP requested, infectious disease also consulted. #2. Rheumatoid arthritis with recent flare: Per current list appears to be on Cimzia, azathioprine,sulfasalazine, previously Humira and intermittent prednisone as well as intermittent meloxicam but clarifying his medications havenot been reconciled, previously been on methotrexate but this per records had been associated with thrombocytopenia which appears currently resolved, may be no longer taking. Will hold on further aggressive steroids per discussion with patient given concerns for #1 acute infection. #3. Elevated BP without hypertensive diagnosis: BP upon presentation elevated above goal, likely pain related, continue to monitor and add regimen if appropriate, in the interim as needed IV hydralazine. #4. Chronic normocytic anemia: Admission hemoglobin 11.8, MCV 81.9, baseline hemoglobin most recently 01/15/25 hemoglobin 11.9, similar, continue to trend. #5. History of thrombocytopenia: Admission platelets 188, previously had been low but from review of oncology/hematology notes appears to be related to previous usage of methotrexate. #6. Allergic rhinitis: We will continue patient on fluticasone regimen. #7. Obesity: Weight loss and lifestyle changes encouraged. #8. GERD: Not on any chronic regimen per current list, will have as needed Mylanta #9. DVT prophylaxis: SCDs, hold chemoprophylaxis for planned operative intervention. Charges/Coding Visit Charges Inpatient E&M: 53871 Init Hosp L3 01/23/252006 Cosigner Signature (if applicable): CC: JULIANN Tijerina; Dr. Destiney Lane MD~ Signed [facility]03-04-2025 Radiology Diagnostic study note [facility] Imaging Services [facility] [place], [place] [address] Knee 4 or More Views MR#: [id number] Acct: [id number] Name: CHRISTINE NERI Rep #: [id number] : 1990 F 34 From: He Saba DO PCP: JULIANN Whitfield Status: PRE ER Study:Knee 4 or More Views Date of Exam: 01/23/25 Exam# [id number] Ordering Dr: Ian Moctezuma DO PROCEDURE: KNEE 4 OR MORE VIEWS REASON FOR EXAM: Swelling TECHNIQUE: 4 view(s) of the right knee COMPARISON: None. FINDINGS: No fracture. No suspicious bone lesion. Severe tricompartmental narrowing with osteophyte formation. Small suprapatellar joint effusion. Soft tissues are unremarkable. RAD/Knee 4 or More Views IMPRESSION: Severe degenerative changes of the knee joint as described above with suprapatellar joint effusion.No acute fracture. Reading Location: [facility] CC: FRUIT LOADER MACHINE OPERATOR-C Amira Tijerina; Dr. Ian Moctezuma DO ~ [employer] Director: Signed [facility]10-23-2023 Telephone encounter Note* Telephone Encounter - Kath Yen LPN - 09/13/2023 1:22 PM EDT Letter printed and mailed. [id number] Miscellaneous Notes* Telephone Encounter - Kath Yen LPN - 09/13/2023 1:22 PM EDT Letter printed and mailed. * Telephone Encounter - Deb Rueda MD - 09/13/2023 12:49 PM EDT Please mail my letter to the patient's home address please documented in this encounterSKnox Community [id number] Telephone encounter Note* Telephone Encounter - Deb Rueda MD - 09/13/2023 12:49 PM EDT Please mail my letter to the patient's home address please [id number] Telephone encounter Note* Telephone Encounter - uDlce Maria Sharif MA - 06/30/2023 9:37 AM EDT Christine called back. She is now seeing FRUIT LOADER MACHINE OPERATOR Amira Tijerina @ [facility] in [place], [place]. [place] [id number] Miscellaneous Notes* Telephone Encounter - Dulce Maria Sharif MA - 06/30/2023 9:37 AM EDT Christine called back. She is now seeing FRUIT LOADER MACHINE OPERATOR Amira Tijerina @ [facility] in [place], [place]. * Telephone Encounter - Dulce Maria Sharif MA - 06/30/2023 9:01 AM EDT Left a msg for Christine notifying her we have Hiwot Paz NP listed for her PCP. Dr. Rueda wanted to send her a letter, but Hiwot no longer resides in [place] she is now in [place]. I left Christine a msgasking her to call our office to let me know who her new PCP is so we can send the letter to them. documented in this encounterSKnox Community [id number] Telephone encounter Note* Telephone Encounter - Dulce Maria Sharif MA - 06/30/2023 9:01 AM EDT Left a msg for Christine notifying her we have Hiwot Paz FRUIT LOADER MACHINE OPERATOR listed for her PCP. Dr. Rueda wanted to send her a letter, but Hiwot no longer resides in [place] she is now in [place]. I left Christine lee msgasking her to call our office to let me know who her new PCP is so we can send the letter to them. [facility] [id number] Telephone encounter Note* Telephone Encounter - Laura Amato RN - 06/23/2023 8:11 AM EDT Mailed this am [facility] [id number] Miscellaneous Notes* Telephone Encounter - Laura Amato RN - 06/23/2023 8:11 AM EDT Mailed this am * Telephone Encounter - Deb Rueda MD - 06/23/2023 7:40 AM EDT Please send lab slips for her 2 liver function tests (they are dated differently) to her home as she will get labs at outside hospital. Thanks! documented in this encounterSKnox Community [id number] Telephone encounter Note* Telephone Encounter - Deb Rueda MD - 06/23/2023 7:40 AM EDT Please send lab slips for her 2 liver function tests (they are dated differently) to her home as she will get labs at outside hospital. Thanks! [facility] [id number] History of Present illness Narrative* Deb Rueda MD - 06/21/2023 8:30 AM EDT Images from the original note were not included. 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 HISTORY OF PRESENT ILLNESS The patient is a 32 y.o. female with presenting with a history of rheumatoid arthritis which was diagnosed in 2019, for which she has been on immunosuppressive therapy with Humira after having difficulties with methotrexate causing platelet depression and failing to respond to Plaquenil she is alsoon additional treatment with azathioprine and sulfamethoxazole as well as Mobic. 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 She states that she had had a series of screening tests Before starting Humira but is not sure that a QuantiFERON was included in those tests. She does know that she was notified that her QuantiFERON test was positive in Dr. Nirmal Ramos's office on May 19 along with other routine tests that were negative including normal liver function tests at that time the TB screen showed a NIL of 0.04, with mitogen 9.56, TB 1 of 2.79, TB 2to 3.06. Because this was positive, this was repeated a week later and I did not have those test results but according to the patient who was able to pull them up from her records from [facility] where itwas done (this was a different lab than her original test) the Nil and mitogen tests showed good T-c ell responses but there was a drop of the TB 1-2.2 and the greater drop in the TB 2-1.7. For this reason the patient was sent for further evaluation for treatment of latent TB. She has no history of exposure to anyone that she is aware of that has tuberculosis whether it be in her family or in her line of work. She has not worked with immigrant peoples, been in snf's or worked with people incarcerated nor has she volunteered in any homeless shelters. She lives with her sister who is a fresh meat grader and neither of them have had any prolonged respiratory illnesseswith associated night sweats weight loss that is unexpected or bloody sputum. In fact the patient states that she gets occasional head colds but has never had a pneumonia or serious bronchial infection. The patient has not traveled outside [place] been just to surrounding states including [place]. 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 However was [place], [place] has an very low incidence of TB. We had a thorough discussion of TB disease, how the bacterial infection is transmitted, the risk ofactive vs latent disease, disease infection manifestations, as well as drug treatment options to avoid reactivation of latent TB and their side effects as well as need to monitor liver tests while on therapy. Past Medical History: Diagnosis Date Abnormal reaction to tuberculin test Past Surgical History: Procedure Laterality Date DENTAL SURGERY April 2019 Current Outpatient Medications Medication Sig Dispense Refill adalimumab (Humira) 40 MG/0.4ML Prefilled Syringe Kit prefilled syringe azaTHIOprine (Imuran) 50 MG tablet predniSONE (Deltasone) 5 MG tablet sulfaSALAzine (Azulfidine) 500 MG tablet No current facility-administered medications for this visit. No Known Allergies Social History Socioeconomic History Marital status: Unknown Spouse name: Not on file Number of children: Not on file Years of education: Not on file Highest education level: Not on file Occupational History Not on file Tobacco Use Smoking status: Never Smokeless tobacco: Never Substance and Sexual Activity Alcohol use: Yes Alcohol/week: 1.0 standard drink of alcohol Types: 1 Standard drinks or equivalent per week Comment: socially Drug use: Never Sexual activity: Yes Partners: Male Other Topics Concern Not on file Social History Narrative Not on file Social Determinants of Health Financial Resource Strain: Not on file Food Insecurity: Not on file Transportation Needs: Not on file Physical Activity: Not on file Stress: Not on file Social Connections: Not on file Intimate Partner Violence: Not on file Housing Stability: Not on file Family History Problem Relation Name Age of Onset Cancer Mother Janki mitchell Diabetes Maternal Grandfather Liu joe Heart disease Maternal Grandfather Liu joe Heart disease Maternal Grandmother Rama joe Heart disease Paternal Grandfather Edwin Neri Review of Systems Constitutional: Negative for activity change, appetite change, chills, diaphoresis, fatigue, fever and unexpected weight change. HENT: Negative. Eyes: Negative. Respiratory: Negative. Cardiovascular: Positive for leg swelling. Negative for chest pain and palpitations. Gastrointestinal: Negative. Endocrine: Negative. Genitourinary: Negative. Musculoskeletal: Positive for arthralgias and joint swelling. RA symptoms affect multiple joints- initially R knee then more generalized involving both knees wrists, hands, ankles mostly. But now better controlled with addition of Azathioprine and sulfasalazineto Mobic and Humira. (Since Humira on hold for the positive Quant test, she is now on prn 5 mg Prednisone) Skin: Negative. Neurological: Negative for seizures, speech difficulty, weakness, light- headedness, numbness and headaches. Hematological: Negative for adenopathy. Does not bruise/bleed easily. Psychiatric/Behavioral: Negative. Vitals: 06/21/23 0815 BP: 112/72 BP Location: Left arm Patient Position: Sitting BP Cuff Size: Adult Pulse: 99 Temp: 36.2 C (97.2 F) SpO2: 97% Weight: 210 lb (95.3 kg) Height: 5' 5 (1.651 m) Physical Exam Vitals and nursing note reviewed. Constitutional: General: She is not in acute distress. Appearance: Normal appearance. She is obese. She is not ill-appearing or diaphoretic. HENT: Head: Normocephalic and atraumatic. Nose: Nose normal. Mouth/Throat: Mouth: Mucous membranes are moist. Pharynx: Oropharynx is clear. No oropharyngeal exudate or posterior oropharyngeal erythema. Eyes: General: No scleral icterus. Left eye: No discharge. Extraocular Movements: Extraocular movements intact. Conjunctiva/sclera: Conjunctivae normal. Pupils: Pupils are equal, round, and reactive to light. Cardiovascular: Rate and Rhythm: Normal rate and regular rhythm. Heart sounds: Normal heart sounds. No murmur heard. Pulmonary: Effort: Pulmonary effort is normal. Breath sounds: Normal breath sounds. No stridor. No wheezing. Abdominal: General: Bowel sounds are normal. Palpations: Abdomen is soft. Tenderness: There is no abdominal tenderness. There is no right CVA tenderness or left CVA tenderness. Comments: No organomegaly Musculoskeletal: General: No tenderness or deformity. Normal range of motion. Cervical back: Normal range of motion and neck supple. Comments: Currently not having any active joint redness/swelling, and has not had deformities Skin: General: Skin is warm and dry. Capillary Refill: Capillary refill takes less than 2 seconds. Findings: Rash present. No lesion. Comments: Small round red flat lesion on back of L wrist 1.cm round Neurological: General: No focal deficit present. Mental Status: She is alert and oriented to person, place, and time. Sensory: No sensory deficit. Motor: No weakness. Coordination: Coordination normal. Gait: Gait normal. Psychiatric: Mood and Affect: Mood normal. Behavior: Behavior normal. Thought Content: Thought content normal. Judgment: Judgment normal. No results found for any previous visit. Antibiotics: ASSESSMENT & Plan Diagnosis Plan 1. Positive QuantiFERON-TB Gold test Repeat test one more time due to inconsistent numbers in last 2 tests, and the fact that she has no risk factors. If repeat test is positive again, will plan on 12 wks of once a week Rifapentine+INH, with daily pyridoxine 2. At risk for infection due to immunosuppression 3. Rheumatoid arteritis (CMS/HCC) (HCC) In good control but now off Humira, she has had to take 5 mg prednisone qod I spent total time 60 minutes caring for this patient today,including >51% in reviewing labs, records from another facility, interviewing and examining the patient and documenting, writing orders (prescriptions/meds), and instructing the patient on self care. Deb Rueda MD, MD, FACP documented in this [facility]07-31-2023 History of Present illness Narrative* Deb Rueda MD - 06/21/2023 8:30 AM EDT Images from the original note were not included. 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 HISTORY OF PRESENT ILLNESS The patient is a 32 y.o. female with presenting with a history of rheumatoid arthritis which was diagnosed in 2019, for which she has been on immunosuppressive therapy with Humira after having difficulties with methotrexate causing platelet depression and failing to respond to Plaquenil she is alsoon additional treatment with azathioprine and sulfamethoxazole as well as Mobic. 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 She states that she had had a series of screening tests Before starting Humira but is not sure that a QuantiFERON was included in those tests. She does know that she was notified that her QuantiFERON test was positive in Dr. Nirmal Ramos's office on May 19 along with other routine tests that were negative including normal liver function tests at that time the TB screen showed a NIL of 0.04, with mitogen 9.56, TB 1 of 2.79, TB 2to 3.06. Because this was positive, this was repeated a week later and I did not have those test results but according to the patient who was able to pull them up from her records from [facility] where itwas done (this was a different lab than her original test) the Nil and mitogen tests showed good T-c ell responses but there was a drop of the TB 1-2.2 and the greater drop in the TB 2-1.7. For this reason the patient was sent for further evaluation for treatment of latent TB. She has no history of exposure to anyone that she is aware of that has tuberculosis whether it be in her family or in her line of work. She has not worked with immigrant peoples, been in snf's or worked with people incarcerated nor has she volunteered in any homeless shelters. She lives with her sister who is a fresh meat grader and neither of them have had any prolonged respiratory illnesseswith associated night sweats weight loss that is unexpected or bloody sputum. In fact the patient states that she gets occasional head colds but has never had a pneumonia or serious bronchial infection. The patient has not traveled outside [facility] been just to surrounding states including [place]. 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 However was [place], [place] has an very low incidence of TB. We had a thorough discussion of TB disease, how the bacterial infection is transmitted, the risk ofactive vs latent disease, disease infection manifestations, as well as drug treatment options to avoid reactivation of latent TB and their side effects as well as need to monitor liver tests while on therapy. Past Medical History: Diagnosis Date Abnormal reaction to tuberculin test Past Surgical History: Procedure Laterality Date DENTAL SURGERY April 2019 Current Outpatient Medications Medication Sig Dispense Refill adalimumab (Humira) 40 MG/0.4ML Prefilled Syringe Kit prefilled syringe azaTHIOprine (Imuran) 50 MG tablet predniSONE (Deltasone) 5 MG tablet sulfaSALAzine (Azulfidine) 500 MG tablet No current facility-administered medications for this visit. No Known Allergies Social History Socioeconomic History Marital status: Unknown Spouse name: Not on file Number of children: Not on file Years of education: Not on file Highest education level: Not on file Occupational History Not on file Tobacco Use Smoking status: Never Smokeless tobacco: Never Substance and Sexual Activity Alcohol use: Yes Alcohol/week: 1.0 standard drink of alcohol Types: 1 Standard drinks or equivalent per week Comment: socially Drug use: Never Sexual activity: Yes Partners: Male Other Topics Concern Not on file Social History Narrative Not on file Social Determinants of Health Financial Resource Strain: Not on file Food Insecurity: Not on file Transportation Needs: Not on file Physical Activity: Not on file Stress: Not on file Social Connections: Not on file Intimate Partner Violence: Not on file Housing Stability: Not on file Family History Problem Relation Name Age of Onset Cancer Mother Janki mitchell Diabetes Maternal Grandfather Liu joe Heart disease Maternal Grandfather Liu joe Heart disease Maternal Grandmother Rama joe Heart disease Paternal Grandfather Edwin Neri Review of Systems Constitutional: Negative for activity change, appetite change, chills, diaphoresis, fatigue, fever and unexpected weight change. HENT: Negative. Eyes: Negative. Respiratory: Negative. Cardiovascular: Positive for leg swelling. Negative for chest pain and palpitations. Gastrointestinal: Negative. Endocrine: Negative. Genitourinary: Negative. Musculoskeletal: Positive for arthralgias and joint swelling. RA symptoms affect multiple joints- initially R knee then more generalized involving both knees wrists, hands, ankles mostly. But now better controlled with addition of Azathioprine and sulfasalazineto Mobic and Humira. (Since Humira on hold for the positive Quant test, she is now on prn 5 mg Prednisone) Skin: Negative. Neurological: Negative for seizures, speech difficulty, weakness, light- headedness, numbness and headaches. Hematological: Negative for adenopathy. Does not bruise/bleed easily. Psychiatric/Behavioral: Negative. Vitals: 06/21/23 0815 BP: 112/72 BP Location: Left arm Patient Position: Sitting BP Cuff Size: Adult Pulse: 99 Temp: 36.2 C (97.2 F) SpO2: 97% Weight: 210 lb (95.3 kg) Height: 5' 5 (1.651 m) Physical Exam Vitals and nursing note reviewed. Constitutional: General: She is not in acute distress. Appearance: Normal appearance. She is obese. She is not ill-appearing or diaphoretic. HENT: Head: Normocephalic and atraumatic. Nose: Nose normal. Mouth/Throat: Mouth: Mucous membranes are moist. Pharynx: Oropharynx is clear. No oropharyngeal exudate or posterior oropharyngeal erythema. Eyes: General: No scleral icterus. Left eye: No discharge. Extraocular Movements: Extraocular movements intact. Conjunctiva/sclera: Conjunctivae normal. Pupils: Pupils are equal, round, and reactive to light. Cardiovascular: Rate and Rhythm: Normal rate and regular rhythm. Heart sounds: Normal heart sounds. No murmur heard. Pulmonary: Effort: Pulmonary effort is normal. Breath sounds: Normal breath sounds. No stridor. No wheezing. Abdominal: General: Bowel sounds are normal. Palpations: Abdomen is soft. Tenderness: There is no abdominal tenderness. There is no right CVA tenderness or left CVA tenderness. Comments: No organomegaly Musculoskeletal: General: No tenderness or deformity. Normal range of motion. Cervical back: Normal range of motion and neck supple. Comments: Currently not having any active joint redness/swelling, and has not had deformities Skin: General: Skin is warm and dry. Capillary Refill: Capillary refill takes less than 2 seconds. Findings: Rash present. No lesion. Comments: Small round red flat lesion on back of L wrist 1.cm round Neurological: General: No focal deficit present. Mental Status: She is alert and oriented to person, place, and time. Sensory: No sensory deficit. Motor: No weakness. Coordination: Coordination normal. Gait: Gait normal. Psychiatric: Mood and Affect: Mood normal. Behavior: Behavior normal. Thought Content: Thought content normal. Judgment: Judgment normal. No results found for any previous visit. Antibiotics: ASSESSMENT & Plan Diagnosis Plan 1. Positive QuantiFERON-TB Gold test Repeat test one more time due to inconsistent numbers in last 2 tests, and the fact that she has no risk factors. If repeat test is positive again, will plan on 12 wks of once a week Rifapentine+INH, with daily pyridoxine 2. At risk for infection due to immunosuppression 3. Rheumatoid arteritis (CMS/HCC) (HCC) In good control but now off Humira, she has had to take 5 mg prednisone qod I spent total time 60 minutes caring for this patient today,including >51% in reviewing labs, records from another facility, interviewing and examining the patient and documenting, writing orders (prescriptions/meds), and instructing the patient on self care. Deb Rueda MD, , FACP documented in this [place] [address]-31-2023 Instructions* Patient Instructions* Deb Rueda MD - 06/21/2023 8:30 AM EDT Will repeat Quantiferon test one last time due to declining numbers on last test and the fact that you have no know risk factors Will call you with results. documented in this [facility]07-31-2023 Instructions* Patient Instructions* Deb Rueda MD - 06/21/2023 8:30 AM EDT Will repeat Quantiferon test one last time due to declining numbers on last test and the fact that you have no know risk factors Will call you with results. documented in this [place] [address]-31-2023 Miscellaneous Notes* Addendum Note - Deb Rueda MD - 06/21/2023 8:30 AM EDTAddended by: QUINN-DEB HOGAN on: 06/23/2023 07:40 AM Modules accepted: Orders documented in this [place] [address]-31-2023 Note* Addendum Note - Deb Rueda MD - 06/21/2023 8:30 AM EDTAddended by: DEB COOMBS on: 06/23/2023 07:40 AM Modules accepted: [id number]* Addendum Note - Deb Rueda MD - 06/21/2023 8:30 AM EDTAddended by: DEB COOMBS on: 06/23/2023 07:40 AM Modules accepted: [id number]* Addendum Note - Deb Rueda MD - 06/21/2023 8:30 AM EDTAddended by: DEB COOMBS on: 06/23/2023 07:40 AM Modules accepted: Orders [id number] NoteHNO ID: [id number] Author: Ferny Rowan APRN.CAN DOFFER Service: ? Author Type: Nurse Practitioner Type: Progress Notes Filed: 07/22/2021 5:18 PM Note Text: Subjective HPI A nontoxic appearing female presents to urgent care with chief complaint of possible UTI. Duration of symptoms 5 days. Associated symptoms dysuria, frequency, and urgency. States use of Azo for symptom management good success. Denies any pain currently. Patient denies any fevers, flank pain, abdominal pain, nausea, vomiting, vaginal discharge, chance of STDs, chance of , or urological abnormalities. .Patient presents with: Urinary Problem: dysuria, low back pain x1 week History reviewed. No pertinent past medical history. History reviewed. No pertinent surgical history. ALLERGIES Patient has no known allergies. MEDICATIONS meloxicam (MOBIC) 15 mg tablet Take 15 mg by mouth once daily. predniSONE 20 mg ORAL Tab Take two pills po daily. cetirizine 10 mg ORAL Tab Take one(1) tablet daily. FAMILY HISTORY Problem Relation Age of Onset - Diabetes Maternal Grandfather Social History Tobacco Use - Smoking status: Never Smoker - Smokeless tobacco: Never Used Substance Use Topics - Alcohol use: No - Drug use: No BP 120/82 Pulse 79 Temp 37.1 ?C (98.8 ?F) Resp 16 Wt 88 kg (194 lb) LMP 04/20/2007 SpO2 99% Review of Systems Constitutional: Negative for chills, fever and malaise/fatigue. HENT: Negative for congestion, ear discharge, ear pain, sinus pain and sore throat. Eyes: Negative for blurred vision, pain, discharge and redness. Respiratory: Negative for cough, sputum production, shortness of breath and wheezing. Cardiovascular: Negative for chest pain. Gastrointestinal: Negative for abdominal pain, constipation, diarrhea, nausea and vomiting. Genitourinary: Positive for dysuria, frequency and urgency. Negative for flank pain and hematuria. Musculoskeletal: Negative for myalgias. Skin: Negative for itching and rash. Neurological: Negative for dizziness and headaches. Objective Physical Exam Constitutional: General: She is not in acute distress. Appearance: She is not diaphoretic. HENT: Head: Normocephalic. Eyes: Conjunctiva/sclera: Conjunctivae normal. Pupils: Pupils are equal, round, and reactive to light. Cardiovascular: Rate and Rhythm: Normal rate and regular rhythm. Heart sounds: Normal heart sounds. Pulmonary: Effort: Pulmonary effort is normal. No tachypnea, accessory muscle usage or respiratory distress. Breath sounds: Normal breath sounds. Abdominal: Palpations: Abdomen is soft. Tenderness: There is no abdominal tenderness. There is no right CVA tenderness or left CVA tenderness. Musculoskeletal: Cervical back: Normal range of motion and neck supple. No rigidity or tenderness. Lymphadenopathy: Cervical: No cervical adenopathy. Skin: General: Skin is warm and dry. Neurological: Mental Status: She is alert and oriented to person, place, and time. ASSESSMENT/PLAN: 1. Dysuria - ICD9: 788.1, ICD10: R30.0 - UA DIP, URINE (POC) - URINE CULTURE Urinalysis reviewed patient did take Azo. Positive for nitrates. With patient's symptoms will be placed on Keflex. Urine culture pending. Alternative diagnosis discussed. Red flags for evaluation discussed. Patient was educated on supportive therapies. Patient will follow up with primary care provider as needed. Patient was instructed to immediately proceed to emergency room for any new, worsening, or symptoms lasting longer than anticipated. The patient's clinical presentation is otherwise unremarkable at this time. Based on exam and clinical finding, the patient is stable for discharge. Plan of care was discussed with patient. Patient verbalizes understanding and agrees to plan of care. This note was generated using [employer] FFT software. It may contain errors in wording, punctuation, or spelling. Ferny Rowan APRN.[facility] summary Author Christine Reveles [facility] Note Date/Time January 26, 2025 1:41 pm [facility] Medical Records Department [address] [place] [address] Discharge Summary 01/26/25 1332 MR#: [id number] Acct: [id number] Name: CHRISTINE NERI Rep #:[id number] : 1990 34 From: Christine Reveles MD PCP: JULIANN Whitfield Status:ADM IN Location: [place] [address] Providers Date of Admission: 01/23/25 Date of Discharge: 01/26/25 Primary Care Physician: JULIANN Whitfield Consultations 01/23/25 22:21 Consult: Infectious Disease Routine Consulting Provider: Pal Rich Reason for Consult: R septic knee EMERGENT Consult: No Notified: Yes Date Notified: 01/23/25 Time Notified: 19:33 Method of Notification: Text Consult: Orthopedics Routine Consulting Provider: Mckinley Romo Reason for Consult: R septic knee EMERGENT Consult: No Notified: Yes Date Notified: 01/23/25 Time Notified: 19:32 Method of Notification: ED Physician Initiated Reason For Visit: R SEPTIC KNEE Diagnosis Discharge Diagnosis (1) Septic arthritis of knee, right: Status: Acute Code(s): M00.9 - Pyogenic arthritis, unspecified Plan #Right knee arthritis -Received IV antibiotics for 3 days vancomycin and ceftriaxone -Start on p.o. Levaquin and doxycycline for 2 weeks and follow-up with ID as an outpatient -Appreciate ID input -Pain well-controlled at this time # Right superficial thrombophlebitis -Pain is minimal, warm compressions # Rheumatoid arthritis -Therapy with Cimzia, azathioprine, sulfasalazine, previously on Humira and intermittent prednisone -Follow-up with outpatient rheumatology #Anemia of chronic disease -Hemoglobin 9.8, MCV 81.9 -continue to monitor #Chronic medical issues #Obesity #GERD #Allergies rhinitis Medications at Discharge Home Medications fluticasone propionate 50 mcg/actuation nasal spray,suspension (Flonase Allergy Relief) 1 spray intranasal DAILY 10/03/21 meloxicam 15 mg tablet 15 mg PO DAILY 10/03/21 azathioprine 50 mg tablet 50 mg PO DAILY 01/23/25 prednisone 10 mg tablet 10 mg PO Q12H 01/23/25 sulfasalazine 500 mg tablet,delayed release 1,500 mg PO BID 01/23/25 doxycycline hyclate 100 mg capsule 100 mg PO BID #28 caps 01/26/25 levofloxacin 500 mg tablet 500 mg PO DAILY #14 tabs 01/26/25 Hospital Course Operations arthroscopy, knee Procedures None Summary of Care Provided Minutes Spent on Discharge: 20 Hospital Course: 34-year-old female with history of rheumatoid arthritis on methotrexate with associated thrombocytopenia, chronic normocytic anemia, GERD, obesity was admitted for concerns regarding right knee pain with bilateral shoulder discomfort and right elbow pain for the last 24 hours consistent with a rheumatoid arthritis flare versus expected arthritis. She underwent incision and drainage of the right knee. Cultures have been negative so far. She is beingdischarged home to continue antibiotics and will follow up with ID as an outpatient. Physical Exam Const alert and oriented x3 HEENT normocephalic Eyes PERRL Neck no lymphadenopathy Resp normal respiratory effort Cardio regular rate and regular rhythm GI normal to inspection, nondistended, normoactive bowel sounds Extremity normal to inspection Extremity Narrative: edema present over the right knee, suture sites are healthy and well-healing. No tenderness. left extremity normal Weight / BMI Weight Weight: 217 lb 6.012 oz Body Mass Index (BMI) 36.2 ABG / Lab / Microbiology Data 01/24/25 05:00 01/26/25 08:04 Laboratory: Laboratory Results - last 24 hr 01/26/25 08:04: Creatinine 0.58 L, Estim Creat Clear Calc 155.89, Est GFR (MDRD)Non-Af 120, Vancomycin Trough 17.7 H Microbiology: Microbiology 01/23/25 18:22 Blood Culture (Wb) - Arm Left Blood Culture - Preliminary No growth in 48 hours. 01/23/25 18:22 Blood Culture (Wb) - Anticubital Right Blood Culture - Preliminary No growth in 48 hours. 01/24/25 Unknown Aspirate - Knee Gram Stain - Final 01/24/25 Unknown Aspirate - Knee Wound Culture - Preliminary No growth-Final to follow 01/24/25 Unknown Aspirate - Knee Anaerobic Culture - Preliminary No growth in 48 hours. D/C Instructions DC O2, CPAP, BIPAP Needs Home O2 Discharge instructions: No Meaningful Use Info Meaningful Use Meaningful Use Diagnoses (Choose all that apply): None applicable Ischemic Stroke Statin Dosing Therapy Reference: STATIN DOSE THERAPY REFERENCE: * Patients > 75 years receive moderate or high dose statin therapy. * Patients 75 years or YOUNGER should receive HIGH intensity statin dose unless contraindicated. You will be required to document reason for non-treatment if statin daily dose does not meet guidelines. HIGH DOSE STATIN THERAPY DAILY Atorvastatin > than or = to 40 mg Rosuvastatin > than or = to 20 mg Amlodipine + Atorvastatin > than or = to 2.5/40 mg Ezetimibe + Simvastatin 10/80 mg Simvastatin 80mg Discharge Plan Admission Admit Date/Time: 01/23/25 19:32 Primary Reason for Your Visit: Right septic arthritis Attending Provider: Christine Reveles Primary Care Provider: Amira Tijerina NP Consulting Providers: Mckinley Romo; Destiney Lane; Pal Rich Discharge Orders/Prescriptions Prescriptions: New levofloxacin 500 mg tablet 500 mg PO DAILY Qty: 14 0RF doxycycline hyclate 100 mg capsule 100 mg PO BID Qty: 28 0RF No Action meloxicam 15 mg tablet 15 mg PO DAILY fluticasone propionate [Flonase Allergy Relief] 50 mcg/actuation spray,suspension 1 spray intranasal DAILY Rx Instructions: administer into each nostril prednisone 10 mg tablet 10 mg PO Q12H Patient Comments: [NO ORIGINAL SIG] sulfasalazine 500 mg tablet,delayed release (DR/EC) 1,500 mg PO BID azathioprine 50 mg tablet 50 mg PO DAILY Referrals / Follow Up: Amira Tijerina NP, FRUIT LOADER MACHINE OPERATOR-C [Primary Care Provider] - Disposition Disposition (needs filled in before D/C Order can be placed): Home, Self Care 01/26/25 1341 <Electronically signed by Christine Reveles MD> Cosigner Signature (if applicable): CC: JULIANN Tijerina; Dr. Christine Reveles MD~ Signed [facility] Work Phone: Evaluation + Plan note No data available for this section [facility] Evaluation noteNo assessment information available [facility] Work Phone: Evaluation note* Diagnosis Nonspecific reaction to tuberculin skin test without active tuberculosis documented in this encounter [facility] note* 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 At risk for infection due to immunosuppression Rheumatoid arteritis (CMS/HCC) (HCC) Other specified disorders of arteries and arterioles documented in this encounter [facility] note* 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 At risk for infection due to immunosuppression Rheumatoid arteritis (CMS/HCC) (HCC) Other specified disorders of arteries and arterioles Encounter for medication monitoring Encounter for therapeutic drug monitoring documented [facility]* Diagnosis 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 documented in this encounter [facility] Discharge instructions No data available for this section [facility] Progress note No data available for this section 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 Advance Directives and Livin g Will 06/01/2023 4:02 PM Power of Research Scholar 06/01/2023 4:02 PM Advance Directive Response Recorded Date/ Time Living Will No January 24, 2025 4:25pm Power of Research Scholar No January 24 4:25pm Chief Complaint and Reason for Visit Chief Complaint Encounter for genera l adult medical examination wi Chief Complaint Admit Date R SEPTIC KNEE January 23, 2025 7:32 pm R SEPTIC KNEE January 24, 2025 2:03 pm R SEPTIC KNEE January 25, 2025 4:32 pm R SEPTIC KNEE January 26, 2025 1:32 pm Reason for Visit Admit Date Elevated blood pressure reading January 7:32pm Septic arthritis of knee, right January 4t h, 2024 7:32pm Rheumatoid arthritis January 23, 2025 7:3 2pm Additional Source Comments INFORMATION SOURCE (unrecogn ized section and content) DATE CREATED AUTHOR 12/26/2021 [facility] DATE CREATED AUTHOR AUTHOR'S ORGANIZ ATION 09/14/2023 [facility] DATE CREATED AUTHOR AUTHOR'S ORGANIZ ATION 09/17/2024 [facility] DATE CREATED AUTHOR AUTHOR'S ORGANIZ ATION 02/03/2025 [facility] Care Teams (unrecognized sec tion and content) Team Status: Active Member Role Status Dates Hiwot Paz FRUIT LOADER MACHINE OPERATOR, FRUIT LOADER MACHINE OPERATOR-C Primary Care Provider Active Team Status: Inactive Member Role Status Dates Hiwot Paz FRUIT LOADER MACHINE OPERATOR, FRUIT LOADER MACHINE OPERATOR-C Primary Care Provider Active NIRMAL RAMOS MD Attending Provider, Referring Pro vider Active Completion Supervisor Relationship Specialty Start Date End Date Jackson Hiwot [address] PCP - General Nurse Practitioner 05/26/23 Completion Supervisor Relationship Specialty Start Date End Date PazHiwot young [address] PCP - General Nurse Practitioner 05/26/23 Completion Supervisor Relationship Specialty Start Date End Date Paz Hiwot [address] PCP - General Nurse Practitioner 05/26/23 Team Status: Active Member Role Status Dates Amira Tijerina FRUIT LOADER MACHINE OPERATOR, FRUIT LOADER MACHINE OPERATOR-C Primary Care Provider Active Team Status: Inactive Member Role Status Dates Amira Tijerina FRUIT LOADER MACHINE OPERATOR, FRUIT LOADER MACHINE OPERATOR-C Primary Care Provider, Attendin g Provider Active Completion Supervisor Relationship Specialty Start Date End Date Amira Tijerina [address] [place] [address] PCP - General Family Medicine 06/30/23 Completion Supervisor Relationship Specialty Start Date End Date PazHiwot [address] PCP - General Nurse Practitioner 05/26/23 06/29/23 Amira Tijerina [address] [place] [phone] PCP - General Family Medicine 06/30/23 Completion Supervisor Relationship Specialty Start Date End Date Hiwot Paz [address] PCP - General Nurse Practitioner 05/26/23 06/29/23 Team Status: Inactive Member Role Status Dates Amira Tijerina FRUIT LOADER MACHINE OPERATOR, FRUIT LOADER MACHINE OPERATOR-C Primary Care Provider Active Dr. Deb MORELOS MD Attending Provider, Referring Provider Active Completion Supervisor Relationship Specialty Start Date End Date Hiwot Paz [address] PCP - General Nurse Practitioner 05/26/23 06/29/23 Amira Tijerina [address] [place] [phone] PCP - General Family Medicine 06/30/23 Completion Supervisor Relationship Specialty Start Date End Date Amira Tijerina [address] [place] [phone] PCP - General Family Medicine 06/30/23 Team Status: Inactive Member Role Status Dates Amira Tijerina NP, FRUIT LOADER MACHINE OPERATOR-C Primary Care Provider Active Start: December 26, 2024 End: December 26, 2024 DORINA SCHMIDT Attending Provider Active Start : December 26, 2024 End: December 26, 2024 DORINA SCHMIDT Referring Provider Active Start : December 26, 2024 End: December 26, 2024 Team Status: Inactive Member Role Status Dates Amira Tijerina FRUIT LOADER MACHINE OPERATOR, FRUIT LOADER MACHINE OPERATOR-C Primary Care Provider Active Start: January 23, 2025 End: January 26, 2025 Dr. Ian Moctezuma , Emergency Provider Active Start: January 23, 2025 End: January 26, [address] MD Admit Provider Active St art: January 23, 2025 End: January 26, [address] MD Other Provider Active St art: January 23, 2025 End: January 26, 2025 Dr. Mckinley Romo DO Other Provider Active Start: January 23, 2025 End: January 26, 2025 Dr. Christine Reveles MD Attending Provider Active Start: January 23, 2025 End: January 26, 2025 Dr. Pal Rich MD Other Provider Active Start: January 23, 2025 End: January 26, 2025 Team Status: Active Member Role Status Dates Amira Tijerina NP, FRUIT LOADER MACHINE OPERATOR-C Primary Care Provider Active Start: January 24, 2025 Dr. Ian Moctezuma DO Emergency Provider Active Start: January 24, [address] MD Admit Provider Active St art: January 24, [address] MD Other Provider Active St art: January 24, 2025 Dr. Mckinley Romo DO Other Provider Active Start: January 24, 2025 Dr. Christine Reveles MD Attending Provider Active Start: January 24, 2025 Dr. Christine Reveles MD Other Provider Active St art: January 24, 2025 Dr. Pal Rich MD Other Provider Active Start: January 24, 2025 Team Status: Active Member Role Status Dates Amira Tijerina NP, FRUIT LOADER MACHINE OPERATOR-C Primary Care Provider Active Start: January 25, 2025 Dr. Ian Moctezuma DO Emergency Provider Active Start: January 25, [address] MD Admit Provider Active St art: January 25, [address] MD Other Provider Active St art: January 25, 2025 Dr. Mckinley Romo DO Other Provider Active Start: January 25, 2025 Dr. Christine Reveles MD Attending Provider Active Start: January 25, 2025 Dr. Christien Reveles MD Other Provider Active St art: January 25, 2025 Dr. Pal Rich MD Other Provider Active Start: January 25, 2025 Team Status: Active Member Role Status Dates Amira Tijerina NP, FRUIT LOADER MACHINE OPERATOR-C Primary Care Provider Active Start: January 26, 2025 Dr. Ian Moctezuma DO Emergency Provider Active Start: January 26, [address] MD Admit Provider Active St art: January 26, [address] MD Other Provider Active St art: January 26, 2025 Dr. Mckinley Romo DO Other Provider Active Start: January 26, 2025 Dr. Christine Reveles MD Attending Provider Active Start: January 26, 2025 Dr. Christine Reveles MD Other Provider Active St art: January 26, 2025 Dr. Pal Rich MD Other Provider Active Start: January 26, 2025 Goals (unrecognized section and content) Goals may be documented in a n alternate sectionGoals may be documented in an alternate sectionGoals may be documented in an alternate sectionGoals may be documented in an alternate sectionGoals may be documented in an alternate sectionGoals may be documented in an alternate section No data available for this section Reason for Visit (unrecogniz ed section and content) Reason Comments New Patient new patient +Quant; pt w/rheumatoid arthritis on Humira, updated TB test (& repeat test) were positive. Specialty Diagnoses / Procedures Referred By Contac t Referred To Contact Infectious Diseases Diagnoses Nonspecific reaction to cell mediated immunity measurement of gamma interferon antigen response without active tuberculosis +Quant; pt w/rheumatoid arthritis on Humira, updated TB test (& repeat test) were positive. Biologic therapy has been paused pending ID eval/recommendations Procedures RI OFFICE/OUTPATIENT NEW MODERATE MDM 45-59 MINUTES Nirmal Ramos MD [address] [place] [address] [facility] [address] [place] [address] Referral ID Status Reason Start Date Expiration Date Visits Re quested Visits Authorized [id number] Closed 05/26/2023 05/25/2024 1 1 FOR RECORDS PERTAINING TO PATIENTS WHO ARE OR HAVE BEEN ENROLLED IN A CHEMICAL DEPENDENCY/SUBSTANCEABUSE PROGRAM, SOME INFORMATION MAY BE OMITTED. This clinical summary was aggregated from multiple sources. Caution should be exercised in using it in the provision of clinical care. This summary normalizes information from multiple sources, and as a consequence, information in this document may materially change the coding, format and clinical context of patient data. In addition, data may be omitted in some cases. CLINICAL DECISIONS SHOULD BE BASED ON THE PRIMARY CLINICAL RECORDS. [facility]. provides no warranty or guarantee of the accuracy or completeness of information in this document.
[2025-05-03 10:44] LABS: Absolute Lymphocyte Count 1.33 X10^3/uL (0.83-4.51); Absolute Neutrophil Count 3.6 X10^3/uL (2.0-7.7); Basophil# 0.02 X10^3/uL; Basophil% 0.4 % (0-1); Hematocrit 39.7 % (37-47); Lymphocyte # 1.33 X10^3/ul (0.83-4.51); Lymphocyte % 24.4 % (19-41); Mean Corp Hgb Conc 32.7 g/dL (32-36); Mean Corpuscular Hgb 28.4 pg (27.0-32.0); Mean Corpuscular Volume 86.7 fL (81-99); Monocyte# 0.45 X10^3/uL; Monocyte% 8.3 % (0-10); NRBC Flagged by Analyzer 0 % (0-5); Neutrophil # 3.63 X10^3/uL (2.7-7.7); Neutrophil % 66.5 % (47-70); Platelet Count 107 K/mm3 (150-450); RBC Distribution Width CV 18.5 % (11.6-14.6); RBC Distribution Width SD 58.4 fl (35.1-43.9); Red Blood Count 4.58 M/mm3 (4.2-5.4); White Blood Count 5.5 K/mm3 (4.4-11.0)
== END | disposition home or self-care (01) ==
LOC: MTLAB 07:17
PROVIDERS: PCP Nurse Practitioner Family
DX: D69.6 Thrombocytopenia, unspecified (principal)
CPT/HCPCS: 36415; 85025

== ENCOUNTER → 2025-05-17 | Outpatient (CLI) | payer OTHER, SELFPAY ==
--- OUTSIDE RECORDS SUMMARY | 2025-05-17 07:22 | XMS RPT_ITS | CCD ---
Author Organization [facility] CliniSyar Care Team Providers Care Roll Forming Machine Set Up Mechanic Name Role Phone Hiwot Paz Primary Care Provider Amira Tijerina Primary Care Provider Hiwot Paz Primary Care Provider HIWOT PAZ Primary Care Unavailable NIRMAL RAMOS Attending Unavailable NIRMAL RAMOS Referring Unavailable SIGNS, DEB J Referring Unavailable HIWOT PAZ Primary Care Unavailable SIGNS, DEB J Attending Unavailable SIGNS, DEB J Attending Unavailable HIWOT PAZ Primary Care Unavailable NIRMAL RAMOS Referring Unavailable ANNABEL APPLICATIONS PROJECT MANAGER-HA, HIWTO Primary Care Physician BREEZY OTT-AMIRA BONNER Attending Deann PAZ APRN-HA, HIWOT Primary Care Unavaila eloise Tijerina TOOL AND DIE MANAGER-C, [facility] Care Provider ROXANA CAM Attending Provider ROXANA CAM Referring Provider Dr. Ian Moctezuma DO Emergency Provider Domingo MELARA, Dr. Destiney Wick Admit Provider Dr. Destiney Lane MD Other Provider Dr. Mckinley Romo DO Other Provider Abdirizak MELARA, Dr. King Attending Provider Dr. Pal Gamez MD Other Provider Dr. Christine Reveles MD Other Provider Unavailab susana Tijerina TOOL AND DIE MANAGER-C, [facility] Care Provider Dr. Ian Moctezuma DO Emergency Provider Domingo MELARA, Dr. Destiney Wick Admit Provider Domingo MELARA, Dr. Destiney Wick Other Provider Dr. Mckinley Romo DO Other Provider Abdirizak MELARA, Dr. King Attending Provider Deann Rich MD, Dr. Aguillon Other Provider Abdirizak MELARA, Dr. King Other Provider Unavailab susana Varma MD, Dr. Sosa Attending Provider Abdirizak MELARA, Dr. King Referring Provider ROXANA Lopez CNP Attending Provider [phone] ROXANA CAM CNP Referring Provider TijerinaAmira davis Primary Care Unavailable JANA RIOS Attending Unavailable JANA RIOS Referring Unavailable Christine Reveles Attending Unavailable Amira Tijerina Primary Care Unavailable Mckinley Romo Consulting Unavailable Destiney Lane Admitting Unavailable Destiney Lane Consulting Unavailable Pal Rich Consulting Unavailable Christine Reveles Referring Unavailable Tijerina, Amira Primary Care Unavailable Ian Varma Attending Unavailable Christine Reveles Attending Unavailable Mckinley Romo Consulting Unavailable Tijerina, Amira Primary Care Unavailable Destiney Lane Admitting Unavailable Destiney Lane Consulting Unavailable Pal Rich Consulting Unavailable Christine Reveles Consulting Unavailable Destiney Lane Attending Unavailable Amira Tijerina Primary Care Unavailable JANA RIOS Attending Unavailable JANA RIOS Referring Unavailable Medications Current Medications Medication Drug Class(es) Dates Sig (Normalized) Sig (Original) 0.4 ml adalimumab 100 mg/ml prefilled syringe (7 sources) Tumor Necrosis Factor Neelam adalimumab (Humira) 40 MG/0.4ML Prefilled Syringe Kit prefilled syringe azaTHIOprine 50 mg oral tablet (10 sources) Purine Antimetabolite Start: 01-23-2025 take 1 tablet by mouth once daily Azathioprine 50 mg tablet Active 50 mg PO DAILY January 23, 2025 1:00am Start: 06-22-2023 azaTHIOprine 5 0 mg oral [...] Ordered doxycycline hyclate 100 mg oral capsule (2 sources) Tetracycline-class Drug Start: 01-26-2025 take 1 capsule by mouth twice daily Doxycycline Hyclate 100 mg capsule Active 100 mg PO TWICE A DAY January 26, 2025 1:00am Flonase Allergy Relief (1 source) Start: 09-30-2021 Flonase Allergy Relief qDay, 0 Refill(s) Start Date: 09/30/21 Status: Ordered fluticasone propionate 0.05 mg/actuat metered dose nasal spray (8 sources) Corticosteroid Start: 10-03-2021 take 50 ug nasal route once daily Fluticasone Propionate (Flonase Allergy Relief) 50 mcg/actuation spray,suspension Active 1 NMA INTRANASAL DAILY October 03, 2021 1:00am administer into each nostril Start: 10-03-2021 take [...] 06/23/2023 Active levoFLOXacin 500 mg oral tablet (2 sources) Quinolone Antimicrobial Start: 01-26-2025 take 1 tablet by mouth once daily Levofloxacin 500 mg tablet Active 500 mg PO DAILY January 26, 2025 1:00am meloxicam 15 mg oral tablet (9 sources) Nonsteroidal Anti-inflammatory Drug Start: 09-30-2021 take 1 tablet by mouth once daily Meloxicam 15 mg tablet Active 15 mg PO DAILY October 03, 2021 1:00am predniSONE 10 mg oral tablet (16 sources) Start: 01-23-2025 take 1 tablet by mouth every twelve hours Prednisone 10 mg tablet Active 10 mg PO Q12H January 23, 2025 1:00am Start: 06-22-2023 predniSONE 5 m g oral [...] sulfaSALAzine 500 mg delayed release oral tablet (10 sources) Aminosalicylate Start: 01-23-2025 take 3 tablets by mouth twice daily Sulfasalazine 500 mg tablet,delayed release (DR/EC) Active 1500 mg PO TWICE A DAY January 23, 2025 1:00am Start: 06-22-2023 sulfaSALAzine 500 mg oral delayed release tablet Dose : 1,500 mg = 3 tab(s), Oral, BID, 0 Refill(s) Start Date: 06/22/23 Status: Ordered sulfaSALAzine (A zulfidine) 500 MG tablet Completed/Discontinued Medications Medication Drug Class(es) Dates Sig (Normalized) Sig (Original) folic acid 1 mg oral tablet (8 sources) Start: 10-03-2021 End: 01-23-2025 take 1 tablet by mouth once daily Folic Acid 1 mg tablet Discontinued 1 mg PO DAILY October 03, 2021 1:00am January 23, 2025 8:39pm 0.15 ml methotrexate 50 mg/ml auto-injector (8 sources) Folate Analog Metabolic Inhibitor Start: 10-03-2021 End: 01-23-2025 Methotrexate (Pf) 7.5 mg/0.15 mL auto-injector Discontinued 7.5 mg SC EVERY WEEK October 03, 2021 1:00am January 23, 2025 8:40pm Problems Active Problems Problem Classification Problem Date Documented Date Episodic/Chronic Abdominal pain (8 sources) Indigestion; Translations: [Epigastric pain] 10-14-2021 Episodic Coagulation and hemorrhagic disorders (9 sources) Thrombocytopenic disorder; Translations: [Thrombocytopenia, unspecified] Onset: 05-04-2025 10-07-2021 Chronic Deficiency and other anemia (8 sources) Anemia; Translations: [Anemia, unspecified] 10-07-2021 Episodic Immunizations and screening for infectious disease (19 sources) Nonspecific tuberculin test reaction ; Translations: [Nonspecific reaction to tuberculin skin test without active tuberculosis] Onset: 06-01-2023 06-01-2023 Episodic Intestinal infection (8 sources) Infection caused by Helicobacter pylori; Translations: [Other specified bacterial intestinal infections] 10-14-2021 Episodic Other aftercare (3 sources) Patient encounter status; Translations: [Encounter for therapeutic drug level monitoring] 06-23-2023 Episodic Other circulatory disease (4 sources) Elevated blood pressure; Translations: [Elevated blood-pressure [...] Unclassified (1 source) Patient encounter status 06-22-2023 Past or Other Problems Problem Classification Problem Date Documented Da te Episodic/Chronic Infective arthritis and osteomyelitis (except that caused by tuberculosis or sexually transmitted disease) (6 sources) Knee pyogenic arthritis; Translations: [Pyogenic arthritis, unspecified] Onset: 02-01-2025 01-23-2025 Episodic Results Test Name Value Interpretation Reference Range Facility Absolute lymphocyte counton 05-03-2025 Lymphocytes Auto (Unsp spec) [#/Vol] 1.33 10*3/uL 0.83-4.51 [facility] Absolute neutrophil counton 05-03-2025 Neutrophils (Bld) [#/Vol] 3.6 10*3/uL 2.0-7.7 [facility] Automated lymphocyte count a s percentage of total leukocyteson 05-03-2025 Lymphocytes/100 WBC Auto (Unsp spec) 24.4 % 19-41 [facility] Basophil percentageon 2024 Basophils/100 WBC (Bld) 0.4 % 0-1 [facility] CBC W/Diff, Automatedon 04-22-2024 Absolute Lymph 1.33 X10 3/uL Normal 0.83-4.51 [facility] Comment on above: Performed By: #### L 100.0100 #### [facility] Laboratory [address] [place], [address] Absolute Neut 3.6 X10 3/uL Normal 2.0-7.7 [facility] Comment on above: Performed By: #### L 100.0100 #### [facility] [address] [place], [address] Basophils/100 WBC (Bld) 0.4 % Normal 0-1 [facility] Comment on above: Performed By: #### L 100.0100 #### [facility] [address] [place], [address] Eosinophils/100 WBC (Bld) 0.0 % Normal 0-5 [facility] Comment on above: Performed By: #### L 100.0100 #### [facility] [address] [place], [address] Erythrocyte distribution width (RBC) [Ratio] 18.5 % High 11.6-14.6 [facility] Comment on above: Performed By: #### L 100.0100 #### [facility] [address] [place], [address] Hematocrit (Bld) [Volume fraction] 39.7 % Normal 37-47 [facility] Comment on above: Performed By: #### L 100.0100 #### [facility] [address] [place], [address] Hemoglobin (Bld) [Mass/Vol] 13.0 g/dL Normal 12.0-15.0 [facility] Comment on above: Performed By: #### L 100.0100 #### [facility] [address] [place], [address] IG% 0.400 Normal 0.0-0.9 [facility] Comment on above: Result Comment: IG% - Immature Granulocytes (promyelocytes, myelocytes and metamyelocytes) > 1% indicates that a LEFT SHIFT is Present. Performed By: #### L 100.0100 #### [facility] [address] [place], [address] Lymphocytes/100 WBC (Bld) 24.4 % Normal 19-41 [facility] Comment on above: Performed By: #### L 100.0100 #### [facility] [address] [place], [address] MCH (RBC) [Entitic mass] 28.4 pg Normal 27.0-32.0 [facility] Comment on above: Performed By: #### L 100.0100 #### [facility] [address] [place], [address] MCHC (RBC) [Mass/Vol] 32.7 g/dL Normal 32-36 [facility] Comment on above: Performed By: #### L 100.0100 #### [facility] [address] [place], [address] MCV (RBC) [Entitic vol] 86.7 fL Normal 81-99 [facility] Comment on above: Performed By: #### L 100.0100 #### [facility] [address] [place], [address] Monocytes/100 WBC (Bld) 8.3 % Normal 0-10 [facility] Comment on above: Performed By: #### L 100.0100 #### [facility] [address] [place], [address] Neutrophils/100 WBC (Bld) 66.5 % Normal 47-70 [facility] Comment on above: Performed By: #### L 100.0100 #### [facility] [address] [place], [address] Nucleated RBC (Bld) [#/Vol] 0 10*3/uL Normal 0-5 [facility] Comment on above: Performed By: #### L 100.0100 #### [facility] [address] [place], [address] Platelet mean volume (Bld) [Entitic vol] 13.0 fL High 6.2-12.0 [facility] Comment on above: Performed By: #### L 100.0100 #### [facility] [address] [place], [address] Platelets (Bld) [#/Vol] 107 10*3/uL Low 150-450 [facility] Comment on above: Performed By: #### L 100.0100 #### [facility] [address] [place], [address] RBC (Bld) [#/Vol] 4.58 10*6/uL Normal 4.2-5.4 [facility] Comment on above: Performed By: #### L 100.0100 #### [facility] [address] [place], [address] RDW SD 58.4 fl High 35.1-43.9 [facility] Comment on above: Performed By: #### L 100.0100 #### [facility] [address] [place], [address] WBC (Bld) [#/Vol] 5.5 10*3/uL Normal 4.4-11.0 [facility] Comment on above: Performed By: #### L 100.0100 #### [facility] [place], [address] Eosinophil percentageon 04-22 Eosinophils/100 WBC (Bld) 0.0 % 0-5 [facility] Erythrocyte distribution wid th ratioon 05-03-2025 Erythrocyte distribution width (RBC) [Ratio] 18.5 % High 11.6-14.6 [facility] Erythrocyte distribution wid th standard deviationon 05-03-2025 Erythrocyte distribution width (RBC) [Ratio] 58.4 fl High 35.1-43.9 [facility] Hematocrit Auto (Bld) [Volum e fraction]on 05-03-2025 Hematocrit (Bld) [Volume fraction] 39.7 % 37-47 [facility] Hemoglobin measurementon Hemoglobin (Bld) [Mass/Vol] 13.0 g/dL 12.0-15.0 [facility] Immature granulocytes/100 WB C Auto (Bld)on 05-03-2025 Immature granulocytes/100 WBC (Bld) 0.400 % 0.0-0.9 [facility] Comment on above: IG% - Immature Granu locytes (promyelocytes, myelocytes and metamyelocytes) > 1% indicates that a LEFT SHIFT is Present. MCV (mean corpuscular volume ) determinationon 05-03-2025 MCV (RBC) [Entitic vol] 86.7 fL 81-99 [facility] Mean corpuscular hemoglobin (MCH) determinationon 05-03-2025 MCH (RBC) [Entitic mass] 28.4 pg 27.0-32.0 [facility] Mean corpuscular hemoglobin concentration (MCHC) determinationon 05-03-2025 MCHC (RBC) [Mass/Vol] 32.7 g/dL 32-36 [facility] Mean platelet volume determi nationon 05-03-2025 Platelet mean volume (Bld) [Entitic vol] 13.0 fL High 6.2-12.0 [facility] Monocyte percentageon 2024 Monocytes/100 WBC (Bld) 8.3 % 0-10 [facility] Neutrophil percentageon 04-22 Neutrophils/100 WBC (Bld) 66.5 % 47-70 [facility] Nucleated red blood cell per centageon 05-03-2025 Nucleated RBC/100 WBC (Bld) [Ratio] 0 % 0-5 [facility] Platelet counton 05-03-2025 Platelets (Bld) [#/Vol] 107 10*3/uL Low 150-450 [facility] RBC Auto (Bld) [#/Vol]on RBC (Bld) [#/Vol] 4.58 10*6/uL 4.2-5.4 [facility] White blood cell (WBC) count on 05-03-2025 WBC (Bld) [#/Vol] 5.5 10*3/uL 4.4-11.0 [facility] Culture, Anaerobic Any Sourc anish 01-29-2025 CUAN UNK UNK COLLECTED IN OR No growth in 5 days. Normal [facility] Comment on above: Performed By: #### M 100.4001, M100.1999, M100.3000 ####[facility] [address] [place], [address] Culture, Blood (WB)on 2024 CUB Blood cultures x2, f rom two different sites No growth in 5 days. Normal [facility] Comment on above: Performed By: #### M 200.1000, L100.0100, L500.2500 #### [facility] Laboratory [address] [place], [address] Wound Cultureon 01-28-2025 WC UNK UNK COLLECTED IN OR No growth aerobically. Normal [facility] Comment on above: Performed By: #### M 100.4001, M100.2000, M100.3000 ####[facility] [address] [place], [address] Estimation of creatinine jessica aranceOrdered By: Pal Rich on 01-26-2025 Estimated Creatinine Clearance Calc 155.89 ml/min 50-250 [facility] GFR/1.73 sq M.predicted manda g non-blacks MDRD (S/P/Bld) [Vol rate/Area]Ordered By: Pal Rich on 01-26-2025 Estimated GFR (MDRD) Non-Af Amer 120 >60 [facility] Comment on above: mL/min/1.73m2 CKD-EP I Creatinine Equation (2020) Glomerular filtration rate ( GFR) estimation/1.73 sq m using serum, plasma, or whole bOrdered By: Pal Rich on 01-26-2025 GFR/1.73 sq M.predicted among non-blacks MDRD (S/P/Bld) [Vol rate/Area] 120 mL/min/{1.73_m2} >60 [facility] Comment on above: mL/min/1.73m2 CKD-EP I Creatinine Equation (2020) Serum Creatinine AND GFRon 0 01-26-2025 Creatinine [Mass/Vol] 0.58 mg/dL Low 0.70-1.20 [facility] Comment on above: Performed By: #### L 501.1105 ####[facility] [address] [place], [place], [id number] ECRCL 155.89 ml/min Normal 50-250 [facility] Comment on above: Performed By: #### L 501.1105 ####[facility] [address] [place], [place], [address] GFR/1.73 sq M.predicted among non-blacks MDRD (S/P/Bld) [Vol rate/Area] 120 mL/min/{1.73_m2} Normal >60 [facility] Comment on above: Result Comment: mL/m in/1.73m2 CKD-EPI Creatinine Equation (2020) Performed By: #### L 501.1105 ####[facility] [address] [place], [place], [id number] Serum creatinine measurement (mass/volume)Ordered By: Pal Rich on 01-26-2025 Creatinine [Mass/Vol] 0.58 mg/dL Low 0.70-1.20 [facility] Trough vancomycin levelOrder ed By: Pal Rich on 01-26-2025 Vancomycin trough [Mass/Vol] 17.7 ug/mL High 5.0-15.0 [facility] Comment on above: Recommended goal tro ugh [...] therapy recommended for serious lifethreatening infections include:- Xdozokkgdj-Wrhxnvtvffir-Ewkvqbiec (Ventilator/Healtcare Associated)-Sepsis PLEASE CONTACT PHARMACY SERVICES (#[id number]) FOR INTERPRETATIONOF RESULTS. Vancomycin trough [Mass/Vol] Ordered By: Pal Rich on 01-26-2025 Vancomycin Level Trough 17.7 ug/mL High 5.0-15.0 [facility] Comment on above: Recommended goal tro ugh [...] therapy recommended for serious lifethreatening infections include:- Rifhgkttsl-Pptrgsaqviut-Wdpogytte (Ventilator/Healtcare Associated)-Sepsis PLEASE CONTACT PHARMACY SERVICES (#[id number]) FOR INTERPRETATIONOF RESULTS. Vancomycin, Trough Levelon 0 01-26-2025 VANCO, TROUGH 17.7 ug/mL High 5.0-15.0 [facility] Comment on above: Order Comment: 0830 Result [...] (Ventilator/Healtcare Associated) -Sepsis PLEASE CONTACT PHARMACY SERVICES (#[id number]) FOR INTERPRETATION OF RESULTS. Performed By: #### L 501.8820 ####[facility] [address] [place], [address] Consultation - Infectious Dx on 01-25-2025 Consultation - Infectious Dx [facility] Medical Records Department [address] [place] [address] Consultation - Infectious Dx 01/25/25 1035 MR#: [id number] Acct: [id number] Name: CHRISTINE NERI Rep #: [id number] : 1990 34 From: Pal Rich MD PCP: Amira Tijerina TOOL AND DIE MANAGER-C Status:ADM IN Location: [place] [address] Assessment Plan Assessment/Plan (1) Septic arthritis of knee, right: PLAN: Taken to OR 01/24/[address] Romo for I D. Surg cx pending, will narrow to vanc/ceftriaxone. Will follow, thank you (2) Rheumatoid arthritis: HPI Consult Data Date of Consult: 01/25/25 HPI Narrative Reason for Consultation: septic arthritis HPI Narrative: CHRISTINE NERI, is a 34 F with RA on immunosuppression, presented 3/4 with two days progressive R knee pain, swelling, mild warmth, chills. No known inciting event. No h/o gout. Pain was moderate. Sent to ED, admitted on vanc/cefepime, taken to OR 01/24/[address] Romo. Feeling better this AM, no n/v/d. Full ROS performed and neg except as noted above. [facility] Medical History Obesity Dyspepsia H. pylori [...] disease Diabetes Family History other Surgical History [place] teeth extracted Social History household members: other details: Lives with her sister. Smoking Status: Never smoker second hand exposure: No alcohol intake: current alcohol intake frequency: a few times a week details: occasionally substance use type: does not use rafael/restoration: None seatbelt use: always do you feel [...] 01/25/25 1038 Cosigner Signature (if applicable): CC: TOOL AND DIE MANAGERClement Tijerina Signed Normal [facility] Gram Stainon 01-25-2025 GS UNK UNK COLLECTED IN OR Gram Stain 3+ White Blood Cells No organisms seen Normal [facility] Comment on above: Performed By: #### M 100.4001, M100.2000, M100.3000 ####[facility] [address] [place], [address] Vancomycin, Trough Levelon 0 01-25-2025 VANCO, TROUGH 16.7 ug/mL High 5.0-15.0 [facility] Comment on above: Order Comment: 0830 Result [...] (Ventilator/Healtcare Associated) -Sepsis PLEASE CONTACT PHARMACY SERVICES (#[id number]) FOR INTERPRETATION OF RESULTS. Performed By: #### L 501.8820 ####[facility] [address] [place], [address] Venous Duplex US - Obi Extre [facility] 01-25-2025 Venous Duplex US - Obi Extrem [facility] Cardi[facility] [address] [place] [address] Venous Duplex US - Obi Extrem 01/26/25 0837 MR#: [id number] Acct: [id number] Name: CHRISTINE NERI Rep #: [id number] : 1990 34 From: Ian Varma MD Attending Dr: Dr. Christine Reveles MD Status: DI Shmu[place] IN Ordering Dr: Christine Reveles MD Date: [...] Safety Stat Results reported to M/S 3 office services manager. Procedure This was a bilateral upper extremity [...] ??? 01/29/25843 Date Ian Varma MD CC: TOOL AND DIE MANAGERClement Tijerina; Dr. Christine Reveles MD Date Dictated: 01/26/25836 Date Transcribed: 01/29/25843 [place]: Signed Normal [facility] Absolute lymphocyte countOrd ered By: Destiney Lane on 01-24-2025 Lymphocytes Auto (Unsp spec) [#/Vol] 1.34 10*3/uL 0.83-4.51 [facility] Absolute neutrophil countOrd ered By: Destiney Domingo on 01-24-2025 Neutrophils (Bld) [#/Vol] 6.9 10*3/uL 2.0-7.7 [facility] Anaerobic cultureOrdered By: Mckinley Romo on 01-24-2025 Bacteria identified Anaer cx Nom (Unsp spec) No growth in 5 days. [facility] Anion gap in Serum or Plasma Ordered By: Destiney Lane on 01-24-2025 Anion gap [Moles/Vol] 9 mmol/L 5-15 [facility] Automated blood erythrocyte countOrdered By: Destiney Lane on 01-24-2025 RBC (Bld) [#/Vol] 4.07 10*6/uL Low 4.2-5.4 [facility] Comment on above: Performed By: #### L 100.0100, L500.4050 ####[facility] [address] [facility] [address] Automated blood hematocrit ( percentage)Ordered By: Destiney Lane on 01-24-2025 Hematocrit (Bld) [Volume fraction] 33.2 % Low 37-47 [facility] Comment on above: Performed By: #### L 100.0100, L500.4050 ####[facility] [address] [place], [address] Automated lymphocyte count a s percentage of total leukocytesOrdered By: Destiney Domingo on 01-24-2025 Lymphocytes/100 WBC (Bld) 14.5 % Low 19-41 [facility] Comment on above: Performed By: #### L 100.0100, L500.4050 ####[facility] [address] [place], [address] Lymphocytes/100 WBC Auto (Unsp spec) 14.5 % Low 19-41 [facility] BUN/creatinine ratioOrdered By: Destiney Lane on 01-24-2025 Urea nitrogen/Creatinine [Mass ratio] 23.0 mg/mg High 10-20 [facility] Basophil percentageOrdered B y: Destiney Lane on 01-24-2025 Basophils/100 WBC (Bld) 0.2 % Normal 0-1 [facility] Comment on above: Performed By: #### L 100.0100, L500.4050 ####[facility] [address] [place], [address] Bilirubin, totalOrdered By: Destiney Lane on 01-24-2025 Bilirubin [Mass/Vol] 0.37 mg/dL Normal 0.00-1.30 [facility] Comment on above: Performed By: #### L 100.0100, L500.4050 ####[facility] [address] [place], [address] CBC W/Diff, Automatedon Absolute Lymph 1.34 X10 3/uL Normal 0.83-4.51 [facility] Comment on above: Performed By: #### L 100.0100, L500.4050 ####[facility] [address] [place], [address] Absolute Neut 6.9 X10 3/uL Normal 2.0-7.7 [facility] Comment on above: Performed By: #### L 100.0100, L500.4050 ####[facility] [address] [place], [address] IG% 0.400 Normal 0.0-0.9 [facility] Comment on above: Result Comment: IG% - Immature Granulocytes (promyelocytes, myelocytes and metamyelocytes) > 1% indicates that a LEFT SHIFT is Present. Performed By: #### L 100.0100, L500.4050 ####[facility] [address] [place], [address] Nucleated RBC (Bld) [#/Vol] 0 10*3/uL Normal 0-5 [facility] Comment on above: Performed By: #### L 100.0100, L500.4050 ####[facility] [address] [place], [address] RDW SD 44.9 fl High 35.1-43.9 [facility] Comment on above: Performed By: #### L 100.0100, L500.4050 ####[facility] [address] [place], [address] Carbon dioxide, total [Moles /volume] in Central venous bloodOrdered By: Destiney Lane on 01-24-2025 CO2 [Moles/Vol] 21.3 mmol/L Normal 21.0-32.0 [facility] Comment on above: Performed By: #### L 100.0100, L500.4050 ####[facility] [address] [place], [address] Chloride assayOrdered By: Rashmi Lane on 01-24-2025 Chloride [Moles/Vol] 106 mmol/L Normal 98-108 [facility] Comment on above: Performed By: #### L 100.0100, L500.4050 ####[facility] [address] [place], [address] Comprehensive Metabolic Prof ilon 01-24-2025 ALK PHOS 68 U/L Normal 35-104 [facility] Comment on above: Performed By: #### L 100.0100, L500.4050 ####[facility] [address] [place], [address] BUN/CRE 23.0 RATIO High 10-20 [facility] Comment on above: Performed By: #### L 100.0100, L500.4050 ####[facility] [address] [place], [address] Creatinine [Mass/Vol] 0.56 mg/dL Low 0.70-1.20 [facility] Comment on above: Performed By: #### L 100.0100, L500.4050 ####[facility] [address] [place], [address] ECRCL 161.37 ml/min Normal 50-250 [facility] Comment on above: Performed By: #### L 100.0100, L500.4050 ####[facility] [address] [place], [address] GAP 9 Normal 5-15 [facility] Comment on above: Performed By: #### L 100.0100, L500.4050 ####[facility] [address] [place], [address] GFR/1.73 sq M.predicted among non-blacks MDRD (S/P/Bld) [Vol rate/Area] 121 mL/min/{1.73_m2} Normal >60 [facility] Comment on above: Result Comment: mL/m in/1.73m2 CKD-EPI Creatinine Equation (2020) Performed By: #### L 100.0100, L500.4050 ####[facility] [address] [place], [address] T PROT 6.8 g/dL Normal 5.9-8.4 [facility] Comment on above: Performed By: #### L 100.0100, L500.4050 ####[facility] [address] [place], [address] Comprehensive Metabolic Prof ilOrdered By: Destiney Lane on 01-24-2025 AST [Catalytic activity/Vol] 14 U/L Normal <=31 [facility] Comment on above: Performed By: #### L 100.0100, L500.4050 ####[facility] [address] [place], [address] Eosinophil percentageOrdered By: Destiney Lane on 01-24-2025 Eosinophils/100 WBC (Bld) 0.0 % Normal 0-5 [facility] Comment on above: Performed By: #### L 100.0100, L500.4050 ####[facility] [address] [place], [address] Erythrocyte distribution wid th ratioOrdered By: Destiney Domingo on 01-24-2025 Erythrocyte distribution width (RBC) [Ratio] 15.1 % High 11.6-14.6 [facility] Comment on above: Performed By: #### L 100.0100, L500.4050 ####[facility] [address] [place], [address] Erythrocyte distribution wid th standard deviationOrdered By: Destiney Domingo on 01-24-2025 Erythrocyte distribution width (RBC) [Entitic vol] 44.9 fL High 35.1-43.9 [facility] Erythrocyte distribution width (RBC) [Ratio] 44.9 fl High 35.1-43.9 [facility] Gram stainOrdered By: Albina Romo on 01-24-2025 Microscopic observation Gram stain Nom (Unsp spec) [facility] Microscopic observation Gram stain Nom (Unsp spec) [facility] Hemoglobin measurementOrdere d By: Destiney Domingo on 01-24-2025 Hemoglobin (Bld) [Mass/Vol] 10.7 g/dL Low 12.0-15.0 [facility] Comment on above: Performed By: #### L 100.0100, L500.4050 ####[facility] [address] [place], [address] Immature granulocytes/100 WB C Auto (Bld)Ordered By: Destiney Domingo on 01-24-2025 Immature granulocytes/100 WBC (Bld) 0.400 % 0.0-0.9 [facility] Comment on above: IG% - Immature Granu locytes (promyelocytes, myelocytes and metamyelocytes) > 1% indicates that a LEFT SHIFT is Present. Lymphocytes Auto (Unsp spec) [#/Vol]Ordered By: Destiney White on 01-24-2025 Lymphocytes (Bld) [#/Vol] 1.34 10*3/uL 0.83-4.51 [facility] MCV (mean corpuscular volume ) determinationOrdered By: Destiney Lane on 01-24-2025 MCV (RBC) [Entitic vol] 81.6 fL Normal 81-99 [facility] Comment on above: Performed By: #### L 100.0100, L500.4050 ####[facility] [address] [place], [address] MR/POSTOP.ANEon 01-24-2025 MR/POSTOP.ANE [facility] Medical Records Department [address] [place] [address] Anesthesia Postop Eval I 01/24/25 1428 MR#: [id number] Acct: [id number] Name: CHRISTINE NERI Rep #: [id number] : 1990 34 From: Bishop Hemphill CRNA PCP: Amira Tijerina TOOL AND DIE MANAGER-C Status:ADM IN Y Race: C Location: [place] [address] Anesthesia: Postop Eval I Current Vital Signs Temperature: 98.6 F Pulse Rate: 103 Blood Pressure: 159/96 Respiratory Rate: 16 Pulse Ox: 96 Assessment Airway patent: Yes Spontaneous unlabored respirations: Yes nausea: No Vomiting: No Anesthesia Complication: No Fluid Hydration Crystalloid volume administer (ml): 1,200 Total IV fluid infused: 1,200 Progress Note Anesthesia document: Postop Eval 1 completed: Yes 01/24/251428 Date Bishop Hemphill CRNA Cosigner Signature: Date CC: Signed Normal [facility] MR/GHJJLKQM3mm 01-24-2025 MR/POSTOPAN2 [facility] Medical Records Department [address] [place] [address] Anesthesia Postop Eval II 01/24/25 1442 MR#: [id number] Acct: [id number] Name: CHRISTINE NERI Rep #: [id number] : 1990 34 From: Nemesio Buitrago MD PCP: JULIANN Whitfield Status:ADM IN Y Race: C Location: MS3 [facility] Anesthesia Postop Eval I Sum Postop Eval Completion status Anesthesia document: Postop Eval 1 completed: Yes Anesthesia Postop Eval I Summary Anesthesia Postop Eval I Summary: Anesthesia Postop Eval I: Assessment Summary Airway patent Yes 01/24/25 14:28 SCHOOL RESOURCE OFFICER.TNES Spontaneous unlabored Yes 01/24/25 14:28 SCHOOL RESOURCE OFFICER.TNES respirations Mental status nausea No 01/24/25 14:28 SCHOOL RESOURCE OFFICER.TNES Vomiting No 01/24/25 14:28 SCHOOL RESOURCE OFFICER.TNES Anesthesia Postop Eval I: Fluid Summary Crystalloid volume administer 1,200 01/24/25 14:28 SCHOOL RESOURCE OFFICER.TNES (ml) Colloids volume administered ( ml) Blood Product volume administered (ml) Total IV fluid infused 1,200 01/24/25 14:28 SCHOOL RESOURCE OFFICER.TNES Anesthesia Postop Eval I: Summary Notes Anesthesia Complication No 01/24/25 14:28 SCHOOL RESOURCE OFFICER.TNES Anesthesia Complication Comment: Post-operative progress note Anesthesia: Postop Eval II Evaluation Mental status: Awake Pain Level: 2 nausea: No Vomiting: No 01/24/25 1442 Date Nemesio Buitrago MD Cosign Signature: Date CC: Signed Normal [facility] Mean corpuscular hemoglobin (MCH) determinationOrdered By: Destiney Lane on 01-24-2025 MCH (RBC) [Entitic mass] 26.3 pg Low 27.0-32.0 [facility] Comment on above: Performed By: #### L 100.0100, L500.4050 ####[facility] [address] [place], [address] Mean corpuscular hemoglobin concentration (MCHC) determinationOrdered By: Destiney White on 01-24-2025 MCHC (RBC) [Mass/Vol] 32.2 g/dL Normal 32-36 [facility] Comment on above: Performed By: #### L 100.0100, L500.4050 ####[facility] [address] [place], [address] Mean platelet volume determi nationOrdered By: Destiney White on 01-24-2025 Platelet mean volume (Bld) [Entitic vol] 11.2 fL Normal 6.2-12.0 [facility] Comment on above: Performed By: #### L 100.0100, L500.4050 ####[facility] [address], [address] Monocyte percentageOrdered B y: on 01-24-2025 Monocytes/100 WBC (Bld) 9.9 % Normal 0-10 [facility] Comment on above: Performed By: #### L 100.0100, L500.4050 ####[facility] [address] [place], [address] Neutrophil percentageOrdered By: Destiney White on 01-24-2025 Neutrophils/100 WBC (Bld) 75.0 % High 47-70 [facility] Comment on above: Performed By: #### L 100.0100, L500.4050 ####[facility] [address] [facility] [place], [address] Nucleated red blood cell per centageOrdered By: [facility] White on 01-24-2025 Nucleated RBC/100 WBC (Bld) [Ratio] 0 % 0-5 [facility] Operative Reporton Operative Report [facility] Medical Records Department [address] [place] [address] Operative Report 01/24/25 1442 MR#: [id number] Acct: [id number] Name: CHRISTINE NERI Rep #: [id number] : 1990 34 From: Mckinley Romo DO PCP: JULIANN Whitfield Status:ADM IN [facility] Oper[facility] Report (Standard) Operative Information Date of Procedure: 01/24/25 Pre-Operative Diagnosis: Right knee septic arthritis Post-Operative Diagnosis: Right knee septic arthritis Surgery/Procedure Performed: Right knee arthroscopic irrigation and debridement tactical air defense controller: No Type of Anesthesia: General RN Documented [...] were removed in standard fashion with interrupted qwshqt-mq-wvzja 3-0 nylon suture. Intra-articular block was administered [...] SCD's VTE Pharm Prophylaxis ordered?: Yes 01/24/25 9425 Cosigner Signature (if applicable): CC: TOOL AND DIE MANAGERClement Tijerina; Dr. Destiney Lane MD; Dr. Mckinley Romo DO; Dr. Pal Rich MD Signed Normal [facility] Platelet countOrdered By: Rashmi Lane on 01-24-2025 Platelets (Bld) [#/Vol] 170 10*3/uL Normal 150-450 [facility] Comment on above: Performed By: #### L 100.0100, L500.4050 ####[facility] [address] [place], [address] Potassium measurement (mass/ volume)Ordered By: Destiney Lane on 01-24-2025 Potassium [Moles/Vol] 4.0 mmol/L Normal 3.3-5.1 [facility] Comment on above: Performed By: #### L 100.0100, L500.4050 ####[facility] [address], [address] Potassium (Unsp spec) [Mass/Vol] 4.0 mmol/L 3.3-5.1 [facility] Serum globulin measurementOr dered By: Destiney Lane on 01-24-2025 Globulin (S) [Mass/Vol] 3.3 g/dL Normal 2.2-4.2 [facility] Comment on above: Performed By: #### L 100.0100, L500.4050 ####[facility] [address] [place], [address] Serum glucose measurement (m ass/volume)Ordered By: Destiney Lane on 01-24-2025 Glucose [Mass/Vol] 94 mg/dL Normal 70-99 [facility] Comment on above: Performed By: #### L 100.0100, L500.4050 ####[facility] [address] [place], [address] Serum or plasma alanine cole otransferase (ALT) measurementOrdered By: Destiney Lane on 01-24-2025 ALT [Catalytic activity/Vol] 12 U/L Normal <=34 [facility] Comment on above: Performed By: #### L 100.0100, L500.4050 ####[facility] [address] [place], [address] Serum or plasma albumin shi urement (mass/volume)Ordered By: Destiney Lane on 01-24-2025 Albumin [Mass/Vol] 3.5 g/dL Normal 3.5-5.0 [facility] Comment on above: Performed By: #### L 100.0100, L500.4050 ####[facility] [address] [place], [address] Serum or plasma albumin/glob ulin mass ratioOrdered By: Destiney Lane on 01-24-2025 Albumin/Globulin [Mass ratio] 1.0 {ratio} Normal 0.9-2.4 [facility] Comment on above: Performed By: #### L 100.0100, L500.4050 ####[facility] [address] [place], [address] Serum or plasma alkaline phill sphatase measurementOrdered By: Destiney Lane on 01-24-2025 ALP [Catalytic activity/Vol] 68 U/L 35-104 [facility] Serum or plasma calcium shi urement (mass/volume)Ordered By: Destiney Lane on 01-24-2025 Calcium [Mass/Vol] 8.5 mg/dL Normal 7.6-11.0 [facility] Comment on above: Performed By: #### L 100.0100, L500.4050 ####[facility] [address] [place], [address] Serum or plasma urea nitroge n measurement (mass/volume)Ordered By: Destiney Lane on 01-24-2025 Urea nitrogen [Mass/Vol] 13 mg/dL Normal 4-19 [facility] Comment on above: Performed By: #### L 100.0100, L500.4050 ####[facility] [address] [place], [address] Sodium levelOrdered By: Jaron Lane on 01-24-2025 Sodium [Moles/Vol] 137 mmol/L Normal 133-145 [facility] Comment on above: Performed By: #### L 100.0100, L500.4050 ####[facility] [address] [place], [address] Total proteinOrdered By: Margarita Lane on 01-24-2025 Protein [Mass/Vol] 6.8 g/dL 5.9-8.4 [facility] White blood cell (WBC) count Ordered By: Destiney Lane on 01-24-2025 WBC (Bld) [#/Vol] 9.3 10*3/uL Normal 4.4-11.0 [facility] Comment on above: Performed By: #### L 100.0100, L500.4050 ####[facility] [address] [place], [address] Basic Metabolic Profile (BMP )on 01-23-2025 BUN/CRE 21.6 RATIO High 10-20 [facility] Comment on above: Performed By: #### M 200.1000, L100.0100, L500.2500 #### [facility] Laboratory [address] [place], [address] Calcium [Mass/Vol] 9.0 mg/dL Normal 7.6-11.0 [facility] Comment on above: Performed By: #### M 200.1000, L100.0100, L500.2500 #### [facility] Laboratory [address] [place], [address] Chloride [Moles/Vol] 103 mmol/L Normal 98-108 [facility] Comment on above: Performed By: #### M 200.1000, L100.0100, L500.2500 #### [facility] Laboratory [address] [place], [address] CO2 [Moles/Vol] 21.8 mmol/L Normal 21.0-32.0 [facility] Comment on above: Performed By: #### M 200.1000, L100.0100, L500.2500 #### [facility] Laboratory [address] [place], [address] Creatinine [Mass/Vol] 0.65 mg/dL Low 0.70-1.20 [facility] Comment on above: Performed By: #### M 200.1000, L100.0100, L500.2500 #### [facility] Laboratory [address] [place], [address] ECRCL 138.49 ml/min Normal 50-250 [facility] Comment on above: Performed By: #### M 200.1000, L100.0100, L500.2500 #### [facility] Laboratory [address] [place], [address] GAP 10 Normal 5-15 [facility] Comment on above: Performed By: #### M 200.1000, L100.0100, L500.2500 #### [facility] Laboratory [address] [place], [address] GFR/1.73 sq M.predicted among non-blacks MDRD (S/P/Bld) [Vol rate/Area] 117 mL/min/{1.73_m2} Normal >60 [facility] Comment on above: Result Comment: mL/m in/1.73m2 CKD-EPI Creatinine Equation (2020) Performed By: #### M 200.1000, L100.0100, L500.2500 #### [facility] Laboratory [address] [place], [address] Glucose [Mass/Vol] 119 mg/dL High 70-99 [facility] Comment on above: Performed By: #### M 200.1000, L100.0100, L500.2500 #### [facility] Laboratory [address] [place], [address] Potassium [Moles/Vol] 3.6 mmol/L Normal 3.3-5.1 [facility] Comment on above: Performed By: #### M 200.1000, L100.0100, L500.2500 #### [facility] Laboratory [address] [place], [address] Sodium [Moles/Vol] 135 mmol/L Normal 133-145 [facility] Comment on above: Performed By: #### M 200.1000, L100.0100, L500.2500 #### [facility] Laboratory [address] [place], [address] Urea nitrogen [Mass/Vol] 14 mg/dL Normal 4-19 [facility] Comment on above: Performed By: #### M 200.1000, L100.0100, L500.2500 #### [facility] [address] [place], [address] Blood cultureOrdered By: Emmy Moctezuma on 01-23-2025 Bacteria identified Cx Nom (Bld) No growth in 5 days. [facility] CBC W/Diff, Automatedon 03-0 Absolute Lymph 1.54 X10 3/uL Normal 0.83-4.51 [facility] Comment on above: Performed By: #### M 200.1000, L100.0100, L500.2500 #### [facility] Laboratory [address] [place], [address] Absolute Neut 8.0 X10 3/uL High 2.0-7.7 [facility] Comment on above: Performed By: #### M 200.1000, L100.0100, L500.2500 #### [facility] Laboratory [address] [place], [address] Basophils/100 WBC (Bld) 0.2 % Normal 0-1 [facility] Comment on above: Performed By: #### M 200.1000, L100.0100, L500.2500 #### [facility] Laboratory [address] [place], [address] Eosinophils/100 WBC (Bld) 0.0 % Normal 0-5 [facility] Comment on above: Performed By: #### M 200.1000, L100.0100, L500.2500 #### [facility] Laboratory [address] [place], [address] Erythrocyte distribution width (RBC) [Ratio] 15.1 % High 11.6-14.6 [facility] Comment on above: Performed By: #### M 200.1000, L100.0100, L500.2500 #### [facility] Laboratory [address] [place], [address] Hematocrit (Bld) [Volume fraction] 36.3 % Low 37-47 [facility] Comment on above: Performed By: #### M 200.1000, L100.0100, L500.2500 #### [facility] Laboratory [address] [place], [address] Hemoglobin (Bld) [Mass/Vol] 11.8 g/dL Low 12.0-15.0 [facility] Comment on above: Performed By: #### M 200.1000, L100.0100, L500.2500 #### [facility] Laboratory [address] [place], [address] IG% 0.600 Normal 0.0-0.9 [facility] Comment on above: Result Comment: IG% - Immature Granulocytes (promyelocytes, myelocytes and metamyelocytes) > 1% indicates that a LEFT SHIFT is Present. Performed By: #### M 200.1000, L100.0100, L500.2500 #### [facility] Laboratory [address] [place], [address] Lymphocytes/100 WBC (Bld) 14.5 % Low 19-41 [facility] Comment on above: Performed By: #### M 200.1000, L100.0100, L500.2500 #### [facility] Laboratory [address] [place], [address] MCH (RBC) [Entitic mass] 26.6 pg Low 27.0-32.0 [facility] Comment on above: Performed By: #### M 200.1000, L100.0100, L500.2500 #### [facility] Laboratory [address] [place], [address] MCHC (RBC) [Mass/Vol] 32.5 g/dL Normal 32-36 [facility] Comment on above: Performed By: #### M 200.1000, L100.0100, L500.2500 #### [facility] Laboratory [address] [place], [address] MCV (RBC) [Entitic vol] 81.9 fL Normal 81-99 [facility] Comment on above: Performed By: #### M 200.1000, L100.0100, L500.2500 #### [facility] Laboratory [address] [place], [address] Monocytes/100 WBC (Bld) 9.6 % Normal 0-10 [facility] Comment on above: Performed By: #### M 200.1000, L100.0100, L500.2500 #### [facility] Laboratory [address] [place], [address] Neutrophils/100 WBC (Bld) 75.1 % High 47-70 [facility] Comment on above: Performed By: #### M 200.1000, L100.0100, L500.2500 #### [facility] Laboratory [address] [place], [address] Nucleated RBC (Bld) [#/Vol] 0 10*3/uL Normal 0-5 [facility] Comment on above: Performed By: #### M 200.1000, L100.0100, L500.2500 #### [facility] Laboratory [address] [place], [address] Platelet mean volume (Bld) [Entitic vol] 10.7 fL Normal 6.2-12.0 [facility] Comment on above: Performed By: #### M 200.1000, L100.0100, L500.2500 #### [facility] Laboratory [address] [place], [address] Platelets (Bld) [#/Vol] 188 10*3/uL Normal 150-450 [facility] Comment on above: Performed By: #### M 200.1000, L100.0100, L500.2500 #### [facility] Laboratory [address] [place], [address] RBC (Bld) [#/Vol] 4.43 10*6/uL Normal 4.2-5.4 [facility] Comment on above: Performed By: #### M 200.1000, L100.0100, L500.2500 #### [facility] Laboratory [address] [place], [address] RDW SD 44.4 fl High 35.1-43.9 [facility] Comment on above: Performed By: #### M 200.1000, L100.0100, L500.2500 #### [facility] Laboratory [address] [place], [address] WBC (Bld) [#/Vol] 10.6 10*3/uL Normal 4.4-11.0 [facility] Comment on above: Performed By: #### M 200.1000, L100.0100, L500.2500 #### [facility] Laboratory [address] [place], [address] CRPon 01-23-2025 C-REACTIVE PROT 174.00 mg/L High 0.0-3.0 [facility] Comment on above: Order Comment: Comme nts: May add to ED labs Performed By: #### L 101.9900, L501.6710 ####[facility] [address] [facility] [place], [address] CRP [Mass/Vol]Ordered By: Rashmi Lane on 01-23-2025 C-Reactive Protein Extended Range 174.00 mg/L High 0.0-3.0 [facility] Consultation - Orthopedicson 01-23-2025 Consultation - Orthopedics [facility] Medical Records Department [address] [place] [address] Consultation - Orthopedics 01/23/252043 MR#: [id number] Acct: [id number] Name: CHRISTINE NERI Rep #: [id number] : 1990 34 From: Mckinley Romo DO PCP: JULIANN Whitfield Status:REG ER Location: ED HPI Consult Data Date of Consult: 01/23/25 HPI Narrative HPI Narrative: CHRISTINE NERI, is a 34 F/history of rheumatoid arthritis, obesity who presented to [facility] after 1 day of right knee pain, bilateral shoulder discomfort and right elbow pain. She felt this was consistent with prior RA flares. She started prednisone without improvement in the other joints besides from the. She saw her fern cutter today. Arthrocentesis was performed in the office and is concerning for infection. Emergency department physician, synovial fluid cell count of [id number] with 86% PMNs. No crystals. Synovial fluid [...] anesthetic complication. Denies DVT or PE history. [facility] Medical History Obesity Dyspepsia H. pylori [...] disease Diabetes Family History other Surgical History [place] teeth extracted Social History household members: other details: Lives with her sister. Smoking Status: Never smoker second hand exposure: No alcohol intake: current alcohol intake frequency: a few times a week details: occasionally substance use type: does not use rafael/restoration: None seatbelt use: always do you feel [...] No eryth (more content not included)... Normal [facility] Emergency Department Summary on 01-23-2025 Emergency Department Summary [facility] Medical Records Department [address] [place] [address] Emergency Department Summary 01/23/25 MR#: [id number] Acct: [id number] Name: ZANDRACHRISTINE K Rep #: [id number] : 1990 34 From: Ian Moctezuma DO PCP: Amira Tijerina, KATY-C Status:ADM IN Location: MS3 MSED-1 HPI History [...] arthritis. The patient states she saw her fern cutter today who drained her knee. Feller Operator referred the patient to the emergency department because the synovial fluid looked infected. There was [place] of [id number] with 86% PMNs. There were no crystals noted. Synovial fluid was sent for Gram stain and culture. CBC was also drawn at the fern cutter office which showed a mild leukocytosis of 12.4. Chief Complaint: Lower Extremity Injury Informant: patient Onset/Context/Timing Onset: Yesterday Context: Gradual Onset Timing: Continuous Quality of Pain: Sharp Location: Right knee Worsened by: Movement Relieved by: Prednisone Associated Symptoms Associated Symptoms: Negative for Parasthesia, Weakness or Loss of Funtion PFSH [facility] Medical History Dyspepsia H. pylori infection Anemia [...] cancer Grandfather Heart disease Diabetes Surgical History [place] teeth extracted Social History Smoking Status: Never smoker second hand exposure: No alcohol intake: current alcohol intake frequency: a few times a week details: occasionally substance use type: does not use rafael/restoration: None seatbelt use: always do you feel [...] Medical decision (more content not included)... Normal [facility] Erythrocyte Sed Rateon 01-23 SED RATE 87 mm/hr High 0-30 [facility] Comment on above: Performed By: #### L 101.9900, L501.6710 ####[facility] [address] [place], [address] Erythrocyte sedimentation ra teOrdered By: Destiney Lane on 01-23-2025 ESR (Bld) [Velocity] 87 mm/h High 0-30 [facility] H AND P Exam - Hospitaliston 01-23-2025 H&P Exam - Hospitalist [facility] Medical Records Department [address] [place] [address] H P Exam - Hospitalist 01/23/251931 MR#: [id number] Acct: [id number] Name: CHRISTINE NERI Rep #: [id number] : 1990 34 From: Destiney Lane MD [...] normocytic anemia, GERD who presents to the [facility] ED on 01/23/25 with history of onset right knee pain, bilateral shoulder discomfort and right elbow pain starting 24 hours prior which was consistent per her report to previous episodes of rheumatoid arthritis flare with initiation of a burst of prednisone with a total of 30 mg on current day of presentation and also evaluation by her fern cutter who did perform a right knee arthrocentesis and the fluid was sent for culture to be cautious following which she notes the pain improved however she had low-grade temperatures and fatigue and malaise eventually prompting referral to the ED given concerns per fern cutter of infection. She did report significant knee swelling but was mildly improved following the arthrocentesis per the fern cutter. She notes that it does still feel [...] knee would need to be washed out. [facility] Medical History Obesity Dyspepsia H. pylori [...] history or paternal medical history.) Surgical History [place] teeth extracted Social History (Updated 01/23/25 @ 20:[address] Destiney Lane MD) household members: other details: Lives with her sister. Smoking Status: Never smoker second hand exposure: No alcohol intake: current alcohol intake frequency: a few times a week details: occasionally substance use type: does not use rafael/restoration: None seatbelt use: always do you feel [...] ataxia, numbnes (more content not included)... Normal [facility] Knee 4 or More Viewson 01-23 Knee 4 or More Views [facility] Imaging Services [address] [place] [id number] Knee 4 or More Views MR#: [id number] Acct: [id number] Name: CHRISTINE NERI Rep #: [id number] : 1990 F 34 From: Janna Saba DO PCP: JULIANN Whitfield Status: PRE ER Study: Knee 4 or More Views Date of Exam: 01/23/25 Exam# [id number] Ordering Dr: Ian Moctezuma DO PROCEDURE: KNEE [...] No acute fracture. Reading Location: [place] CC: JULIANN Tijerina; Dr. Ian Moctezuma, DO [place]: Signed Normal [facility] Serum or plasma C reactive p rotein measurement (mass/volume)Ordered By: Destiney Lane on 01-23-2025 CRP [Mass/Vol] 174.00 mg/L High 0.0-3.0 [facility] Absolute neutrophil counton 12-26-2024 Neutrophils (Bld) [#/Vol] 4.2 10*3/uL 2.0-7.7 [facility] Basophil percentageon 2024 Basophils/100 WBC (Bld) 0.2 % 0-1 [facility] C-reactive protein measureme nt by high sensitivity methodon 12-26-2024 C-Reactive Protein Extended Range 7.35 mg/L High 0.0-3.0 [facility] Comment on above: C-Reactive Protein ( CRP) provides useful information for thediagnosis, therapy and monitoring of inflammatory processesand associated diseases. For the evaluation of Relative Riskfor Cardiovascular Disease, a High Sensitivity CRP (HSCRP)should be ordered. CBC W/Diff, Automatedon Absolute Lymph 1.02 X10 3/uL Normal 0.83-4.51 [facility] Comment on above: Performed By: #### L 101.9900, L501.6710, L100.0100 #### [facility] Laboratory [address] [place], [address] Absolute Neut 4.2 X10 3/uL Normal 2.0-7.7 [facility] Comment on above: Performed By: #### L 101.9900, L501.6710, L100.0100 #### [facility] Laboratory [address] [place], [address] Basophils/100 WBC (Bld) 0.2 % Normal 0-1 [facility] Comment on above: Performed By: #### L 101.9900, L501.6710, L100.0100 #### [facility] Laboratory [address] [place], [address] Eosinophils/100 WBC (Bld) 0.0 % Normal 0-5 [facility] Comment on above: Performed By: #### L 101.9900, L501.6710, L100.0100 #### [facility] Laboratory [address] [place], [address] Erythrocyte distribution width (RBC) [Ratio] 14.9 % High 11.6-14.6 [facility] Comment on above: Performed By: #### L 101.9900, L501.6710, L100.0100 #### [facility] Laboratory [address] [place], [address] Hematocrit (Bld) [Volume fraction] 39.2 % Normal 37-47 [facility] Comment on above: Performed By: #### L 101.9900, L501.6710, L100.0100 #### [facility] Laboratory [address] [place], [address] Hemoglobin (Bld) [Mass/Vol] 11.9 g/dL Low 12.0-15.0 [facility] Comment on above: Performed By: #### L 101.9900, L501.6710, L100.0100 #### [facility] Laboratory [address] [place], [address] IG% 0.400 Normal 0.0-0.9 [facility] Comment on above: Result Comment: IG% - Immature Granulocytes (promyelocytes, myelocytes and metamyelocytes) > 1% indicates that a LEFT SHIFT is Present. Performed By: #### L 101.9900, L501.6710, L100.0100 #### [facility] Laboratory [address] [place], [address] Lymphocytes/100 WBC (Bld) 18.2 % Low 19-41 [facility] Comment on above: Performed By: #### L 101.9900, L501.6710, L100.0100 #### [facility] Laboratory [address] [place], [address] MCH (RBC) [Entitic mass] 25.8 pg Low 27.0-32.0 [facility] Comment on above: Performed By: #### L 101.9900, L501.6710, L100.0100 #### [facility] Laboratory [address] [place], [address] MCHC (RBC) [Mass/Vol] 30.4 g/dL Low 32-36 [facility] Comment on above: Performed By: #### L 101.9900, L501.6710, L100.0100 #### [facility] Laboratory [address] [place], [address] MCV (RBC) [Entitic vol] 84.8 fL Normal 81-99 [facility] Comment on above: Performed By: #### L 101.9900, L501.6710, L100.0100 #### [facility] Laboratory [address] [place], [address] Monocytes/100 WBC (Bld) 6.8 % Normal 0-10 [facility] Comment on above: Performed By: #### L 101.9900, L501.6710, L100.0100 #### [facility] Laboratory [address] [place], [address] Neutrophils/100 WBC (Bld) 74.4 % High 47-70 [facility] Comment on above: Performed By: #### L 101.9900, L501.6710, L100.0100 #### [facility] Laboratory [address] [place], [address] Nucleated RBC (Bld) [#/Vol] 0 10*3/uL Normal 0-5 [facility] Comment on above: Performed By: #### L 101.9900, L501.6710, L100.0100 #### [facility] Laboratory [address] [place], [address] Platelet mean volume (Bld) [Entitic vol] 10.8 fL Normal 6.2-12.0 [facility] Comment on above: Performed By: #### L 101.9900, L501.6710, L100.0100 #### [facility] Laboratory [address] [place], [address] Platelets (Bld) [#/Vol] 176 10*3/uL Normal 150-450 [facility] Comment on above: Performed By: #### L 101.9900, L501.6710, L100.0100 #### [facility] Laboratory [address] [place], [address] RBC (Bld) [#/Vol] 4.62 10*6/uL Normal 4.2-5.4 [facility] Comment on above: Performed By: #### L 101.9900, L501.6710, L100.0100 #### [facility] Laboratory [address] [place], [address] RDW SD 45.3 fl High 35.1-43.9 [facility] Comment on above: Performed By: #### L 101.9900, L501.6710, L100.0100 #### [facility] Laboratory [address] [place], [address] WBC (Bld) [#/Vol] 5.6 10*3/uL Normal 4.4-11.0 [facility] Comment on above: Performed By: #### L 101.9900, L501.6710, L100.0100 #### [facility] Laboratory [address] [place], [address] CRPon 12-26-2024 C-REACTIVE PROT 7.35 mg/L High 0.0-3.0 [facility] Comment on above: Result Comment: C-Re active Protein (CRP) provides useful information for the diagnosis, therapy and monitoring of inflammatory processes and associated diseases. For the evaluation of Relative Risk for Cardiovascular Disease, a High Sensitivity CRP (HSCRP) should be ordered. Performed By: #### L 101.9900, L501.6710, L100.0100 #### [facility] Laboratory [address] [place], [place], [id number] Eosinophil percentageon 02 Eosinophils/100 WBC (Bld) 0.0 % 0-5 [facility] Erythrocyte Sed Rateon 12-26 SED RATE 37 mm/hr High 0-30 [facility] Comment on above: Performed By: #### L 101.9900, L501.6710, L100.0100 #### [facility] Laboratory [address] [place], [place], [id number] Erythrocyte distribution wid th ratioon 12-26-2024 Erythrocyte distribution width (RBC) [Ratio] 14.9 % High 11.6-14.6 [facility] Erythrocyte distribution wid th standard deviationon 12-26-2024 Erythrocyte distribution width (RBC) [Entitic vol] 45.3 fL High 35.1-43.9 [facility] Erythrocyte sedimentation ra glenn 12-26-2024 ESR (Bld) [Velocity] 37 mm/h High 0-30 [facility] Hematocrit Auto (Bld) [Volum e fraction]on 12-26-2024 Hematocrit (Bld) [Volume fraction] 39.2 % 37-47 [facility] Hemoglobin measurementon Hemoglobin (Bld) [Mass/Vol] 11.9 g/dL Low 12.0-15.0 [facility] Immature granulocytes/100 WB C Auto (Bld)on 12-26-2024 Immature granulocytes/100 WBC (Bld) 0.400 % 0.0-0.9 [facility] Comment on above: IG% - Immature Granu locytes (promyelocytes, myelocytes and metamyelocytes) > 1% indicates that a LEFT SHIFT is Present. Lymphocytes Auto (Unsp spec) [#/Vol]on 12-26-2024 Lymphocytes (Bld) [#/Vol] 1.02 10*3/uL 0.83-4.51 [facility] Lymphocytes/100 WBC Auto (Un sp spec)on 12-26-2024 Lymphocytes/100 WBC (Bld) 18.2 % Low 19-41 [facility] MCV (mean corpuscular volume ) determinationon 12-26-2024 MCV (RBC) [Entitic vol] 84.8 fL 81-99 [facility] Mean corpuscular hemoglobin (MCH) determinationon 12-26-2024 MCH (RBC) [Entitic mass] 25.8 pg Low 27.0-32.0 [facility] Mean corpuscular hemoglobin concentration (MCHC) determinationon 12-26-2024 MCHC (RBC) [Mass/Vol] 30.4 g/dL Low 32-36 [facility] Mean platelet volume determi nationon 12-26-2024 Platelet mean volume (Bld) [Entitic vol] 10.8 fL 6.2-12.0 [facility] Monocyte percentageon 2024 Monocytes/100 WBC (Bld) 6.8 % 0-10 [facility] Neutrophil percentageon Neutrophils/100 WBC (Bld) 74.4 % High 47-70 [facility] Nucleated red blood cell per centageon 12-26-2024 Nucleated RBC/100 WBC (Bld) [Ratio] 0 % 0-5 [facility] Platelet counton 12-26-2024 Platelets (Bld) [#/Vol] 176 10*3/uL 150-450 [facility] RBC Auto (Bld) [#/Vol]on RBC (Bld) [#/Vol] 4.62 10*6/uL 4.2-5.4 [facility] White blood cell (WBC) count on 12-26-2024 WBC (Bld) [#/Vol] 5.6 10*3/uL 4.4-11.0 [facility] .GFRon 09-16-2024 GFR 110 ml/min/1.73sqm Normal [facility] Comment on above: Result Comment: GFR [...] By: #### L IPID, GFR, CMP #### [address] [address] GFR Non- 91 ml/min/1.73sqm Normal [facility] Comment on above: Result Comment: GFR [...] By: #### L IPID, GFR, CMP #### [address] [address] CMPon 09-16-2024 Albumin Level 3.4 G/dL Low 3.5-5.0 [facility] Comment on above: Performed By: #### L IPID, GFR, CMP #### [address] [address] Albumin/Globulin [Mass ratio] 0.8 {ratio} Low 1.1-2.5 [facility] Comment on above: Performed By: #### L IPID, GFR, CMP #### [address] [address] ALP [Catalytic activity/Vol] 85 U/L Normal 40-135 [facility] Comment on above: Performed By: #### L IPID, GFR, CMP #### [address] [address] ALT [Catalytic activity/Vol] 21 U/L Normal 14-59 [facility] Comment on above: Performed By: #### L IPID, GFR, CMP #### [address] [address] AST [Catalytic activity/Vol] 15 U/L Normal 10-40 [facility] Comment on above: Performed By: #### L IPID, GFR, CMP #### [address] [address] Bili Total 0.4 mg/dL Normal 0.2-1.0 [facility] Comment on above: Result Comment: Use of this assay is not recommended for patients undergoing treatment with eltrombopag due to the potential for falsely elevated results. Performed By: #### L IPID, GFR, CMP #### [address] [address] BUN/Creatinine Ratio 16 ratio Normal 7-27 [facility] Comment on above: Performed By: #### L IPID, GFR, CMP #### [address] [address] Calcium [Mass/Vol] 8.8 mg/dL Normal 8.4-10.2 [facility] Comment on above: Performed By: #### L IPID, GFR, CMP #### [address] [address] Chloride [Moles/Vol] 102 mmol/L Normal 98-107 [facility] Comment on above: Performed By: #### L IPID, GFR, CMP #### [address] [address] CO2 [Moles/Vol] 28 mmol/L Normal 22-29 [facility] Comment on above: Performed By: #### L IPID, GFR, CMP #### [address] [address] Creatinine [Mass/Vol] 0.73 mg/dL Normal 0.55-1.02 [facility] Comment on above: Result Comment: Test ing performed on Siemens Dimension EXL analyzer using a modified kinetic Chuck technique. Performed By: #### L IPID, GFR, CMP #### [address] [address] Electrolyte Balance 7.0 mEq/L Normal 4.0-15.0 [facility] Comment on above: Performed By: #### L IPID, GFR, CMP #### [address] [address] Globulin 4.3 G/dL Normal [facility] Comment on above: Performed By: #### L IPID, GFR, CMP #### [place] [address] Glucose [Mass/Vol] 93 mg/dL Normal 70-105 [facility] Comment on above: Performed By: #### L IPID, GFR, CMP #### [address] [address] Potassium [Moles/Vol] 4.1 mmol/L Normal 3.5-5.1 [facility] Comment on above: Performed By: #### L IPID, GFR, CMP #### [address] [address] Sodium [Moles/Vol] 137 mmol/L Normal 136-145 [facility] Comment on above: Performed By: #### L IPID, GFR, CMP #### [address] [address] Total Protein 7.7 G/dL Normal 6.4-8.2 [facility] Comment on above: Performed By: #### L IPID, GFR, CMP #### [address] [address] Urea nitrogen [Mass/Vol] 12 mg/dL Normal 7-18 [facility] Comment on above: Performed By: #### L IPID, GFR, CMP #### [address] [address] LABORATORYOrdered By: SYSTEM SYSTEM on 09-16-2024 Albumin [...] Bilirubin [Mass/Vol] 0.4 mg/dL Normal 0.2 - 1 .0 mg/dL AO ADM SS Comment on above: Interpretive Data: U se of this assay is not recommended for patients undergoing treatment with eltrombopag due to the potential for falsely elevated results. Calcium [Mass/Vol] 8.8 mg/dL Normal 8.4 - 10. 2 mg/dL AO ADM SS Chloride [Moles/Vol] 102 mmol/L Normal 98 - 10 7 mmol/L AO ADM SS CO2 [Moles/Vol] 28 [...] 09-16-2024 Cholesterol [Mass/Vol] 132 mg/dL Normal 0-200 [facility] Comment on above: Result Comment: Chol esterol Reference Interval: Less than 200 Desirable 200-239 Borderline high risk 240 and above High risk Performed By: #### L IPID, GFR, CMP #### [place] [address] [place], [place] [address] Cholesterol in HDL [Mass/Vol] 43 mg/dL Normal 40-60 [facility] Comment on above: Performed By: #### L IPID, GFR, CMP #### [place] [place], [place] [address] Cholesterol in LDL [Mass/Vol] 78 mg/dL Normal 0-130 [facility] Comment on above: Performed By: #### L IPID, GFR, CMP #### [address] [address] Triglyceride [Mass/Vol] 57 mg/dL Normal 0-150 [facility] Comment on above: Result Comment: Trig lyceride Reference Interval: Less than 150 Normal 150-199 Borderline high risk 200-499 High risk 500 or higher Very high risk Performed By: #### L IPID, GFR, CMP #### [address] [address] 36on 09-13-2023 36 Letter printed and mailed. Normal [facility] 36 Please mail my lette r to the patient's home address please Normal [facility] Basophil percentageOrdered B y: Deb Signs on 08-10-2023 Bilirubin [Mass/Vol] 0.50 mg/dL 0.20-1.00 [facility] Comment on above: For patients on eltr ombopag therapy, use of Dimension [place] TBIL is not recommended. Protein [Mass/Vol] 8.2 g/dL 6.4-8.2 [facility] Direct bilirubinOrdered By: Deb Signs on 08-10-2023 Bilirubin.direct [Mass/Vol] 0.20 mg/dL 0.00-0.30 [facility] Laboratory - Chemistry and C hemistry - challengeOrdered By: Deb Signs on 08-10-2023 ALP [Catalytic activity/Vol] 76 U/L 45-117 [facility] ALT [Catalytic activity/Vol] 17 U/L [facility] Globulin (S) [Mass/Vol] 4.6 g/dL 2.2-4.2 [facility] Serum or plasma albumin shi urement (mass/volume)Ordered By: Deb Signs on 08-10-2023 Albumin [Mass/Vol] 3.6 g/dL 3.2-5.0 [facility] Thin prep Papanicolaou smear with manual screeningOrdered By: Deb Signs on 08-10-2023 Thin prep Papanicolaou smear with manual screening 8 U/L 15 [facility] Basophil percentageOrdered B y: Deb Signs on 07-16-2023 Bilirubin [Mass/Vol] 0.30 mg/dL 0.20-1.00 [facility] Comment on above: For patients on eltr ombopag therapy, use of Dimension [place] TBIL is not recommended. Protein [Mass/Vol] 7.6 g/dL 6.4-8.2 [facility] Direct bilirubinOrdered By: Deb Signs on 07-16-2023 Bilirubin.direct [Mass/Vol] 0.08 mg/dL 0.00-0.30 [facility] Laboratory - Chemistry and C hemistry - challengeOrdered By: Deb Signs on 07-16-2023 ALP [Catalytic activity/Vol] 83 U/L 45- [facility] ALT [Catalytic activity/Vol] 16 U/L [facility] Globulin (S) [Mass/Vol] 4.3 g/dL 2.2-4.2 [facility] Serum or plasma albumin shi urement (mass/volume)Ordered By: Deb Signs on 07-16-2023 Albumin [Mass/Vol] 3.3 g/dL 3.2-5.0 [facility] Thin prep Papanicolaou smear with manual screeningOrdered By: Deb Signs on 07-16-2023 Thin prep Papanicolaou smear with manual screening 12 U/L 15-37 [facility] 36on 06-30-2023 36 Christine called back. She is now seeing TOOL AND DIE MANAGER Amira Tijerina @ [facility] in [place], [place]. Normal [facility] 36 Left a msg for Trist a notifying her we have Hiwot Paz TOOL AND DIE MANAGER listed for her PCP. Dr. Rueda wanted to send her a letter, but Hiwot no longer resides in [place] she is now in [place]. I left Christine a msg asking her to call our office to let me know who her new PCP is so we can send the letter to them. Normal [facility] Basophil percentageOrdered B y: Amira Tijerina on 06-24-2023 Bilirubin [Mass/Vol] 0.50 mg/dL 0.20-1.00 [facility] Comment on above: For patients on eltr ombopag therapy, use of Dimension [place] TBIL is not recommended. Chloride [Moles/Vol] 107 mmol/L 98-107 [facility] Cholesterol [Mass/Vol] 109 mg/dL <200 [facility] Comment on above: <200 mg/dL Desirable 200-240 mg/dL Borderline >240 mg/dL High Risk Glucose [Mass/Vol] 95 mg/dL 74-106 [facility] Potassium [Moles/Vol] 4.3 mmol/L 3.5-5.1 [facility] Protein [Mass/Vol] 7.7 g/dL 6.4-8.2 [facility] Sodium [Moles/Vol] 137 mmol/L 136-145 [facility] Triglyceride [Mass/Vol] 61 mg/dL <199 [facility] Comment on above: The drugs N-Acetylcy steine and Metamizole may falsely depress this assay.Serum Triglycerides Reference Interval Normal <150 mg/dL Borderline high 150 - 199 mg/dL High 200 - 499 mg/dL Very High > or = 500 mg/dL WBC (Bld) [#/Vol] 6.0 10*3/uL 4.4-11.0 [facility] Blood erythrocytes count (nu mber/volume)Ordered By: Amira Tijerina on 06-24-2023 RBC (Bld) [#/Vol] 4.53 10*6/uL 4.2-5.4 [facility] Blood hemoglobin measurement (mass/volume)Ordered By: Amira Tijerina on 06-24-2023 Hemoglobin (Bld) [Mass/Vol] 13.3 g/dL 12.0-15.0 [facility] Blood platelet mean volumeOr dered By: Amira Tijerina on 06-24-2023 Platelet mean volume (Bld) [Entitic vol] 10.8 fL 6.2-12.0 [facility] Determination of erythrocyte mean corpuscular volume (MCV)Ordered By: Amira Tijerina on 06-24-2023 MCV (RBC) [Entitic vol] 89.2 fL 81-99 [facility] Hematocrit Auto (Bld) [Volum e fraction]Ordered By: Amira Tijerina on 06-24-2023 Hematocrit (Bld) [Volume fraction] 40.4 % 37-47 [facility] Laboratory - Chemistry and C hemistry - challengeOrdered By: Amira Tijerina on 06-24-2023 ALP [Catalytic activity/Vol] 75 U/L 45-117 [facility] ALT [Catalytic activity/Vol] 18 U/L 13-56 [facility] CO2 [Moles/Vol] 25.0 mmol/L 21.0-32.0 [facility] Globulin (S) [Mass/Vol] 4.3 g/dL 2.2-4.2 [facility] Urea nitrogen/Creatinine [Mass ratio] 24.2 mg/mg 10-20 [facility] Laboratory - Hematology and Cell countsOrdered By: Amira Tijerina on 06-24-2023 Erythrocyte distribution width (RBC) [Entitic vol] 43.6 fL 35.1-43.9 [facility] Erythrocyte distribution width (RBC) [Ratio] 13.3 % 11.6-14.6 [facility] MCH (RBC) [Entitic mass] 29.4 pg 27.0-32.0 [facility] MCHC Auto (RBC) [Mass/Vol]Or dered By: Amira Tijerina on 06-24-2023 MCHC (RBC) [Mass/Vol] 32.9 g/dL 32-36 [facility] No Panel InformationOrdered By: Amira Tijerina on 06-24-2023 Estimated GFR (MDRD) Amer 131 mL/min >60 [facility] Comment on above: GFR Calc Estimated GFR (MDRD) Non-Af Amer 109 mL/min >60 [facility] Comment on above: Non- GFR Calc Platelets bldOrdered By: Vanesa hillaryrex Breezy on 06-24-2023 Platelets (Bld) [#/Vol] 164 10*3/uL 150-450 [facility] Serum or plasma albumin shi urement (mass/volume)Ordered By: Amira Tijerina on 06-24-2023 Albumin [Mass/Vol] 3.4 g/dL 3.2-5.0 [facility] Serum or plasma albumin/glob ulin mass ratioOrdered By: Amira Tijerina on 06-24-2023 Albumin/Globulin [Mass ratio] 0.8 {ratio} 0.9-2.4 [facility] Serum or plasma calcium shi urement (mass/volume)Ordered By: Amira Tijerina on 06-24-2023 Calcium [Mass/Vol] 8.4 mg/dL 8.5-10.1 [facility] Serum or plasma cholesterol in HDL measurement (mass/volume)Ordered By: Amira Tijerina on 06-24-2023 Cholesterol in HDL [Mass/Vol] 35 mg/dL >40 [facility] Comment on above: The drugs N-Acetylcy steine and Metamizole may falsely depress this assay. Reference Range HDL <40 mg/dL Low HDL Cholesterol HDL >or= 60 mg/dL High HDL Cholesterol Serum or plasma cholesterol in VLDL measurement (mass/volume)Ordered By: Amira Tijerina on 06-24-2023 Cholesterol in VLDL [Mass/Vol] 12 mg/dL 5-40 [facility] Serum or plasma creatinine m easurement (mass/volume)Ordered By: Amira Tijerina on 06-24-2023 Creatinine [Mass/Vol] 0.66 mg/dL 0.55-1.02 [facility] Comment on above: The validity of the calculated GFR & GFRAA in patients over 70 years has not been determined. Clinical correlation is essential. Serum or plasma low density lipoprotein (LDL) cholesterol measurement (mass/volume)Ordered By: Amira Tijerina on 06-24-2023 Cholesterol in LDL [Mass/Vol] 62 mg/dL 0-130 [facility] Serum or plasma urea nitroge n measurement (mass/volume)Ordered By: Amira Tijerina on 06-24-2023 Urea nitrogen [Mass/Vol] 16 mg/dL 7-18 [facility] Thin prep Papanicolaou smear with manual screeningOrdered By: Amira Allensey on 06-24-2023 Thin prep Papanicolaou smear with manual screening 15 U/L 15-37 [facility] Thin prep Papanicolaou smear with manual screening 5 5-15 [facility] 36on 06-23-2023 36 Mailed this am Normal [facility] 36 Please send lab slip s for her 2 liver function tests (they are dated differently) to her home as she will get labs at outside hospital. Thanks! Normal [facility] Laboratory - Microbiology an d Antimicrobial susceptibilityon 06-22-2023 M. tuberculosis stim IFN-g by CD4+ CD8+ T-cells corrected for background Qn (Bld) 3.21 IU/mL [facility] M. tuberculosis stim IFN-g by CD4+ T-cells corrected for background Qn (Bld) 3.02 [IU]/mL IU/mL [facility] M. tuberculosis tuberculin stim IFN-g Ql (Bld) Positive Abnormal Negative [facility] Comment on above: Positive Quantiferon values <1.00 are considered low positive and should be interpreted within the clinical context of the patient. Mitogen stimulated gamma interferon corrected for background Qn (Bld) IU/mL [facility] Gamma interferon background IA Qn (Bld) 0.08 IU/mL [facility] Panel Informationon 06-22 Interpretation and review of laboratory results Abnormal [facility] Mitogen Result IU/mL [facility] Interferon gamma rel ease is measured for [...] NTM (M. kansasii, M. szulgai,or M. marinum). [facility] TB2 Antigen Value 3.29 IU/mL [facility] TB1 Antigen Result 3.10 IU/mL [facility] ADDENDUMNOTEon 06-21-2023 ADDENDUMNOTE Addended by: DEB NASH on: 06/23/2023 07:40 AM Modules accepted: Orders Normal [facility] Office Visiton 06-21-2023 Follow-up visit [id number] Marcie Neri 1990 F Date Provider Department Center 06/21/2023 54-DEB RUEDA [facility] ID None Family History Problem Relation Age of Onset Cancer Mother Diabetes Maternal Grandfather Heart disease Maternal Grandfather Heart disease Maternal Grandmother Heart disease Paternal Grandfather Family Status - Relation Status Age at Mother Maternal Grandfather Maternal Grandmother Paternal Grandfather Level of Service:54741 [place] OFFICE/OUTPATIENT NEW MODERATE MDM 45-59 MINUTES Reason for Visit and Comments: New Patient [542] - new patient +Quant; pt w/rheumatoid arthritis on Humira, updated TB test (& repeat test) were positive. [facility] PATINSon 06-21-2023 PATINS Will repeat Quantife don test one last time due to declining numbers on last test and the fact that you have no know risk factors Will call you with results. 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 She lives with her sister who is a skin grader and neither of them have had any prolonged respiratory illnesses with associated night sweats weight loss that is unexpected or bloody sputum. In fact the patient states that she gets occasional head colds but has never had a pneumonia or serious bronchial infection. The patient has not traveled outside [facility] been just to surrounding states including [place]. 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 However was [place], [place] has an very low incidence of [...] Maternal Grandmothe (more content not included)... [facility] XR Chest 2 Viewson 3 No acute cardiopulmo nary abnormality identified. Specifically, no evidence of a cavitary pulmonary mass lesion. Report Dictated on Electronically Signed By: David Rangel Electronically Signed Date/Time: 06/02/2023 7:52 AM [facility] Patient Name: CHRISTINE NERI : 1990 [...] pneumothorax. No acute osseous abnormality is demonstrated. [facility] David Rangel MD - 06/02/2023 [facility] Name[facility] 1990 [id number] Exam Date/Time: 06/01/2023 16:12 Procedure: XR CHEST [...] Electronically Signed Date/Time: 06/02/2023 7:52 AM EDT [facility] XR Chest 2 ViewsOrdered By: David Rangel on 06-02-2023 [facility] Work Phone: XR Chest 2 Viewson Radiology Study observation (narrative) [facility] Qualitative QuantiFERON-TB g old in tube testOrdered By: NIRMAL RAMOS on 05-21-2023 M. tuberculosis tuberculin stim IFN-g Ql (Bld) 2.28 IU/mL . [facility] Thin prep Papanicolaou smear with manual screeningOrdered By: NIRMAL RAMOS on 05-21-2023 Thin prep Papanicolaou smear with manual screening Comment . [facility] Comment on above: QuantiFERON-TB Gold Plus is [...] smear with manual screening 1.33 IU/mL . [facility] Thin prep Papanicolaou smear with manual screening 0.15 IU/mL . [facility] Thin prep Papanicolaou smear with manual screening > 10.00 IU/mL . [facility] Thin prep Papanicolaou smear with manual screening Positive Negative [facility] Comment on above: A response to M [...] the productionof interferon gamma. Chemiluminescence immunoassaymethodologyPerformed at: [facility] [address] [id number] Director: Harish Moreno PhD, Phone: [phone] Absolute lymphocyte countOrd ered By: NIRMAL RAMOS on 01-21-2023 Lymphocytes Auto (Unsp spec) [#/Vol] 1.02 10*3/uL 0.83-4.51 [facility] Basophil percentageOrdered B y: NIRMAL RAMOS on 01-21-2023 Basophils/100 WBC (Bld) 0.4 % 0-1 [facility] Bilirubin [Mass/Vol] 0.40 mg/dL 0.20-1.00 [facility] Comment on above: For patients on eltr ombopag therapy, use of Dimension [place] TBIL is not recommended. Eosinophils/100 WBC (Bld) 1.9 % 0-5 [facility] Neutrophils (Bld) [#/Vol] 5.1 10*3/uL 2.0-7.7 [facility] Neutrophils/100 WBC (Bld) 74.6 % 47-70 [facility] Protein [Mass/Vol] 7.8 g/dL 6.4-8.2 [facility] WBC (Bld) [#/Vol] 6.8 10*3/uL 4.4-11.0 [facility] Blood erythrocytes count (nu mber/volume)Ordered By: NIRMAL RAMOS on 01-21-2023 RBC (Bld) [#/Vol] 4.64 10*6/uL 4.2-5.4 [facility] Blood hemoglobin measurement (mass/volume)Ordered By: NIRMAL RAMOS on 01-21-2023 Hemoglobin (Bld) [Mass/Vol] 13.8 g/dL 12.0-15.0 [facility] Blood lymphocytes/100 leukoc ytesOrdered By: NIRMAL RAMOS on 01-21-2023 Lymphocytes/100 WBC (Bld) 15.1 % 19-41 [facility] Blood monocytes/100 leukocyt esOrdered By: NIRMAL RAMOS on 01-21-2023 Monocytes/100 WBC (Bld) 7.7 % 0-10 [facility] Blood platelet mean volumeOr dered By: NIRMAL RAMOS on 01-21-2023 Platelet mean volume (Bld) [Entitic vol] 10.6 fL 6.2-12.0 [facility] Determination of erythrocyte mean corpuscular volume (MCV)Ordered By: NIRMAL RAMOS on 01-21-2023 MCV (RBC) [Entitic vol] 91.2 fL 81-99 [facility] Direct bilirubinOrdered By: NIRMAL RAMOS on 01-21-2023 Bilirubin.direct [Mass/Vol] 0.13 mg/dL 0.00-0.30 [facility] Hematocrit Auto (Bld) [Volum e fraction]Ordered By: NIRMAL RAMOS on 01-21-2023 Hematocrit (Bld) [Volume fraction] 42.3 % 37-47 [facility] Laboratory - Chemistry and C hemistry - challengeOrdered By: NIRMAL RAMOS on 01-21-2023 ALP [Catalytic activity/Vol] 93 U/L 45-117 [facility] ALT [Catalytic activity/Vol] 26 U/L 13-56 [facility] Globulin (S) [Mass/Vol] 4.2 g/dL 2.2-4.2 [facility] Laboratory - Hematology and Cell countsOrdered By: NIRMAL RAMOS on 01-21-2023 Erythrocyte distribution width (RBC) [Entitic vol] 42.5 fL 35.1-43.9 [facility] Erythrocyte distribution width (RBC) [Ratio] 12.9 % 11.6-14.6 [facility] Immature granulocytes/100 WBC (Bld) 0.300 % 0.0-0.9 [facility] Comment on above: IG% - Immature Granu locytes (promyelocytes, myelocytes and metamyelocytes) > 1% indicates that a LEFT SHIFT is Present. MCH (RBC) [Entitic mass] 29.7 pg 27.0-32.0 [facility] Nucleated RBC/100 WBC (Bld) [Ratio] 0 % 0-5 [facility] MCHC Auto (RBC) [Mass/Vol]Or dered By: NIRMAL RAMOS on 01-21-2023 MCHC (RBC) [Mass/Vol] 32.6 g/dL 32-36 [facility] Platelets bldOrdered By: LOLIS RAMOS on 01-21-2023 Platelets (Bld) [#/Vol] 210 10*3/uL 150-450 [facility] Serum or plasma albumin shi urement (mass/volume)Ordered By: NIRMAL RAMOS on 01-21-2023 Albumin [Mass/Vol] 3.6 g/dL 3.2-5.0 [facility] Thin prep Papanicolaou smear with manual screeningOrdered By: NIRMAL RAMOS on 01-21-2023 Thin prep Papanicolaou smear with manual screening 21 U/L 15-37 [facility] Absolute lymphocyte countOrd ered By: NIRMAL RAMOS on 01-07-2023 Lymphocytes Auto (Unsp spec) [#/Vol] 1.23 10*3/uL 0.83-4.51 [facility] Basophil percentageOrdered B y: NIRMAL RAMOS on 01-07-2023 Basophils/100 WBC (Bld) 0.4 % 0-1 [facility] Eosinophils/100 WBC (Bld) 2.8 % 0-5 [facility] Neutrophils (Bld) [#/Vol] 5.3 10*3/uL 2.0-7.7 [facility] Neutrophils/100 WBC (Bld) 73.3 % 47-70 [facility] WBC (Bld) [#/Vol] 7.2 10*3/uL 4.4-11.0 [facility] Blood erythrocytes count (nu mber/volume)Ordered By: NIRMAL RAMOS on 01-07-2023 RBC (Bld) [#/Vol] 4.59 10*6/uL 4.2-5.4 [facility] Blood hemoglobin measurement (mass/volume)Ordered By: NIRMAL RAMOS on 01-07-2023 Hemoglobin (Bld) [Mass/Vol] 13.6 g/dL 12.0-15.0 [facility] Blood lymphocytes/100 leukoc ytesOrdered By: NIRMAL RAMOS on 01-07-2023 Lymphocytes/100 WBC (Bld) 17.1 % 19-41 [facility] Blood monocytes/100 leukocyt esOrdered By: NIRMAL RAMOS on 01-07-2023 Monocytes/100 WBC (Bld) 6.0 % 0-10 [facility] Blood platelet mean volumeOr dered By: NIRMAL RAMOS on 01-07-2023 Platelet mean volume (Bld) [Entitic vol] 9.8 fL 6.2-12.0 [facility] Determination of erythrocyte mean corpuscular volume (MCV)Ordered By: NIRMAL RAMOS on 01-07-2023 MCV (RBC) [Entitic vol] 92.6 fL 81-99 [facility] Hematocrit Auto (Bld) [Volum e fraction]Ordered By: NIRMAL RAMOS on 01-07-2023 Hematocrit (Bld) [Volume fraction] 42.5 % 37-47 [facility] Laboratory - Hematology and Cell countsOrdered By: NIRMAL RAMOS on 01-07-2023 Erythrocyte distribution width (RBC) [Entitic vol] 43.0 fL 35.1-43.9 [facility] Erythrocyte distribution width (RBC) [Ratio] 12.8 % 11.6-14.6 [facility] Immature granulocytes/100 WBC (Bld) 0.400 % 0.0-0.9 [facility] Comment on above: IG% - Immature Granu locytes (promyelocytes, myelocytes and metamyelocytes) > 1% indicates that a LEFT SHIFT is Present. MCH (RBC) [Entitic mass] 29.6 pg 27.0-32.0 [facility] Nucleated RBC/100 WBC (Bld) [Ratio] 0 % 0-5 [facility] MCHC Auto (RBC) [Mass/Vol]Or dered By: NIRMAL RAMOS on 01-07-2023 MCHC (RBC) [Mass/Vol] 32.0 g/dL 32-36 [facility] Platelets bldOrdered By: LOLIS RAMOS on 01-07-2023 Platelets (Bld) [#/Vol] 226 10*3/uL 150-450 [facility] CNPNon 07-24-2021 [facility] Telephone (UCTR) CHRISTINE NERI ([id number]) 1990 F Date Time Provider Department 07/24/[address] [facility] During your visit today, we recorded the [...] Date Reviewed: 07/22/2021 Reviewed by: Ferny Rowan APRN.SLUDGE CONTROL OPERATOR - Fully Assessed Reason for Visit: Results [...] Status:Closed by TAMMY FLORES MA on 07/25/21 [facility] CNOVon 07-22-2021 CNOV Office Visit (UCWSTR ) CHRISTINE NERI ([id number]) 1990 F Date Time Provider Department 07/22/21 4:15 PM FERNY ROWAN ABDON During your visit today, we recorded the following information about you: Temperature Pulse Respiration Blood pressure 98.8 degrees 79/minute 16/minute 120/82 Weight 88 kg Ferny Rowan APRN.SLUDGE CONTROL OPERATOR 07/22/2021 5:18 PM Signed Subjective HPI A [...] of care. This note was generated using [employer] software. It may contain errors in wording, [...] the medicatio (more content not included)... Normal [facility] Urine Cultureon 07-22-2021 Bacteria identified Cx Nom (U) Sp. Request/Comment: - Specimen received in preservative Culture Result - No growth (<1,000 CFU/ml) Normal [facility] Comment on above: Performed By: #### U RCUL #### [facility] [address] [place] [address] Vital Signs Date Time Vital Sign Value Performing Clinician Rajni wray 01-26-2025 14:31-0500 Body temperature 97.4 [degF] Amira Tijerina TOOL AND DIE MANAGER-C Work Phone: [facility] 01-26-2025 14:31-0500 Diastolic blood pressure 90 mm[Hg] Amira Tijerina TOOL AND DIE MANAGER-C Work Phone: [facility] 01-26-2025 14:31-0500 Heart rate 92 /min Amira Tijerina TOOL AND DIE MANAGER-C Work Phone: [facility] 01-26-2025 14:31-0500 Respiratory rate 19 /min Amira Tijerina TOOL AND DIE MANAGER-C Work Phone: [facility] 01-26-2025 14:31-0500 SaO2% (BldA) [Mass fraction] 96 % Amira Allensey TOOL AND DIE MANAGER-C Work Phone: [facility] 01-26-2025 14:31-0500 Systolic blood pressure 121 mm[Hg] Amira Allensey TOOL AND DIE MANAGER-C Work Phone: [facility] 01-25-2025 06:00-0500 Body mass index (BMI) [Ratio] 36.2 kg/m2 Amira Tijerina TOOL AND DIE MANAGER-C Work Phone: [facility] 01-25-2025 06:00-0500 Body weight 98.6 kg Amira Tijerina TOOL AND DIE MANAGER-C Work Phone: [facility] 01-24-2025 16:25-0500 Body height 165.1 cm Amira Breezy TOOL AND DIE MANAGER-C Work Phone: [facility] 06-21-2023 08:15-0400 Body height 165.1 cm Deb Signs Work Phone: [facility] 06-21-2023 08:15-0400 Body mass index (BMI) [Ratio] 34.95 kg/m2 Deb Signs Work Phone: [facility] 06-21-2023 08:15-0400 Body temperature 97.2 [degF] Deb Signs Work Phone: [facility] 06-21-2023 08:15-0400 Body weight 95.25 kg Debbentley Rueda MD Work Phone: [facility] [employer] 06-21-2023 08:15-0400 Diastolic blood pressure 72 mm[Hg] Deb Signs Work Phone: [facility] 06-21-2023 08:15-0400 Heart rate 99 /min Debbentley Rueda MD Work Phone: [facility] 06-21-2023 08:15-0400 SaO2% (BldA) [Mass fraction] 97 % Debbentley Rueda MD Work Phone: [facility] [employer] 06-21-2023 08:15-0400 Systolic blood pressure 112 mm[Hg] Deb Signs Work Phone: [facility] [employer] Encounters Encounter Date Encounter Type Care Provider Facility Start: 05-03-2025 End: 05-03-2025 ambulatory Amira Tijerina TOOL AND DIE MANAGER-C Work Phone: [facility] Work Phone: Start: 05-03-2025 End: 05-03-2025 Patient encounter procedure Amira Allensey TOOL AND DIE MANAGER-C Work Phone: -[facility] Work Phone: Start: 05-03-2025 End: 05-03-2025 ambulatory Amira Tijerina Facility:[facility] Start: 01-26-2025 Non-patient / Non-visit Dr. Christine Reveles MD -[facility] Work Phone: Start: 01-26-2025 ambulatory Christine Reveles Facility :[facility] Start: 01-26-2025 Non-patient / Non-visit Dr. Ian mari MD -[facility] Start: 01-25-2025 Non-patient / Non-visit Dr. Christine Reveles MD -[facility] Work Phone: Start: 01-24-2025 Non-patient / Non-visit Dr. Christine Reveles MD -[facility] Work Phone: Start: 01-23-2025 ambulatory Christine Reveles Facility :[facility] Start: 01-23-2025 End: 01-26-2025 Evaluation and management of inpatient Dr. Christine Reveles MD -[facility] Work Phone: Start: 12-26-2024 End: 12-26-2024 Patient encounter procedure Amira Tijerina TOOL AND DIE MANAGER-C Work Phone: -[facility] Work Phone: Start: 12-26-2024 End: 12-26-2024 ambulatory Amira Tijerina Facility:[facility] Start: 09-16-2024 End: 09-16-2024 ambulatory AMIRA TIJERINA APPLICATIONS PROJECT MANAGER-SLUDGE CONTROL OPERATOR Facility:[facility] Start: 09-16-2024 End: 09-16-2024 Patient encounter procedure AMIRA TIJERINA APPLICATIONS PROJECT MANAGER-SLUDGE CONTROL OPERATOR [facility] Start: 09-13-2023 Telephone encounter Deb acnnon MD Work Phone: [facility] Start: 08-10-2023 End: 08-10-2023 ambulatory [facility] Work Phone: Start: 08-10-2023 End: 08-10-2023 Patient encounter procedure [facility] Work Phone: Start: 07-16-2023 End: 07-16-2023 ambulatory [facility] Work Phone: Start: 07-16-2023 End: 07-16-2023 Patient encounter procedure [facility] Work Phone: Start: 06-30-2023 Telephone encounter Dulce Maria Sharif MA [facility] Start: 06-24-2023 End: 06-24-2023 ambulatory [facility] Work Phone: Start: 06-24-2023 End: 06-24-2023 Patient encounter procedure [facility] Work Phone: Start: 06-23-2023 Telephone encounter Deb cannon MD Work Phone: [facility] Start: 06-21-2023 End: 06-22-2023 ambulatory DEB RUEDA [facility] Start: 06-21-2023 End: 06-21-2023 ambulatory DEB RUEDA [facility] Start: 06-21-2023 End: 06-21-2023 Office outpatient new 45 minutes Deb Rueda MD Work Phone: [facility] Comment on above: 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); At risk for infection due to immunosuppression; Rheumatoid arteritis (CMS/HCC) (HCC) 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); At risk for infection due to immunosuppression; Rheumatoid arteritis (CMS/HCC) (HCC); Encounter for medication monitoring Start: 06-01-2023 End: 06-02-2023 ambulatory HIWOT PAZ [facility] Start: 06-01-2023 End: 06-01-2023 Subsequent hospital visit by physician Nirmal Ramos MD Work Phone: [facility] Comment on above: Nonspecific reaction to tuberculin skin test without active tuberculosis Nonspecific reaction to tuberculin skin test without active tuberculosis (Primary Dx) Start: 05-21-2023 End: 05-21-2023 ambulatory [facility] Work Phone: Start: 05-21-2023 End: 05-21-2023 Patient encounter procedure [facility] Work Phone: Start: 01-21-2023 End: 01-21-2023 ambulatory [facility] Work Phone: Start: 01-21-2023 End: 01-21-2023 Patient encounter procedure [facility] Start: 01-07-2023 End: 01-07-2023 ambulatory [facility] Work Phone: Start: 01-07-2023 End: 01-07-2023 Patient encounter procedure [facility] Procedures Date Procedure Procedure Detail Performing Clinician Start: 01-26-2025 Estimated creatinine clearance Amira Tijerina TOOL AND DIE MANAGER-C Work Phone: Start: 01-24-2025 Acid fast bacilli culture Amira Tijerina TOOL AND DIE MANAGER-C Work Phone: Start: 01-24-2025 Anaerobic microbial culture Amira Tijerina TOOL AND DIE MANAGER-C Work Phone: Start: 01-24-2025 Gram stain microscopy S gallo Tijerina TOOL AND DIE MANAGER-C Work Phone: Start: 01-24-2025 End: 01-24-2025 Microbial culture, routine Amira Tijerina TOOL AND DIE MANAGER-C Work Phone: Start: 01-24-2025 Arthroscopy of knee Vanesa Tijerina TOOL AND DIE MANAGER-C Work Phone: Start: 01-23-2025 X-ray of knee, four or more views Amira Tijerina TOOL AND DIE MANAGER-C Work Phone: Start: 01-23-2025 Blood culture Amira burtrex TOOL AND DIE MANAGER-C Work Phone: Start: 06-21-2023 QUANTIFERON - PLUS G RAY TUBE Deb J Signs Work Phone: Start: 06-21-2023 QUANTIFERON - PLUS G REEN TUBE Deb J Signs Work Phone: Start: 06-21-2023 QUANTIFERON - PLUS P URPLE TUBE Deb J Signs Work Phone: Start: 06-21-2023 QUANTIFERON - PLUS Y ELLOW TUBE Deb J Signs Work Phone: Start: 06-21-2023 QUANTIFERON TB GOLD Den ise J Signs Work Phone: Start: 06-01-2023 Radiologic exam ches t 2 views Nirmal Ramos MD Work Phone: Start: 11-22-2018 Structure of wisdom tooth (body structure) AMIRA TIJERINA APPLICATIONS PROJECT MANAGER-SLUDGE CONTROL OPERATOR Plan of Treatment Date Care Activity Detail Author Start: 2038 Zoster Vaccines (1 of 2) Zoster Vacc radha (1 of 2) [facility] Start: 01-26-2025 Patient discharge [facility] Start: 01-26-2025 [facility] Start: 01-24-2025 Following clinical pathway protocol [facility] Start: 01-24-2025 Application of ice collar, cap or bag [facility] Start: 01-24-2025 Catheterization of vein [facility] Start: 01-24-2025 Deep breathing and coughing exercises [facility] Start: 01-24-2025 Following clinical pathway protocol [facility] Start: 01-24-2025 Incentive spirometry [facility] Start: 01-24-2025 Introduction of urin margaux catheter [facility] Start: 01-24-2025 Patient education [facility] Start: 01-24-2025 Taking patient vital signs [facility] Start: 01-24-2025 Vital signs measurements [facility] Start: 01-24-2025 [facility] Start: 01-24-2025 Anaerobic microbial culture Anaerobic Culture [facility] Start: 01-24-2025 Microbial culture, routine Wound Culture [facility] Start: 01-24-2025 Application of intermittent pneumatic compression device [facility] Start: 01-24-2025 Medication education [facility] Start: 01-24-2025 Source specific culture [facility] Start: 01-23-2025 Following clinical pathway protocol [facility] Start: 01-23-2025 Assessment of risk o f venous thromboembolism [facility] Start: 01-23-2025 Consultation [facility] Start: 01-23-2025 Fall prevention [facility] Start: 01-23-2025 Inhalation therapy procedure [facility] Start: 01-23-2025 Insertion of cathete r into peripheral vein [facility] Start: 01-23-2025 Introduction of urin margaux catheter [facility] Start: 01-23-2025 Measuring intake and output [facility] Start: 01-23-2025 Oxygen therapy [facility] Start: 01-23-2025 Providing care accor ding to standard [facility] Start: 01-23-2025 Provision of activit y privileges [facility] Start: 01-23-2025 Referral to occupati onal therapist [facility] Start: 01-23-2025 Referral to service [facility] Start: 01-23-2025 [facility] Start: 01-23-2025 Admission procedure [facility] Start: 01-23-2025 [facility] Start: 01-23-2025 Blood culture Blood Culture [facility] Start: 08-13-2023 End: 06-23-2024 Hepatic function 2000 panel - Serum or Plasma Hepatic function panel Lab Routine Positive QuantiFERON-TB Gold test Rheumatoid arteritis (CMS/HCC) (HCC) At risk for infection due to immunosuppression Encounter for medication monitoring Expected: 08/13/2023 (Approximate), Expires: 06/23/2024 [facility] [employer] Comment on above: Expected: 08/13/2023 (Approximate), Expires: 06/23/2024 Start: 07-23-2023 Influenza vaccination Influenza Vacc ine (#1) [facility] [employer] Start: 07-16-2023 End: 06-23-2024 Hepatic function 2000 panel - Serum or Plasma Hepatic function panel Lab Routine Positive QuantiFERON-TB Gold test Rheumatoid arteritis (CMS/HCC) (HCC) At risk for infection due to immunosuppression Encounter for medication monitoring Expected: 07/16/2023 (Approximate), Expires: [facility] Work [facility]: Comment on above: Expected: 07/16/2023 (Approximate), Expires: 06/23/2024 Start: 06-21-2023 End: 06-21-2024 QUANTIFERON TB GOLD [facility] [employer] Work Phone: Comment on above: Expected: 06/21/2023 (Approximate), Expires: 06/21/2024 Start: 10-23-2022 COVID-19 Vaccine (5 - Moderna risk series) COVID-19 Vaccine (5 - Moderna risk series) [facility] [employer] Start: 2018 Screening for malign ant neoplasm of cervix [facility] [employer] Start: 2009 Screening for malign ant neoplasm of cervix Pap Smear [facility] [employer] Start: 2007 DTaP/Tdap/Td Vaccine s (2 - Tdap) DTaP/Tdap/Td Vaccines (2 - Tdap) [facility] Start: 2007 Zoster Vaccines (1 of 2) Zoster Vacc radha (1 of 2) [facility] Start: 2006 Hepatitis C screening Hepatitis C Sc reening [facility] Start: 2000 Depression Screening Depression Scre ening [facility] Start: 1994 Pneumococcal Vaccine : Pediatrics (0 to 5 Years) and At-Risk Patients (6 to 64 Years) (1 - PCV) Pneumococcal Vaccine: Pediatrics (0 to 5 Years) and At-Risk Patients (6 to 64 Years) (1 - PCV) [facility] Start: 1989 MMR Vaccines (1 of 1 - Standard series) MMR Vaccines (1 of 1 - Standard series) [facility] Start: 1989 Varicella vaccination Varicell a Vaccines (1 of 2 - 2-dose childhood series) [facility] Start: 1988 Hepatitis B Vaccines (1 of 3 - 3-dose series) Hepatitis B Vaccines (1 of 3 - 3-dose series) [facility] Start: 1988 HIV screening HIV Screening [facility] OUTSIDE PROCEDURE SCAN OUTSIDE P ROCEDURE SCAN Procedures Ordered: 06/01/2023 [facility] Comment on above: Ordered: 06/01/2023 Patient referral [facility] Work Phone: QUANTIFERON - PLUS G RAY TUBE QUANTIFERON - PLUS LOJA TUBE Lab Routine Positive QuantiFERON-TB Gold test Rheumatoid arteritis (CMS/HCC) (HCC) At risk for infection due to immunosuppression 06/21/2023 9:46 AM EDT [facility] [employer] QUANTIFERON - PLUS G REEN TUBE QUANTIFERON - PLUS GREEN TUBE Lab Routine Positive QuantiFERON-TB Gold test Rheumatoid arteritis (CMS/HCC) (HCC) At risk for infection due to immunosuppression 06/21/2023 9:46 AM EDT [facility] [employer] QUANTIFERON - PLUS PURPLE TUBE QUANTIFERON - PLUS PURPLE TUBE Lab Routine Positive QuantiFERON-TB Gold test Rheumatoid arteritis (CMS/HCC) (HCC) At risk for infection due to immunosuppression 06/21/2023 9:46 AM EDT [facility] [employer] QUANTIFERON - PLUS YELLOW TUBE QUANTIFERON - PLUS YELLOW TUBE Lab Routine Positive QuantiFERON-TB Gold test Rheumatoid arteritis (CMS/HCC) (HCC) At risk for infection due to immunosuppression 06/21/2023 9:46 AM EDT [facility] Immunizations Immunization Date Immunization Notes Care Provider Jozef orlando 09-30-2021 SARS-CoV-2 (COVID-19 ) mRNA-1273 vaccine; Translations: [Moderna COVID-19 Vaccine] AMIRA BREEZY APPLICATIONS PROJECT MANAGER-SLUDGE CONTROL OPERATOR [facility] 01-10-2021 SARS-CoV-2 (COVID-19 ) mRNA-1273 vaccine AMIRA ALLENSEY APPLICATIONS PROJECT MANAGER-SLUDGE CONTROL OPERATOR [facility] 12-10-2020 SARS-CoV-2 (COVID-19 ) mRNA-1273 vaccine AMIRA ALLENSEY APPLICATIONS PROJECT MANAGER-SLUDGE CONTROL OPERATOR [facility] Payers Date Payer Category Payer Self-pay [id number] 2022 Unknown [id number] 2022 Unknown [employer] [id number] 2022-Present [address] [place] [address] Commercial [id number] 1988 Unknown [id number] 7 Unknown [id number] 2 Unknown [id number] 2 Unknown [id number] 2 Unknown [id number] 2 Unknown [id number] 2 Unknown [id number] [id number] 2 Unknown [id number] 2 Unknown [id number] 2 Social History Date Type Detail Facility Start: 10-07-2021 End: 10-07-2021 Tobacco smoking status NHIS Unknown if ever smoked [facility] Start: 1990 Sex Assigned At Female [facility] Start: 1990 Sex Assigned At Not on file [facility] Start: 06-21-2023 Gender identity Not on file [facility] Start: 05-22-2023 End: 06-21-2023 Exposure to SARS-CoV-2 (event) Not sure [facility] Start: 06-21-2023 End: 01-23-2025 Tobacco smoking status NHIS Never smoked tobacco [facility] Start: 06-21-2023 Tobacco use and exposure Smokeless tobacco non-user [facility] Start: 06-21-2023 Alcohol intake Current drinke r of alcohol (finding) [facility] Start: 06-21-2023 Alcohol intake [facility] Start: 06-21-2023 Alcohol Comment socially [facility] Sex Assigned At Sex [facility] Start: 01-26-2025 Sex Female (finding) [facility] NEGATED: Highlighted row Not [facility] Goals Date Patient Goal Desired Activity /State Functional Status Date Assessment Result Facility 01-26-2025 Functional status Chair [facility] Work Phone: Mental Status Date Assessment Result Facility 01-25-2025 Cognitive function Level Of Cons ciousness Awake;Alert;Appropriate;Follow s Commands [facility] Work Phone: 01-24-2025 Cognitive function Voice/Name [facility] Work Phone: Clinical Notes 07-22-2021 to 01-26-2025 Note Date & Type Note Facility 01-26-2025 Progress note Note Date/Time January 26, 2025 12:21pm [facility] Medical Records Department [address] [place] [address] Progress Note - Orthopedic 01/26/25 1218 MR#: [id number] Acct: [id number] Name: CHRISTINE NERI Rep #:[id number] : 1990 34 From: Lindsey IVORY PCP: Amira Tijerina, TOOL AND DIE MANAGER-C Status:ADM IN [place]: [place] RX648-7 Subjective Subjective Patient is a 34 year old female with history of RA POD2 s/p right knee arthroscopic irrigation and debridement 01/24/[address] Romo after concern for right knee septic arthritis. she went to her fern cutter after a flare up that did not [...] from knee arthrocentesis from the office at [facility] [employer] 9. when cleared from ID with final recommendations and medicine clears, ok for discharge from orthopaedic standpoint. 01/26/25 1221 <Electronically signed by Lindsey IVORY> Cosigner Signature (if applicable): CC: ~ Signed [facility] Work Phone: 1(675) 696-605403-07-2025 Discharge summary [facility] Medical Records Department [address] [place] [address] Discharge Summary 01/26/25 1332 MR#: [id number] Acct: [id number] Name: CHRISTINE NERI Rep #:[id number] : 1990 34 From: Christine Reveles MD PCP: JULIANN Whitfield Status:ADM IN Location: [facility] KV160-2 Providers Date of Admission: 01/23/25 Date of [...] Culture - Preliminary No growth-Final to follow 03/05/25 Unknown Aspirate - Knee Anaerobic Culture - [...] Referrals / Follow Up: Amira Tijerina NP, TOOL AND DIE MANAGER-C [Primary Care Provider] - Disposition Disposition (needs filled in before D/C Order can be placed): Home, Self Care 01/26/25 1341 Cosigner Signature (if applicable): CC: JULIANN Tijerina; Dr. Christine Reveles MD~ Signed [facility]03-07-2025 [facility] Records [facility] [address] [facility] [place] [address] Discharge Summary 01/26/25 1332 MR#: [id number] Acct: [id number] Name: CHRISTINE NERI Rep #: [id number] : 1990 34 From: Christine Reveles MD PCP: JULIANN Whitfield Status:ADM IN Location: [facility] IR917-5 Providers Date of Admission: 01/23/25 Date of Discharge: 01/26/25 Primary Care Physician: JULIANN Whitfield Consultations 01/23/25 22:21 Consult: Infectious Disease Routine Consulting Provider: Pal Rich Reason for Consult: R septic knee EMERGENT Consult: No MD Notified: Yes Date Notified: 01/23/25 Time Notified: [...] to 40 mg Rosuv (more content not included)...[facility]03-07-2025 Progress note Author Pal Rich [facility] Note Date/Time January 26, 2025 10:3 8am [facility] Medical Records Department [address] [place] [address] Progress Note - Infect Disease 01/26/25 1036 MR#: [id number] Acct: [id number] Name: CHRISTINE NERI Rep #:[id number] : 1990 34 From: Pal gonzalez MD PCP: Amira Tijerina, TOOL AND DIE MANAGER-C Status:ADM IN Location: [place] 796172-1 Physical Exam Narrative Feeling better, knee improved, [...] Cosigner Signature (if applicable): CC: ~ Signed [facility] Work Phone: 1(957) 541-705803-07-2025 Progress note [facility] Medical Records Department [address] [place] [address] Progress Note - Orthopedic 01/26/25 1218 MR#: [id number] Acct: [id number] Name: CHRISTINE NERI Rep #:[id number] : 1990 34 From: Lindsey IVORY PCP: Amira Tijerina TOOL AND DIE MANAGER-C Status:ADM IN Location: [place] [address] Subjective Subjective Patient is a 34 year old female with history of RA POD2 s/p right knee arthroscopic irrigation and debridement 01/24/[address] Romo after concern for right knee septic arthritis. she went to her fern cutter after a flare up that did not [...] from knee arthrocentesis from the office at [facility] [employer] 9. when cleared from ID with final recommendations and medicine clears, ok for discharge from orthopaedic standpoint. 01/26/25 1221 Cosigner Signature (if applicable): CC: ~ Signed [facility]03-07-2025 Consult note Author Servando Sexton [facility] Note Date/Time January 26, 2025 10:0 5am [facility] Medical Records Department [address] [place] [address] Pharmacokinetic/Renal -Consult 01/26/25 0902 MR#: [id number] Acct: [id number] Name: MARCIE NERIMANUEL [place] Rep #:[id number] : 1990 34 From: Servando jones PCP: Amira Tijerina, TOOL AND DIE MANAGER-C Status:ADM IN Y Location[place] FA992-4 Consult Antibiotic Management Pharmacy has been consulted [...] on [date and time ordered]: 01/28/25 08:00 01/26/25904 <Electronically signed by Servando Salinas erg> Date _ Servando Sullivannan 01/26/25 1005 <Electronically signed by Pal jordan MD> Cosigner Signature (if applicable): Date Pal Rich MD CC: ~ Signed [facility] Work Phone: 1(833) 459-255103-07-2025 Progress note [facility] Medical Records Department [address] [place] [address] Progress Note - Infect Disease 01/26/25 1036 MR#: [id number] Acct: [id number] Name: CHRISTINE NERI Rep #:[id number] : 1990 34 From: Pal gonzalez MD PCP: Amira Tijerina TOOL AND DIE MANAGER-C Status:ADM IN Location: [place] [address] Physical Exam Narrative Feeling better, knee improved, [...] Cosigner Signature (if applicable): CC: ~ Signed [facility]03-07-2025 Consult note [facility] Medical Records Department [address] [place] [address] Pharmacokinetic/Renal -Consult 01/26/25 0902 MR#: [id number] Acct: [id number] Name: CHRISTINE NERI Rep #:[id number] : 1990 34 From: Servando jones PCP: JULIANN Whitfield Status:ADM IN Y Location: [place] [address] Consult Antibiotic Management Pharmacy has been consulted [...] Date _ Servando Sexton 01/26/25 1005 nikki MD> Alejandroigngillian Signature (if applicable): Date Pal Rich MD CC: ~ Signed [facility]03-06-2025 Progress note Author Christine Reveles [facility] Note Date/Time January 25, 2025 4:40 pm [facility] Medical Records Department [address] [place] [address] Progress Note - Hospitalist 01/25/25 1632 MR#: [id number] Acct: [id number] Name: CHRISTINE NERI Rep #:[id number] : 1990 34 From: Christine Reveles MD PCP: JULIANN Whitfield Status:ADM IN [facility] Reason for Visit Reason for Visit: Diagnoses [...] 01/24/25 01/25/25 23:59 23:59 23:59 Intake Total 20 / 20 3651.67 / 3651.67 808.33 / 808.33 Balance [...] Cosigner Signature (if applicable): CC: ~ Signed [facility] Work Phone: 1(973) 640-529203-06-2025 Progress note [facility] Medical Records Department [address] [place] [address] Progress Note - Hospitalist 01/25/25 1632 MR#: [id number] Acct: [id number] Name: CHRISTINE NERI Rep #:[id number] : 1990 34 From: Christine Reveles MD PCP: JULIANN Whitfield Status:ADM IN Location: [facility] MR681-4 Reason for Visit Reason for Visit: Diagnoses [...] Cosigner Signature (if applicable): CC: ~ Signed [facility]03-06-2025 Consult note Author Pal Rich [facility] Note Date/Time January 25, 2025 10:3 8am [facility] Medical Records Department [address] [place] [address] Consultation - Infectious Dx 01/25/25 1035 MR#: [id number] Acct: [id number] Name: CHRISTINE NERI Rep #:[id number] : 1990 34 From: Pal gonzalez MD PCP: JULIANN Whitfield Status:ADM IN Location: [facility] UE671-0 Assessment & Plan Assessment/Plan (1) Septic arthritis [...] performed and neg except as noted above. [facility] Medical History Obesity Dyspepsia H. pylori [...] disease Diabetes Family History other Surgical History [place] teeth extracted Social History household members: other details: Lives with her sister. Smoking Status: Never smoker second hand exposure: No alcohol intake: current alcohol intake frequency: a few times a week details: occasionally substance use type: does not use rafael/restoration: None seatbelt use: always do you feel [...] Rich MD> Cosigner Signature (if applicable): CC: JULIANN Tijerina~ Signed [facility] Work Phone: 1(484) 191-917803-06-2025 Progress note Author Lindsey Olivares [facility] Note Date/Time January 25, 2025 10:1 [facility] Medical Records Department [address] [place] [address] Progress Note - Orthopedic 01/25/25 0938 MR#: [id number] Acct: [id number] Name: CHRISTINE NERI Rep #:[id number] : 1990 34 From: Lindsey IVORY PCP: JULIANN Whitfield Status:ADM IN Location: [facility] YC042-1 Subjective Subjective Patient is a 34 year old female with history of RA POD1 s/p right knee arthroscopic irrigation and debridement 01/24/[address] Romo after concern for right knee septic arthritis. she went to her fern cutter after a flare up that did not [...] Cosigner Signature (if applicable): CC: ~ Signed [facility] Work Phone: 1(564) 262-918803-06-2025 Consult note Author Binta Martínez [facility] Note Date/Time January 25, 2025 10:0 1am [facility] Medical Records Department [address] [facility] [place] [address] Pharmacokinetic/Renal -Consult 01/25/25 1001 MR#: [id number] Acct: [id number] Name: CHRISTINE NERI Rep #:[id number] : 1990 34 From: Binta Martínez PCP: JULIANN Whitfield Status:ADM IN Location: [place] 796172-1 Consult Antibiotic Management Pharmacy has been consulted [...] Signature (if applicable): Date CC: ~ Signed [facility] Work Phone: 1(593) [phone] Consult note [facility] Medical Records Department [address] [place] [address] Consultation - Infectious Dx 01/25/25 1035 MR#: [id number] Acct: [id number] Name: CHRISTINE NERI Rep #:[id number] : 1990 34 From: Pal gonzalez MD PCP: JULIANN Whitfield Status:ADM IN Location: [facility] HK363-3 Assessment & Plan Assessment/Plan (1) Septic arthritis [...] performed and neg except as noted above. [facility] Medical History Obesity Dyspepsia H. pylori [...] disease Diabetes Family History other Surgical History [place] teeth extracted Social History household members: other details: Lives with her sister. Smoking Status: Never smoker second hand exposure: No alcohol intake: current alcohol intake frequency: a few times a week details: occasionally substance use type: does not use rafael/restoration: None seatbelt use: always do you feel [...] Signature (if applicable): CC: JULIANN Tijerina~ Signed [facility]03-06-2025 Progress note [facility] Medical Records Department [address] [facility] [place] [address] Progress Note - Orthopedic 01/25/25 0938 MR#: [id number] Acct: [id number] Name: CHRISTINE NERI Rep #:[id number] : 1990 34 From: Lindsey IVORY PCP: JULIANN Whitfield Status:ADM IN Location: [place] TR955-2 Subjective Subjective Patient is a 34 year old female with history of RA POD1 s/p right knee arthroscopic irrigation and debridement 01/24/[address] Romo after concern for right knee septic arthritis. she went to her fern cutter after a flare up that did not [...] Cosigner Signature (if applicable): CC: ~ Signed [facility]03-06-2025 Consult note [facility] Medical Records Department [address] [place] [address] Pharmacokinetic/Renal -Consult 01/25/25 1001 MR#: [id number] Acct: [id number] Name: CHRISTINE NERI Rep #:[id number] : 1990 34 From: Binta Martínez PCP: VIRGIL WhitfieldC Status:ADM IN Y Location: [place] 796172-1 Consult Antibiotic Management Pharmacy has been consulted [...] required. 01/25/25 1001 > Date _ Binta Maka Cosigner Signature (if applicable): Date CC: ~ Signed [facility]03-05-2025 Progress note Author Christine Reveles [facility] Note Date/Time January 24, 2025 4:15 pm [facility] Medical Records Department [address] [place] [address] Progress Note - Hospitalist 01/24/25 1403 MR#: [id number] Acct: [id number] Name: CHRISTINE NERI Rep #:[id number] : 1990 34 From: Christine Reveles MD PCP: JULIANN Whitfield Status:ADM IN Location: [place] 796172-1 Reason for Visit Reason for Visit: Diagnoses [...] 75.1 H, Lymph % (Auto) 14.5 L, Baker % (Auto) 9.6, Eos % (Auto) 0.0, [...] 75.0 H, Lymph % (Auto) 14.5 L, Baker % (Auto) 9.9, Eos % (Auto) 0.0, [...] joint effusion. No acute fracture. Reading [facility] Physical Exam Const alert and oriented x3 [...] arthritis. Her joint was aspirated by her fern cutter and there was some improvement in pain [...] Cosigner Signature (if applicable): CC: ~ Signed [facility] Work Phone: [phone]) 688-327403-05-2025 Consult note Author Nemesio Buitrago [facility] Note Date/Time January 24, 2025 2:42 pm [facility] Medical Records Department [address] [place] [address] Anesthesia Postop Eval II 01/24/25 1442 MR#: [id number] Acct: [id number] Name: CHRISTINE NERI Rep #:[id number] : 1990 34 From: Nemesio Buitrago MD PCP: JULIANN Whitfield Status:ADM IN Y Race: C Location: MS3 MSED- 1 Anesthesia Postop Eval I Sum Postop Eval Completion status Anesthesia document: Postop Eval 1 completed: Yes Anesthesia Postop Eval I Summary Anesthesia Postop Eval I Summary: Anesthesia Postop Eval I: Assessment Summary Airway patent Yes 01/24/25 14:28 SCHOOL RESOURCE OFFICER.TNES Spontaneous unlabored Yes 01/24/25 14:28 SCHOOL RESOURCE OFFICER.TNES respirations Mental status nausea No 01/24/25 14:28 SCHOOL RESOURCE OFFICER.TNES Vomiting No 01/24/25 14:28 SCHOOL RESOURCE OFFICER.TNES Anesthesia Postop Eval I: Fluid Summary Crystalloid volume administer 1,200 01/24/25 14:28 SCHOOL RESOURCE OFFICER.TNES (ml) Colloids volume administered ( ml) Blood Product volume administered (ml) Total IV fluid infused 1,200 01/24/25 14:28 SCHOOL RESOURCE OFFICER.TNES Anesthesia Postop Eval I: Summary Notes Anesthesia Complication No 01/24/25 14:28 SCHOOL RESOURCE OFFICER.TNES Anesthesia Complication Comment: Post-operative progress note Anesthesia: Postop Eval II Evaluation Mental status: Awake Pain Level: 2 nausea: No Vomiting: No 01/24/25 1442 <Electronically signed by Nemesio Buitrago MD > Date _ Nemesio Buitrago MD Cosigner Signature: Date CC: ~ Signed [facility] Work Phone: [phone]) 829-797503-05-2025 Consult note Author Bishop Hemphill [facility] Note Date/Time January 24, 2025 2:29 pm [facility] Medical Records Department [address] [place] [address] Anesthesia Postop Eval I 01/24/25 1428 MR#: [id number] Acct: [id number] Name: CHRISTINE NERI Rep #:[id number] : 1990 34 From: Bishop KIRKPATRICK PCP: VIRGIL WhitfieldC Status:ADM IN Y Race: C Location: [place] [address] Anesthesia: Postop Eval I Current Vital Signs [...] by Bishop Hemphill CRNA> Date _ Bishop Kanchan SHELDON Cosigner Signature: Date CC: ~ Signed [facility] Work Phone: [phone]) 124-852503-05-2025 Progress note [facility] Medical Records Department [address] [place] [address] Progress Note - Hospitalist 01/24/25 1403 MR#: [id number] Acct: [id number] Name: CHRISTINE NERI Rep #:[id number] : 1990 34 From: Christine Reveles MD PCP: Amira Tijerina, TOOL AND DIE MANAGER-C Status:ADM IN Location: MS3 EB601-7 Reason for Visit Reason for Visit: Diagnoses [...] 75.1 H, Lymph % (Auto) 14.5 L, Baker % (Auto) 9.6, Eos % (Auto) 0.0, [...] 75.0 H, Lymph % (Auto) 14.5 L, Baker % (Auto) 9.9, Eos % (Auto) 0.0, [...] suprapatellar joint effusion.No acute fracture. Reading [facility] Physical Exam Const alert and oriented x3 [...] arthritis. Her joint was aspirated by her fern cutter and there was some improvement in pain [...] Cosigner Signature (if applicable): CC: ~ Signed [facility]03-05-2025 Progress note Author Mckinley Romo [facility] Note Date/Time January 24, 2025 1:31 pm [facility] Medical Records Department [address] [place] [address] Progress Note - Orthopedic 01/24/25 1329 MR#: [id number] Acct: [id number] Name: CHRISTINE NERI Rep #:[id number] : 1990 34 From: Mckinley em DO PCP: JULIANN Whitfield Status:ADM IN Location: [address] Subjective Subjective Patient seen and examined. Reports [...] 01/23/25 01/24/25 23:59 23:59 23:59 Intake Total 20 / 20 1285 / 1285 Balance 1285 / 1285 [...] 75.1 H, Lymph % (Auto) 14.5 L, Baker % (Auto) 9.6, Eos % (Auto) 0.0, [...] 75.0 H, Lymph % (Auto) 14.5 L, Baker % (Auto) 9.9, Eos % (Auto) 0.0, [...] joint effusion. No acute fracture. Reading Location[facility] Physical Exam Narrative General -A&Ox3, NAD, appears [...] Cosigner Signature (if applicable): CC: ~ Signed [facility] Work Phone: [phone]) 611-854503-05-2025 Consult note Author Nemesio Buitrago [facility] Note Date/Time January 24, 2025 1:02 pm [facility] Medical Records Department [address] [place] [address] Pre-Anesthesia Evaluation 01/24/25 1301 MR#: [id number] Acct: [id number] Name: CHRISTINE NERI Rep #:[id number] : 1990 34 From: Nemesio Buitrago MD PCP: VIRGIL WhitfieldC Status:ADM IN Y Race: C Location: MS3 [...] Right Knee Anesthesia History Anesthesia History - golf technician: Anesthesia History - golf technician Hx Hospitalization Any Problems With Anesthesia Cholinesterase [...] take am of surgery PONV PONV - golf technician: PONV - golf technician Female HX of Motion Sickness HX of N/V After Surgery Non-Smoker Duration of Surgery greater than 60 minutes Number of Risk Factors PONV Score Height & Weight Height & Weight: Anesthesia: Height & Weight Height 5 ft 5 in 01/23/25 22:38 Weight: 98.2 kg 01/24/25 06:18 Body Mass Index (BMI) 36.1 01/24/25 06:18 Respiratory Assessment Respiratory Assessment - golf technician: Respiratory Tract Infection Hx - golf technician Hx Respiratory Tract Infection STOP Sleep Apnea STOP Sleep Apnea - golf technician: STOP Sleep Apnea - golf technician Hx Hypertension No 01/23/25 22:39 Hx Sleep [...] Tobacco Use History Tobacco Use History - golf technician: Tobacco Use History - golf technician Tobacco Use Smoking Status Never smoker 01/23/25 22:39 Hx Tobacco Use No 01/23/25 22:39 Years Smoking Packs Smoked per Day Smoking Cessation Date was within the last 15 years Hx Smoking Cessation Date Hx Smoking Cessation Counseling Hematologic Medial History Hematologic Hx - golf technician: Hematologic Medical Hx - before school Hx of Blood Transfusion No 01/23/25 22:39 [...] confused, unrespo /Reproduction History /Reproductive History - golf technician: /Reproductive Hx- golf technician Hx Now No 01/23/25 22:39 Gestational Age [...] disease Diabetes Family History other Surgical History [place] teeth extracted Social History household members: other details: Lives with her sister. Smoking Status: Never smoker second hand exposure: No alcohol intake: current alcohol intake frequency: a few times a week details: occasionally substance use type: does not use rafael/restoration: None seatbelt use: always do you feel safe at home: Yes Review of Systems (Anesthesia) ROS Narrative System reviewed and no additional complaints, except as documented. 01/24/25 1301 <Electronically signed by Nemesio Buitrago MD > Date _ Nemesio Buitrago MD Cosigner Signature: Date CC: ~ Signed [facility] Work Phone: [phone]) [phone] Procedure note [facility] Medical Records Department [address] [facility] [place] [address] Operative Report 01/24/25 1442 MR#: [id number] Acct: [id number] Name: CHRISTINE NERI Rep #:[id number] : 1990 34 From: Mckinley em DO PCP: JULIANN Whitfield Status:ADM IN Location: MS3 MSED-1 Operative Report (Standard) Operative Information Date of Procedure: 01/24/25 Pre-Operative Diagnosis: Right knee septic arthritis Post-Operative Diagnosis: Right knee septic arthritis Surgery/Procedure Performed: Right knee arthroscopic irrigation and debridement tactical air defense controller: No Type of Anesthesia: General RN Documented [...] were removed in standard fashion with interrupted [id number] 3-0 nylon suture. Intra-articular block was administered [...] 01/24/25 1447 Cosigner Signature (if applicable): CC: TOOL AND DIE MANAGER-Toño Tijerina; Dr. Destiney Lane MD; Dr. Mckinley Romo DO; Dr. Pal Rich MD~ Signed [facility]03-05-2025 Consult note [facility] Medical Records Department [address] [place] [address] Anesthesia Postop Eval II 01/24/25 1442 MR#: [id number] Acct: [id number] Name: CHRISTINE NERI Rep #:[id number] : 1990 34 From: Nemesio Buitrago MD PCP: JULIANN Whitfield Status:ADM IN Y Race: C Location: [place] [facility] Anesthesia Postop Eval I Sum Postop Eval Completion status Anesthesia document: Postop Eval 1 completed: Yes Anesthesia Postop Eval I Summary Anesthesia Postop Eval I Summary: Anesthesia Postop Eval I: Assessment Summary Airway patent Yes 01/24/25 14:28 SCHOOL RESOURCE OFFICER.TNES Spontaneous unlabored Yes 01/24/25 14:28 SCHOOL RESOURCE OFFICER.TNES respirations Mental status nausea No 01/24/25 14:28 SCHOOL RESOURCE OFFICER.TNES Vomiting No 01/24/25 14:28 SCHOOL RESOURCE OFFICER.TNES Anesthesia Postop Eval I: Fluid Summary Crystalloid volume administer 1,200 01/24/25 14:28 SCHOOL RESOURCE OFFICER.TNES (ml) Colloids volume administered ( ml) Blood Product volume administered (ml) Total IV fluid infused 1,200 01/24/25 14:28 SCHOOL RESOURCE OFFICER.TNES Anesthesia Postop Eval I: Summary Notes Anesthesia Complication No 01/24/25 14:28 SCHOOL RESOURCE OFFICER.TNES Anesthesia Complication Comment: Post-operative progress note Anesthesia: Postop Eval II Evaluation Mental status: Awake Pain Level: 2 nausea: No Vomiting: No 01/24/25 1442 > Date _ Nemesio Buitrago MD Cosigner Signature: Date CC: ~ Signed [facility]03-05-2025 Consult note [facility] Medical Records Department [address] [place] [address] Anesthesia Postop Eval I 01/24/25 1428 MR#: [id number] Acct: [id number] Name: CHRISTINE NERI Rep #:[id number] : 1990 34 From: Bishop KIRKPATRICK PCP: JULIANN Whitfield Status:ADM IN Y Race: C Location: [place] [address] Anesthesia: Postop Eval I Current Vital Signs Temperature: 98.6 F Pulse Rate: 103 Blood Pressure: 159/96 Respiratory Rate: 16 Pulse Ox: 96 Assessment Airway patent: Yes Spontaneous unlabored respirations: Yes nausea: No Vomiting: No Anesthesia Complication: No Fluid Hydration Crystalloid volume administer (ml): 1,200 Total IV fluid infused: 1,200 Progress Note Anesthesia document: Postop Eval 1 completed: Yes 01/24/25 1429 SCHOOL RESOURCE OFFICER> Date _ Bishop Hemphill SCHOOL RESOURCE OFFICER Cosigner Signature: Date CC: ~ Signed [facility]03-05-2025 Progress note [facility] Medical Records Department [address] [place] [address] Progress Note - Orthopedic 01/24/25 1329 MR#: [id number] Acct: [id number] Name: CHRISTINE NERI Rep #:[id number] : 1990 34 From: Mckinley em DO PCP: Amira Tijerina, TOOL AND DIE MANAGER-C Status:ADM IN Location: [place] [facility] Subjective Subjective Patient seen and examined. Reports [...] 75.1 H, Lymph % (Auto) 14.5 L, Baker % (Auto) 9.6, Eos % (Auto) 0.0, [...] 75.0 H, Lymph % (Auto) 14.5 L, Baker % (Auto) 9.9, Eos % (Auto) 0.0, [...] suprapatellar joint effusion.No acute fracture. Reading [facility] Physical Exam Narrative General -A&Ox3, NAD, appears [...] Cosigner Signature (if applicable): CC: ~ Signed [facility]03-05-2025 Consult note [facility] Medical Records Department [address] [place] [address] Pre-Anesthesia Evaluation 01/24/25 1301 MR#: [id number] Acct: [id number] Name: CHRISTINE NERI Rep #:[id number] : 1990 34 From: Nemesio Buitrago MD PCP: JULIANN Whitfield Status:ADM IN Y Race: C Location: [place] [address] ASA Classification* ASA Classification ASA Classification: 2 [...] Right Knee Anesthesia History Anesthesia History - golf technician: Anesthesia History - golf technician Hx Hospitalization Any Problems With Anesthesia Cholinesterase [...] take am of surgery PONV PONV - golf technician: PONV - golf technician Female HX of Motion Sickness HX of N/V After Surgery Non-Smoker Duration of Surgery greater than 60 minutes Number of Risk Factors PONV Score Height & Weight Height & Weight: Anesthesia: Height & Weight Height 5 ft 5 in 01/23/25 22:38 Weight: 98.2 kg 01/24/25 06:18 Body Mass Index (BMI) 36.1 01/24/25 06:18 Respiratory Assessment Respiratory Assessment - golf technician: Respiratory Tract Infection Hx - golf technician Hx Respiratory Tract Infection STOP Sleep Apnea STOP Sleep Apnea - golf technician: STOP Sleep Apnea - golf technician Hx Hypertension No 01/23/25 22:39 Hx Sleep [...] Tobacco Use History Tobacco Use History - golf technician: Tobacco Use History - golf technician Tobacco Use Smoking Status Never smoker 01/23/25 22:39 Hx Tobacco Use No 01/23/25 22:39 Years Smoking Packs Smoked per Day Smoking Cessation Date was within the last 15 years Hx Smoking Cessation Date Hx Smoking Cessation Counseling Hematologic Medial History Hematologic Hx - golf technician: Hematologic Medical Hx - before school Hx of Blood Transfusion No 01/23/25 22:39 [...] confused, unrespo /Reproduction History /Reproductive History - golf technician: /Reproductive Hx- golf technician Hx Now No 01/23/25 22:39 Gestational Age [...] Vancomycin Trough/Random Due MC 01/26/25 02:[address] [facility] Medical History Obesity Dyspepsia H. pylori [...] disease Diabetes Family History other Surgical History [place] teeth extracted Social History household members: other details: Lives with her sister. Smoking Status: Never smoker second hand exposure: No alcohol intake: current alcohol intake frequency: a few times a week details: occasionally substance use type: does not use rafael/restoration: None seatbelt use: always do you feel safe at home: Yes Review of Systems (Anesthesia) ROS Narrative System reviewed and no additional complaints, except as documented. 01/24/25 1302 > Date _ Nemesio Linares Signature: Date CC: ~ Signed [facility]03-05-2025 Consult note Author Ian Shelby [facility] Note Date/Time January 24, 2025 1:04 am [facility] Medical Records Department [address] [place] [address] Pharmacokinetic/Renal -Consult 01/24/25 0049 MR#: [id number] Acct: [id number] Name: PEÑAMARCIE WILKESMANUEL Holbrook Rep #:[id number] : 1990 34 From: Ian Shelby PCP: VIRGIL WhitfieldC Status:ADM IN Location: [place] [address] Consult Antibiotic Management Pharmacy has been consulted [...] Date Destiney Lane MD CC: ~ Signed [facility] Work Phone: [phone]) [phone] Discharge summary Author Ian Moctezuma [facility] Note Date/Time January 24, 2025 12:2 2am [facility] Medical Records Department [address] [place] [address] Emergency Department Summary 01/23/25 MR#: [id number] Acct: [id number] Name: CHRISTINE NERI Rep #:[id number] : 1990 34 From: Ian Lindsey PCP: Amira Tijerina NP-Toño Status:ADM IN [facility] H[facility] History of Present Illness HPI Narrative: [...] arthritis. The patient states she saw her fern cutter today who drained her knee. Feller Operator referred the patient to the emergency department because the synovial fluid looked infected. There was synovial fluid cell count of [id number] with 86% PMNs. There were no crystals noted. Synovial fluid was sent for Gram stain and culture. CBC was also drawn at the fern cutter office which showed a mild leukocytosis of 12.4. Chief Complaint: Lower Extremity Injury Informant: patient Onset/Context/Timing Onset: Yesterday Context: Gradual Onset Timing: Continuous Quality of Pain: Sharp Location: Right knee Worsened by: Movement Relieved by: Prednisone Associated Symptoms Associated Symptoms: Negative for Parasthesia, Weakness or Loss of Funtion PFSH [facility] Medical History Dyspepsia H. pylori infection Anemia [...] cancer Grandfather Heart disease Diabetes Surgical History [place] teeth extracted Social History Smoking Status: Never smoker second hand exposure: No alcohol intake: current alcohol intake frequency: a few times a week details: occasionally substance use type: does not use rafael/restoration: None seatbelt use: always do you feel [...] joint effusion. No acute fracture. Reading [facility] X-[facility] of the left knee were obtained. There are 4 views. On my independent interpretation, there is no acute fracture. There is a mild effusion. Radiologist also interpreted the x-ray and agrees. Management Discussion w/another healthcare provider: Hospitalist and Sheltered Workshop Worker Treatment and Re-Evaluation Narrative: Patient was started [...] Amira Tijerina NP Referrals: Amira Tijerina NP, TOOL AND DIE MANAGER-C [Primary Care Provider] - Print Language: Somali Disposition Disposition: Acute Care Hospital [facility] What to do if you have Problems For any increased pain, shortness of breath, bleeding, nausea or vomiting, chestpain, or any unexpected problems, contact your Primary Care Provider. Call [facility] ([phone]) or report to the closest Emergency Room. Call 911 if necessary. 01/24/2521 <Electronically signed by Ian Moctezuma DO> Cosigner Signature (if applicable): CC: JULIANN Tijerina ~ Signed [facility] Work Phone: [phone]) [phone] Consult note [facility] Medical Records Department [address] [place] [address] Pharmacokinetic/Renal -Consult 01/24/25 0049 MR#: [id number] Acct: [id number] Name: CHRISTINE NERI Rep #:[id number] : 1990 34 From: Ian Shelby PCP: JULIANN Whitfield Status:ADM IN Y Location: [place] [address] Consult Antibiotic Management Pharmacy has been consulted [...] _ Ian Shelby 01/24/25 0104 e > Milagros Signature (if applicable): Date Destiney Lane MD CC: ~ Signed [facility]03-05-2025 Discharge summary [facility] Medical Records Department [address] [place] [address] Emergency Department Summary 01/23/25 MR#: [id number] Acct: [id number] Name: CHRISTINE NERI Rep #:[id number] : 1990 34 From: Ian Lindsey PCP: Amira Tijerina NP-C Status:ADM IN Location: MS3 MSED-1 HPI History [...] arthritis. The patient states she saw her fern cutter today who drained her knee. Feller Operator referred the patient to the emergency department because the synovial fluid looked infected. There was synovial fluid cell count of [id number] with 86% PMNs. There were no crystals noted. Synovial fluid was sent for Gram stain and culture. CBC was also drawn at the fern cutter office which showed a mild leukocytosis of [...] cancer Grandfather Heart disease Diabetes Surgical History [place] teeth extracted Social History Smoking Status: Never smoker second hand exposure: No alcohol intake: current alcohol intake frequency: a few times a week details: occasionally substance use type: does not use rafael/restoration: None seatbelt use: always do you feel [...] suprapatellar joint effusion.No acute fracture. Reading [facility] of the left knee were obtained. There are 4 views. On my independent interpretation, there is no acute fracture. There is a mild effusion. Radiologist also interpreted the x-ray and agrees. Management Discussion w/another healthcare provider: Hospitalist and Sheltered Workshop Worker Treatment and Re-Evaluation Narrative: Patient was started [...] Amira Tijerina NP Referrals: Amira Tijerina NP, TOOL AND DIE MANAGER-C [Primary Care Provider] - Print Language: Somali Disposition Disposition: Acute Care Hospital [facility] What to do if you have Problems For any increased pain, shortness of breath, bleeding, nausea or vomiting, chestpain, or any unexpected problems, contact your Primary Care Provider. Call [facility] ([phone]) or report tothe closest Emergency Room. Call 911 if necessary. 01/24/25 0022 Cosigner Signature (if applicable): CC: KATY-Toño Tijerina ~ Signed [facility]03-04-2025 Consult note Author Mckinley Romo [facility] Note Date/Time January 23, 2025 8:56 pm [facility] Medical Records Department [address] [place] [address] Consultation - Orthopedics 01/23/252043 MR#: [id number] Acct: [id number] Name: CHRISTINE NERI Rep #:[id number] : 1990 34 From: Mckinley em DO PCP: JULIANN Whitfield Status:REG ER Location: ED HPI Consult Data Date of Consult: 01/23/25 HPI Narrative HPI Narrative: CHRISTINE NERI, is a 34 F/history of rheumatoid arthritis, obesity who presented to [facility] after 1 day of right knee pain, bilateral shoulderdiscomfort and right elbow pain. She felt this was consistent with prior RA flares. She started prednisone without improvement in the other joints besides from the. She saw her fern cutter today. Arthrocentesis was performed in the office and is concerning for infection. Emergency department physician, synovial fluid cell count of [id number] with 86% PMNs. No crystals. Synovial fluidwas [...] anesthetic complication. Denies DVT or PE history. [facility] Medical History Obesity Dyspepsia H. pylori [...] disease Diabetes Family History other Surgical History [place] teeth extracted Social History household members: other details: Lives with her sister. Smoking Status: Never smoker second hand exposure: No alcohol intake: current alcohol intake frequency: a few times a week details: occasionally substance use type: does not use rafael/restoration: None seatbelt use: always do you feel [...] 75.1 H, Lymph % (Auto) 14.5 L, Baker % (Auto) 9.6, Eos % (Auto) 0.0, [...] joint effusion. No acute fracture. Reading [facility] Assessment & Plan Assessment/Plan (1) Septic arthritis [...] Signature (if applicable): CC: JULIANN Tijerina~ Signed [facility] Work Phone: 1(180) 276-839403-04-2025 History and physical note Author Destiney Lane [facility] Note Date/Time January 23, 2025 8:07 pm [facility] Medical Records Department [address] [place] [address] H&P Exam - Hospitalist 01/23/251931 MR#: [id number] Acct: [id number] Name: CHRISTINE NERI Rep #:[id number] : 1990 34 From: Destiney Lane MD PCP: Amira Tijerina, TOOL AND DIE MANAGER-C Status:REG ER Location: ED HPI - General General Date of Admission: 01/23/25 Date of Service: 01/23/25 Chief Complaint: R knee pain, intractable. HPI Narrative The patient is a 34 y/o F w/ PMHx: Obesity, Rheumatoid arthritis diagnosed in 2020 treated with MTX however had associated thrombocytopenia this regimen altered, Chronic normocytic anemia, GERD who presents to the [facility] ED on 01/23/25 with history of onset right knee pain, bilateral shoulder discomfort and right elbow pain starting 24 hours prior which was consistent per her report to previous episodes of rheumatoid arthritis flare with initiation of a burst of prednisone with a total of 30 mg on current day of presentation and also evaluation by her fern cutter who did perform a right knee arthrocentesis andthe fluid was sent for culture to be cautious following which she notes the painimproved however she had low-grade temperatures and fatigue and malaise eventually prompting referral to the ED given concerns per fern cutter of infection. She did report significant knee swelling but was mildly improved following the arthrocentesis per the fern cutter. She notes that it does still feel [...] knee would need to be washed out. [facility] Medical History Obesity Dyspepsia H. pylori [...] history or paternal medical history.) Surgical History [place] teeth extracted Social History (Updated 01/23/25 @ 20:[address] Destiney Lane MD) household members: other details: Lives with her sister. Smoking Status: Never smoker second hand exposure: No alcohol intake: current alcohol intake frequency: a few times a week details: occasionally substance use type: does not use rafael/restoration: None seatbelt use: always do you feel [...] 75.1 H, Lymph % (Auto) 14.5 L, Baker % (Auto) 9.6, Eos % (Auto) 0.0, [...] effusion. No acute fracture. Reading Location: [place] Assessment & Plan Assessment/Plan (1) Septic arthritis of knee, right: PLAN: Plan The patient is a 34 y/o F w/ PMHx: Obesity, Rheumatoid arthritis diagnosed in 2020 treated with MTX however had associated thrombocytopenia this regimen altered, Chronic normocytic anemia, GERD who presents to the [facility] ED on 01/23/25 with history of onset right knee pain, bilateral shoulder discomfort and right elbow pain starting 24 hours prior which was consistent per her report to previous episodes of rheumatoid arthritis flare with initiation of a burst of prednisone with a total of 30 mg on current day of presentation and also evaluation by her fern cutter who did perform a right knee arthrocentesis andthe fluid was sent for culture to be cautious following which she notes the painimproved however she had low-grade temperatures and fatigue and malaise eventually prompting referral to the ED given concerns per fern cutter of infection. #1. Intractable right knee pain, [...] operative intervention. Charges/Coding Visit Charges Inpatient E&M: 90963 Init Hosp L3 01/23/252006 <Electronically signed by Destiney Lane MD> Cosigner Signature (if applicable): CC: TOOL AND DIE MANAGERClement Tijerina; Dr. Destiney Lane MD~ Signed [facility] Work Phone: 1(682) 446-272803-04-2025 Evaluation note* Diagnosis Onset Date Resolution Status Admit Date Elevated blood pressure reading acut e January 23, 2025 7:32pm Septic arthritis of knee, right acut e January 23, 2025 7:32pm Rheumatoid arthritis chronic Jose h 2024 7:32pm [facility] Work Phone: 1(591) 674-135103-04-2025 Evaluation note* Diagnosis Onset Date Resolution Status Admit Date Elevated blood pressure reading acut e January 23, 2025 7:32pm Rheumatoid arthritis chronic Jose h 2024 7:32pm Septic arthritis of knee, right reso lved January 23, 2025 7:32pm [facility] Work Phone: 1(963) 207-544403-04-2025 Consult note [facility] Medical Records Department [address] [place] [address] Consultation - Orthopedics 01/23/252043 MR#: [id number] Acct: [id number] Name: CHRISTINE NERI Rep #:[id number] : 1990 34 From: Mckinley em DO PCP: JULIANN Whitfield Status:REG ER Location: ED HPI Consult Data Date of Consult: 01/23/25 HPI Narrative HPI Narrative: CHRISTINE NERI, is a 34 F/history of rheumatoid arthritis, obesity who presented to [facility] after 1 day of right knee pain, bilateral shoulderdiscomfort and right elbow pain. She felt this was consistent with prior RA flares. She started prednisone without improvement in the otherjoints besides from the. She saw her fern cutter today. Arthrocentesis was performed in the office and is concerning for infection. Emergency department physician, synovial fluid cell count of [id number] with 86% PMNs. No crystals. Synovial fluidwas [...] anesthetic complication. Denies DVT or PE history. [facility] Medical History Obesity Dyspepsia H. pylori [...] disease Diabetes Family History other Surgical History [place] teeth extracted Social History household members: other details: Lives with her sister. Smoking Status: Never smoker second hand exposure: No alcohol intake: current alcohol intake frequency: a few times a week details: occasionally substance use type: does not use rafael/restoration: None seatbelt use: always do you feel [...] 75.1 H, Lymph % (Auto) 14.5 L, Baker % (Auto) 9.6, Eos % (Auto) 0.0, [...] suprapatellar joint effusion.No acute fracture. [facility] Assessment & Plan Assessment/Plan (1) Septic arthritis [...] mIVF. 01/23/252055 Cosigner Signature (if applicable): CC: TOOL AND DIE MANAGER-C Amira Tijerina~ Signed [facility]03-04-2025 History and physical note [facility] Medical Records Department [address] [place] [address] H&P Exam - Hospitalist 01/23/251931 MR#: [id number] Acct: [id number] Name: CHRISTINE NERI Rep #:[id number] : 1990 34 From: Destiney Lane MD [...] normocytic anemia, GERD who presents to the [facility] ED on 01/23/25 with history of onset right knee pain, bilateral shoulder discomfortand right elbow pain starting 24 hours prior which was consistent per her report to previous episodes of rheumatoid arthritis flare with initiation of a burst of prednisone with a total of 30 mg on current day of presentation and also evaluation by her fern cutter who did perform a right knee arthrocentesis andthe fluid was sent for culture to be cautious following which she notes the painimproved however she had low-grade temperatures and fatigue and malaise eventually prompting referral tothe ED given concerns per fern cutter of infection. She did report significant knee swelling butwas mildly improved following the arthrocentesis per the fern cutter. She notes that it does stil l [...] knee would need to be washed out. [facility] Medical History Obesity Dyspepsia H. pylori infection Anemia Thrombocytopenia Rheumatoid arthritis Home Medications ?Medication ?Instructions ?Recorded ?Last Taken ?Type fluticasone propionate 50 1 spray intranasal DAILY 11/ 12/21 Unknown History mcg/actuation nasal spray,suspension (Flonase Allergy [...] history or paternal medical history.) Surgical History [place] teeth extracted Social History (Updated 01/23/25 @ 20:[address] Destiney Lane MD) household members: other details: Lives with her sister. Smoking Status: Never smoker second hand exposure: No alcohol intake: current alcohol intake frequency: a few times a week details: occasionally substance use type: does not use rafael/restoration: None seatbelt use: always do you feel [...] 75.1 H, Lymph % (Auto) 14.5 L, Baker % (Auto) 9.6, Eos % (Auto) 0.0, [...] suprapatellar joint effusion.No acute fracture. Reading Location[facility] Assessment & Plan Assessment/Plan (1) Septic arthritis of knee, right: PLAN: Plan The patient is a 34 y/o F w/ PMHx: Obesity, Rheumatoid arthritis diagnosed in 2020 treated with MTXhowever had associated thrombocytopenia this regimen altered, Chronic normocytic anemia, GERD who presents to the [facility] ED on 01/23/25 with history of onset right knee pain, bilateral shoulder discomfortand right elbow pain starting 24 hours prior which was consistent per her report to previous episodes of rheumatoid arthritis flare with initiation of a burst of prednisone with a total of 30 mg on current day of presentation and also evaluation by her fern cutter who did perform a right knee arthrocentesis andthe fluid was sent for culture to be cautious following which she notes the painimproved however she had low-grade temperatures and fatigue and malaise eventually prompting referral tothe ED given concerns per fern cutter of infection. #1. Intractable right knee pain, [...] operative intervention. Charges/Coding Visit Charges Inpatient E&M: 78464 Init Hosp L3 01/23/252006 Cosigner Signature (if applicable): CC: JULIANN Tijerina; Dr. Destiney Lane MD~ Signed [facility]03-04-2025 Radiology Diagnostic study note [facility] Imaging Services [address] [place], [place] [address] Knee 4 or More Views MR#: [id number] Acct: [id number] Name: CHRISTINE NERI #: [id number] : 1990 F 34 From: He Saba DO PCP: JULIANN Whitfield Status: PRE ER Study:Knee 4 or More Views Date of Exam: 01/23/25 Exam# [id number] Ordering Dr: Ian Moctezuma DO PROCEDURE: KNEE [...] suprapatellar joint effusion.No acute fracture. Reading Location: [facility] CC: KATY-C Amira Tijerina; Dr. Ian Moctezuma, ~ [place]: Signed [facility]10-23-2023 Telephone encounter Note* Telephone Encounter - Kath Yen LPN - 09/13/2023 1:22 PM EDT Letter printed and mailed. [facility] [id number] Miscellaneous Notes* Telephone Encounter - Kath Yen LPN - 09/13/2023 1:22 PM EDT Letter printed and mailed. * Telephone Encounter - Deb Rueda MD - 09/13/2023 12:49 PM EDT Please mail my letter to the patient's home address please documented in this encounterSPremier HealthCgwtji26-44-0145 Telephone encounter Note* Telephone Encounter - Deb Rueda MD - 09/13/2023 12:49 PM EDT Please mail my letter to the patient's home address please [facility] [id number] Telephone encounter Note* Telephone Encounter - Dulce Maria Sharif MA - 06/30/2023 9:37 AM EDT Christine called back. She is now seeing TOOL AND DIE MANAGER Amira Tijerina @ [facility] in [place], [place]. [place] [id number] Miscellaneous Notes* Telephone Encounter - Dulce Maria Sharif MA - 06/30/2023 9:37 AM EDT Christine called back. She is now seeing TOOL AND DIE MANAGER Amira Tjierina @ [facility] in [place], [place]. * Telephone Encounter - Dulce Maria Sharif MA - 06/30/2023 9:01 AM EDT Left a msg for Christine notifying her we have Hiwot Paz TOOL AND DIE MANAGER listed for her PCP. Dr. Rueda wanted to send her a letter, but Hiwot no longer resides in [place] she is now in [place]. I left Christine a msgasking her to call our office to let me know who her new PCP is so we can send the letter to them. documented in this encounterSPremier [id number] Telephone encounter Note* Telephone Encounter - Dulce Maria Sharif MA - 06/30/2023 9:01 AM EDT Left a msg for Christine notifying her we have Hiwot Paz TOOL AND DIE MANAGER listed for her PCP. Dr. Rueda wanted to send her a letter, but Hiwot no longer resides in [place] she is now in [place]. I left Christine a msgasking her to call our office to let me know who her new PCP is so we can send the letter to them. [facility] [id number] Telephone encounter Note* Telephone Encounter - Laura Amato RN - 06/23/2023 8:11 AM EDT Mailed this am [facility] [id number] Miscellaneous Notes* Telephone Encounter - Laura Amato RN - 06/23/2023 8:11 AM EDT Mailed this am * Telephone Encounter - Deb Rueda MD - 06/23/2023 7:40 AM EDT Please send lab slips for her 2 liver function tests (they are dated differently) to her home as she will get labs at outside hospital. Thanks! documented in this encounterSPremier [id number] Telephone encounter Note* Telephone Encounter - Deb Rueda MD - 06/23/2023 7:40 AM EDT Please send lab slips for her 2 liver function tests (they are dated differently) to her home as she will get labs at outside hospital. Thanks! [facility] [id number] History of Present illness Narrative* Deb Rueda MD - 06/21/2023 8:30 AM EDT Images from the original note were not included. [facility] Infectious Diseases Attending Outpatient Consult [...] as well as Mobic. 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 She lives with her sister who is a skin grader and neither of them have had any prolonged respiratory illnesseswith associated night sweats weight loss that is unexpected or bloody sputum. In fact the patient states that she gets occasional head colds but has never had a pneumonia or serious bronchial infection. The patient has not traveled outside [facility] been just to surrounding states including [place]. 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 However was [place], [place] has an very low incidence of [...] MD, FACP documented in this [facility]07-31-2023 History of Present illness Narrative* Deb Rueda MD - 06/21/2023 8:30 AM EDT Images from the original note were not included. [facility] Infectious Diseases Attending Outpatient Consult [...] as well as Mobic. 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 She lives with her sister who is a skin grader and neither of them have had any prolonged respiratory illnesseswith associated night sweats weight loss that is unexpected or bloody sputum. In fact the patient states that she gets occasional head colds but has never had a pneumonia or serious bronchial infection. The patient has not traveled outside [facility] been just to surrounding [facility] including [place]. 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 However was [place], [place] has an very low incidence of [...] Rueda MD, MD, FACP documented in this [place] [address]-31-2023 Instructions* Patient Instructions* Deb Rueda MD - 06/21/2023 8:30 AM EDT Will repeat Quantiferon test one last time due to declining numbers on last test and the fact that you have no know risk factors Will call you with results. documented in this [place] [address]-31-2023 Instructions* Patient Instructions* Deb Rueda MD - 06/21/2023 8:30 AM EDT Will repeat Quantiferon test one last time due to declining numbers on last test and the fact that you have no know risk factors Will call you with results. documented in this [place] [address]-31-2023 Miscellaneous Notes* Addendum Note - Deb Rueda MD - 06/21/2023 8:30 AM EDTAddended by: DEB COOMBS on: 06/23/2023 07:40 AM Modules accepted: Orders documented in this [place] [address]-31-2023 Note* Addendum Note - Deb Rueda MD - 06/21/2023 8:30 AM EDTAddended by: DEB COOMBS on: 06/23/2023 07:40 AM Modules accepted: Orders [facility] [id number] Note* Addendum Note - Deb uReda MD - 06/21/2023 8:30 AM EDTAddended by: DEB COOMBS on: 06/23/2023 07:40 AM Modules accepted: Orders [facility] CenterAzdehj26-37-4030 Note* Addendum Note - Deb Rueda MD - 06/21/2023 8:30 AM EDTAddended by: DEB COOMBS on: 06/23/2023 07:40 AM Modules accepted: Orders [facility] [id number] NoteHNO ID: [id number] Author: Ferny Rowan APRN.SLUDGE CONTROL OPERATOR Service: ? Author Type: Nurse Practitioner Type: [...] of care. This note was generated using [employer] software. It may contain errors in wording, punctuation, or spelling. Ferny Rowan APRN.[place] summary Author Christine Reveles [facility] Note Date/Time January 26, 2025 1:41 pm [facility] Medical Records Department [address] [place] [address] Discharge Summary 01/26/25 1332 MR#: [id number] Acct: [id number] Name: CHRISTINE NERI Rep #:[id number] : 1990 34 From: Christine Reveles MD PCP: JULIANN Whitfield Status:ADM IN Location: [facility] [id number] Providers Date of Admission: 01/23/25 Date of [...] Referrals / Follow Up: Amira Tijerina NP, TOOL AND DIE MANAGER-C [Primary Care Provider] - Disposition Disposition (needs filled in before D/C Order can be placed): Home, Self Care 01/26/25 1341 <Electronically signed by Christine Reveles MD> Cosigner Signature (if applicable): CC: JULIANN Tijerina; Dr. Christine Reveles MD~ Signed [facility] Work Phone: Evaluation + Plan note No data available for this section [facility] Evaluation noteNo assessment information available [facility] Work Phone: Evaluation note* Diagnosis Nonspecific reaction to tuberculin skin test without active tuberculosis documented in this encounter 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 At risk for infection due to immunosuppression Rheumatoid arteritis (CMS/HCC) (HCC) Other specified disorders of arteries and arterioles Encounter for medication monitoring Encounter for therapeutic drug monitoring documented in this encounter [facility]* Diagnosis 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 documented in this encounter [facility] Discharge instructions No data available for this section [facility] Progress note No data available for this section [facility] Reason for referral (narrative)No reason for referral information availableL[facility] Work Phone: Summary Purpose Family History No Family History Records Found Relationship Condition Age at Onset Recorded Date/T sinai grandmother Cardiac disease Unknown mother Malignant neoplasm of lung Unknown grandfather Cardiac disease Unknown Diabetes mellitus Unknown Advance Directives No Advanced Directives Records FoundDocuments on File Type Date Recorded Patient Trade Manager Expl anation Advance Directives and Livin g Will 06/01/2023 4:02 PM Power of Tester Rocket Engine 06/01/2023 4:02 PM Advance Directive Response Recorded Date/ Time Living Will No January 24, 2025 4:25pm Power of Tester [employer]ocket [employer] No January 24 4:25pm Advance Directive Response Recorded Date/ Time Living Will No January 24, 2025 5:25pm Do you have a Healthcare Power of Tester Rocket Engine? No January 24, 2025 5:25pm Chief Complaint and Reason for Visit Chief [...] 7:32pm Septic arthritis of knee, right January 7:32pm Rheumatoid arthritis January 23, 2025 7:3 2pm Reason for Visit Admit Date Elevated blood pressure reading January 7:32pm Rheumatoid arthritis January 23, 2025 7:3 2pm Septic arthritis of knee, right January 7:32pm Additional Source Comments INFORMATION SOURCE (unrecogn ized section and content) DATE CREATED AUTHOR 12/26/2021 [facility] DATE CREATED AUTHOR AUTHOR'S ORGANIZ ATION 09/14/2023 [facility] DATE CREATED AUTHOR AUTHOR'S ORGANIZ ATION 09/17/2024 [facility] DATE CREATED AUTHOR AUTHOR'S ORGANIZ ATION 05/05/2025 [place] Care Teams (unrecognized sec tion and content) Team Status: Active Member Role Status Dates Hiwot Paz TOOL AND DIE MANAGER, TOOL AND DIE MANAGER-C Primary Care Provider Active Team Status: Inactive Member Role Status Dates Hiwot Paz TOOL AND DIE MANAGER, TOOL AND DIE MANAGER-C Primary Care Provider Active NIRMAL RAMOS MD Attending Provider, Referring Pro vider Active Roll Forming Machine Set Up Mechanic Relationship Specialty Start Date End Date Hiwot Paz [address] PCP - General Nurse Practitioner 05/26/23 Roll Forming Machine Set Up Mechanic Relationship Specialty Start Date End Date Hiwot Paz [address] PCP - General Nurse Practitioner 05/26/23 Roll Forming Machine Set Up Mechanic Relationship Specialty Start Date End Date Hiwot Paz [address] PCP - General Nurse Practitioner 05/26/23 Team Status: Active Member Role Status Dates Amira Tijerina TOOL AND DIE MANAGER, TOOL AND DIE MANAGER-C Primary Care Provider Active Team Status: Inactive Member Role Status Dates Amira Tijerina TOOL AND DIE MANAGER, TOOL AND DIE MANAGER-C Primary Care Provider, Attendin g Provider Active Roll Forming Machine Set Up Mechanic Relationship Specialty Start Date End Date Amira Tijerina [address] [place] [address] PCP - General Family Medicine 06/30/23 Roll Forming Machine Set Up Mechanic Relationship Specialty Start Date End Date Hiwot Paz [address] PCP - General Nurse Practitioner 05/26/23 06/29/23 Amira Tijerina [address] [place] [id number] PCP - General Family Medicine 06/30/23 Roll Forming Machine Set Up Mechanic Relationship Specialty Start Date End Date Hiwot Paz [address] PCP - General Nurse Practitioner 05/26/23 06/29/23 Team Status: Inactive Member Role Status Dates Amira Tijerina TOOL AND DIE MANAGER, TOOL AND DIE MANAGER-C Primary Care Provider Active Dr. Deb Rueda MD Toño Attending Provider, Referring Provider Active Roll Forming Machine Set Up Mechanic Relationship Specialty Start Date End Date Hiwot Paz [address] PCP - General Nurse Practitioner 05/26/23 06/29/23 Amira Tijerina [address] [place] [id number] PCP - General Family Medicine 06/30/23 Roll Forming Machine Set Up Mechanic Relationship Specialty Start Date End Date Amira Tijerina [address] [place] [phone] PCP - General Family Medicine 06/30/23 Team Status: Inactive Member Role Status Dates Amira Tijerina TOOL AND DIE MANAGER, TOOL AND DIE MANAGER-C Primary Care Provider Active Start: December 26, 2024 End: December 26, 2024 DORINA SCHMIDT Attending Provider Active Start : December 26, 2024 End: December 26, 2024 DORINA SCHMIDT Referring Provider Active Start : December 26, 2024 End: December 26, 2024 Team Status: Inactive Member Role Status Dates Amira Tijerina TOOL AND DIE MANAGER, TOOL AND DIE MANAGER-C Primary Care Provider Active Start: January 23, 2025 End: January 26, 2025 Dr. Ian Moctezuma DO Emergency Provider Active Start: January 23, 2025 [...] Member Role Status Dates Amira Tijerina NP, TOOL AND DIE MANAGER-C Primary Care Provider Active Start: January 24, [...] Member Role Status Dates Amira Tijerina NP, TOOL AND DIE MANAGER-C Primary Care Provider Active Start: January 25, [...] January 25, 2025 Dr. Christine Reveles MD Other Provider Active St art: January 25, 2025 Dr. Pal Rich MD Other Provider Active Start: January 25, 2025 Team Status: Active Member Role Status Dates Amira Tijerina NP, TOOL AND DIE MANAGER-C Primary Care Provider Active Start: January 26, [...] Other Provider Active Start: January 26, 2025 Team Status: Active Member Role Status Dates Amira Tijerina NP, TOOL AND DIE MANAGER-C Primary Care Provider Active Start: January 26, 2025 Dr. Ian Varma MD Attending Provider Active S tart: January 26, 2025 Dr. Christine Reveles MD Referring Provider Active Start: January 26, 2025 Team Status: Inactive Member Role Status Dates Amira Tijerina NP, TOOL AND DIE MANAGER-C Primary Care Provider Active Start: May 03, 2025 End: May 03, 2025 DORINA SCHMIDT CNP Attending Provider Active S tart: May 03, 2025 End: May 03, 2025 DORINA SCHMIDT CNP Referring Provider Active S tart: May 03, 2025 End: May 03, 2025 Goals (unrecognized section and content) Goals [...] has been paused pending ID eval/recommendations Procedures [place] OFFICE/OUTPATIENT NEW MODERATE MDM 45-59 MINUTES Nirmal Ramos MD [address] [place] [address] [facility] [address] [place] [address] Referral ID Status Reason Start Date Expiration Date Visits Re quested Visits Authorized [id number] Closed 05/26/2023 05/25/2024 1 1 FOR RECORDS [...] BE BASED ON THE PRIMARY CLINICAL RECORDS. [facility] [employer] [facility]. provides no warranty or guarantee of the accuracy or completeness of information in this document.
[2025-05-17 10:36] LABS: Absolute Neutrophil Count 3.9 X10^3/uL (2.0-7.7); Basophil# 0.01 X10^3/uL; Basophil% 0.2 % (0-1); Hematocrit 39.2 % (37-47); Hemoglobin 12.8 g/dL (12.0-15.0); Lymphocyte % 25.2 % (19-41); Mean Corp Hgb Conc 32.7 g/dL (32-36); Mean Corpuscular Volume 85.8 fL (81-99); Mean Platelet Vol. 12.5 fl (6.2-12.0); Monocyte# 0.56 X10^3/uL; Monocyte% 9.4 % (0-10); NRBC Flagged by Analyzer 0 % (0-5); Neutrophil # 3.87 X10^3/uL (2.7-7.7); Neutrophil % 64.9 % (47-70); Platelet Count 177 K/mm3 (150-450); RBC Distribution Width CV 17.8 % (11.6-14.6); Red Blood Count 4.57 M/mm3 (4.2-5.4)
== END | disposition home or self-care (01) ==
LOC: MTLAB 07:19
PROVIDERS: PCP Nurse Practitioner Family
DX: D69.6 Thrombocytopenia, unspecified (principal)
CPT/HCPCS: 36415; 85025

== ENCOUNTER → 2025-06-26 | Outpatient (CLI) | payer OTHER, SELFPAY ==
--- NOTE | 2025-06-26 07:33 | EKG12_ITS ---
Test Reason : PREOP Blood Pressure : */* mmHG Vent. Rate : 94 BPM Atrial Rate : 94 BPM P-R Int : 134 ms QRS Dur : 90 ms QT Int : 368 ms P-R-T Axes : 57 95 65 degrees QTcB Int : 460 ms Normal sinus rhythm Possible Lateral infarct , age undetermined Abnormal ECG Confirmed by RAFAEL MELARA, CHRISSY ([id number]), videotape editor ORLIN DUGGAN ([id number]) on 06/27/2025 6:49:15 AM Referred By: Olvin Osborn Confirmed By: CHRISSY HALL MD
--- OUTSIDE RECORDS SUMMARY | 2025-06-26 07:42 | XMS RPT_ITS | CCD ---
Author Organization [facility] Care Team Providers Care Sound Engineer Name Role Phone Hiwot Paz Primary Care Provider Amira Tijerina Primary Care Provider Hiwot Paz Primary Care Provider [phone] HIWOT PAZ Primary Care Unavailable NIRMAL RAMOS Attending Unavailable NIRMAL RAMOS Referring Unavailable SIGNS, DEB J Referring Unavailable HIWOT PAZ Primary Care Unavailable SIGNS, DEB Ramírez Attending Unavailable SIGNS, DEB J Attending Unavailable HIWOT PAZ Primary Care Unavailable NIRMAL RAMOS Referring Unavailable ANNABEL JEWELRY ENGRAVER-HA, HIWOT Primary Care Physician AMIRA CABRERA Attending Deann MATIAS, HIWOT Primary Care Unavailjesus Tijerina AIR CONDITIONING MANAGER-C, Amira Primary Care Provider ROXANA CAM Attending Provider ROXANA CAM Referring Provider Dr. Ian Moctezuma DO Emergency Provider Domingo MELARA, Dr. Destiney Wick Admit Provider [phone] MD Other Provider [phone] Dr. Mckinley Romo DO Other Provider [phone] Dr. Christine Reveles MD Attending Provider Dr. Pal Gamez MD Other Provider [phone] Dr. Christine Reveles MD Other Provider Unavailab susana Tijerina AIR CONDITIONING MANAGER-C, Amira [facility] Care Provider Dr. Ian Moctezuma DO Emergency Provider Domingo MELARA, Dr. Destiney Wick Admit Provider [phone] Domingo MELARA, Dr. Destiney Wick Other Provider Dr. Mckinley Romo DO Other Provider Abdirizak MELARA, Dr. King Attending Provider Deann Rich MD, Dr. Aguillon Other Provider Abdirizak MELARA, Dr. King Other Provider Unavailab susana Varma MD, Dr. Sosa Attending Provider Abdirizak MELARA, Dr. King Referring Provider ROXANA Lopez INTEL ANALYST Attending Provider [phone] DORINAROXANA INTEL ANALYST Referring Provider [phone] DORINA ROXANA Attending Provider [phone] DORINA, ROXANA Referring Provider Adam Revelesintya Referring Unavailable Ian Varma Attending Unavailable Tijerina AIR CONDITIONING MANAGER, [facility] Primary Care Unavailable Destiney Lane Attending Unavailable Tijerina AIR CONDITIONING MANAGER, [facility] Primary Care Unavailable Abdirizak, Adamintya Attending Unavailable Destiney Lane Admitting Unavailable Mckinley Romo Consulting Unavailable Destiney Lane Consulting Unavailable Pal Rich Consulting Unavailable Abdirizak, Achintya Consulting Unavailable Olvin Osborn Referring Unavailable Olvin Osborn Attending Unavailable Tijerina AIR CONDITIONING MANAGER, [facility] Primary Care Unavailable MEDINA, GOLDEN Referring Unavailable MEDINA, GOLDEN Attending Unavailable Tijerina AIR CONDITIONING MANAGER, [facility] Primary Care Unavailable MEDINA, GOLDEN Referring Unavailable MEDINA, GOLDEN Attending Unavailable Tijerina AIR CONDITIONING MANAGER, [facility] Primary Care Unavailable Tijerina AIR CONDITIONING MANAGER, [facility] Primary Care Unavailable MEDINA, GOLDEN Referring Unavailable MEDINA, GOLDEN Attending Unavailable Reveles, Achintya Attending Unavailable Destiney Lane Admitting Unavailable Tijerina AIR CONDITIONING MANAGER, [facility] Primary Care Unavailable Mckinley Romo Consulting Unavailable Destiney Lane Consulting Unavailable Pal Rich Consulting Unavailable Medications Current Medications Medication Drug Class(es) Dates Sig (Normalized) Sig (Original) 0.4 ml adalimumab 100 mg/ml prefilled syringe (7 sources) Tumor Necrosis Factor Neelam adalimumab (Humira) 40 MG/0.4ML Prefilled Syringe Kit prefilled syringe azaTHIOprine 50 mg oral tablet (11 sources) Purine Antimetabolite Start: 01-23-2025 take 1 [...] Ordered doxycycline hyclate 100 mg oral capsule (3 sources) Tetracycline-class Drug Start: 01-26-2025 take 1 capsule by mouth twice daily Doxycycline Hyclate 100 mg capsule Active 100 mg PO TWICE A DAY 28 0 January 26, 2025 1:00am Flonase Allergy Relief (1 source) Start: 09-30-2021 Flonase Allergy Relief qDay, 0 Refill(s) Start Date: 09/30/21 Status: Ordered fluticasone propionate 0.05 mg/actuat metered dose nasal spray (9 sources) Corticosteroid Start: 10-03-2021 take 50 ug [...] 06/23/2023 Active levoFLOXacin 500 mg oral tablet (3 sources) Quinolone Antimicrobial Start: 01-26-2025 take 1 tablet by mouth once daily Levofloxacin 500 mg tablet Active 500 mg PO DAILY 14 0 January 26, 2025 1:00am meloxicam 15 mg oral tablet (10 sources) Nonsteroidal Anti-inflammatory Drug Start: 09-30-2021 take 1 tablet by mouth once daily Meloxicam 15 mg tablet Active 15 mg PO DAILY October 03, 2021 1:00am predniSONE 10 mg oral tablet (17 sources) Start: 01-23-2025 take 1 tablet by [...] sulfaSALAzine 500 mg delayed release oral tablet (11 sources) Aminosalicylate Start: 01-23-2025 take 3 tablets [...] (Original) folic acid 1 mg oral tablet (9 sources) Start: 10-03-2021 End: 01-23-2025 take 1 tablet by mouth once daily Folic Acid 1 mg tablet Discontinued 1 mg PO DAILY October 03, 2021 1:00am January 23, 2025 8:39pm 0.15 ml methotrexate 50 mg/ml auto-injector (9 sources) Folate Analog Metabolic Inhibitor Start: 10-03-2021 End: 01-23-2025 Methotrexate (Pf) 7.5 mg/0.15 mL auto-injector Discontinued 7.5 mg SC EVERY WEEK October 03, 2021 1:00am January 23, 2025 8:40pm Problems Active Problems Problem Classification Problem Date Documented Date Episodic/Chronic Abdominal pain (9 sources) Indigestion; Translations: [Epigastric pain] 10-14-2021 Episodic Coagulation and hemorrhagic disorders (10 sources) Thrombocytopenic disorder; Translations: [Thrombocytopenia, unspecified] Onset: 05-21-2025 10-07-2021 Chronic Deficiency and other anemia (9 sources) Anemia; Translations: [Anemia, unspecified] 10-07-2021 Episodic Immunizations and screening for infectious disease (19 sources) Nonspecific tuberculin test reaction ; Translations: [Nonspecific reaction to tuberculin skin test without active tuberculosis] Onset: 06-01-2023 06-01-2023 Episodic Intestinal infection (9 sources) Infection caused by Helicobacter pylori; Translations: [Other specified bacterial intestinal infections] 10-14-2021 Episodic Other aftercare (3 sources) Patient encounter status; Translations: [Encounter for therapeutic drug level monitoring] 06-23-2023 Episodic Other circulatory disease (6 sources) Elevated blood pressure; Translations: [Elevated blood-pressure [...] caused by tuberculosis or sexually transmitted disease) (8 sources) Knee pyogenic arthritis; Translations: [Pyogenic arthritis, unspecified] Onset: 02-01-2025 01-23-2025 Episodic Results Test Name Value Interpretation Reference Range Facility Absolute lymphocyte counton 05-17-2025 Lymphocytes Auto (Unsp spec) [#/Vol] 1.50 10*3/uL 0.83-4.51 [facility] Absolute neutrophil counton 05-17-2025 Neutrophils (Bld) [#/Vol] 3.9 10*3/uL 2.0-7.7 [facility] Automated lymphocyte count a s percentage of total leukocyteson 05-17-2025 Lymphocytes/100 WBC Auto (Unsp spec) 25.2 % 19-41 [facility] Basophil percentageon 2024 Basophils/100 WBC (Bld) 0.2 % 0-1 [facility] CBC W/Diff, Automatedon 04-23 Absolute Lymph 1.50 X10 3/uL Normal 0.83-4.51 [facility] Comment on above: Performed By: #### L 100.0100 #### [facility] [address] [place], [address] Absolute Neut 3.9 X10 3/uL Normal 2.0-7.7 [facility] Comment on above: Performed By: #### L 100.0100 #### [facility] [address] [place], [address] Basophils/100 WBC (Bld) 0.2 % Normal 0-1 [facility] Comment on above: Performed By: #### L 100.0100 #### [facility] [address] [place], [address] Eosinophils/100 WBC (Bld) 0.0 % Normal 0-5 [facility] Comment on above: Performed By: #### L 100.0100 #### [facility] [address] [place], [address] Erythrocyte distribution width (RBC) [Ratio] 17.8 % High 11.6-14.6 [facility] Comment on above: Performed By: #### L 100.0100 #### [facility] [address] [place], [address] Hematocrit (Bld) [Volume fraction] 39.2 % Normal 37-47 [facility] Comment on above: Performed By: #### L 100.0100 #### [facility] [address] [place], [address] Hemoglobin (Bld) [Mass/Vol] 12.8 g/dL Normal 12.0-15.0 [facility] Comment on above: Performed By: #### L 100.0100 #### [facility] [address] [place], [address] IG% 0.300 Normal 0.0-0.9 [facility] Comment on above: Result Comment: IG% - Immature Granulocytes (promyelocytes, myelocytes and metamyelocytes) > 1% indicates that a LEFT SHIFT is Present. Performed By: #### L 100.0100 #### [facility] [address] [place], [address] Lymphocytes/100 WBC (Bld) 25.2 % Normal 19-41 [facility] Comment on above: Performed By: #### L 100.0100 #### [facility] [address] [place], [address] MCH (RBC) [Entitic mass] 28.0 pg Normal 27.0-32.0 [facility] Comment on above: Performed By: #### L 100.0100 #### [facility] [address] [place], [address] MCHC (RBC) [Mass/Vol] 32.7 g/dL Normal 32-36 [facility] Comment on above: Performed By: #### L 100.0100 #### [facility] [address] [place], [address] MCV (RBC) [Entitic vol] 85.8 fL Normal 81-99 [facility] Comment on above: Performed By: #### L 100.0100 #### [facility] [address] [place], [address] Monocytes/100 WBC (Bld) 9.4 % Normal 0-10 [facility] Comment on above: Performed By: #### L 100.0100 #### [facility] [address] [place], [address] Neutrophils/100 WBC (Bld) 64.9 % Normal 47-70 [facility] Comment on above: Performed By: #### L 100.0100 #### [facility] [address] [place], [address] Nucleated RBC (Bld) [#/Vol] 0 10*3/uL Normal 0-5 [facility] Comment on above: Performed By: #### L 100.0100 #### [facility] [address] [place], [address] Platelet mean volume (Bld) [Entitic vol] 12.5 fL High 6.2-12.0 [facility] Comment on above: Performed By: #### L 100.0100 #### [facility] [address] [place], [address] Platelets (Bld) [#/Vol] 177 10*3/uL Normal 150-450 [facility] Comment on above: Performed By: #### L 100.0100 #### [facility] [address] [place], [address] RBC (Bld) [#/Vol] 4.57 10*6/uL Normal 4.2-5.4 [facility] Comment on above: Performed By: #### L 100.0100 #### [facility] [address] [place], [address] RDW SD 55.0 fl High 35.1-43.9 [facility] Comment on above: Performed By: #### L 100.0100 #### [facility] [address] [place], [address] WBC (Bld) [#/Vol] 6.0 10*3/uL Normal 4.4-11.0 [facility] Comment on above: Performed By: #### L 100.0100 #### [facility] [address] [place], [address] Eosinophil percentageon 04-23 Eosinophils/100 WBC (Bld) 0.0 % 0-5 [facility] Erythrocyte distribution wid th ratioon 05-17-2025 Erythrocyte distribution width (RBC) [Ratio] 17.8 % High 11.6-14.6 [facility] Erythrocyte distribution wid th standard deviationon 05-17-2025 Erythrocyte distribution width (RBC) [Ratio] 55.0 fl High 35.1-43.9 [facility] Hematocrit Auto (Bld) [Volum e fraction]on 05-17-2025 Hematocrit (Bld) [Volume fraction] 39.2 % 37-47 [facility] Hemoglobin measurementon Hemoglobin (Bld) [Mass/Vol] 12.8 g/dL 12.0-15.0 [facility] Immature granulocytes/100 WB C Auto (Bld)on 05-17-2025 Immature granulocytes/100 WBC (Bld) 0.300 % 0.0-0.9 [facility] Comment on above: IG% - Immature Granu locytes (promyelocytes, myelocytes and metamyelocytes) > 1% indicates that a LEFT SHIFT is Present. MCV (mean corpuscular volume ) determinationon 05-17-2025 MCV (RBC) [Entitic vol] 85.8 fL 81-99 [facility] Mean corpuscular hemoglobin (MCH) determinationon 05-17-2025 MCH (RBC) [Entitic mass] 28.0 pg 27.0-32.0 [facility] Mean corpuscular hemoglobin concentration (MCHC) determinationon 05-17-2025 MCHC (RBC) [Mass/Vol] 32.7 g/dL 32-36 [facility] Mean platelet volume determi nationon 05-17-2025 Platelet mean volume (Bld) [Entitic vol] 12.5 fL High 6.2-12.0 [facility] Monocyte percentageon 2024 Monocytes/100 WBC (Bld) 9.4 % 0-10 [facility] Neutrophil percentageon 04-23 Neutrophils/100 WBC (Bld) 64.9 % 47-70 [facility] Nucleated red blood cell per centageon 05-17-2025 Nucleated RBC/100 WBC (Bld) [Ratio] 0 % 0-5 [facility] Platelet counton 05-17-2025 Platelets (Bld) [#/Vol] 177 10*3/uL 150-450 [facility] RBC Auto (Bld) [#/Vol]on RBC (Bld) [#/Vol] 4.57 10*6/uL 4.2-5.4 [facility] White blood cell (WBC) count on 05-17-2025 WBC (Bld) [#/Vol] 6.0 10*3/uL 4.4-11.0 [facility] Absolute lymphocyte counton 05-03-2025 Lymphocytes Auto (Unsp spec) [#/Vol] 1.33 10*3/uL 0.83-4.51 [facility] Absolute neutrophil counton 05-03-2025 Neutrophils (Bld) [#/Vol] 3.6 10*3/uL 2.0-7.7 [facility] Automated lymphocyte count a s percentage of total leukocyteson 05-03-2025 Lymphocytes/100 WBC Auto (Unsp spec) 24.4 % 19-41 [facility] Basophil percentageon 2024 Basophils/100 WBC (Bld) 0.4 % 0-1 [facility] CBC W/Diff, Automatedon 04-22 Absolute Lymph 1.33 X10 3/uL Normal 0.83-4.51 [facility] Comment on above: Performed By: #### L 100.0100 #### [facility] [place], [address] Absolute Neut 3.6 X10 3/uL Normal 2.0-7.7 [facility] Comment on above: Performed By: #### L 100.0100 #### [facility] [address] [place], [address] Basophils/100 WBC (Bld) 0.4 % Normal 0-1 [facility] Comment on above: Performed By: #### L 100.0100 #### [facility] [address] [place], [address] Eosinophils/100 WBC (Bld) 0.0 % Normal 0-5 [facility] Comment on above: Performed By: #### L 100.0100 #### [facility] [address] [place], [address] Erythrocyte distribution width (RBC) [Ratio] 18.5 % High 11.6-14.6 [facility] Comment on above: Performed By: #### L 100.0100 #### [facility] [address] [place], [address] Hematocrit (Bld) [Volume fraction] 39.7 % Normal 37-47 [facility] Comment on above: Performed By: #### L 100.0100 #### [facility] [address] [place], [address] Hemoglobin (Bld) [Mass/Vol] 13.0 g/dL Normal 12.0-15.0 [facility] Comment on above: Performed By: #### L 100.0100 #### [facility] [address] [place], [address] IG% 0.400 Normal 0.0-0.9 [facility] Comment on above: Result Comment: IG% - Immature Granulocytes (promyelocytes, myelocytes and metamyelocytes) > 1% indicates that a LEFT SHIFT is Present. Performed By: #### L 100.0100 #### [facility] [address] [place], [address] Lymphocytes/100 WBC (Bld) 24.4 % Normal 19-41 [facility] Comment on above: Performed By: #### L 100.0100 #### [facility] [address] [place], [address] MCH (RBC) [Entitic mass] 28.4 pg Normal 27.0-32.0 [facility] Comment on above: Performed By: #### L 100.0100 #### [facility] [address] [place], [address] MCHC (RBC) [Mass/Vol] 32.7 g/dL Normal 32-36 [facility] Comment on above: Performed By: #### L 100.0100 #### [facility] [address] [place], [address] MCV (RBC) [Entitic vol] 86.7 fL Normal 81-99 [facility] Comment on above: Performed By: #### L 100.0100 #### [facility] [address] [place], [address] Monocytes/100 WBC (Bld) 8.3 % Normal 0-10 [facility] Comment on above: Performed By: #### L 100.0100 #### [facility] [address] [place], [address] Neutrophils/100 WBC (Bld) 66.5 % Normal 47-70 [facility] Comment on above: Performed By: #### L 100.0100 #### [facility] [address] [place], [address] Nucleated RBC (Bld) [#/Vol] 0 10*3/uL Normal 0-5 [facility] Comment on above: Performed By: #### L 100.0100 #### [facility] [address] [place], [address] Platelet mean volume (Bld) [Entitic vol] 13.0 fL High 6.2-12.0 [facility] Comment on above: Performed By: #### L 100.0100 #### [facility] [address] [place], [address] Platelets (Bld) [#/Vol] 107 10*3/uL Low 150-450 [facility] Comment on above: Performed By: #### L 100.0100 #### [facility] [address] [place], [address] RBC (Bld) [#/Vol] 4.58 10*6/uL Normal 4.2-5.4 [facility] Comment on above: Performed By: #### L 100.0100 #### [facility] [address] [place], [address] RDW SD 58.4 fl High 35.1-43.9 [facility] Comment on above: Performed By: #### L 100.0100 #### [facility] [address] [place], [address] WBC (Bld) [#/Vol] 5.5 10*3/uL Normal 4.4-11.0 [facility] Comment on above: Performed By: #### L 100.0100 #### [facility] [address] [place], [address] Eosinophil percentageon 04-22 Eosinophils/100 WBC (Bld) 0.0 % 0-5 [facility] Erythrocyte distribution wid th ratioon 05-03-2025 Erythrocyte distribution width (RBC) [Ratio] 18.5 % High 11.6-14.6 [facility] Erythrocyte distribution wid th standard deviationon 05-03-2025 Erythrocyte distribution width (RBC) [Ratio] 58.4 fl High 35.1-43.9 [facility] Hematocrit Auto (Bld) [Volum e fraction]on 05-03-2025 Hematocrit (Bld) [Volume fraction] 39.7 % 37-47 [facility] Hemoglobin measurementon Hemoglobin (Bld) [Mass/Vol] 13.0 g/dL 12.0-15.0 [facility] Immature granulocytes/100 WB C Auto (Bld)on 05-03-2025 Immature granulocytes/100 WBC (Bld) 0.400 % 0.0-0.9 [facility] Comment on above: IG% - Immature Granu locytes (promyelocytes, myelocytes and metamyelocytes) > 1% indicates that a LEFT SHIFT is Present. MCV (mean corpuscular volume ) determinationon 05-03-2025 MCV (RBC) [Entitic vol] 86.7 fL 81-99 [facility] Mean corpuscular hemoglobin (MCH) determinationon 05-03-2025 MCH (RBC) [Entitic mass] 28.4 pg 27.0-32.0 [facility] Mean corpuscular hemoglobin concentration (MCHC) determinationon 05-03-2025 MCHC (RBC) [Mass/Vol] 32.7 g/dL 32-36 [facility] Mean platelet volume determi nationon 05-03-2025 Platelet mean volume (Bld) [Entitic vol] 13.0 fL High 6.2-12.0 [facility] Monocyte percentageon 2024 Monocytes/100 WBC (Bld) 8.3 % 0-10 [facility] Neutrophil percentageon 04-22-2024 Neutrophils/100 WBC (Bld) 66.5 % 47-70 [facility] Nucleated red blood cell per centageon 05-03-2025 Nucleated RBC/100 WBC (Bld) [Ratio] 0 % 0-5 [facility] Platelet counton 05-03-2025 Platelets (Bld) [#/Vol] 107 10*3/uL Low 150-450 [facility] RBC Auto (Bld) [#/Vol]on RBC (Bld) [#/Vol] 4.58 10*6/uL 4.2-5.4 [facility] White blood cell (WBC) count on 05-03-2025 WBC (Bld) [#/Vol] 5.5 10*3/uL 4.4-11.0 [facility] Culture, Anaerobic Any Sourc anish 01-29-2025 CUAN UNK UNK COLLECTED IN OR No growth in 5 days. Normal [facility] Comment on above: Performed By: #### M 100.4001, M100.2000, M100.3000 ####[facility] [address] [place], [address] Culture, Blood (WB)on 2024 CUB Blood cultures x2, f rom two different sites No growth in 5 days. Normal [facility] Comment on above: Performed By: #### M 200.1000, L100.0100, L500.2500 #### [facility] [address] [place], [address] Wound Cultureon 01-28-2025 WC UNK UNK COLLECTED IN OR No growth aerobically. Normal [facility] Comment on above: Performed By: #### M 100.4001, M100.2000, M100.3000 ####[facility] [address] [place], [address] Estimation of creatinine jessica aranceOrdered By: Pal Rich on 01-26-2025 Estimated Creatinine Clearance Calc 155.89 ml/min 50-250 [facility] GFR/1.73 sq M.predicted manda g non-blacks MDRD (S/P/Bld) [Vol rate/Area]Ordered By: Pal Rich on 01-26-2025 Estimated GFR (MDRD) Non-Af Amer 120 >60 [facility] Comment on above: mL/min/1.73m2 CKD-EP I Creatinine Equation (2020) Glomerular filtration rate ( GFR) estimation/1.73 sq m using serum, plasma, or whole bOrdered By: Pal Rich on 01-26-2025 GFR/1.73 sq M.predicted among non-blacks MDRD (S/P/Bld) [Vol rate/Area] 120 mL/min/{1.73_m2} >60 [facility] Comment on above: mL/min/1.73m2 CKD-EP I Creatinine Equation (2020) Serum Creatinine AND GFRon 0 3-07-2025 Creatinine [Mass/Vol] 0.58 mg/dL Low 0.70-1.20 [facility] Comment on above: Performed By: #### L 501.1105 ####[facility] [address] [place], [place], [address] ECRCL 155.89 ml/min Normal 50-250 [facility] Comment on above: Performed By: #### L 501.1105 ####[facility] [address] [place], [place], [address] GFR/1.73 sq M.predicted among non-blacks MDRD (S/P/Bld) [Vol rate/Area] 120 mL/min/{1.73_m2} Normal >60 [facility] Comment on above: Result Comment: mL/m in/1.73m2 CKD-EPI Creatinine Equation (2020) Performed By: #### L 501.1105 ####[facility] [address] [place], [place], [address] Serum creatinine measurement (mass/volume)Ordered By: Pal Rich on 01-26-2025 Creatinine [Mass/Vol] 0.58 mg/dL Low 0.70-1.20 [facility] Trough vancomycin levelOrder ed By: Pal Rich on 01-26-2025 Vancomycin trough [Mass/Vol] 17.7 ug/mL High 5.0-15.0 [facility] Comment on above: Recommended goal tro [...] therapy recommended for serious lifethreatening infections include:- Eovhfqxuno-Qwkbfqhxnpbg-Jzozbssln (Ventilator/Healtcare Associated)-Sepsis PLEASE CONTACT PHARMACY SERVICES (#[id number]) FOR INTERPRETATIONOF RESULTS. Vancomycin trough [Mass/Vol] Ordered By: Pal Rich on 01-26-2025 Vancomycin Level Trough 17.7 ug/mL High 5.0-15.0 [facility] Comment on above: Recommended goal tro [...] therapy recommended for serious lifethreatening infections include:- Nzvwgfmhxx-Kmjrhshljmzz-Limevgbno (Ventilator/Healtcare Associated)-Sepsis PLEASE CONTACT PHARMACY SERVICES (#[id number]) FOR INTERPRETATIONOF RESULTS. Vancomycin, Trough Levelon 0 01-26-2025 VANCO, TROUGH 17.7 ug/mL High 5.0-15.0 [facility] Comment on above: Order Comment: 0830 [...] (Ventilator/Healtcare Associated) -Sepsis PLEASE CONTACT PHARMACY SERVICES (#[id number]) FOR INTERPRETATION OF RESULTS. Performed By: #### L 501.8820 ####[facility] [id number] [facility] [place], [address] Consultation - Infectious Dx on 01-25-2025 Consultation - Infectious Dx [facility] Medical Records Department [address] [place] [address] Consultation - Infectious Dx 01/25/25 1035 MR#: [id number] Acct: [id number] Name: CHRISTINE NERI Rep #: [id number] : 1990 34 From: Pal Rich MD PCP: JULIANN Whitfield Status:ADM IN Location: CO3 [id number] Assessment Plan Assessment/Plan (1) Septic arthritis of knee, right: PLAN: Taken to OR 01/24/[address] Romo for I D. Surg cx pending, will narrow to vanc/ceftriaxone. Will follow, thank you (2) Rheumatoid arthritis: HPI Consult Data Date of Consult: 01/25/25 HPI Narrative Reason for Consultation: septic arthritis HPI Narrative: CHRISTINE NERI, is a 34 F with RA on immunosuppression, presented 3/ with two days progressive R knee pain, swelling, mild warmth, chills. No known inciting event. No h/o gout. Pain was moderate. Sent to ED, admitted on vanc/cefepime, taken to OR 01/24/[address] Romo. Feeling better this AM, no n/v/d. Full ROS performed and neg except as noted above. [facility] Medical History Obesity Dyspepsia H. pylori [...] disease Diabetes Family History other Surgical History [place] teeth extracted Social History household members: other details: Lives with her sister. Smoking Status: Never smoker second hand exposure: No alcohol intake: current alcohol intake frequency: a few times a week details: occasionally substance use type: does not use rafael/confucianism: None seatbelt use: always do you feel [...] (if applicable): CC: JULIANN Tijerina Signed Normal [facility] Gram Stainon 01-25-2025 GS UNK UNK COLLECTED IN OR Gram Stain 3+ White Blood Cells No organisms seen Normal [facility] Comment on above: Performed By: #### M 100.4001, M100.2000, M100.3000 ####[facility] [id number] [place], [place], [address] Vancomycin, Trough Levelon 0 01-25-2025 VANCO, TROUGH 16.7 ug/mL High 5.0-15.0 [facility] Comment on above: Order Comment: 8865 Result Comment: Zeus mmended goal trough ranges [...] (Ventilator/Healtcare Associated) -Sepsis PLEASE CONTACT PHARMACY SERVICES (#[id number]) FOR INTERPRETATION OF RESULTS. Performed By: #### L 501.8820 ####[facility] [id number] [place], [address] Venous Duplex US - Obi Extre mon 01-25-2025 Venous Duplex US - Obi Extrem [facility] Cardiovascular Services [address] [place] [address] Venous Duplex US - Obi Extrem 01/26/25 0837 MR#: [id number] Acct: [id number] Name: CHRISTINE NERI Rep #: [id number] : 1990 34 From: Ian Varma MD Attending Dr: Dr. Christine Reveles MD Status: DI S IN Ordering Dr: Christine Reveles MD Date: 01/25/25 Location: CO3 Sex: F C Admitted: 01/23/25 Reason For [...] Safety Stat Results reported to M/S 3 associate merchant. Procedure This was a bilateral upper extremity [...] Physician: Amira Tijerina Performed By: Benton Goldberg, Candy ??? 01/29/25 0844 Date Ian Varma MD CC: JULIANN Tijerina; Dr. Christine Reveles MD Date Dictated: 01/26/2537 Date Transcribed: 01/29/25843 Metallurgical Inspector: Signed Normal [facility] Absolute lymphocyte countOrd ered By: Destiney Lane on 01-24-2025 Lymphocytes Auto (Unsp spec) [#/Vol] 1.34 10*3/uL 0.83-4.51 [facility] Absolute neutrophil countOrd ered By: Destiney Lane on 01-24-2025 Neutrophils (Bld) [#/Vol] 6.9 10*3/uL 2.0-7.7 [facility] Anaerobic cultureOrdered By: Mckinley Romo on 01-24-2025 Bacteria identified Anaer cx Nom (Unsp spec) No growth in 5 days. [facility] Anion gap in Serum or Plasma Ordered By: Destiney Lane on 01-24-2025 Anion gap [Moles/Vol] 9 mmol/L 5-15 [facility] Automated blood erythrocyte countOrdered By: Destiney Domingo on 01-24-2025 RBC (Bld) [#/Vol] 4.07 10*6/uL Low 4.2-5.4 [facility] Comment on above: Performed By: #### L 101.9900, L501.6710, L100.0100 #### [facility] Laboratory [address] [place], [address] Automated blood hematocrit ( percentage)Ordered By: Destiney Domingo on 01-24-2025 Hematocrit (Bld) [Volume fraction] 33.2 % Low 37-47 [facility] Comment on above: Performed By: #### L 101.9900, L501.6710, L100.0100 #### [facility] [address] [place], [address] Automated lymphocyte count a s percentage of total leukocytesOrdered By: Destiney Domingo on 01-24-2025 Lymphocytes/100 WBC (Bld) 14.5 % Low 19-41 [facility] Comment on above: Performed By: #### L 101.9900, L501.6710, L100.0100 #### [facility] [address] [place], [address] Lymphocytes/100 WBC Auto (Unsp spec) 14.5 % Low 19-41 [facility] BUN/creatinine ratioOrdered By: Destiney Domingo on 01-24-2025 Urea nitrogen/Creatinine [Mass ratio] 23.0 mg/mg High 10-20 [facility] Basophil percentageOrdered B y: Domingo on 01-24-2025 Basophils/100 WBC (Bld) 0.2 % Normal 0-1 [facility] Comment on above: Performed By: #### L 101.9900, L501.6710, L100.0100 #### [facility] [address] [place], [address] Bilirubin, totalOrdered By: Destiney Lane on 03-05-2025 Bilirubin [Mass/Vol] 0.37 mg/dL Normal 0.00-1.30 [facility] Comment on above: Performed By: #### L 101.9900, L501.6710, L100.0100 #### [facility] [address] [place], [address] CBC W/Diff, Automatedon 03-0 5-2024 Absolute Lymph 1.34 X10 3/uL Normal 0.83-4.51 [facility] Comment on above: Performed By: #### L 101.9900, L501.6710, L100.0100 #### [facility] [address] [place], [address] Absolute Neut 6.9 X10 3/uL Normal 2.0-7.7 [facility] Comment on above: Performed By: #### L 101.9900, L501.6710, L100.0100 #### [facility] [address] [place], [address] IG% 0.400 Normal 0.0-0.9 [facility] Comment on above: Result Comment: IG% - Immature Granulocytes (promyelocytes, myelocytes and metamyelocytes) > 1% indicates that a LEFT SHIFT is Present. Performed By: #### L 101.9900, L501.6710, L100.0100 #### [facility] [address] [place], [address] Nucleated RBC (Bld) [#/Vol] 0 10*3/uL Normal 0-5 [facility] Comment on above: Performed By: #### L 101.9900, L501.6710, L100.0100 #### [facility] [address] [place], [address] RDW SD 44.9 fl High 35.1-43.9 [facility] Comment on above: Performed By: #### L 101.9900, L501.6710, L100.0100 #### [facility] [address] [place], [address] Carbon dioxide, total [Moles /volume] in Central venous bloodOrdered By: Destiney Lane on 01-24-2025 CO2 [Moles/Vol] 21.3 mmol/L Normal 21.0-32.0 [facility] Comment on above: Performed By: #### L 101.9900, L501.6710, L100.0100 #### [facility] [address] [place], [address] Chloride assayOrdered By: Rashmi Lane on 01-24-2025 Chloride [Moles/Vol] 106 mmol/L Normal 98-108 [facility] Comment on above: Performed By: #### L 101.9900, L501.6710, L100.0100 #### [facility] [address] [place], [address] Comprehensive Metabolic Prof ilon 01-24-2025 ALK PHOS 68 U/L Normal 35-104 [facility] Comment on above: Performed By: #### L 101.9900, L501.6710, L100.0100 #### [facility] [address] [place], [address] BUN/CRE 23.0 RATIO High 10-20 [facility] Comment on above: Performed By: #### L 101.9900, L501.6710, L100.0100 #### [facility] [address] [place], [address] Creatinine [Mass/Vol] 0.56 mg/dL Low 0.70-1.20 [facility] Comment on above: Performed By: #### L 101.9900, L501.6710, L100.0100 #### [facility] [address] [place], [address] ECRCL 161.37 ml/min Normal 50-250 [facility] Comment on above: Performed By: #### L 101.9900, L501.6710, L100.0100 #### [facility] [address] [place], [place], [address] GAP 9 Normal 5-15 [facility] Comment on above: Performed By: #### L 101.9900, L501.6710, L100.0100 #### [facility] [address] [place], [place], [address] GFR/1.73 sq M.predicted among non-blacks MDRD (S/P/Bld) [Vol rate/Area] 121 mL/min/{1.73_m2} Normal >60 [facility] Comment on above: Result Comment: mL/m in/1.73m2 CKD-EPI Creatinine Equation (2020) Performed By: #### L 101.9900, L501.6710, L100.0100 #### [facility] [address] [place], [place], [id number] T PROT 6.8 g/dL Normal 5.9-8.4 [facility] Comment on above: Performed By: #### L 101.9900, L501.6710, L100.0100 #### [facility] [address] [place], [address] Comprehensive Metabolic Prof ilOrdered By: Destiney Lane on 01-24-2025 AST [Catalytic activity/Vol] 14 U/L Normal <=31 [facility] Comment on above: Performed By: #### L 101.9900, L501.6710, L100.0100 #### [facility] [address] [place], [place], [address] Eosinophil percentageOrdered By: Destiney Lane on 01-24-2025 Eosinophils/100 WBC (Bld) 0.0 % Normal 0-5 [facility] Comment on above: Performed By: #### L 101.9900, L501.6710, L100.0100 #### [facility] [address] [place], [address] Erythrocyte distribution wid th ratioOrdered By: Destiney White on 01-24-2025 Erythrocyte distribution width (RBC) [Ratio] 15.1 % High 11.6-14.6 [facility] Comment on above: Performed By: #### L 101.9900, L501.6710, L100.0100 #### [facility] [address] [place], [place], [phone] (904) Erythrocyte distribution wid th standard deviationOrdered By: Destiney White on 01-24-2025 Erythrocyte distribution width (RBC) [Entitic vol] 44.9 fL High 35.1-43.9 [facility] Erythrocyte distribution width (RBC) [Ratio] 44.9 fl High 35.1-43.9 [facility] Gram stainOrdered By: Albina as Spittle on 01-24-2025 Microscopic observation Gram stain Nom (Unsp spec) [facility] Microscopic observation Gram stain Nom (Unsp spec) [facility] Hemoglobin measurementOrdere d By: Destiney Domingo on 01-24-2025 Hemoglobin (Bld) [Mass/Vol] 10.7 g/dL Low 12.0-15.0 [facility] Comment on above: Performed By: #### L 101.9900, L501.6710, L100.0100 #### [facility] [address], [place], [id number] (562) Immature granulocytes/100 WB C Auto (Bld)Ordered By: Destiney White on 01-24-2025 Immature granulocytes/100 WBC (Bld) 0.400 % 0.0-0.9 [facility] Comment on above: IG% - Immature Granu locytes (promyelocytes, myelocytes and metamyelocytes) > 1% indicates that a LEFT SHIFT is Present. Lymphocytes Auto (Unsp spec) [#/Vol]Ordered By: Destiney White on 01-24-2025 Lymphocytes (Bld) [#/Vol] 1.34 10*3/uL 0.83-4.51 [facility] MCV (mean corpuscular volume ) determinationOrdered By: Destiney White on 03-05-2025 MCV (RBC) [Entitic vol] 81.6 fL Normal 81-99 [facility] Comment on above: Performed By: #### L 101.9900, L501.6710, L100.0100 #### [facility] [address] [place], [address] MR/POSTOP.ANEon 01-24-2025 MR/POSTOP.ANE [facility] Medical Records Department [address] [place] [address] Anesthesia Postop Eval I 01/24/25 1428 MR#: [id number] Acct: [id number] Name: CHRISTINE NERI Rep #: [id number] : 1990 34 From: Bishop Hemphill CRNA PCP: Amira Tijerina AIR CONDITIONING MANAGER-C Status:ADM IN Y Race: C Location: [place] [address] Anesthesia: Postop Eval I Current Vital Signs [...] CRNA Cosigner Signature: Date CC: Signed Normal [facility] [id number] 01-24-2025 MR/POSTOPAN2 [facility] Medical Records Department [address] [place] [address] Anesthesia Postop Eval II 01/24/25 1442 MR#: [id number] Acct: [id number] Name: CHRISTINE NERI Rep #: [id number] : 1990 34 From: Nemesio Buitrago MD PCP: Amira Tijerina, AIR CONDITIONING MANAGER-C Status:ADM IN Y Race: C Location: MS3 MSED-1 Anesthesia Postop Eval I Sum Postop Eval Completion status Anesthesia document: Postop Eval 1 completed: Yes Anesthesia Postop Eval I Summary Anesthesia Postop Eval I Summary: Anesthesia Postop Eval I: Assessment Summary Airway patent Yes 01/24/25 14:28 [email or web address] [email or web address] Spontaneous unlabored Yes 01/24/25 14:28 MASTER [email or web address] respirations Mental status nausea No 01/24/25 14:28 MASTER [email or web address].[email or web address] Vomiting No 01/24/25 14:28 MASTER [email or web address].TNES Anesthesia Postop Eval I: Fluid Summary Crystalloid volume administer 1,200 01/24/25 14:28 MASTER [email or web address] (ml) Colloids volume administered ( ml) Blood Product volume administered (ml) Total IV fluid infused 1,200 01/24/25 14:28 MASTER [email or web address] Anesthesia Postop Eval I: Summary Notes Anesthesia Complication No 01/24/25 14:28 MASTER [email or web address].TNES Anesthesia Complication Comment: Post-operative progress note Anesthesia: Postop Eval II Evaluation Mental status: Awake Pain Level: 2 nausea: No Vomiting: No 01/24/25 1442 Date Nemesio Buitrago MD Cosign Signature: Date CC: Signed Normal [facility] Mean corpuscular hemoglobin (MCH) determinationOrdered By: Destiney Lane on 01-24-2025 MCH (RBC) [Entitic mass] 26.3 pg Low 27.0-32.0 [facility] Comment on above: Performed By: #### L 101.9900, L501.6710, L100.0100 #### [facility] [address] [place], [address] Mean corpuscular hemoglobin concentration (MCHC) determinationOrdered By: Destiney Lane on 01-24-2025 MCHC (RBC) [Mass/Vol] 32.2 g/dL Normal 32-36 [facility] Comment on above: Performed By: #### L 101.9900, L501.6710, L100.0100 #### [facility] [address] [place], [address] Mean platelet volume determi nationOrdered By: Destiney Lane on 01-24-2025 Platelet mean volume (Bld) [Entitic vol] 11.2 fL Normal 6.2-12.0 [facility] Comment on above: Performed By: #### L 101.9900, L501.6710, L100.0100 #### [facility] [address] [place], [address] Monocyte percentageOrdered B y: Destiney Domingo on 01-24-2025 Monocytes/100 WBC (Bld) 9.9 % Normal 0-10 [facility] Comment on above: Performed By: #### L 101.9900, L501.6710, L100.0100 #### [facility] [address] [place], [address] Neutrophil percentageOrdered By: Destiney Domingo on 01-24-2025 Neutrophils/100 WBC (Bld) 75.0 % High 47-70 [facility] Comment on above: Performed By: #### L 101.9900, L501.6710, L100.0100 #### [facility] [address] [facility] [place], [address] Nucleated red blood cell per centageOrdered By: Destiney Domingo on 01-24-2025 Nucleated RBC/100 WBC (Bld) [Ratio] 0 % 0-5 [facility] Operative Reporton Operative Report [facility] Medical Records Department [address] [place] [address] Operative Report 01/24/25 1442 MR#: [id number] Acct: [id number] Name: CHRISTINE NERI Rep #: [id number] : 1990 34 From: Mckinley Romo DO PCP: JULIANN Whitfield Status:ADM IN Location: [place] [address] Operative Report (Standard) Operative Information Date of Procedure: 01/24/25 Pre-Operative Diagnosis: Right knee septic arthritis Post-Operative Diagnosis: Right knee septic arthritis Surgery/Procedure Performed: Right knee arthroscopic irrigation and debridement changeover operator: No Type of Anesthesia: General RN Documented [...] were removed in standard fashion with interrupted tmoatq-mw-nyypg 3-0 nylon suture. Intra-articular block was administered [...] SCD's VTE Pharm Prophylaxis ordered?: Yes 01/24/25 3123 Cosigner Signature (if applicable): CC: JULIANN Tijerina; Dr. Destiney Lane MD; Dr. Mckinley Romo DO; Dr. Pal Rich MD Signed Normal [facility] Platelet countOrdered By: Rashmi Lane on 01-24-2025 Platelets (Bld) [#/Vol] 170 10*3/uL Normal 150-450 [facility] Comment on above: Performed By: #### L 101.9900, L501.6710, L100.0100 #### [facility] [address] [place], [address] Potassium measurement (mass/ volume)Ordered By: Destiney Lane on 01-24-2025 Potassium [Moles/Vol] 4.0 mmol/L Normal 3.3-5.1 [facility] Comment on above: Performed By: #### L 101.9900, L501.6710, L100.0100 #### [facility] [address] [place], [address] Potassium (Unsp spec) [Mass/Vol] 4.0 mmol/L 3.3-5.1 [facility] Serum globulin measurementOr dered By: Destiney Lane on 01-24-2025 Globulin (S) [Mass/Vol] 3.3 g/dL Normal 2.2-4.2 [facility] Comment on above: Performed By: #### L 101.9900, L501.6710, L100.0100 #### [facility] [address] [place], [address] Serum glucose measurement (m ass/volume)Ordered By: Destiney Lane on 01-24-2025 Glucose [Mass/Vol] 94 mg/dL Normal 70-99 [facility] Comment on above: Performed By: #### L 101.9900, L501.6710, L100.0100 #### [facility] [address] [place], [address] Serum or plasma alanine cole otransferase (ALT) measurementOrdered By: Destiney Lane on 01-24-2025 ALT [Catalytic activity/Vol] 12 U/L Normal <=34 [facility] Comment on above: Performed By: #### L 101.9900, L501.6710, L100.0100 #### [facility] [address] [place], [address] Serum or plasma albumin shi urement (mass/volume)Ordered By: Destiney Lane on 01-24-2025 Albumin [Mass/Vol] 3.5 g/dL Normal 3.5-5.0 [facility] Comment on above: Performed By: #### L 101.9900, L501.6710, L100.0100 #### [facility] [address] [place], [address] Serum or plasma albumin/glob ulin mass ratioOrdered By: Destiney Lane on 01-24-2025 Albumin/Globulin [Mass ratio] 1.0 {ratio} Normal 0.9-2.4 [facility] Comment on above: Performed By: #### L 101.9900, L501.6710, L100.0100 #### [facility] [address] [place], [place], [address] Serum or plasma alkaline phill sphatase measurementOrdered By: Destiney Lane on 01-24-2025 ALP [Catalytic activity/Vol] 68 U/L 35-104 [facility] Serum or plasma calcium shi urement (mass/volume)Ordered By: Destiney Lane on 01-24-2025 Calcium [Mass/Vol] 8.5 mg/dL Normal 7.6-11.0 [facility] Comment on above: Performed By: #### L 101.9900, L501.6710, L100.0100 #### [facility] [address] [place], [place], [address] Serum or plasma urea nitroge n measurement (mass/volume)Ordered By: Destiney Lane on 01-24-2025 Urea nitrogen [Mass/Vol] 13 mg/dL Normal 4-19 [facility] Comment on above: Performed By: #### L 101.9900, L501.6710, L100.0100 #### [facility] [address] [place], [place], [address] Sodium levelOrdered By: Jaron Lane on 01-24-2025 Sodium [Moles/Vol] 137 mmol/L Normal 133-145 [facility] Comment on above: Performed By: #### L 101.9900, L501.6710, L100.0100 #### [facility] [address] [place], [address] Total proteinOrdered By: Margarita Lane on 01-24-2025 Protein [Mass/Vol] 6.8 g/dL 5.9-8.4 [facility] White blood cell (WBC) count Ordered By: Destiney Lane on 01-24-2025 WBC (Bld) [#/Vol] 9.3 10*3/uL Normal 4.4-11.0 [facility] Comment on above: Performed By: #### L 101.9900, L501.6710, L100.0100 #### [facility] [address] [place], [address] Basic Metabolic Profile (BMP )on 01-23-2025 BUN/CRE 21.6 RATIO High 10-20 [facility] Comment on above: Performed By: #### M 200.1000, L100.0100, L500.2500 #### [facility] [address] [place], [address] Calcium [Mass/Vol] 9.0 mg/dL Normal 7.6-11.0 [facility] Comment on above: Performed By: #### M 200.1000, L100.0100, L500.2500 #### [facility] [address] [place], [address] Chloride [Moles/Vol] 103 mmol/L Normal 98-108 [facility] Comment on above: Performed By: #### M 200.1000, L100.0100, L500.2500 #### [facility] [address] [place], [address] CO2 [Moles/Vol] 21.8 mmol/L Normal 21.0-32.0 [facility] Comment on above: Performed By: #### M 200.1000, L100.0100, L500.2500 #### [facility] [address] [place], [address] Creatinine [Mass/Vol] 0.65 mg/dL Low 0.70-1.20 [facility] Comment on above: Performed By: #### M 200.1000, L100.0100, L500.2500 #### [facility] [address] [place], [address] ECRCL 138.49 ml/min Normal 50-250 [facility] Comment on above: Performed By: #### M 200.1000, L100.0100, L500.2500 #### [facility] [address] [place], [address] GAP 10 Normal 5-15 [facility] Comment on above: Performed By: #### M 200.1000, L100.0100, L500.2500 #### [facility] [address] [place], [address] GFR/1.73 sq M.predicted among non-blacks MDRD (S/P/Bld) [Vol rate/Area] 117 mL/min/{1.73_m2} Normal >60 [facility] Comment on above: Result Comment: mL/m in/1.73m2 CKD-EPI Creatinine Equation (2020) Performed By: #### M 200.1000, L100.0100, L500.2500 #### [facility] [address] [place], [address] Glucose [Mass/Vol] 119 mg/dL High 70-99 [facility] Comment on above: Performed By: #### M 200.1000, L100.0100, L500.2500 #### [facility] [address] [place], [address] Potassium [Moles/Vol] 3.6 mmol/L Normal 3.3-5.1 [facility] Comment on above: Performed By: #### M 200.1000, L100.0100, L500.2500 #### [facility] [address] [place], [address] Sodium [Moles/Vol] 135 mmol/L Normal 133-145 [facility] Comment on above: Performed By: #### M 200.1000, L100.0100, L500.2500 #### [facility] [address] [place], [address] Urea nitrogen [Mass/Vol] 14 mg/dL Normal 4-19 [facility] Comment on above: Performed By: #### M 200.1000, L100.0100, L500.2500 #### [facility] [address] [place], [address] Blood cultureOrdered By: Emmy Moctezuma on 01-23-2025 Bacteria identified Cx Nom (Bld) No growth in 5 days. [facility] CBC W/Diff, Automatedon 03-0 Absolute Lymph 1.54 X10 3/uL Normal 0.83-4.51 [facility] Comment on above: Performed By: #### M 200.1000, L100.0100, L500.2500 #### [facility] [address] [place], [address] Absolute Neut 8.0 X10 3/uL High 2.0-7.7 [facility] Comment on above: Performed By: #### M 200.1000, L100.0100, L500.2500 #### [facility] [address] [place] [place], [address] Basophils/100 WBC (Bld) 0.2 % Normal 0-1 [facility] Comment on above: Performed By: #### M 200.1000, L100.0100, L500.2500 #### [facility] [address] [place], [address] Eosinophils/100 WBC (Bld) 0.0 % Normal 0-5 [facility] Comment on above: Performed By: #### M 200.1000, L100.0100, L500.2500 #### [facility] [address] [place], [address] Erythrocyte distribution width (RBC) [Ratio] 15.1 % High 11.6-14.6 [facility] Comment on above: Performed By: #### M 200.1000, L100.0100, L500.2500 #### [facility] [address] [place], [address] Hematocrit (Bld) [Volume fraction] 36.3 % Low 37-47 [facility] Comment on above: Performed By: #### M 200.1000, L100.0100, L500.2500 #### [facility] [address] [place], [address] Hemoglobin (Bld) [Mass/Vol] 11.8 g/dL Low 12.0-15.0 [facility] Comment on above: Performed By: #### M 200.1000, L100.0100, L500.2500 #### [facility] [address] [place], [address] IG% 0.600 Normal 0.0-0.9 [facility] Comment on above: Result Comment: IG% - Immature Granulocytes (promyelocytes, myelocytes and metamyelocytes) > 1% indicates that a LEFT SHIFT is Present. Performed By: #### M 200.1000, L100.0100, L500.2500 #### [facility] [address] [place], [address] Lymphocytes/100 WBC (Bld) 14.5 % Low 19-41 [facility] Comment on above: Performed By: #### M 200.1000, L100.0100, L500.2500 #### [facility] [address] [place], [address] MCH (RBC) [Entitic mass] 26.6 pg Low 27.0-32.0 [facility] Comment on above: Performed By: #### M 200.1000, L100.0100, L500.2500 #### [facility] [address] [place], [address] MCHC (RBC) [Mass/Vol] 32.5 g/dL Normal 32-36 [facility] Comment on above: Performed By: #### M 200.1000, L100.0100, L500.2500 #### [facility] [address] [place], [address] MCV (RBC) [Entitic vol] 81.9 fL Normal 81-99 [facility] Comment on above: Performed By: #### M 200.1000, L100.0100, L500.2500 #### [facility] [address] [place], [address] Monocytes/100 WBC (Bld) 9.6 % Normal 0-10 [facility] Comment on above: Performed By: #### M 200.1000, L100.0100, L500.2500 #### [facility] [address] [place], [address] Neutrophils/100 WBC (Bld) 75.1 % High 47-70 [facility] Comment on above: Performed By: #### M 200.1000, L100.0100, L500.2500 #### [facility] [address] [place], [address] Nucleated RBC (Bld) [#/Vol] 0 10*3/uL Normal 0-5 [facility] Comment on above: Performed By: #### M 200.1000, L100.0100, L500.2500 #### [facility] [address] [place], [address] Platelet mean volume (Bld) [Entitic vol] 10.7 fL Normal 6.2-12.0 [facility] Comment on above: Performed By: #### M 200.1000, L100.0100, L500.2500 #### [facility] [address] [place], [address] Platelets (Bld) [#/Vol] 188 10*3/uL Normal 150-450 [facility] Comment on above: Performed By: #### M 200.1000, L100.0100, L500.2500 #### [facility] [address] [place], [address] RBC (Bld) [#/Vol] 4.43 10*6/uL Normal 4.2-5.4 [facility] Comment on above: Performed By: #### M 200.1000, L100.0100, L500.2500 #### [facility] [address] [place], [address] RDW SD 44.4 fl High 35.1-43.9 [facility] Comment on above: Performed By: #### M 200.1000, L100.0100, L500.2500 #### [facility] [address] [place], [address] WBC (Bld) [#/Vol] 10.6 10*3/uL Normal 4.4-11.0 [facility] Comment on above: Performed By: #### M 200.1000, L100.0100, L500.2500 #### [facility] [address] [place], [address] CRPon 01-23-2025 C-REACTIVE PROT 174.00 mg/L High 0.0-3.0 [facility] Comment on above: Order Comment: Comme nts: May add to ED labs Performed By: #### L 101.9900, L501.6710 ####[facility] [address] [place], [address] CRP [Mass/Vol]Ordered By: Rashmi Lane on 01-23-2025 C-Reactive Protein Extended Range 174.00 mg/L High 0.0-3.0 [facility] Consultation - Orthopedicson 01-23-2025 Consultation - Orthopedics [facility] Medical Records Department [address] [place] [address] Consultation - Orthopedics 01/23/252043 MR#: [id number] Acct: [id number] Name: CHRISTINE NERI Rep #: [id number] : 1990 34 From: Mckinley Romo DO PCP: JULIANN Whitfield Status:REG ER Location: ED HPI Consult Data Date of Consult: 01/23/25 HPI Narrative HPI Narrative: CHRISITNE NERI, is a 34 F/history of rheumatoid arthritis, obesity who presented to [facility] after 1 day of right knee pain, bilateral shoulder discomfort and right elbow pain. She felt this was consistent with prior RA flares. She started prednisone without improvement in the other joints besides from the. She saw her agricultural and forestry supervisor today. Arthrocentesis was performed in the office and is concerning for infection. Emergency department physician, synovial fluid cell count of [id number] with 86% PMNs. No crystals. Synovial fluid [...] anesthetic complication. Denies DVT or PE history. [facility] Medical History Obesity Dyspepsia H. pylori [...] disease Diabetes Family History other Surgical History [place] teeth extracted Social History household members: other details: Lives with her sister. Smoking Status: Never smoker second hand exposure: No alcohol intake: current alcohol intake frequency: a few times a week details: occasionally substance use type: does not use rafael/confucianism: None seatbelt use: always do you feel [...] No eryth (more content not included)... Normal [facility] Emergency Department Summary on 01-23-2025 Emergency Department Summary [facility] Medical Records Department [address] [place] [address] Emergency Department Summary 01/23/25 MR#: [id number] Acct: [id number] Name: CHRISTINE NERI Rep #: [id number] : 1990 34 From: Ian Moctezuma DO PCP: JULIANN Whitfield Status:ADM IN Location: MS3 MSED-1 HPI History [...] arthritis. The patient states she saw her agricultural and forestry supervisor today who drained her knee. Chief Projectionist referred the patient to the emergency department because the synovial fluid looked infected. There was synovial fluid cell count of [id number] with 86% PMNs. There were no crystals noted. Synovial fluid was sent for Gram stain and culture. CBC was also drawn at the agricultural and forestry supervisor office which showed a mild leukocytosis of 12.4. Chief Complaint: Lower Extremity Injury Informant: patient Onset/Context/Timing Onset: Yesterday Context: Gradual Onset Timing: Continuous Quality of Pain: Sharp Location: Right knee Worsened by: Movement Relieved by: Prednisone Associated Symptoms Associated Symptoms: Negative for Parasthesia, Weakness or Loss of Funtion [facility] Medical History Dyspepsia H. pylori infection Anemia [...] cancer Grandfather Heart disease Diabetes Surgical History [place] teeth extracted Social History Smoking Status: Never smoker second hand exposure: No alcohol intake: current alcohol intake frequency: a few times a week details: occasionally substance use type: does not use rafael/confucianism: None seatbelt use: always do you feel [...] Medical decision (more content not included)... Normal [facility] Erythrocyte Sed Rateon 01-23 SED RATE 87 mm/hr High 0-30 [facility] Comment on above: Performed By: #### L 101.9900, L501.6710 ####[facility] [address] [place], [address] Erythrocyte sedimentation ra teOrdered By: Destiney Lane on 01-23-2025 ESR (Bld) [Velocity] 87 mm/h High 0-30 [facility] H AND P Exam - Hospitaliston 01-23-2025 H&P Exam - Hospitalist [facility] Medical Records Department [address] [place] [address] H P Exam - Hospitalist 01/23/251931 MR#: [id number] Acct: [id number] Name: CHRISTINE NERI Rep #: [id number] : 1990 34 From: Destiney Lane MD [...] normocytic anemia, GERD who presents to the [facility] ED on 01/23/25 with history of onset right knee pain, bilateral shoulder discomfort and right elbow pain starting 24 hours prior which was consistent per her report to previous episodes of rheumatoid arthritis flare with initiation of a burst of prednisone with a total of 30 mg on current day of presentation and also evaluation by her agricultural and forestry supervisor who did perform a right knee arthrocentesis and the fluid was sent for culture to be cautious following which she notes the pain improved however she had low-grade temperatures and fatigue and malaise eventually prompting referral to the ED given concerns per agricultural and forestry supervisor of infection. She did report significant knee swelling but was mildly improved following the arthrocentesis per the agricultural and forestry supervisor. She notes that it does still feel [...] knee would need to be washed out. [facility] Medical History Obesity Dyspepsia H. pylori [...] history or paternal medical history.) Surgical History [place] teeth extracted Social History (Updated 01/23/25 @ 20:[address] Destiney Lane MD) household members: other details: Lives with her sister. Smoking Status: Never smoker second hand exposure: No alcohol intake: current alcohol intake frequency: a few times a week details: occasionally substance use type: does not use rafael/confucianism: None seatbelt use: always do you feel [...] ataxia, numbnes (more content not included)... Normal [facility] Knee 4 or More Viewson 01-23 Knee 4 or More Views [facility] Imaging Services [address] [place] [address] Knee 4 or More Views MR#: [id number] Acct: [id number] Name: CHRISTINE NERI Rep #: [id number] : 1990 F 34 From: Janna Saba DO PCP: JULIANN Whitfield Status: PRE ER Study: Knee 4 or More Views Date of Exam: 01/23/25 Exam# [id number] Ordering Dr: Ian Moctezuma DO PROCEDURE: KNEE [...] joint effusion. No acute fracture. Reading Location: [facility] CC: JULIANN Tijerina; Dr. Ian Moctezuma, Metallurgical Inspector: Signed Normal [facility] Serum or plasma C reactive p rotein measurement (mass/volume)Ordered By: Destiney Lane on 01-23-2025 CRP [Mass/Vol] 174.00 mg/L High 0.0-3.0 [facility] Absolute neutrophil counton 12-26-2024 Neutrophils (Bld) [#/Vol] 4.2 10*3/uL 2.0-7.7 [facility] Basophil percentageon 2024 Basophils/100 WBC (Bld) 0.2 % 0-1 [facility] C-reactive protein measureme nt by high sensitivity methodon 12-26-2024 C-Reactive Protein Extended Range 7.35 mg/L High 0.0-3.0 [facility] Comment on above: C-Reactive Protein ( CRP) provides useful information for thediagnosis, therapy and monitoring of inflammatory processesand associated diseases. For the evaluation of Relative Riskfor Cardiovascular Disease, a High Sensitivity CRP (HSCRP)should be ordered. CBC W/Diff, Automatedon Absolute Lymph 1.02 X10 3/uL Normal 0.83-4.51 [facility] Comment on above: Performed By: #### L 101.9900, L501.6710, L100.0100 #### [facility] [address] [place], [address] Absolute Neut 4.2 X10 3/uL Normal 2.0-7.7 [facility] Comment on above: Performed By: #### L 101.9900, L501.6710, L100.0100 #### [facility] [address] [place], [address] Basophils/100 WBC (Bld) 0.2 % Normal 0-1 [facility] Comment on above: Performed By: #### L 101.9900, L501.6710, L100.0100 #### [facility] [address] [place], [address] Eosinophils/100 WBC (Bld) 0.0 % Normal 0-5 [facility] Comment on above: Performed By: #### L 101.9900, L501.6710, L100.0100 #### [facility] [address] [place], [address] Erythrocyte distribution width (RBC) [Ratio] 14.9 % High 11.6-14.6 [facility] Comment on above: Performed By: #### L 101.9900, L501.6710, L100.0100 #### [facility] [address] [place], [address] Hematocrit (Bld) [Volume fraction] 39.2 % Normal 37-47 [facility] Comment on above: Performed By: #### L 101.9900, L501.6710, L100.0100 #### [facility] [address] [place], [address] Hemoglobin (Bld) [Mass/Vol] 11.9 g/dL Low 12.0-15.0 [facility] Comment on above: Performed By: #### L 101.9900, L501.6710, L100.0100 #### [facility] [address] [place], [address] IG% 0.400 Normal 0.0-0.9 [facility] Comment on above: Result Comment: IG% - Immature Granulocytes (promyelocytes, myelocytes and metamyelocytes) > 1% indicates that a LEFT SHIFT is Present. Performed By: #### L 101.9900, L501.6710, L100.0100 #### [facility] [address] [place], [address] Lymphocytes/100 WBC (Bld) 18.2 % Low 19-41 [facility] Comment on above: Performed By: #### L 101.9900, L501.6710, L100.0100 #### [facility] [address] [place], [address] MCH (RBC) [Entitic mass] 25.8 pg Low 27.0-32.0 [facility] Comment on above: Performed By: #### L 101.9900, L501.6710, L100.0100 #### [facility] [address] [place], [address] MCHC (RBC) [Mass/Vol] 30.4 g/dL Low 32-36 [facility] Comment on above: Performed By: #### L 101.9900, L501.6710, L100.0100 #### [facility] [address] [place], [address] MCV (RBC) [Entitic vol] 84.8 fL Normal 81-99 [facility] Comment on above: Performed By: #### L 101.9900, L501.6710, L100.0100 #### [facility] [address] [place], [address] Monocytes/100 WBC (Bld) 6.8 % Normal 0-10 [facility] Comment on above: Performed By: #### L 101.9900, L501.6710, L100.0100 #### [facility] [address] [place], [address] Neutrophils/100 WBC (Bld) 74.4 % High 47-70 [facility] Comment on above: Performed By: #### L 101.9900, L501.6710, L100.0100 #### [facility] [address] [place], [address] Nucleated RBC (Bld) [#/Vol] 0 10*3/uL Normal 0-5 [facility] Comment on above: Performed By: #### L 101.9900, L501.6710, L100.0100 #### [facility] [address] [place], [address] Platelet mean volume (Bld) [Entitic vol] 10.8 fL Normal 6.2-12.0 [facility] Comment on above: Performed By: #### L 101.9900, L501.6710, L100.0100 #### [facility] [address] [place], [address] Platelets (Bld) [#/Vol] 176 10*3/uL Normal 150-450 [facility] Comment on above: Performed By: #### L 101.9900, L501.6710, L100.0100 #### [facility] [address] [place], [address] RBC (Bld) [#/Vol] 4.62 10*6/uL Normal 4.2-5.4 [facility] Comment on above: Performed By: #### L 101.9900, L501.6710, L100.0100 #### [facility] [address] [place], [address] RDW SD 45.3 fl High 35.1-43.9 [facility] Comment on above: Performed By: #### L 101.9900, L501.6710, L100.0100 #### [facility] [address] [place], [address] WBC (Bld) [#/Vol] 5.6 10*3/uL Normal 4.4-11.0 [facility] Comment on above: Performed By: #### L 101.9900, L501.6710, L100.0100 #### [facility] [address] [place], [address] CRPon 12-26-2024 C-REACTIVE PROT 7.35 mg/L High 0.0-3.0 [facility] Comment on above: Result Comment: C-Re active Protein (CRP) provides useful information for the diagnosis, therapy and monitoring of inflammatory processes and associated diseases. For the evaluation of Relative Risk for Cardiovascular Disease, a High Sensitivity CRP (HSCRP) should be ordered. Performed By: #### L 101.9900, L501.6710, L100.0100 #### [facility] [address] [place], [place], [address] Eosinophil percentageon Eosinophils/100 WBC (Bld) 0.0 % 0-5 [facility] Erythrocyte Sed Rateon 12-26 SED RATE 37 mm/hr High 0-30 [facility] Comment on above: Performed By: #### L 101.9900, L501.6710, L100.0100 #### [facility] [address] [place], [place], [address] Erythrocyte distribution wid th ratioon 12-26-2024 Erythrocyte distribution width (RBC) [Ratio] 14.9 % High 11.6-14.6 [facility] Erythrocyte distribution wid th standard deviationon 12-26-2024 Erythrocyte distribution width (RBC) [Entitic vol] 45.3 fL High 35.1-43.9 [facility] Erythrocyte sedimentation ra glenn 12-26-2024 ESR (Bld) [Velocity] 37 mm/h High 0-30 [facility] Hematocrit Auto (Bld) [Volum e fraction]on 12-26-2024 Hematocrit (Bld) [Volume fraction] 39.2 % 37-47 [facility] Hemoglobin measurementon Hemoglobin (Bld) [Mass/Vol] 11.9 g/dL Low 12.0-15.0 [facility] Immature granulocytes/100 WB C Auto (Bld)on 12-26-2024 Immature granulocytes/100 WBC (Bld) 0.400 % 0.0-0.9 [facility] Comment on above: IG% - Immature Granu locytes (promyelocytes, myelocytes and metamyelocytes) > 1% indicates that a LEFT SHIFT is Present. Lymphocytes Auto (Unsp spec) [#/Vol]on 12-26-2024 Lymphocytes (Bld) [#/Vol] 1.02 10*3/uL 0.83-4.51 [facility] Lymphocytes/100 WBC Auto (Un sp spec)on 12-26-2024 Lymphocytes/100 WBC (Bld) 18.2 % Low 19-41 [facility] MCV (mean corpuscular volume ) determinationon 12-26-2024 MCV (RBC) [Entitic vol] 84.8 fL 81-99 [facility] Mean corpuscular hemoglobin (MCH) determinationon 12-26-2024 MCH (RBC) [Entitic mass] 25.8 pg Low 27.0-32.0 [facility] Mean corpuscular hemoglobin concentration (MCHC) determinationon 12-26-2024 MCHC (RBC) [Mass/Vol] 30.4 g/dL Low 32-36 [facility] Mean platelet volume determi nationon 12-26-2024 Platelet mean volume (Bld) [Entitic vol] 10.8 fL 6.2-12.0 [facility] Monocyte percentageon 2024 Monocytes/100 WBC (Bld) 6.8 % 0-10 [facility] Neutrophil percentageon 02- Neutrophils/100 WBC (Bld) 74.4 % High 47-70 [facility] Nucleated red blood cell per centageon 12-26-2024 Nucleated RBC/100 WBC (Bld) [Ratio] 0 % 0-5 [facility] Platelet counton 12-26-2024 Platelets (Bld) [#/Vol] 176 10*3/uL 150-450 [facility] RBC Auto (Bld) [#/Vol]on RBC (Bld) [#/Vol] 4.62 10*6/uL 4.2-5.4 [facility] White blood cell (WBC) count on 12-26-2024 WBC (Bld) [#/Vol] 5.6 10*3/uL 4.4-11.0 [facility] .GFRon 09-16-2024 GFR 110 ml/min/1.73sqm Normal [facility] Comment on above: Result Comment: [...] By: #### L IPID, GFR, CMP #### [address] [address] GFR Non- 91 ml/min/1.73sqm [facility] Comment on above: Result Comment: GFR Population [...] By: #### L IPID, GFR, CMP #### [address] [address] CMPon 09-16-2024 Albumin Level 3.4 G/dL Low 3.5-5.0 [facility] Comment on above: Performed By: #### L IPID, GFR, CMP #### [address] [place], [place] [address] Albumin/Globulin [Mass ratio] 0.8 {ratio} Low 1.1-2.5 [facility] Comment on above: Performed By: #### L IPID, GFR, CMP #### [address] [address] ALP [Catalytic activity/Vol] 85 U/L Normal 40-135 [facility] Comment on above: Performed By: #### L IPID, GFR, CMP #### [address] [address] ALT [Catalytic activity/Vol] 21 U/L Normal 14-59 [facility] Comment on above: Performed By: #### L IPID, GFR, CMP #### [address] [address] AST [Catalytic activity/Vol] 15 U/L Normal 10-40 [facility] Comment on above: Performed By: #### L IPID, GFR, CMP #### [address] [address] Bili Total 0.4 mg/dL Normal 0.2-1.0 [facility] Comment on above: Result Comment: Use of this assay is not recommended for patients undergoing treatment with eltrombopag due to the potential for falsely elevated results. Performed By: #### L IPID, GFR, CMP #### [address] [address] BUN/Creatinine Ratio 16 ratio Normal 7-27 [facility] Comment on above: Performed By: #### L IPID, GFR, CMP #### [address] [address] Calcium [Mass/Vol] 8.8 mg/dL Normal 8.4-10.2 [facility] Comment on above: Performed By: #### L IPID, GFR, CMP #### [address] [address] Chloride [Moles/Vol] 102 mmol/L Normal 98-107 [facility] Comment on above: Performed By: #### L IPID, GFR, CMP #### [address] [address] CO2 [Moles/Vol] 28 mmol/L Normal 22-29 [facility] Comment on above: Performed By: #### L IPID, GFR, CMP #### [address] [address] Creatinine [Mass/Vol] 0.73 mg/dL Normal 0.55-1.02 [facility] Comment on above: Result Comment: Test ing performed on Siemens Dimension EXL analyzer using a modified kinetic Chuck technique. Performed By: #### L IPID, GFR, CMP #### [address] [address] Electrolyte Balance 7.0 mEq/L Normal 4.0-15.0 [facility] Comment on above: Performed By: #### L IPID, GFR, CMP #### [address] [address] Globulin 4.3 G/dL Normal [facility] Comment on above: Performed By: #### L IPID, GFR, CMP #### [address] [address] Glucose [Mass/Vol] 93 mg/dL Normal 70-105 [facility] Comment on above: Performed By: #### L IPID, GFR, CMP #### [address] [address] Potassium [Moles/Vol] 4.1 mmol/L Normal 3.5-5.1 [facility] Comment on above: Performed By: #### L IPID, GFR, CMP #### [address] [address] Sodium [Moles/Vol] 137 mmol/L Normal 136-145 [facility] Comment on above: Performed By: #### L IPID, GFR, CMP #### [address] [address] Total Protein 7.7 G/dL Normal 6.4-8.2 [facility] Comment on above: Performed By: #### L IPID, GFR, CMP #### [address] [address] Urea nitrogen [Mass/Vol] 12 mg/dL Normal 7-18 [facility] Comment on above: Performed By: #### L IPID, GFR, CMP #### [id number] [place], [place] [address] LABORATORYOrdered By: SYSTEM SYSTEM on 09-16-2024 Albumin [...] above: Interpretive Data: T esting performed on [employer] Dimension EXL analyzer using a modified kinetic [...] 09-16-2024 Cholesterol [Mass/Vol] 132 mg/dL Normal 0-200 [facility] Comment on above: Result Comment: Chol esterol Reference Interval: Less than 200 Desirable 200-239 Borderline high risk 240 and above High risk Performed By: #### L IPID, GFR, CMP #### [address] [address] Cholesterol in HDL [Mass/Vol] 43 mg/dL Normal 40-60 [facility] Comment on above: Performed By: #### L IPID, GFR, CMP #### [address] [address] Cholesterol in LDL [Mass/Vol] 78 mg/dL Normal 0-130 [facility] Comment on above: Performed By: #### L IPID, GFR, CMP #### [address] [address] Triglyceride [Mass/Vol] 57 mg/dL Normal 0-150 [facility] Comment on above: Result Comment: Trig lyceride Reference Interval: Less than 150 Normal 150-199 Borderline high risk 200-499 High risk 500 or higher Very high risk Performed By: #### L IPID, GFR, CMP #### [address] [address] 36on 09-13-2023 36 Letter printed and mailed. [facility] 36 Please mail my lette r to the patient's home address please [facility] Basophil percentageOrdered B y: Deb Signs on 08-10-2023 Bilirubin [Mass/Vol] 0.50 mg/dL 0.20-1.00 [facility] Comment on above: For patients on eltr ombopag therapy, use of [place] TBIL is not recommended. Protein [Mass/Vol] 8.2 g/dL 6.4-8.2 [facility] Direct bilirubinOrdered By: Deb Signs on 08-10-2023 Bilirubin.direct [Mass/Vol] 0.20 mg/dL 0.00-0.30 [facility] Laboratory - Chemistry and C hemistry - challengeOrdered By: Deb Signs on 08-10-2023 ALP [Catalytic activity/Vol] 76 U/L 45-117 [facility] ALT [Catalytic activity/Vol] 17 U/L - [facility] Globulin (S) [Mass/Vol] 4.6 g/dL 2.2-4.2 [facility] Serum or plasma albumin shi urement (mass/volume)Ordered By: Deb Signs on 08-10-2023 Albumin [Mass/Vol] 3.6 g/dL 3.2-5.0 [facility] Thin prep Papanicolaou smear with manual screeningOrdered By: Deb Signs on 08-10-2023 Thin prep Papanicolaou smear with manual screening 8 U/L 15-37 [facility] Basophil percentageOrdered B y: Deb Signs on 07-16-2023 Bilirubin [Mass/Vol] 0.30 mg/dL 0.20-1.00 [facility] Comment on above: For patients on eltr ombopag therapy, use of [place] TBIL is not recommended. Protein [Mass/Vol] 7.6 g/dL 6.4-8.2 [facility] Direct bilirubinOrdered By: Deb Signs on 07-16-2023 Bilirubin.direct [Mass/Vol] 0.08 mg/dL 0.00-0.30 [facility] Laboratory - Chemistry and C hemistry - challengeOrdered By: Deb Signs on 07-16-2023 ALP [Catalytic activity/Vol] 83 U/L 45-117 [facility] ALT [Catalytic activity/Vol] 16 U/L - [facility] Globulin (S) [Mass/Vol] 4.3 g/dL 2.2-4.2 [facility] Serum or plasma albumin shi urement (mass/volume)Ordered By: Deb Signs on 07-16-2023 Albumin [Mass/Vol] 3.3 g/dL 3.2-5.0 [facility] Thin prep Papanicolaou smear with manual screeningOrdered By: Deb Signs on 07-16-2023 Thin prep Papanicolaou smear with manual screening 12 U/L 15-37 [facility] 36on 06-30-2023 36 Christine called back. She is now seeing AIR CONDITIONING MANAGER Amira Tijerina @ [facility] in [place], [place]. Normal [facility] 36 Left a msg for Arnulfo lee notifying her we have Hiwot Paz AIR CONDITIONING MANAGER listed for her PCP. Dr. Rueda wanted to send her a letter, but Hiwot no longer resides in [place] she is now in [place]. I left Christine a msg asking her to call our office to let me know who her new PCP is so we can send the letter to them. Normal [facility] Basophil percentageOrdered B y: Amira Tijerina on 06-24-2023 Bilirubin [Mass/Vol] 0.50 mg/dL 0.20-1.00 [facility] Comment on above: For patients on eltr ombopag therapy, use of [place] TBIL is not recommended. Chloride [Moles/Vol] 107 mmol/L 98-107 [facility] Cholesterol [Mass/Vol] 109 mg/dL <200 [facility] Comment on above: <200 mg/dL Desirable 200-240 mg/dL Borderline >240 mg/dL High Risk Glucose [Mass/Vol] 95 mg/dL 74-106 [facility] Potassium [Moles/Vol] 4.3 mmol/L 3.5-5.1 [facility] Protein [Mass/Vol] 7.7 g/dL 6.4-8.2 [facility] Sodium [Moles/Vol] 137 mmol/L 136-145 [facility] Triglyceride [Mass/Vol] 61 mg/dL <199 [facility] Comment on above: The drugs N-Acetylcy steine and Metamizole may falsely depress this assay.Serum Triglycerides Reference Interval Normal <150 mg/dL Borderline high 150 - 199 mg/dL High 200 - 499 mg/dL Very High > or = 500 mg/dL WBC (Bld) [#/Vol] 6.0 10*3/uL 4.4-11.0 [facility] Blood erythrocytes count (nu mber/volume)Ordered By: Amira Tijerina on 06-24-2023 RBC (Bld) [#/Vol] 4.53 10*6/uL 4.2-5.4 [facility] Blood hemoglobin measurement (mass/volume)Ordered By: Amira Tijerina on 06-24-2023 Hemoglobin (Bld) [Mass/Vol] 13.3 g/dL 12.0-15.0 [facility] Blood platelet mean volumeOr dered By: Amira Tijerina on 06-24-2023 Platelet mean volume (Bld) [Entitic vol] 10.8 fL 6.2-12.0 [facility] Determination of erythrocyte mean corpuscular volume (MCV)Ordered By: Amira Tijerina on 06-24-2023 MCV (RBC) [Entitic vol] 89.2 fL 81-99 [facility] Hematocrit Auto (Bld) [Volum e fraction]Ordered By: Amira Tijerina on 06-24-2023 Hematocrit (Bld) [Volume fraction] 40.4 % 37-47 [facility] Laboratory - Chemistry and C hemistry - challengeOrdered By: Amira Tijerina on 06-24-2023 ALP [Catalytic activity/Vol] 75 U/L 45-117 [facility] ALT [Catalytic activity/Vol] 18 U/L 13-56 [facility] CO2 [Moles/Vol] 25.0 mmol/L 21.0-32.0 [facility] Globulin (S) [Mass/Vol] 4.3 g/dL 2.2-4.2 [facility] Urea nitrogen/Creatinine [Mass ratio] 24.2 mg/mg 10-20 [facility] Laboratory - Hematology and Cell countsOrdered By: Amira Tijerina on 06-24-2023 Erythrocyte distribution width (RBC) [Entitic vol] 43.6 fL 35.1-43.9 [facility] Erythrocyte distribution width (RBC) [Ratio] 13.3 % 11.6-14.6 [facility] MCH (RBC) [Entitic mass] 29.4 pg 27.0-32.0 [facility] MCHC Auto (RBC) [Mass/Vol]Or dered By: Amira Tijerina on 06-24-2023 MCHC (RBC) [Mass/Vol] 32.9 g/dL 32-36 [facility] No Panel InformationOrdered By: Amira Tijerina on 06-24-2023 Estimated GFR (MDRD) Amer 131 mL/min >60 [facility] Comment on above: GFR Calc Estimated GFR (MDRD) Non-Af Amer 109 mL/min >60 [facility] Comment on above: Non- GFR Calc Platelets bldOrdered By: Vanesa Tijerina on 06-24-2023 Platelets (Bld) [#/Vol] 164 10*3/uL 150-450 [facility] Serum or plasma albumin shi urement (mass/volume)Ordered By: Amira Tijerina on 06-24-2023 Albumin [Mass/Vol] 3.4 g/dL 3.2-5.0 [facility] Serum or plasma albumin/glob ulin mass ratioOrdered By: Amira Tijerina on 06-24-2023 Albumin/Globulin [Mass ratio] 0.8 {ratio} 0.9-2.4 [facility] Serum or plasma calcium shi urement (mass/volume)Ordered By: Amira Tijerina on 06-24-2023 Calcium [Mass/Vol] 8.4 mg/dL 8.5-10.1 [facility] Serum or plasma cholesterol in HDL measurement (mass/volume)Ordered By: Amira Tijerina on 06-24-2023 Cholesterol in HDL [Mass/Vol] 35 mg/dL >40 [facility] Comment on above: The drugs N-Acetylcy steine and Metamizole may falsely depress this assay. Reference Range HDL <40 mg/dL Low HDL Cholesterol HDL >or= 60 mg/dL High HDL Cholesterol Serum or plasma cholesterol in VLDL measurement (mass/volume)Ordered By: Amira Tijerina on 06-24-2023 Cholesterol in VLDL [Mass/Vol] 12 mg/dL 5-40 [facility] Serum or plasma creatinine m easurement (mass/volume)Ordered By: Amira Tijerina on 06-24-2023 Creatinine [Mass/Vol] 0.66 mg/dL 0.55-1.02 [facility] Comment on above: The validity of the calculated GFR & GFRAA in patients over 70 years has not been determined. Clinical correlation is essential. Serum or plasma low density lipoprotein (LDL) cholesterol measurement (mass/volume)Ordered By: Amira Tijerina on 06-24-2023 Cholesterol in LDL [Mass/Vol] 62 mg/dL 0-130 [facility] Serum or plasma urea nitroge n measurement (mass/volume)Ordered By: Amira Tijerina on 06-24-2023 Urea nitrogen [Mass/Vol] 16 mg/dL 7-18 [facility] Thin prep Papanicolaou smear with manual screeningOrdered By: Amira Tijerina on 06-24-2023 Thin prep Papanicolaou smear with manual screening 15 U/L 15-37 [facility] Thin prep Papanicolaou smear with manual screening 5 5-15 [facility] 36on 06-23-2023 36 Mailed this am Normal [facility] 36 Please send lab slip s for her 2 liver function tests (they are dated differently) to her home as she will get labs at outside hospital. Thanks! Normal [facility] Laboratory - Microbiology an d Antimicrobial susceptibilityon 06-22-2023 M. tuberculosis stim IFN-g by CD4+ CD8+ T-cells corrected for background Qn (Bld) 3.21 IU/mL [email or web address] M. tuberculosis stim IFN-g by CD4+ T-cells corrected for background Qn (Bld) 3.02 [IU]/mL IU/mL [facility] M. tuberculosis tuberculin stim IFN-g Ql (Bld) Positive Abnormal Negative [facility] Comment on above: Positive Quantiferon values <1.00 are considered low positive and should be interpreted within the clinical context of the patient. Mitogen stimulated gamma interferon corrected for background Qn (Bld) IU/mL [facility] Gamma interferon background IA Qn (Bld) 0.08 IU/mL [facility] No Panel Informationon 06-22 Interpretation and review of laboratory results Abnormal [facility] Mitogen Result IU/mL [facility] Interferon gamma rel ease is measured for [...] NTM (M. k[place]ii, M. szulgai,or M. marinum). [facility] TB2 Antigen Value 3.29 IU/mL [facility] TB1 Antigen Result 3.10 IU/mL [facility] ADDENDUMNOTEon 06-21-2023 ADDENDUMNOTE Addended by: DEB NASH on: 06/23/2023 07:40 AM Modules accepted: Orders Normal [facility] Office Visiton 06-21-2023 Follow-up visit [id number] Santino Neri 1990 F Date Provider Department Center 06/21/2023 54-DEB [facility] ID None Family History Problem Relation Age of Onset Cancer Mother Diabetes Maternal Grandfather Heart disease Maternal Grandfather Heart disease Maternal Grandmother Heart disease Paternal Grandfather Family Status - Relation Status Age at Mother Maternal Grandfather Maternal Grandmother Paternal Grandfather Level of Service:53343 [place] OFFICE/OUTPATIENT NEW MODERATE MDM 45-59 MINUTES Reason for Visit and Comments: New Patient [542] - new patient +Quant; pt w/rheumatoid arthritis on Humira, updated TB test (& repeat test) were positive. Normal [facility] PATINSon 06-21-2023 PATINS Will repeat Quantife don test one last time due to declining numbers on last test and the fact that you have no know risk factors Will call you with results. 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 She lives with her sister who is a rose grader and neither of them have had any prolonged respiratory illnesses with associated night sweats weight loss that is unexpected or bloody sputum. In fact the patient states that she gets occasional head colds but has never had a pneumonia or serious bronchial infection. The patient has not traveled outside [place] been just to surrounding [facility] including [place]. 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 [place] has an very low incidence of [...] Maternal Grandmothe (more content not included)... Normal [facility] XR Chest 2 Viewson 3 No acute cardiopulmo nary abnormality identified. Specifically, no evidence of a cavitary pulmonary mass lesion. Report Dictated on Electronically Signed By: David Rangel Electronically Signed Date/Time: 06/02/2023 7:52 AM EDT [facility] Patient Name: CHRISTINE NERI : [...] pneumothorax. No acute osseous abnormality is demonstrated. [facility] David Rangel MD - 06/02/2023 [facility] Name: [facility] 1990 [id number] Exam Date/Time: 06/01/2023 16:12 Procedure: XR CHEST [...] Electronically Signed Date/Time: 06/02/2023 7:52 AM EDT [facility] [employer] XR Chest 2 ViewsOrdered By: David Rangel on 06-02-2023 [email or web address] Work Phone: XR Chest 2 Viewson 3 Radiology Study observation (narrative) [facility] [employer] Qualitative QuantiFERON-TB g old in tube testOrdered By: NIRMAL RAMOS on 05-21-2023 M. tuberculosis tuberculin stim IFN-g Ql (Bld) 2.28 IU/mL . [facility] Thin prep Papanicolaou smear with manual screeningOrdered By: NIRMAL RAMOS on 05-21-2023 Thin prep Papanicolaou smear with manual screening Comment . [facility] Comment on above: QuantiFERON-TB Gold Plus [...] smear with manual screening 1.33 IU/mL . [facility] Thin prep Papanicolaou smear with manual screening 0.15 IU/mL . [facility] Thin prep Papanicolaou smear with manual screening > 10.00 IU/mL . [facility] Thin prep Papanicolaou smear with manual screening Positive Negative [facility] Comment on above: A response to [...] the productionof interferon gamma. Chemiluminescence immunoassaymethodologyPerformed at: [facility] [id number] Director: Harish Moreno PhD, Phone: [phone] Absolute lymphocyte countOrd ered By: NIRMAL RAMOS on 01-21-2023 Lymphocytes Auto (Unsp spec) [#/Vol] 1.02 10*3/uL 0.83-4.51 [facility] Basophil percentageOrdered B y: NIRMAL RAMOS on 01-21-2023 Basophils/100 WBC (Bld) 0.4 % 0-1 [facility] Bilirubin [Mass/Vol] 0.40 mg/dL 0.20-1.00 [facility] Comment on above: For patients on eltr ombopag therapy, use of [place] TBIL is not recommended. Eosinophils/100 WBC (Bld) 1.9 % 0-5 [facility] Neutrophils (Bld) [#/Vol] 5.1 10*3/uL 2.0-7.7 [facility] Neutrophils/100 WBC (Bld) 74.6 % 47-70 [facility] Protein [Mass/Vol] 7.8 g/dL 6.4-8.2 [facility] WBC (Bld) [#/Vol] 6.8 10*3/uL 4.4-11.0 [facility] Blood erythrocytes count (nu mber/volume)Ordered By: NIRMAL RAMOS on 01-21-2023 RBC (Bld) [#/Vol] 4.64 10*6/uL 4.2-5.4 [facility] Blood hemoglobin measurement (mass/volume)Ordered By: NIRMAL RAMOS on 01-21-2023 Hemoglobin (Bld) [Mass/Vol] 13.8 g/dL 12.0-15.0 [facility] Blood lymphocytes/100 leukoc ytesOrdered By: NIRMAL RAMOS on 01-21-2023 Lymphocytes/100 WBC (Bld) 15.1 % 19-41 [facility] Blood monocytes/100 leukocyt esOrdered By: NIRMAL RAMOS on 01-21-2023 Monocytes/100 WBC (Bld) 7.7 % 0-10 [facility] Blood platelet mean volumeOr dered By: NIRMAL RAMOS on 01-21-2023 Platelet mean volume (Bld) [Entitic vol] 10.6 fL 6.2-12.0 [facility] Determination of erythrocyte mean corpuscular volume (MCV)Ordered By: NIRMAL RAMOS on 01-21-2023 MCV (RBC) [Entitic vol] 91.2 fL 81-99 [facility] Direct bilirubinOrdered By: NIRMAL RAMSO on 01-21-2023 Bilirubin.direct [Mass/Vol] 0.13 mg/dL 0.00-0.30 [facility] Hematocrit Auto (Bld) [Volum e fraction]Ordered By: NIRMAL RAMOS on 01-21-2023 Hematocrit (Bld) [Volume fraction] 42.3 % 37-47 [facility] Laboratory - Chemistry and C hemistry - challengeOrdered By: NIRMAL RAMOS on 01-21-2023 ALP [Catalytic activity/Vol] 93 U/L 45-117 [facility] ALT [Catalytic activity/Vol] 26 U/L 13-56 [facility] Globulin (S) [Mass/Vol] 4.2 g/dL 2.2-4.2 [facility] Laboratory - Hematology and Cell countsOrdered By: NIRMAL RAMOS on 01-21-2023 Erythrocyte distribution width (RBC) [Entitic vol] 42.5 fL 35.1-43.9 [facility] Erythrocyte distribution width (RBC) [Ratio] 12.9 % 11.6-14.6 [facility] Immature granulocytes/100 WBC (Bld) 0.300 % 0.0-0.9 [facility] Comment on above: IG% - Immature Granu locytes (promyelocytes, myelocytes and metamyelocytes) > 1% indicates that a LEFT SHIFT is Present. MCH (RBC) [Entitic mass] 29.7 pg 27.0-32.0 [facility] Nucleated RBC/100 WBC (Bld) [Ratio] 0 % 0-5 [facility] MCHC Auto (RBC) [Mass/Vol]Or dered By: NIRMAL RAMOS on 01-21-2023 MCHC (RBC) [Mass/Vol] 32.6 g/dL 32-36 [facility] Platelets bldOrdered By: LOLIS RAMOS on 01-21-2023 Platelets (Bld) [#/Vol] 210 10*3/uL 150-450 [facility] Serum or plasma albumin shi urement (mass/volume)Ordered By: NIRMAL RAMOS on 01-21-2023 Albumin [Mass/Vol] 3.6 g/dL 3.2-5.0 [facility] Thin prep Papanicolaou smear with manual screeningOrdered By: NIRMAL RAMOS on 01-21-2023 Thin prep Papanicolaou smear with manual screening 21 U/L 15-37 [facility] Absolute lymphocyte countOrd ered By: NIRMAL RAMOS on 01-07-2023 Lymphocytes Auto (Unsp spec) [#/Vol] 1.23 10*3/uL 0.83-4.51 [facility] Basophil percentageOrdered B y: NIRMAL RAMOS on 01-07-2023 Basophils/100 WBC (Bld) 0.4 % 0-1 [facility] Eosinophils/100 WBC (Bld) 2.8 % 0-5 [facility] Neutrophils (Bld) [#/Vol] 5.3 10*3/uL 2.0-7.7 [facility] Neutrophils/100 WBC (Bld) 73.3 % 47-70 [facility] WBC (Bld) [#/Vol] 7.2 10*3/uL 4.4-11.0 [facility] Blood erythrocytes count (nu mber/volume)Ordered By: NIRMAL RAMOS on 01-07-2023 RBC (Bld) [#/Vol] 4.59 10*6/uL 4.2-5.4 [facility] Blood hemoglobin measurement (mass/volume)Ordered By: NIRMAL RAMOS on 01-07-2023 Hemoglobin (Bld) [Mass/Vol] 13.6 g/dL 12.0-15.0 [facility] Blood lymphocytes/100 leukoc ytesOrdered By: NIRMAL RAMOS on 01-07-2023 Lymphocytes/100 WBC (Bld) 17.1 % 19-41 [facility] Blood monocytes/100 leukocyt esOrdered By: NIRMAL RAMOS on 01-07-2023 Monocytes/100 WBC (Bld) 6.0 % 0-10 [facility] Blood platelet mean volumeOr dered By: NIRMAL RAMOS on 01-07-2023 Platelet mean volume (Bld) [Entitic vol] 9.8 fL 6.2-12.0 [facility] Determination of erythrocyte mean corpuscular volume (MCV)Ordered By: NIRMAL RAMOS on 01-07-2023 MCV (RBC) [Entitic vol] 92.6 fL 81-99 [facility] Hematocrit Auto (Bld) [Volum e fraction]Ordered By: NIRMAL RAMOS on 01-07-2023 Hematocrit (Bld) [Volume fraction] 42.5 % 37-47 [facility] Laboratory - Hematology and Cell countsOrdered By: NIRMAL RAMOS on 01-07-2023 Erythrocyte distribution width (RBC) [Entitic vol] 43.0 fL 35.1-43.9 [facility] Erythrocyte distribution width (RBC) [Ratio] 12.8 % 11.6-14.6 [facility] Immature granulocytes/100 WBC (Bld) 0.400 % 0.0-0.9 [facility] Comment on above: IG% - Immature Granu locytes (promyelocytes, myelocytes and metamyelocytes) > 1% indicates that a LEFT SHIFT is Present. MCH (RBC) [Entitic mass] 29.6 pg 27.0-32.0 [facility] Nucleated RBC/100 WBC (Bld) [Ratio] 0 % 0-5 [facility] MCHC Auto (RBC) [Mass/Vol]Or dered By: NIRMAL RAMOS on 01-07-2023 MCHC (RBC) [Mass/Vol] 32.0 g/dL 32-36 [facility] Platelets bldOrdered By: LOLIS RAMOS on 01-07-2023 Platelets (Bld) [#/Vol] 226 10*3/uL 150-450 [facility] CNPNon 07-24-2021 CNPN Telephone ([facility]) CHRISTINE NERI ([id number]) 1990 F Date Time Provider Department 07/24/21 DIOGENES BOJORQUEZ During your visit today, we recorded the [...] Left detailed message on confidential vm Tammy Florse Ma Allergies As of Date: 07/24/2021 (No Known Allergies) Date Reviewed: 07/22/2021 Reviewed by: Ferny Rowan APRN.INTEL ANALYST - Fully Assessed Reason for Visit: Results [...] Status:Closed by TAMMY FLORES MA on 07/25/21 [facility] CNOVon 07-22-2021 CNOV Office Visit ([facility] ) CHRISTINE NERI ([id number]) 1990 F Date Time Provider Department 07/22/21 4:15 PM FERNY ROWAN During your visit today, we recorded the following information about you: Temperature Pulse Respiration Blood pressure 98.8 degrees 79/minute 16/minute 120/82 Weight 88 kg Ferny Rowan APRN.HA 07/22/2021 5:18 PM Signed Subjective HPI A [...] of care. This note was generated using [employer] software. It may contain errors in wording, punctuation, or spelling. Ferny Rowan APRN.HA Rowan APRN.HA 07/22/2021 5:13 PM Signed URINARY TRACT INFECTION [...] the medicatio (more content not included)... Normal [facility] Urine Cultureon 07-22-2021 Bacteria identified Cx Nom (U) Sp. Request/Comment: - Specimen received in preservative Culture Result - No growth (<1,000 CFU/ml) Normal [facility] Comment on above: Performed By: #### U RCUL #### [facility] [address] [id number] Vital Signs Date Time Vital Sign Value Performing Clinician Rajni wray 01-26-2025 14:31-0500 Body temperature 97.4 [degF] Amira Tijerina AIR CONDITIONING MANAGER-C Work Phone: [facility] 01-26-2025 14:31-0500 Diastolic blood pressure 90 mm[Hg] Amira Tijerina AIR CONDITIONING MANAGER-C Work Phone: [facility] 01-26-2025 14:31-0500 Heart rate 92 /min Amira Tijerina AIR CONDITIONING MANAGER-C Work Phone: [facility] 01-26-2025 14:31-0500 Respiratory rate 19 /min Amira Tijerina AIR CONDITIONING MANAGER-C Work Phone: [facility] 01-26-2025 14:31-0500 SaO2% (BldA) [Mass fraction] 96 % Amira Tijerina AIR CONDITIONING MANAGER-C Work Phone: [facility] 01-26-2025 14:31-0500 Systolic blood pressure 121 mm[Hg] Amira Tijerina AIR CONDITIONING MANAGER-C Work Phone: [facility] 01-25-2025 06:00-0500 Body mass index (BMI) [Ratio] 36.2 kg/m2 Amira Tijerina AIR CONDITIONING MANAGER-C Work Phone: [facility] 01-25-2025 06:00-0500 Body weight 98.6 kg Amira Tijerina AIR CONDITIONING MANAGER-C Work Phone: [facility] 01-24-2025 16:25-0500 Body height 165.1 cm Amira Tijerina AIR CONDITIONING MANAGER-C Work Phone: [facility] 06-21-2023 08:15-0400 Body height 165.1 cm Deb Mohit MELARA Work Phone: [facility] [employer] 06-21-2023 08:15-0400 Body mass index (BMI) [Ratio] 34.95 kg/m2 Deb Signs Work Phone: [email or web address] 06-21-2023 08:15-0400 Body temperature 97.2 [degF] Deb Signs Work Phone: [email or web address] 06-21-2023 08:15-0400 Body weight 95.25 kg Deb Signs Work Phone: [email or web address] 06-21-2023 08:15-0400 Diastolic blood pressure 72 mm[Hg] Deb Signs Work Phone: [email or web address] 06-21-2023 08:15-0400 Heart rate 99 /min Deb Signs Work Phone: [email or web address] 06-21-2023 08:15-0400 SaO2% (BldA) [Mass fraction] 97 % Deb Signs Work Phone: [employer] [employer] 06-21-2023 08:15-0400 Systolic blood pressure 112 mm[Hg] Deb Signs Work Phone: [employer] Encounters Encounter Date Encounter Type Care Provider Facility Start: 06-26-2025 ambulatory Olvin Osborn Facility: [facility] Start: 06-15-2025 Encounter for other preprocedural examination Olvin Irena [facility] Start: 05-17-2025 End: 05-17-2025 ambulatory Amira Tijerina AIR CONDITIONING MANAGER-C Work Phone: -[facility] Start: 05-17-2025 End: 05-17-2025 Patient encounter procedure Amira Tijerina AIR CONDITIONING MANAGER-C Work Phone: -[facility] [place] Work Phone: Start: 05-17-2025 End: 05-17-2025 ambulatory GOLDEN MEDINA Facility:[facility] Start: 05-03-2025 End: 05-03-2025 ambulatory Amira Tijerina AIR CONDITIONING MANAGER-C Work Phone: [facility] Work Phone: Start: 05-03-2025 End: 05-03-2025 Patient encounter procedure Amira Tijerina AIR CONDITIONING MANAGER-C Work Phone: -[facility] [place] Work Phone: Start: 05-03-2025 End: 05-03-2025 ambulatory GOLDEN MEDINA Facility:[facility] Start: 01-26-2025 Non-patient / Non-visit Dr. Christine Reveles MD -[facility] Work Phone: Start: 01-26-2025 ambulatory Christine Reveles Facility :[facility] Start: 01-26-2025 Non-patient / Non-visit Dr. Ian mari MD -[facility] Start: 01-25-2025 Non-patient / Non-visit Dr. Christine Reveles MD -[facility] Work Phone: Start: 01-24-2025 Non-patient / Non-visit Dr. Christine Reveles MD -[facility] Work Phone: Start: 01-23-[address] Facility :[facility] Start: 01-23-2025 End: 01-26-2025 Evaluation and management of inpatient Dr. Christine Reveles MD -[facility] 3 Work Phone: Start: 12-26-2024 End: 12-26-2024 Patient encounter procedure Amira Tijerina AIR CONDITIONING MANAGER-C Work Phone: -Laboratory, [place] Work Phone: Start: 12-26-2024 End: 12-26-2024 ambulatory Amira Tijerina AIR CONDITIONING MANAGER Facility:[facility] Start: 09-16-2024 End: 09-16-2024 ambulatory AMIRA TIJERINA JEWELRY ENGRAVER-INTEL ANALYST Facility:[facility] Start: 09-16-2024 End: 09-16-2024 Patient encounter procedure AMIRA TIJERINA JEWELRY ENGRAVER-INTEL ANALYST [facility] Start: 09-13-2023 Telephone encounter Deb cannon MD Work Phone: [facility] Infectious Disease Start: 08-10-2023 End: 08-10-2023 ambulatory [facility] Work Phone: Start: 08-10-2023 End: 08-10-2023 Patient encounter procedure [facility] Work Phone: Start: 07-16-2023 End: 07-16-2023 ambulatory [facility] Work Phone: Start: 07-16-2023 End: 07-16-2023 Patient encounter procedure [facility] Work Phone: Start: 06-30-2023 Telephone encounter Dulce Maria Sharif MA [facility] Infectious Disease Start: 06-24-2023 End: 06-24-2023 ambulatory [facility] Work Phone: Start: 06-24-2023 End: 06-24-2023 Patient encounter procedure [facility] Work Phone: Start: 06-23-2023 Telephone encounter Deb cannon MD Work Phone: [facility] Infectious Disease Start: 06-21-2023 End: 06-22-2023 ambulatory DEB RUEDA [facility] Start: 06-21-2023 End: 06-21-2023 ambulatory DEB RUEDA 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); At risk for infection due to immunosuppression; Rheumatoid arteritis (CMS/HCC) (HCC); Encounter for medication monitoring Start: 06-01-2023 End: 06-02-2023 ambulatory HIWOT PZA [facility] Start: 06-01-2023 End: 06-01-2023 Subsequent hospital visit by physician Nirmal Ramos MD Work Phone: [facility] Radiology Comment on above: Nonspecific reaction to tuberculin skin test without active tuberculosis Nonspecific reaction to tuberculin skin test without active tuberculosis (Primary Dx) Start: 05-21-2023 End: 05-21-2023 ambulatory [facility] Work Phone: Start: 05-21-2023 End: 05-21-2023 Patient encounter procedure [facility] Work Phone: Start: 01-21-2023 End: 01-21-2023 ambulatory [facility] Work Phone: Start: 01-21-2023 End: 01-21-2023 Patient encounter procedure [facility] Start: 01-07-2023 End: 01-07-2023 ambulatory [facility] Work Phone: Start: 01-07-2023 End: 01-07-2023 Patient encounter procedure [facility] Procedures Date Procedure Procedure Detail Performing Clinician Start: 01-26-2025 Estimated creatinine clearance Amira Tijerina AIR CONDITIONING MANAGER-C Work Phone: Start: 01-24-2025 Acid fast bacilli culture Amira Tijerina AIR CONDITIONING MANAGER-C Work Phone: Start: 01-24-2025 Anaerobic microbial culture Amira Tijerina AIR CONDITIONING MANAGER-C Work Phone: Start: 01-24-2025 Gram stain microscopy S gallo Tijerina AIR CONDITIONING MANAGER-C Work Phone: Start: 01-24-2025 End: 01-24-2025 Microbial culture, routine Amira Tijerina AIR CONDITIONING MANAGER-C Work Phone: Start: 01-24-2025 Arthroscopy of knee She vik Tijerina AIR CONDITIONING MANAGER-C Work Phone: Start: 01-23-2025 X-ray of knee, four or more views Amira Tijerina AIR CONDITIONING MANAGER-C Work Phone: Start: 01-23-2025 Blood culture Amira dempsey AIR CONDITIONING MANAGER-C Work Phone: Start: 06-21-2023 QUANTIFERON - PLUS G RAY TUBE Deb Rueda MD Work Phone: Start: 06-21-2023 QUANTIFERON - PLUS G REEN TUBE Deb Rueda MD Work Phone: Start: 06-21-2023 QUANTIFERON - PLUS P URPLE TUBE Deb Rueda MD Work Phone: Start: 06-21-2023 QUANTIFERON - PLUS Y ELLOW TUBE Deb Rueda MD Work Phone: Start: 06-21-2023 QUANTIFERON TB GOLD Den ise Desiree Rueda MD Work Phone: Start: 06-01-2023 Radiologic exam ches t 2 views Nirmal Ramos MD Work Phone: Start: 11-22-2018 Structure of wisdom tooth (body structure) AMIRA TIJERINA JEWELRY ENGRAVER-INTEL ANALYST Plan of Treatment Date Care Activity Detail Author Start: 2038 Zoster Vaccines (1 of 2) Zoster Vacc radha (1 of 2) [facility] Start: 01-26-[address] [facility] Start: 01-26-2025 [facility] Start: 01-24-2025 Following clinical pathway protocol [facility] Start: 01-24-2025 Application of ice collar, cap or bag [facility] Start: 01-24-2025 Catheterization of vein [facility] Start: 01-24-2025 Deep breathing and coughing exercises [facility] Start: 01-24-2025 Following clinical pathway protocol [facility] Start: 01-24-2025 Incentive spirometry [facility] Start: 01-24-2025 Introduction of urin margaux catheter [facility] Start: 01-24-[address] [facility] Start: 01-24-2025 Taking patient vital signs [facility] Start: 01-24-2025 Vital signs measurements [facility] Start: 01-24-2025 [facility] Start: 01-24-2025 Anaerobic microbial culture Anaerobic Culture [facility] Start: 01-24-2025 Microbial culture, routine Wound Culture [facility] Start: 01-24-2025 Application of intermittent pneumatic compression device [facility] Start: 01-24-2025 Medication education [facility] Start: 01-24-2025 Source specific culture [facility] Start: 01-23-2025 Following clinical pathway protocol [facility] Start: 01-23-2025 Assessment of risk o f venous thromboembolism [facility] Start: 01-23-2025 Consultation [facility] Start: 01-23-2025 Fall prevention [facility] Start: 01-23-2025 Inhalation therapy procedure [facility] Start: 01-23-2025 Insertion of cathete r into peripheral vein [facility] Start: 01-23-2025 Introduction of urin margaux catheter [facility] Start: 01-23-2025 Measuring intake and output [facility] Start: 01-23-2025 Oxygen therapy [facility] Start: 01-23-2025 Providing care accor ding to standard [facility] Start: 01-23-2025 Provision of activit y privileges [facility] Start: 01-23-2025 Referral to occupati onal therapist [facility] Start: 01-23-2025 Referral to service [facility] Start: 01-23-2025 [facility] Start: 01-23-2025 Admission procedure [facility] Start: 01-23-2025 [facility] Start: 01-23-2025 Blood culture Blood Culture [facility] Start: 08-13-2023 End: 06-23-2024 Hepatic function 2000 panel - Serum or Plasma Hepatic function panel Lab Routine Positive QuantiFERON-TB Gold test Rheumatoid arteritis (CMS/HCC) (HCC) At risk for infection due to immunosuppression Encounter for medication monitoring Expected: 08/13/2023 (Approximate), Expires: 06/23/2024 [facility] Comment on above: Expected: 08/13/2023 (Approximate), Expires: 06/23/2024 Start: 07-23-2023 Influenza vaccination Influenza Vacc ine (#1) [facility] Start: 07-16-2023 End: 06-23-2024 Hepatic function 2000 panel - Serum or Plasma Hepatic function panel Lab Routine Positive QuantiFERON-TB 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 Rheumatoid arteritis (CMS/HCC) (HCC) At risk for infection due to immunosuppression Encounter for medication monitoring Expected: 07/16/2023 (Approximate), Expires: 06/23/2024 [facility] Work Phone: Comment on above: Expected: 07/16/2023 (Approximate), Expires: 06/23/2024 Start: 06-21-2023 End: 06-21-2024 QUANTIFERON TB GOLD [facility] Work Phone: Comment on above: Expected: 06/21/2023 (Approximate), Expires: 06/21/2024 Start: 10-23-2022 COVID-19 Vaccine (5 - Moderna risk series) COVID-19 Vaccine (5 - Moderna risk series) [facility] Start: 2018 Screening for malign ant neoplasm of cervix [facility] Start: 2009 Screening for malign ant neoplasm of cervix Pap Smear [facility] Start: 2007 DTaP/Tdap/Td Vaccine s (2 - Tdap) DTaP/Tdap/Td Vaccines (2 - Tdap) [facility] Start: 2007 Zoster Vaccines (1 of 2) Zoster Vacc radha (1 of 2) [facility] Start: 2006 Hepatitis C screening Hepatitis C Sc reening [facility] Start: 2000 Depression Screening Depression Scre ening [facility] Start: 1994 Pneumococcal Vaccine : Pediatrics (0 to 5 Years) and At-Risk Patients (6 to 64 Years) (1 - PCV) Pneumococcal Vaccine: Pediatrics (0 to 5 Years) and At-Risk Patients (6 to 64 Years) (1 - PCV) [facility] Start: 1989 MMR Vaccines (1 of 1 - Standard series) MMR Vaccines (1 of 1 - Standard series) [facility] Start: 1989 Varicella vaccination Varicell a Vaccines (1 of 2 - 2-dose childhood series) [facility] Start: 1988 Hepatitis B Vaccines (1 of 3 - 3-dose series) Hepatitis B Vaccines (1 of 3 - 3-dose series) [facility] Start: 1988 HIV screening HIV Screening [facility] OUTSIDE PROCEDURE SCAN OUTSIDE P ROCEDURE SCAN Procedures Ordered: 06/01/2023 [facility] Comment on above: Ordered: 06/01/2023 Patient referral [facility] Work Phone: QUANTIFERON - PLUS G RAY TUBE QUANTIFERON - PLUS LOJA TUBE Lab Routine Positive QuantiFERON-TB Gold test Rheumatoid arteritis (CMS/HCC) (HCC) At risk for infection due to immunosuppression 06/21/2023 9:46 AM [facility] QUANTIFERON - PLUS G REEN TUBE QUANTIFERON - PLUS GREEN TUBE Lab Routine Positive QuantiFERON-TB Gold test Rheumatoid arteritis (CMS/HCC) (HCC) At risk for infection due to immunosuppression 06/21/2023 9:46 AM EDT [facility] QUANTIFERON - PLUS PURPLE TUBE QUANTIFERON - PLUS PURPLE TUBE Lab Routine Positive QuantiFERON-TB Gold test Rheumatoid arteritis (CMS/HCC) (HCC) At risk for infection due to immunosuppression 06/21/2023 9:46 AM EDT [facility] QUANTIFERON - PLUS YELLOW TUBE QUANTIFERON - PLUS YELLOW TUBE Lab Routine Positive QuantiFERON-TB Gold test Rheumatoid arteritis (CMS/HCC) (HCC) At risk for infection due to immunosuppression 06/21/2023 9:46 AM EDT [facility] [employer] Immunizations Immunization Date Immunization Notes Care Provider Jozef orlando 09-30-2021 SARS-CoV-2 (COVID-19 ) mRNA-1273 vaccine; Translations: [Moderna COVID-19 Vaccine] AMIRA TIJERINA JEWELRY ENGRAVER-INTEL ANALYST [facility] 01-10-2021 SARS-CoV-2 (COVID-19 ) mRNA-1273 vaccine AMIRA TIJERINA JEWELRY ENGRAVER-INTEL ANALYST [facility] 12-10-2020 SARS-CoV-2 (COVID-19 ) mRNA-1273 vaccine AMIRA TIJERINA JEWELRY ENGRAVER-INTEL ANALYST [facility] Payers Date Payer Category Payer Self-pay [id number] 2022 Unknown [id number] 2022 Unknown AUVELVET KLINE [id number] 2022-Present [address] [place] [phone] Commercial [id number] 1988 Unknown [id number] 7 Unknown [id number] 2 Unknown [id number] 2 Unknown [id number] [id number] 2 Unknown [id number] [id number] 2 Unknown [id number] [id number] 2 Unknown [id number] [id number] 2 Unknown [id number] [id number] 2 Unknown [id number] [id number] 2 Unknown [id number] [id number] 2 Unknown [id number] 2 Social History Date Type Detail Facility Start: 10-07-2021 End: 10-07-2021 Tobacco smoking status VTIS Unknown if ever smoked [facility] Start: 1990 Sex Assigned At Female [facility] Start: 1990 Sex Assigned At Not on file [facility] Start: 06-21-2023 Gender identity Not on file [facility] Start: 05-22-2023 End: 06-21-2023 Exposure to SARS-CoV-2 (event) Not sure [facility] Start: 06-21-2023 End: 01-23-2025 Tobacco smoking status NHIS Never smoked tobacco [facility] Start: 06-21-2023 Tobacco use and exposure Smokeless tobacco non-user [facility] Start: 06-21-2023 Alcohol intake Current drinke r of alcohol (finding) [facility] Start: 06-21-2023 Alcohol intake [facility] Start: 06-21-2023 Alcohol Comment socially [facility] Sex Assigned At Sex [facility] Start: 01-26-2025 Sex Female (finding) [facility] NEGATED: Highlighted row Not [facility] Goals Date Patient Goal Desired Activity /State Functional Status Date Assessment Result Facility 01-26-2025 Functional status Chair [facility] Work Phone: Mental Status Date Assessment Result Facility 01-25-2025 Cognitive function Level Of Cons ciousness Awake;Alert;Appropriate;Follow s Commands [facility] Work Phone: 01-24-2025 Cognitive function Voice/Name [facility] Work Phone: Clinical Notes 07-22-2021 to 01-26-2025 Note Date & Type Note Facility 01-26-2025 Progress note Note Date/Time January 26, 2025 12:21pm [facility] Medical Records Department [address] [place] [address] Progress Note - Orthopedic 01/26/25 1218 MR#: [id number] Acct: [id number] Name: CHRISTINE NERI Rep #:[id number] : 1990 34 From: Lindsey IVORY PCP: VIRGIL WhitfieldC Status:ADM IN Location: [facility] LP737-9 Subjective Subjective Patient is a 34 year old female with history of RA POD2 s/p right knee arthroscopic irrigation and debridement 01/24/[address] Romo after concern for right knee septic arthritis. 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 when cleared from ID with final recommendations and medicine clears, ok for discharge from orthopaedic standpoint. 01/26/25 1221 <Electronically signed by Lindsey IVORY> Cosigner Signature (if applicable): CC: ~ Signed [facility] Work Phone: 1(634) 407-450903-07-2025 Discharge summary [facility] Medical Records Department [address] [facility] [place] [address] Discharge Summary 01/26/25 1332 MR#: [id number] Acct: [id number] Name: CHRISTINE NERI Rep #:[id number] : 1990 34 From: Christine Reveles MD PCP: JULIANN [facility] Status:ADM IN [facility] Providers Date of Admission: 01/23/25 Date of [...] Referrals / Follow Up: Amira Tijerina NP, KATY-C [Primary Care Provider] - Disposition Disposition (needs filled in before D/C Order can be placed): Home, Self Care 01/26/25 1341 Cosigner Signature (if applicable): CC: JULIANN Tijerina; Dr. Christine Reveles MD~ Signed [facility]03-07-2025 [facility] Medical Records Department [address] [place] [address] Discharge Summary 01/26/25 1332 MR#: [id number] Acct: [id number] Name: CHRISTINE NERI Rep #: [id number] : 1990 34 From: Christine Reveles MD PCP: JULIANN [facility] Status:ADM IN Location: [place] [address] Providers Date of Admission: 01/23/25 Date of [...] to 40 mg Rosuv (more content not included)...[facility]03-07-2025 Progress note Author Pal Rich [facility] Note Date/Time January 26, 2025 10:3 8am [facility] Medical Records Department [address] [place] [address] Progress Note - Infect Disease 01/26/25 1036 MR#: [id number] Acct: [id number] Name: CHRISTINE NERI Rep #:[id number] : 1990 34 From: Pal gonzalez MD PCP: JULIANN [facility] Status:ADM IN Location: [facility] PZ756-4 Physical Exam Narrative Feeling better, knee improved, [...] Cosigner Signature (if applicable): CC: ~ Signed [facility] Work Phone: 1(282) 471-746303-07-2025 Progress note [facility] Medical Records Department [address] [place] [address] Progress Note - Orthopedic 01/26/25 1218 MR#: [id number] Acct: [id number] Name: CHRISTINE NERI Rep #:[id number] : 1990 34 From: Lindsey IVORY PCP: VIRGIL WhitfieldC Status:ADM IN Location: [facility] OB034-5 Subjective Subjective Patient is a 34 year old female with history of RA POD2 s/p right knee arthroscopic irrigation and debridement 01/24/[address] Romo after concern for right knee septic arthritis. she went to her agricultural and forestry supervisor after a flare up that did not [...] from knee arthrocentesis from the office at [employer] 9. when cleared from ID with final recommendations and medicine clears, ok for discharge from orthopaedic standpoint. 01/26/25 1221 Cosigner Signature (if applicable): CC: ~ Signed [facility]03-07-2025 Consult note Author Servando Sexton [facility] Note Date/Time January 26, 2025 10:0 5am [facility] Medical Records Department [address] [place] [address] Pharmacokinetic/Renal -Consult 01/26/25 0902 MR#: [id number] Acct: [id number] Name: CHRISTINE NERI Rep #:[id number] : 1990 34 From: Servando jones PCP: JULIANN [facility] Status:ADM IN Y [facility] Consult Antibiotic Management Pharmacy has been consulted [...] 08:00 01/26/25 0905 <Electronically signed by Servando ordaz> Date _ Servando Sexton 01/26/25 1005 <Electronically signed by Pal jordan MD> Cosigner Signature (if applicable): Date Pal Rich MD CC: ~ Signed [facility] Work Phone: 1(235) 868-771603-07-2025 Progress note [facility] Medical Records Department [address] [place] [address] Progress Note - Infect Disease 01/26/25 1036 MR#: [id number] Acct: [id number] Name: CHRISTINE NERI Rep #:[id number] : 1990 34 From: Pal gonzalez MD PCP: JULIANN [facility] Status:ADM IN Location: [facility] UM189-4 Physical Exam Narrative Feeling better, knee improved, [...] Cosigner Signature (if applicable): CC: ~ Signed [facility]03-07-2025 Consult note [facility] Medical Records Department [address] [place] [address] Pharmacokinetic/Renal -Consult 01/26/25 0902 MR#: [id number] Acct: [id number] Name: CHRISTINE NERI Rep #:[id number] : 1990 34 From: Servando jones PCP: JULIANN [facility] Status:ADM IN Y Location: [place] [address] Consult Antibiotic Management Pharmacy has been consulted [...] _ Servando Sexton 01/26/25 1005 nikki MELARA> Milagros Signature (if applicable): Date Pal Rich MD CC: ~ Signed [facility]03-06-2025 Progress note Author Christine Reveles [facility] Note Date/Time January 25, 2025 4:40 pm [facility] Medical Records Department [address] [place] [address] Progress Note - Hospitalist 01/25/25 1632 MR#: [id number] Acct: [id number] Name: CHRISTINE NERI Rep #:[id number] : 1990 34 From: Christine Reveles MD PCP: JULIANN [facility] Status:ADM IN [address]: [address] Reason for Visit Reason for Visit: Diagnoses [...] Cosigner Signature (if applicable): CC: ~ Signed [facility] Work Phone: 1(948) 966-847703-06-2025 Progress note [facility] Medical Records Department [address] [place] [address] Progress Note - Hospitalist 01/25/25 1632 MR#: [id number] Acct: [id number] Name: CHRISTINE NERI Rep #:[id number] : 1990 34 From: Christine Reveles MD PCP: JULIANN [facility] Status:ADM IN Location: [facility] VK838-6 Reason for Visit Reason for Visit: Diagnoses [...] Cosigner Signature (if applicable): CC: ~ Signed [facility]03-06-2025 Consult note Author Pal Rich [facility] Note Date/Time January 25, 2025 10:3 8am [facility] Medical Records Department [address] [place] [address] Consultation - Infectious Dx 01/25/25 1035 MR#: [id number] Acct: [id number] Name: CHRISTINE NERI Rep #:[id number] : 1990 34 From: Pal gonzalez MD PCP: Amira Tijerina, AIR CONDITIONING MANAGER-C Status:ADM IN Location: [address] Assessment & Plan Assessment/Plan (1) Septic arthritis [...] performed and neg except as noted above. [facility] Medical History Obesity Dyspepsia H. pylori [...] disease Diabetes Family History other Surgical History [place] teeth extracted Social History household members: other details: Lives with her sister. Smoking Status: Never smoker second hand exposure: No alcohol intake: current alcohol intake frequency: a few times a week details: occasionally substance use type: does not use rafael/confucianism: None seatbelt use: always do you feel [...] Signature (if applicable): CC: JULIANN Tijerina~ Signed [facility] Work Phone: 1(381) 505-261903-06-2025 Progress note Author Lindsey Olivares [facility] Note Date/Time January 25, 2025 10:1 0am [facility] Medical Records Department [address] [place] [address] Progress Note - Orthopedic 01/25/25 0938 MR#: [id number] Acct: [id number] Name: CHRISTINE NERI Rep #:[id number] : 1990 34 From: Lindsey IVORY PCP: Amira Tijerina, AIR CONDITIONING MANAGER-C Status:ADM IN Location: [facility] GQ860-2 Subjective Subjective Patient is a 34 year old female with history of RA POD1 s/p right knee arthroscopic irrigation and debridement 01/24/[address] Romo after concern for right knee septic arthritis. 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 went to her agricultural and forestry supervisor after a flare up that did not [...] Cosigner Signature (if applicable): CC: ~ Signed [facility] Work Phone: 1(250) 899-748203-06-2025 Consult note Author Binta Martínez [facility] Note Date/Time January 25, 2025 10:0 1am [facility] Medical Records Department [address] [place] [address] Pharmacokinetic/Renal -Consult 01/25/25 1001 MR#: [id number] Acct: [id number] Name: CHRISTINE NERI Rep #:[id number] : 1990 34 From: Binta Martínez PCP: JULIANN Whitfield Status:ADM IN Y Location: MS3 CJ977-1 Consult Antibiotic Management Pharmacy has been consulted [...] by Binta Martínez > Date _ Binta Allennatalia Signature (if applicable): Date CC: ~ Signed [facility] Work Phone: [phone]) 538-777403-06-2025 Consult note [facility] Medical Records Department [address] [place] [address] Consultation - Infectious Dx 01/25/25 1035 MR#: [id number] Acct: [id number] Name: CHRISTINE NERI Rep #:[id number] : 1990 34 From: Pal gonzalez MD PCP: JULIANN Whitfield Status:ADM IN [facility] Assessment & Plan Assessment/Plan (1) Septic arthritis [...] performed and neg except as noted above. [facility] Medical History Obesity Dyspepsia H. pylori [...] disease Diabetes Family History other Surgical History [place] teeth extracted Social History household members: other details: Lives with her sister. Smoking Status: Never smoker second hand exposure: No alcohol intake: current alcohol intake frequency: a few times a week details: occasionally substance use type: does not use rafael/confucianism: None seatbelt use: always do you feel [...] Signature (if applicable): CC: JULIANN Tijerina~ Signed [facility]03-06-2025 Progress note [facility] Medical Records Department [facility] [place] [address] Progress Note - Orthopedic 01/25/25 0938 MR#: [id number] Acct: [id number] Name: CHRISTINE NERI Rep #:[id number] : 1990 34 From: Lindsey IVORY PCP: JULIANN Whitfield Status:ADM IN Location: MS3 LD569-1 Subjective Subjective Patient is a 34 year old female with history of RA POD1 s/p right knee arthroscopic irrigation and debridement 01/24/[address] Romo after concern for right knee septic arthritis. she went to her agricultural and forestry supervisor after a flare up that did not [...] Cosigner Signature (if applicable): CC: ~ Signed [facility]03-06-2025 Consult note [facility] Medical Records Department [address] [place] [address] Pharmacokinetic/Renal -Consult 01/25/25 1001 MR#: [id number] Acct: [id number] Name: CHRISTINE NERI Sheron Rep #:[id number] : 1990 34 From: Binta Martínez PCP: JULIANN Whitfield Status:ADM IN Y Location: [place] 855342-1 Consult Antibiotic Management Pharmacy has been consulted [...] required. 01/25/25 1001 > Date _ Binta Regula Cosigner Signature (if applicable): Date CC: ~ Signed [facility]03-05-2025 Progress note Author Christine Reveles [facility] Note Date/Time January 24, 2025 4:15 pm [facility] Medical Records Department [address] [place] [address] Progress Note - Hospitalist 01/24/25 1403 MR#: [id number] Acct: [id number] Name: CHRISTINE NERI Rep #:[id number] : 1990 34 From: Christine Reveles MD PCP: Amira Tijerina AIR CONDITIONING MANAGER-C Status:ADM IN Location: CO3 LZ286-8 Reason for Visit Reason for Visit: Diagnoses [...] 75.1 H, Lymph % (Auto) 14.5 L, Wilbarger % (Auto) 9.6, Eos % (Auto) 0.0, [...] 75.0 H, Lymph % (Auto) 14.5 L, Wilbarger % (Auto) 9.9, Eos % (Auto) 0.0, [...] joint effusion. No acute fracture. [facility] Const alert and oriented x3 [...] arthritis. Her joint was aspirated by her agricultural and forestry supervisor and there was some improvement in pain [...] Cosigner Signature (if applicable): CC: ~ Signed [facility] Work Phone: [phone]) 288-476103-05-2025 Consult note Author Nemesio Buitrago [facility] Note Date/Time January 24, 2025 2:42 pm [facility] Medical Records Department [address] [place] [address] Anesthesia Postop Eval II 01/24/25 1442 MR#: [id number] Acct: [id number] Name: CHRISTINE NERI Rep #:[id number] : 1990 34 From: Nemesio Buitrago MD PCP: JULIANN Whitfield Status:ADM IN Y Race: C Location: MS3 MSED- 1 Anesthesia Postop Eval I Sum Postop Eval Completion status Anesthesia document: Postop Eval 1 completed: Yes Anesthesia Postop Eval I Summary Anesthesia Postop Eval I Summary: Anesthesia Postop Eval I: Assessment Summary Airway patent Yes 01/24/25 14:28 MASTER [email or web address].TNES Spontaneous unlabored Yes 01/24/25 14:28 MASTER BARBER.TNES respirations Mental status nausea No 01/24/25 14:28 MASTER BARBER.TNES Vomiting No 01/24/25 14:28 MASTER BARBER.TNES Anesthesia Postop Eval I: Fluid Summary Crystalloid volume administer 1,200 01/24/25 14:28 MASTER BARBER.TNES (ml) Colloids volume administered ( ml) Blood Product volume administered (ml) Total IV fluid infused 1,200 01/24/25 14:28 MASTER BARBER.TNES Anesthesia Postop Eval I: Summary Notes Anesthesia Complication No 01/24/25 14:28 MASTER BARBER.TNES Anesthesia Complication Comment: Post-operative progress note Anesthesia: Postop Eval II Evaluation Mental status: Awake Pain Level: 2 nausea: No Vomiting: No 01/24/25 1442 <Electronically signed by Nemesio Buitrago MD > Date _ Nemesio Buitrago MD Cosigner Signature: Date CC: ~ Signed [facility] Work Phone: 1(455) 949-464503-05-2025 Consult note Author Bishop Boothbitt [facility] Note Date/Time January 24, 2025 2:29 pm [facility] Medical Records Department [address] [place] [address] Anesthesia Postop Eval I 01/24/25 1428 MR#: [id number] Acct: [id number] Name: CHRISTINE NERI Rep #:[id number] : 1990 34 From: Bishop KIRKPATRICK PCP: Amira Tijerina, AIR CONDITIONING MANAGER-C Status:ADM IN Y Race: C Location: [place] [address] Anesthesia: Postop Eval I Current Vital Signs Temperature: 98.6 F Pulse Rate: 103 Blood Pressure: 159/96 Respiratory Rate: 16 Pulse Ox: 96 Assessment Airway patent: Yes Spontaneous unlabored respirations: Yes nausea: No Vomiting: No Anesthesia Complication: No Fluid Hydration Crystalloid volume administer (ml): 1,200 Total IV fluid infused: 1,200 Progress Note Anesthesia document: Postop Eval 1 completed: Yes 01/24/25 1429 <Electronically signed by Bishop Hemphill CRNA> Date _ Bishop Hemphill MASTER BARBER Cosigner Signature: Date CC: ~ Signed [facility] Work Phone: [phone]) [phone] Progress note [facility] Medical Records Department [address] [place] [address] Progress Note - Hospitalist 01/24/25 1403 MR#: [id number] Acct: [id number] Name: CHRISTINE NERI Rep #:[id number] : 1990 34 From: Christine Reveles MD PCP: JULIANN Whitfield Status:ADM IN Location: [place] 855342-1 Reason for Visit Reason for Visit: Diagnoses [...] 75.1 H, Lymph % (Auto) 14.5 L, Wilbarger % (Auto) 9.6, Eos % (Auto) 0.0, [...] 75.0 H, Lymph % (Auto) 14.5 L, Wilbarger % (Auto) 9.9, Eos % (Auto) 0.0, [...] suprapatellar joint effusion.No acute fracture. [facility] Const alert and oriented x3 [...] arthritis. Her joint was aspirated by her agricultural and forestry supervisor and there was some improvement in pain [...] Cosigner Signature (if applicable): CC: ~ Signed [facility]03-05-2025 Progress note Author Mckinley Romo [facility] Note Date/Time January 24, 2025 1:31 pm [facility] Medical Records Department [address] [place] [address] Progress Note - Orthopedic 01/24/25 1329 MR#: [id number] Acct: [id number] Name: CHRISTINE NERI Rep #:[id number] : 1990 34 From: Mckinley em DO PCP: JULIANN Whitfield Status:ADM IN Location: MS[facility] Subjective Subjective Patient seen and examined. Reports [...] 75.1 H, Lymph % (Auto) 14.5 L, Wilbarger % (Auto) 9.6, Eos % (Auto) 0.0, [...] 75.0 H, Lymph % (Auto) 14.5 L, Wilbarger % (Auto) 9.9, Eos % (Auto) 0.0, [...] effusion. No acute fracture. Reading Location: [facility] Physical Exam Narrative General -A&Ox3, NAD, appears [...] Cosigner Signature (if applicable): CC: ~ Signed [facility] Work Phone: [phone]) 205-983303-05-2025 Consult note Author Nemesio Buitrago [facility] Note Date/Time January 24, 2025 1:02 pm [facility] Medical Records Department [address] [place] [address] Pre-Anesthesia Evaluation 01/24/25 1301 MR#: [id number] Acct: [id number] Name: CHRISTINE NERI Rep #:[id number] : 1990 34 From: Nemesio Buitrago MD PCP: JULIANN Whitfield Status:ADM IN Y Race: C Location: [place] [address] ASA Classification* ASA Classification ASA Classification: 2 [...] Right Knee Anesthesia History Anesthesia History - central office technician: Anesthesia History - central office technician Hx Hospitalization Any Problems With Anesthesia [...] take am of surgery PONV PONV - central office technician: PONV - central office technician Female HX of Motion Sickness HX of N/V After Surgery Non-Smoker Duration of Surgery greater than 60 minutes Number of Risk Factors PONV Score Height & Weight Height & Weight: Anesthesia: Height & Weight Height 5 ft 5 in 01/23/25 22:38 Weight: 98.2 kg 01/24/25 06:18 Body Mass Index (BMI) 36.1 01/24/25 06:18 Respiratory Assessment Respiratory Assessment - central office technician: Respiratory Tract Infection Hx - central office technician Hx Respiratory Tract Infection STOP Sleep Apnea STOP Sleep Apnea - central office technician: STOP Sleep Apnea - central office technician Hx Hypertension No 01/23/25 22:39 Hx [...] Tobacco Use History Tobacco Use History - central office technician: Tobacco Use History - central office technician Tobacco Use Smoking Status Never smoker 01/23/25 22:39 Hx Tobacco Use No 01/23/25 22:39 Years Smoking Packs Smoked per Day Smoking Cessation Date was within the last 15 years Hx Smoking Cessation Date Hx Smoking Cessation Counseling Hematologic Medial History Hematologic Hx - central office technician: Hematologic 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 pylori [...] disease Diabetes Family History other Surgical History [place] teeth extracted Social History household members: other details: Lives with her sister. Smoking Status: Never smoker second hand exposure: No alcohol intake: current alcohol intake frequency: a few times a week details: occasionally substance use type: does not use rafael/confucianism: None seatbelt use: always do you feel safe at home: Yes Review of Systems (Anesthesia) ROS Narrative System reviewed and no additional complaints, except as documented. 01/24/25 1302 <Electronically signed by Nemesio Buitrago MD > Date _ Nemesio Buitrago MD Cosigner Signature: Date CC: ~ Signed [facility] Work Phone: [phone] Procedure note [facility] Medical Records Department [address] [facility] [place] [address] Operative Report 01/24/25 1442 MR#: [id number] Acct: [id number] Name: CHRISTINE NERI Sheron Rep #:[id number] : 1990 34 From: Mckinley em DO PCP: JULIANN Whitfield Status:ADM IN Location: [place] [address] Operative Report (Standard) Operative Information Date of Procedure: 01/24/25 Pre-Operative Diagnosis: Right knee septic arthritis Post-Operative Diagnosis: Right knee septic arthritis Surgery/Procedure Performed: Right knee arthroscopic irrigation and debridement changeover operator: No Type of Anesthesia: General RN Documented [...] were removed in standard fashion with interrupted pywfwg-li-dbrye 3-0 nylon suture. Intra-articular block was administered [...] SCD's VTE Pharm Prophylaxis ordered?: Yes 01/24/25 2951 Cosigner Signature (if applicable): CC: JULIANN Tijerina; Dr. Destiney Lane MD; Dr. Mckinley Romo DO; Dr. Pal Rich MD~ Signed [facility]03-05-2025 Consult note [facility] Medical Records Department [address] [place] [address] Anesthesia Postop Eval II 01/24/25 1442 MR#: [id number] Acct: [id number] Name: CHRISTINE NERI Rep #:[id number] : 1990 34 From: Nemesio Buitrago MD PCP: VIRGIL WhitfieldC Status:ADM IN Y Race: C Location: MS3 [facility] Anesthesia Postop Eval I Sum Postop Eval Completion status Anesthesia document: Postop Eval 1 completed: Yes Anesthesia Postop Eval I Summary Anesthesia Postop Eval I Summary: Anesthesia Postop Eval I: Assessment Summary Airway patent Yes 01/24/25 14:28 MASTER [email or web address] Spontaneous unlabored Yes 01/24/25 14:28 MASTER [email or web address].TNES respirations Mental status nausea No 01/24/25 14:28 MASTER BARBER.TNES Vomiting No 01/24/25 14:28 MASTER BARBER.TNES Anesthesia Postop Eval I: Fluid Summary Crystalloid volume administer 1,200 01/24/25 14:28 MASTER BARBER.TNES (ml) Colloids volume administered ( ml) Blood Product volume administered (ml) Total IV fluid infused 1,200 01/24/25 14:28 MASTER BARBER.TNES Anesthesia Postop Eval I: Summary Notes Anesthesia Complication No 01/24/25 14:28 MASTER BARBER.TNES Anesthesia Complication Comment: Post-operative progress note Anesthesia: Postop Eval II Evaluation Mental status: Awake Pain Level: 2 nausea: No Vomiting: No 01/24/25 1442 > Date _ Nemesio Allenigngillian Signature: Date CC: ~ Signed [facility]03-05-2025 Consult note [facility] Medical Records Department [address] [place] [address] Anesthesia Postop Eval I 01/24/25 1428 MR#: [id number] Acct: [id number] Name: CHRISTINE NERI Rep #:[id number] : 1990 34 From: Bishop KIRKPATRICK PCP: VIRGIL WhitfieldC Status:ADM IN Y Race: C Location: [place] [address] Anesthesia: Postop Eval I Current Vital Signs Temperature: 98.6 F Pulse Rate: 103 Blood Pressure: 159/96 Respiratory Rate: 16 Pulse Ox: 96 Assessment Airway patent: Yes Spontaneous unlabored respirations: Yes nausea: No Vomiting: No Anesthesia Complication: No Fluid Hydration Crystalloid volume administer (ml): 1,200 Total IV fluid infused: 1,200 Progress Note Anesthesia document: Postop Eval 1 completed: Yes 01/24/25 142 MASTER BARBER> Date _ Bishop Hemphill MASTER BARBER Cosigner Signature: Date CC: ~ Signed [facility]03-05-2025 Progress note [facility] Medical Records Department [address] [place] [address] Progress Note - Orthopedic 01/24/25 1329 MR#: [id number] Acct: [id number] Name: CHRISTINE NERI Rep #:[id number] : 1990 34 From: Mckinley em DO PCP: JULIANN Whitfield Status:ADM IN Location: [place] [address] Subjective Subjective Patient seen and examined. Reports [...] 75.1 H, Lymph % (Auto) 14.5 L, Wilbarger % (Auto) 9.6, Eos % (Auto) 0.0, [...] 75.0 H, Lymph % (Auto) 14.5 L, Wilbarger % (Auto) 9.9, Eos % (Auto) 0.0, [...] suprapatellar joint effusion.No acute fracture. Reading [facility] Physical Exam Narrative General -A&Ox3, NAD, appears [...] Cosigner Signature (if applicable): CC: ~ Signed [facility]03-05-2025 Consult note [facility] Medical Records Department [address] [place] [address] Pre-Anesthesia Evaluation 01/24/25 1301 MR#: [id number] Acct: [id number] Name: CHRISTINE NERI Rep #:[id number] : 1990 34 From: Nemesio Buitrago MD PCP: Amira Tijerina AIR CONDITIONING MANAGER-C Status:ADM IN Y Race: C Location: MS3 [facility] ASA Classification* ASA Classification ASA Classification: [...] Right Knee Anesthesia History Anesthesia History - central office technician: Anesthesia History - central office technician Hx Hospitalization Any Problems With Anesthesia [...] take am of surgery PONV PONV - central office technician: PONV - central office technician Female HX of Motion Sickness HX of N/V After Surgery Non-Smoker Duration of Surgery greater than 60 minutes Number of Risk Factors PONV Score Height & Weight Height & Weight: Anesthesia: Height & Weight Height 5 ft 5 in 01/23/25 22:38 Weight: 98.2 kg 01/24/25 06:18 Body Mass Index (BMI) 36.1 01/24/25 06:18 Respiratory Assessment Respiratory Assessment - central office technician: Respiratory Tract Infection Hx - central office technician Hx Respiratory Tract Infection STOP Sleep Apnea STOP Sleep Apnea - central office technician: STOP Sleep Apnea - central office technician Hx Hypertension No 01/23/25 22:39 Hx [...] Tobacco Use History Tobacco Use History - central office technician: Tobacco Use History - central office technician Tobacco Use Smoking Status Never smoker 01/23/25 22:39 Hx Tobacco Use No 01/23/25 22:39 Years Smoking Packs Smoked per Day Smoking Cessation Date was within the last 15 years Hx Smoking Cessation Date Hx Smoking Cessation Counseling Hematologic Medial History Hematologic Hx - central office technician: 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 pylori [...] disease Diabetes Family History other Surgical History [place] teeth extracted Social History household members: other details: Lives with her sister. Smoking Status: Never smoker second hand exposure: No alcohol intake: current alcohol intake frequency: a few times a week details: occasionally substance use type: does not use rafael/confucianism: None seatbelt use: always do you feel safe at home: Yes Review of Systems (Anesthesia) ROS Narrative System reviewed and no additional complaints, except as documented. 01/24/25 1302 > Date _ Nemesio Buitrago MD Cosigner Signature: Date CC: ~ Signed [facility]03-05-2025 Consult note Author Ian Shelby [facility] Note Date/Time January 24, 2025 1:04 am [facility] Medical Records Department [address] [place] [address] Pharmacokinetic/Renal -Consult 01/24/25 0049 MR#: [id number] Acct: [id number] Name: CHRISTINE NERI Rep #:[id number] : 1990 34 From: Ian Shelby PCP: JULIANN Whitfield Status:ADM IN Y Location: [place] [address] Consult Antibiotic Management Pharmacy has been consulted [...] Date Destiney Lane MD CC: ~ Signed [facility] Work Phone: [phone]) 633-987803-05-2025 Discharge summary Author Ian Moctezuma [facility] Note Date/Time January 24, 2025 12:2 2am [facility] Medical Records Department [address] [place] [address] Emergency Department Summary 01/23/25 MR#: [id number] Acct: [id number] Name: CHRISTINE NERI Rep #:[id number] : 1990 34 From: Ian Lindsey PCP: JULIANN Whitfield Status:ADM IN Location: [place] [address] HPI History of Present Illness HPI Narrative: [...] arthritis. The patient states she saw her agricultural and forestry supervisor today who drained her knee. Chief Projectionist referred the patient to the emergency department because the synovial fluid looked infected. There was synovial fluid cell count of [id number] with 86% PMNs. There were no crystals noted. Synovial fluid was sent for Gram stain and culture. CBC was also drawn at the agricultural and forestry supervisor office which showed a mild leukocytosis of 12.4. Chief Complaint: Lower Extremity Injury Informant: patient Onset/Context/Timing Onset: Yesterday Context: Gradual Onset Timing: Continuous Quality of Pain: Sharp Location: Right knee Worsened by: Movement Relieved by: Prednisone Associated Symptoms Associated Symptoms: Negative for Parasthesia, Weakness or Loss of Funtion [facility] Medical History Dyspepsia H. pylori infection Anemia [...] cancer Grandfather Heart disease Diabetes Surgical History [place] teeth extracted Social History Smoking Status: Never smoker second hand exposure: No alcohol intake: current alcohol intake frequency: a few times a week details: occasionally substance use type: does not use rafael/confucianism: None seatbelt use: always do you feel [...] joint effusion. No acute fracture. Reading Location: [facility] X-rays of the left knee were obtained. There are 4 views. On my independent interpretation, there is no acute fracture. There is a mild effusion. Radiologist also interpreted the x-ray and agrees. Management Discussion w/another healthcare provider: Hospitalist and Cement Sprayer Helper Treatment and Re-Evaluation Narrative: Patient was started [...] Amira Tijerina NP Referrals: Amira Tijerina NP, AIR CONDITIONING MANAGER-C [Primary Care Provider] - Print Language: Omani Disposition Disposition: [facility] Care [facility] What to do if you have Problems For any increased pain, shortness of breath, bleeding, nausea or vomiting, chestpain, or any unexpected problems, contact your Primary Care Provider. Call [facility] ([phone]) or report to the closest Emergency Room. Call 911 if necessary. 01/24/252 <Electronically signed by Ian Moctezuma DO> Cosigner Signature (if applicable): CC: JULIANN Tijerina ~ Signed [facility] Work Phone: 1(601) 963-723503-05-2025 Consult note [facility] Medical Records Department [address] [place] [address] Pharmacokinetic/Renal -Consult 01/24/25 0049 MR#: [id number] Acct: [id number] Name: CHRISTINE NERI Rep #:[id number] : 1990 34 From: Ian Shelby PCP: JULIANN Whitfield Status:ADM IN Y Location: [place] [address] Consult Antibiotic Management Pharmacy has been consulted [...] ds> Date _ Ian Shelby 01/24/25 0104 mena MELARA> Cosigner Signature (if applicable): Date Destiney Lane MD CC: ~ Signed [facility]03-05-2025 Discharge summary [facility] Medical Records Department [address] [place] [address] Emergency Department Summary 01/23/25 MR#: [id number] Acct: [id number] Name: CHRISTINE NERI Rep #:[id number] : 1990 34 From: Ian Lindsey PCP: JULIANN Whitfield Status:ADM IN Location: MS3 [facility] HPI History of Present Illness HPI Narrative: [...] arthritis. The patient states she saw her agricultural and forestry supervisor today who drained her knee. Chief Projectionist referred the patient to the emergency department because the synovial fluid looked infected. There was synovial fluid cell count of [id number] with 86% PMNs. There were no crystals noted. Synovial fluid was sent for Gram stain and culture. CBC was also drawn at the agricultural and forestry supervisor office which showed a mild leukocytosis of [...] cancer Grandfather Heart disease Diabetes Surgical History [place] teeth extracted Social History Smoking Status: Never smoker second hand exposure: No alcohol intake: current alcohol intake frequency: a few times a week details: occasionally substance use type: does not use rafael/confucianism: None seatbelt use: always do you feel [...] suprapatellar joint effusion.No acute fracture. Reading [facility] X-[facility] of the left knee were obtained. There are 4 views. On my independent interpretation, there is no acute fracture. There is a mild effusion. Radiologist also interpreted the x-ray and agrees. Management Discussion w/another healthcare provider: Hospitalist and Cement Sprayer Helper Treatment and Re-Evaluation Narrative: Patient was started [...] Amira Tijerina NP Referrals: Amira Tijerina NP, AIR CONDITIONING MANAGER-C [Primary Care Provider] - Print Language: Omani Disposition Disposition: Acute Care Hospital [facility] What to do if you have Problems For any increased pain, shortness of breath, bleeding, nausea or vomiting, chestpain, or any unexpected problems, contact your Primary Care Provider. Call [facility] ([phone]) or report tothe closest Emergency Room. Call 911 if necessary. 01/24/25 0022 Cosigner Signature (if applicable): CC: AIR CONDITIONING MANAGER-C Amira Tijerina ~ Signed [facility]03-04-2025 Consult note Author Mckinley Romo [facility] Note Date/Time January 23, 2025 8:56 pm [facility] Medical Records Department [address] [place] [address] Consultation - Orthopedics 01/23/252043 MR#: [id number] Acct: [id number] Name: CHRISTINE NERI Rep #:[id number] : 1990 34 From: Mckinley em DO PCP: JULIANN Whitfield Status:REG ER Location: ED HPI Consult Data Date of Consult: 01/23/25 HPI Narrative HPI Narrative: CHRISTINE NERI, is a 34 F/history of rheumatoid arthritis, obesity who presented to [facility] after 1 day of right knee pain, bilateral shoulderdiscomfort and right elbow pain. She felt this was consistent with prior RA flares. She started prednisone without improvement in the other joints besides from the. She saw her agricultural and forestry supervisor today. Arthrocentesis was performed in the office and is concerning for infection. Emergency department physician, synovial fluid cell count of [id number] with 86% PMNs. No crystals. Synovial fluidwas [...] anesthetic complication. Denies DVT or PE history. [facility] Medical History Obesity Dyspepsia H. pylori [...] disease Diabetes Family History other Surgical History [place] teeth extracted Social History household members: other details: Lives with her sister. Smoking Status: Never smoker second hand exposure: No alcohol intake: current alcohol intake frequency: a few times a week details: occasionally substance use type: does not use rafael/confucianism: None seatbelt use: always do you feel [...] 75.1 H, Lymph % (Auto) 14.5 L, Wilbarger % (Auto) 9.6, Eos % (Auto) 0.0, [...] joint effusion. No acute fracture. Reading [facility] Assessment & Plan Assessment/Plan (1) Septic arthritis [...] Signature (if applicable): CC: JULIANN Tijerina~ Signed [facility] Work Phone: 1(535) 428-937203-04-2025 History and physical note Author Destiney Lane [facility] Note Date/Time January 23, 2025 8:07 pm [facility] Medical Records Department [address] [place] [address] H&P Exam - Hospitalist 01/23/25 193 MR#: [id number] Acct: [id number] Name: CHRISTINE NERI Rep #:[id number] : 1990 34 From: Destiney Lane MD [...] normocytic anemia, GERD who presents to the [facility] ED on 01/23/25 with history of onset right knee pain, bilateral shoulder discomfort and right elbow pain starting 24 hours prior which was consistent per her report to previous episodes of rheumatoid arthritis flare with initiation of a burst of prednisone with a total of 30 mg on current day of presentation and also evaluation by her agricultural and forestry supervisor who did perform a right knee arthrocentesis andthe fluid was sent for culture to be cautious following which she notes the painimproved however she had low-grade temperatures and fatigue and malaise eventually prompting referral to the ED given concerns per agricultural and forestry supervisor of infection. She did report significant knee swelling but was mildly improved following the arthrocentesis per the agricultural and forestry supervisor. She notes that it does still feel [...] knee would need to be washed out. [facility] Medical History Obesity Dyspepsia H. pylori [...] history or paternal medical history.) Surgical History [place] teeth extracted Social History (Updated 01/23/25 @ 20:[address] Destiney [address] MD) household members: other details: Lives with her sister. Smoking Status: Never smoker second hand exposure: No alcohol intake: current alcohol intake frequency: a few times a week details: occasionally substance use type: does not use rafael/confucianism: None seatbelt use: always do you feel [...] 75.1 H, Lymph % (Auto) 14.5 L, Wilbarger % (Auto) 9.6, Eos % (Auto) 0.0, [...] normocytic anemia, GERD who presents to the [facility] ED on 01/23/25 with history of onset right knee pain, bilateral shoulder discomfort and right elbow pain starting 24 hours prior which was consistent per her report to previous episodes of rheumatoid arthritis flare with initiation of a burst of prednisone with a total of 30 mg on current day of presentation and also evaluation by her agricultural and forestry supervisor who did perform a right knee arthrocentesis andthe fluid was sent for culture to be cautious following which she notes the painimproved however she had low-grade temperatures and fatigue and malaise eventually prompting referral to the ED given concerns per agricultural and forestry supervisor of infection. #1. Intractable right knee pain, [...] operative intervention. Charges/Coding Visit Charges Inpatient E&M: 00187 Init Hosp L3 01/23/252006 <Electronically signed by Destiney Lane MD> Cosigner Signature (if applicable): CC: JULIANN Tijerina; Dr. Destiney Lane MD~ Signed [facility] Work Phone: 1(184) 673-552203-04-2025 Evaluation note* Diagnosis Onset Date Resolution Status Admit Date Elevated blood pressure reading acut e January 23, 2025 7:32pm Septic arthritis of knee, right acut e January 23, 2025 7:32pm Rheumatoid arthritis chronic Jose h 2024 7:32pm [facility] Work Phone: 1(677) 714-442503-04-2025 Evaluation note* Diagnosis Onset Date Resolution Status Admit Date Elevated blood pressure reading acut e January 23, 2025 7:32pm Rheumatoid arthritis chronic Jose h 2024 7:32pm Septic arthritis of knee, right reso lved January 23, 2025 7:32pm [facility] Work Phone: 1(299) 530-998603-04-2025 Consult note [facility] Medical Records Department [address] [place] [address] Consultation - Orthopedics 01/23/252043 MR#: [id number] Acct: [id number] Name: CHRISTINE NERI Rep #:[id number] : 1990 34 From: Mckinley em DO PCP: JULIANN Whitfield Status:REG ER Location: ED HPI Consult Data Date of Consult: 01/23/25 HPI Narrative HPI Narrative: CHRISTINE NERI, is a 34 F/history of rheumatoid arthritis, obesity who presented to [facility] after 1 day of right knee pain, bilateral shoulderdiscomfort and right elbow pain. She felt this was consistent with prior RA flares. She started prednisone without improvement in the otherjoints besides from the. She saw her agricultural and forestry supervisor today. Arthrocentesis was performed in the office and is concerning for infection. Emergency department physician, synovial fluid cell count of [id number] with 86% PMNs. No crystals. Synovial fluidwas [...] anesthetic complication. Denies DVT or PE history. [facility] Medical History Obesity Dyspepsia H. pylori [...] disease Diabetes Family History other Surgical History [place] teeth extracted Social History household members: other details: Lives with her sister. Smoking Status: Never smoker second hand exposure: No alcohol intake: current alcohol intake frequency: a few times a week details: occasionally substance use type: does not use rafael/confucianism: None seatbelt use: always do you feel [...] 75.1 H, Lymph % (Auto) 14.5 L, Wilbarger % (Auto) 9.6, Eos % (Auto) 0.0, [...] suprapatellar joint effusion.No acute fracture. Reading [facility] Assessment & Plan Assessment/Plan (1) Septic arthritis [...] mIVF. 01/23/252055 Cosigner Signature (if applicable): CC: JULIANN Tijerina~ Signed [facility]03-04-2025 History and physical note [facility] Medical Records Department [address] [place] [address] H&P Exam - Hospitalist 01/23/251931 MR#: [id number] Acct: [id number] Name: CHRISTINE NERI Rep #:[id number] : 1990 34 From: Destiney Lane MD [...] normocytic anemia, GERD who presents to the [facility] ED on 01/23/25 with history of onset right knee pain, bilateral shoulder discomfortand right elbow pain starting 24 hours prior which was consistent per her report to previous episodes of rheumatoid arthritis flare with initiation of a burst of prednisone with a total of 30 mg on current day of presentation and also evaluation by her agricultural and forestry supervisor who did perform a right knee arthrocentesis andthe fluid was sent for culture to be cautious following which she notes the painimproved however she had low-grade temperatures and fatigue and malaise eventually prompting referral tothe ED given concerns per agricultural and forestry supervisor of infection. She did report significant knee swelling butwas mildly improved following the arthrocentesis per the agricultural and forestry supervisor. She notes that it does stil l [...] knee would need to be washed out. [facility] Medical History Obesity Dyspepsia H. pylori [...] history or paternal medical history.) Surgical History [place] teeth extracted Social History (Updated 01/23/25 @ 20:[address] Destiney [address] MD) household members: other details: Lives with her sister. Smoking Status: Never smoker second hand exposure: No alcohol intake: current alcohol intake frequency: a few times a week details: occasionally substance use type: does not use rafael/confucianism: None seatbelt use: always do you feel [...] 75.1 H, Lymph % (Auto) 14.5 L, Wilbarger % (Auto) 9.6, Eos % (Auto) 0.0, [...] suprapatellar joint effusion.No acute fracture. Reading [facility] Assessment & Plan Assessment/Plan (1) Septic arthritis of knee, right: PLAN: Plan The patient is a 34 y/o F w/ PMHx: Obesity, Rheumatoid arthritis diagnosed in 2020 treated with MTXhowever had associated thrombocytopenia this regimen altered, Chronic normocytic anemia, GERD who presents to the [facility] ED on 01/23/25 with history of onset right knee pain, bilateral shoulder discomfortand right elbow pain starting 24 hours prior which was consistent per her report to previous episodes of rheumatoid arthritis flare with initiation of a burst of prednisone with a total of 30 mg on current day of presentation and also evaluation by her agricultural and forestry supervisor who did perform a right knee arthrocentesis andthe fluid was sent for culture to be cautious following which she notes the painimproved however she had low-grade temperatures and fatigue and malaise eventually prompting referral tothe ED given concerns per agricultural and forestry supervisor of infection. #1. Intractable right knee pain, [...] operative intervention. Charges/Coding Visit Charges Inpatient E&M: 77288 Init Hosp L3 01/23/252006 Cosigner Signature (if applicable): CC: JULIANN Tijerina; Dr. Destiney Lane MD~ Signed [facility]03-04-2025 Radiology Diagnostic study note [facility] Imaging Services [address] [place] [address] [id number] Knee 4 or More Views MR#: [id number] Acct: [id number] Name: CHRISTINE NERI Rep #: [id number] : 1990 F 34 From: He Saba DO PCP: JULIANN Whitfield Status: PRE ER Study:Knee 4 or More Views Date of Exam: 01/23/25 Exam# [id number] Ordering Dr: Ian Moctezuma DO PROCEDURE: KNEE [...] suprapatellar joint effusion.No acute fracture. Reading Location: [facility] CC: JULIANN Tijerina; Dr. Ian Moctezuma, DO ~ Metallurgical Inspector: Signed [facility]10-23-2023 Telephone encounter Note* Telephone Encounter - Kath Yen LPN - 09/13/2023 1:22 PM EDT Letter printed and mailed. [id number] Miscellaneous Notes* Telephone Encounter - Kath Yen LPN - 09/13/2023 1:22 PM EDT Letter printed and mailed. * Telephone Encounter - Deb Rueda MD - 09/13/2023 12:49 PM EDT Please mail my letter to the patient's home address please documented in this [facility] HospitalPggnmk03-38-4523 Telephone encounter Note* Telephone Encounter - Deb Rueda MD - 09/13/2023 12:49 PM EDT Please mail my letter to the patient's home address please [id number] Telephone encounter Note* Telephone Encounter - Dulce Maria Sharif MA - 06/30/2023 9:37 AM EDT Christine called back. She is now seeing KATY Tijerina @ [facility] in [place], [place]. [facility] [id number] Miscellaneous Notes* Telephone Encounter - Dulce Maria Sharif MA - 06/30/2023 9:37 AM EDT Christine called back. She is now seeing AIR CONDITIONING MANAGER Amira Tijerina @ [facility] in [place], [place]. * Telephone Encounter - Dulce Maria Sharif MA - 06/30/2023 9:01 AM EDT Left a msg for Christine notifying her we have Hiwot Paz AIR CONDITIONING MANAGER listed for her PCP. Dr. Rueda wanted to send her a letter, but Hiwot no longer resides in [place] she is now in [place]. I left Christine a msgasking her to call our office to let me know who her new PCP is so we can send the letter to them. documented in this [facility]SBl[facility] HospitalRonjme03-77-8144 Telephone encounter Note* Telephone Encounter - Dulce Maria Sharif MA - 06/30/2023 9:01 AM EDT Left a msg for Christine notifying her we have Hiwot Paz AIR CONDITIONING MANAGER listed for her PCP. Dr. Rueda wanted to send her a letter, but Hiwot no longer resides in [place] she is now in [place]. I left Christine a msgasking her to call our office to let me know who her new PCP is so we can send the letter to them. [facility] [id number] Telephone encounter Note* Telephone Encounter - Laura Amato RN - 06/23/2023 8:11 AM EDT Mailed this am [facility] [id number] Miscellaneous Notes* Telephone Encounter - Laura Amato RN - 06/23/2023 8:11 AM EDT Mailed this am * Telephone Encounter - Deb Rueda MD - 06/23/2023 7:40 AM EDT Please send lab slips for her 2 liver function tests (they are dated differently) to her home as she will get labs at outside hospital. Thanks! documented in this encounterSBl[facility] Bluff[facility] HospitalAtmwou06-20-1762 Telephone encounter Note* Telephone Encounter - Deb Rueda MD - 06/23/2023 7:40 AM EDT Please send lab slips for her 2 liver function tests (they are dated differently) to her home as she will get labs at outside hospital. Thanks! [facility] [id number] History of Present illness Narrative* Deb Rueda MD - 06/21/2023 8:30 AM EDT Images from the original note were not included. [facility] Infectious Diseases Attending Outpatient [...] as well as Mobic. 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 She lives with her sister who is a rose grader and neither of them have had any prolonged respiratory illnesseswith associated night sweats weight loss that is unexpected or bloody sputum. In fact the patient states that she gets occasional head colds but has never had a pneumonia or serious bronchial infection. The patient has not traveled outside [facility] been just to surrounding states including [place]. 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 However was [place], [place] has an very low incidence of [...] Rueda MD, MD, FACP documented in this [facility]07-31-2023 History of Present illness Narrative* Deb Rueda MD - 06/21/2023 8:30 AM EDT Images from the original note were not included. [facility] Infectious Diseases Attending Outpatient Consult Note Reason [...] as well as Mobic. 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 She lives with her sister who is a rose grader and neither of them have had any prolonged respiratory illnesseswith associated night sweats weight loss that is unexpected or bloody sputum. In fact the patient states that she gets occasional head colds but has never had a pneumonia or serious bronchial infection. The patient has not traveled outside [facility] been just to surrounding states including [place]. 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 However [place], [place] has an very low incidence of [...] Rueda MD, MD, FACP documented in this [facility]07-31-2023 Instructions* Patient Instructions* Deb Rueda MD - 06/21/2023 8:30 AM EDT Will repeat Quantiferon test one last time due to declining numbers on last test and the fact that you have no know risk factors Will call you with results. documented in this [place] [address]-31-2023 Instructions* Patient Instructions* Deb Rueda MD - 06/21/2023 8:30 AM EDT Will repeat Quantiferon test one last time due to declining numbers on last test and the fact that you have no know risk factors Will call you with results. documented in this [address]31-2023 Miscellaneous Notes* Addendum Note - Deb Rueda MD - 06/21/2023 8:30 AM EDTAddended by: DEB COOMBS on: 06/23/2023 07:40 AM Modules accepted: Orders documented in this [place] [address]-31-2023 Note* Addendum Note - Deb Rueda MD - 06/21/2023 8:30 AM EDTAddended by: DEB COOMBS on: 06/23/2023 07:40 AM Modules accepted: Orders [place] [id number] Note* Addendum Note - Deb Rueda MD - 06/21/2023 8:30 AM EDTAddended by: DEB COOMBS on: 06/23/2023 07:40 AM Modules accepted: Orders [place] [id number] Note* Addendum Note - Deb Rueda MD - 06/21/2023 8:30 AM EDTAddended by: DEB COOMBS on: 06/23/2023 07:40 AM Modules accepted: Orders [facility] [id number] NoteHNO ID: [id number] Author: Ferny Rowan APRN.[facility] Service: ? Author Type: Nurse Practitioner Type: [...] of care. This note was generated using [employer] software. It may contain errors in wording, punctuation, or spelling. Ferny Rowan APRN.[facility] summary Author Christine Reveles [facility] Note Date/Time January 26, 2025 1:41 pm [facility] Medical Records Department [address] [place] [address] Discharge Summary 01/26/25 1332 MR#: [id number] Acct: [id number] Name: CHRISTINE NERI Rep #:[id number] : 1990 34 From: Christine Reveles MD PCP: JULIANN Whitfield Status:ADM IN Location: [facility] AB357-0 Providers Date of Admission: 01/23/25 Date of Discharge: 01/26/25 Primary Care Physician: Amira Tijerina, AIR CONDITIONING MANAGERAlfonzoC Consultations 01/23/25 22:21 Consult: Infectious Disease Routine [...] Referrals / Follow Up: Amira Tijerina NP, AIR CONDITIONING MANAGER-C [Primary Care Provider] - Disposition Disposition (needs filled in before D/C Order can be placed): Home, Self Care 01/26/25 1341 <Electronically signed by Christine Reveles MD> Cosigner Signature (if applicable): CC: JULIANN Tijerina; Dr. 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 At risk for infection due to immunosuppression Rheumatoid arteritis (CMS/HCC) (HCC) Other specified disorders of arteries and arterioles documented in this encounter [facility] note* 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 At risk for infection due to immunosuppression Rheumatoid arteritis (CMS/HCC) (HCC) Other specified disorders of arteries and arterioles Encounter for medication monitoring Encounter for therapeutic drug monitoring documented in this encounter [facility]* Diagnosis 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 documented [facility] this [facility] No data available for this section [facility] Progress note No data available for this section [facility] Reason for referral (narrative)No reason for referral information availableWMemorial Health [facility] Work Phone: Summary Purpose Family History No Family History Records Found Relationship Condition Age at Onset Recorded Date/T sinai grandmother Cardiac disease Unknown mother Malignant neoplasm of lung Unknown grandfather Cardiac disease Unknown Diabetes mellitus Unknown Advance Directives No Advanced Directives Records FoundDocuments on File Type Date Recorded Patient Arc Cutter Plasma Arc Expl anation Advance Directives and Livin g Will 06/01/2023 4:02 PM Power of Commission Associate 06/01/2023 4:02 PM Advance Directive Response Recorded Date/ Time Living Will No January 24, 2025 4:25pm Power of Commission Associate No January 24 4:25pm Advance Directive Response Recorded Date/ Time Living Will No January 24, 2025 5:25pm Do you have a Healthcare Power of Commission Associate? No January 24, 2025 5:25pm Chief Complaint [...] section and content) DATE CREATED AUTHOR 12/26/2021 [facility] DATE CREATED AUTHOR AUTHOR'S ORGANIZ ATION 09/14/2023 [facility] DATE CREATED AUTHOR AUTHOR'S ORGANIZ ATION 09/17/2024 [facility] [facility] DATE CREATED AUTHOR AUTHOR'S ORGANIZ ATION 06/16/2025 [facility] Care Teams (unrecognized sec tion and content) Team Status: Active Member Role Status Dates Hiwot Paz AIR CONDITIONING MANAGER, AIR CONDITIONING MANAGER-C Primary Care Provider Active Team Status: Inactive Member Role Status Dates Hiwot Paz AIR CONDITIONING MANAGER, AIR CONDITIONING MANAGER-C Primary Care Provider Active NIRMAL RAMOS MD Attending Provider, Referring Pro vider Active Sound Engineer Relationship Specialty Start Date End Date Hiwot Paz [address] PCP - General Nurse Practitioner 05/26/23 Sound Engineer Relationship Specialty Start Date End Date Hiwot Paz [address] PCP - General Nurse Practitioner 05/26/23 Sound Engineer Relationship Specialty Start Date End Date Hiwot Paz [address] PCP - General Nurse Practitioner 05/26/23 Team Status: Active Member Role Status Dates Amira Tijerina AIR CONDITIONING MANAGER, AIR CONDITIONING MANAGER-C Primary Care Provider Active Team Status: Inactive Member Role Status Dates Amira Tijerina AIR CONDITIONING MANAGER, AIR CONDITIONING MANAGER-C Primary Care Provider, Attendin g Provider Active Sound Engineer Relationship Specialty Start Date End Date Amira Tijerina [address] [place] [id number] PCP - General Family Medicine 06/30/23 Sound Engineer Relationship Specialty Start Date End Date Hiwot Paz [address] PCP - General Nurse Practitioner 05/26/23 06/29/23 Amira Tijerina [address] [place] [phone] PCP - General Family Medicine 06/30/23 Sound Engineer Relationship Specialty Start Date End Date Hiwot Paz [address] PCP - General Nurse Practitioner 05/26/23 06/29/23 Team Status: Inactive Member Role Status Dates Amira Tijerina AIR CONDITIONING MANAGER, AIR CONDITIONING MANAGER-C Primary Care Provider Active Dr. Deb MORELOS MD Attending Provider, Referring Provider Active Sound Engineer Relationship Specialty Start Date End Date Hiwot Paz [address] PCP - General Nurse Practitioner 05/26/23 06/29/23 Amira Tijerina [address] [place] [phone] PCP - General Family Medicine 06/30/23 Sound Engineer Relationship Specialty Start Date End Date Amira Tijerina [address] [place] [phone] PCP - General Family Medicine 06/30/23 Team Status: Inactive Member Role Status Dates Amira Tijerina AIR CONDITIONING MANAGER, AIR CONDITIONING MANAGER-C Primary Care Provider Active Start: December 26, 2024 End: December 26, 2024 DORINA SCHMIDT Attending Provider Active Start : December 26, 2024 End: December 26, 2024 DORINA SCHMIDT Referring Provider Active Start : December 26, 2024 End: December 26, 2024 Team Status: Inactive Member Role Status Dates Amira Tijerina NP, AIR CONDITIONING MANAGER-C Primary Care Provider Active Start: January [...] Member Role Status Dates Amira Tijerina NP, AIR CONDITIONING MANAGER-C Primary Care Provider Active Start: January [...] Member Role Status Dates Amira Tijerina NP, AIR CONDITIONING MANAGER-C Primary Care Provider Active Start: January [...] Member Role Status Dates Amira Tijerina NP, AIR CONDITIONING MANAGER-C Primary Care Provider Active Start: January [...] Member Role Status Dates Amira Tijerina NP, AIR CONDITIONING MANAGER-C Primary Care Provider Active Start: January 26, 2025 Dr. Ian Varma MD Attending Provider Active S tart: January 26, 2025 Dr. Christine Reveles MD Referring Provider Active Start: January 26, 2025 Team Status: Inactive Member Role Status Dates Amira Tijerina AIR CONDITIONING MANAGER, AIR CONDITIONING MANAGER-C Primary Care Provider Active Start: May 03, 2025 End: May 03, 2025 DORINA SCHMIDT CNP Attending Provider Active S tart: May 03, 2025 End: May 03, 2025 DORINA SCHMIDT CNP Referring Provider Active S tart: May 03, 2025 End: May 03, 2025 Team Status: Active Member Role/Relationship Status Dates Amira Tijerina AIR CONDITIONING MANAGER, AIR CONDITIONING MANAGER-C Primary Care Provider Active Team Status: Inactive Member Role/Relationship Status Dates Amira Tijerina AIR CONDITIONING MANAGER, AIR CONDITIONING MANAGER-C Primary Care Provider Active Start: January [...] January 26, 2025 Team Status: Active Member Role/Relationship Status Dates Amira Tijerina NP, AIR CONDITIONING MANAGER-C Primary Care Provider Active Start: January [...] January 24, 2025 Team Status: Active Member Role/Relationship Status Dates Amira Tijerina NP, AIR CONDITIONING MANAGER-C Primary Care Provider Active Start: January [...] January 25, 2025 Team Status: Active Member Role/Relationship Status Dates Amira Tijerina NP, AIR CONDITIONING MANAGER-C Primary Care Provider Active Start: January 26, 2025 Dr. Ian Varma MD Attending Provider Active S tart: January 26, 2025 Dr. Christine Reveles MD Referring Provider Active Start: January 26, 2025 Team Status: Active Member Role/Relationship Status Dates Amira Tijerina NP, AIR CONDITIONING MANAGER-C Primary Care Provider Active Start: January [...] January 26, 2025 Team Status: Inactive Member Role/Relationship Status Dates Amira Tijerina NP, AIR CONDITIONING MANAGER-C Primary Care Provider Active Start: May 03, 2025 End: May 03, 2025 DORINA SCHMIDT CNP Attending Provider Active S tart: May 03, 2025 End: May 03, 2025 DORINA SCHMIDT CNP Referring Provider Active S tart: May 03, 2025 End: May 03, 2025 Team Status: Inactive Member Role/Relationship Status Dates Amira Tijerina NP, AIR CONDITIONING MANAGER-C Primary Care Provider Active Start: May 17, 2025 End: May 17, 2025 DORINA SCHMIDT Attending Provider Active Start : May 17, 2025 End: May 17, 2025 DORINA SCHMIDT Referring Provider Active Start : May 17, 2025 End: May 17, 2025 Goals (unrecognized section and content) Goals [...] has been paused pending ID eval/recommendations Procedures [place] OFFICE/OUTPATIENT NEW MODERATE MDM 45-59 MINUTES Nirmal Ramos MD [address] [place] [address] [facility] [address] [place] [address] Referral ID Status Reason Start Date Expiration Date Visits Re quested Visits Authorized [id number] Closed 05/26/2023 05/25/2024 1 1 FOR RECORDS [...] BE BASED ON THE PRIMARY CLINICAL RECORDS. [email or web address] provides no warranty or guarantee of the accuracy or completeness of information in this document.
[2025-06-26 09:31] LABS: Hematocrit 40.3 % (37-47); Hemoglobin 13.4 g/dL (12.0-15.0); Immature Granulocytes Count 0.020 X10^3/uL (0.0-0.0); Mean Corp Hgb Conc 33.3 g/dL (32-36); Mean Corpuscular Volume 90.4 fL (81-99); Mean Platelet Vol. 12.3 fl (6.2-12.0); NRBC Flagged by Analyzer 0 % (0-5); Platelet Count 120 K/mm3 (150-450); RBC Distribution Width CV 14.9 % (11.6-14.6); RBC Distribution Width SD 48.9 fl (35.1-43.9); Red Blood Count 4.46 M/mm3 (4.2-5.4); White Blood Count 5.8 K/mm3 (4.4-11.0)
[2025-06-26 10:12] LABS: Albumin, Serum 4.3 g/dL (3.5-5.0); Anion Gap 12 (5-15); BUN 18 mg/dL (4-19); BUN/Creat Ratio 27.4 RATIO (10-20); Calcium,Total 9.0 mg/dL (7.6-11.0); Carbon Dioxide 19.8 mmol/L (21.0-32.0); Chloride 105 mmol/L (98-108); Glucose 146 mg/dL (70-99); Potassium 4.0 mmol/L (3.3-5.1)
== END | disposition home or self-care (01) ==
LOC: PSN 07:33
PROVIDERS: PCP Nurse Practitioner Family; Referring Provider Specialist; Visit Provider Specialist
DX: Z01.810 Encounter for preprocedural cardiovascular examination (principal); Z01.818 Encounter for other preprocedural examination
CPT/HCPCS: 36415; 80048; 82040; 85025; 93005